=== PATIENT | female | born 1945 | race Caucasian/White ===

== ENCOUNTER → 2017-05-02 15:16 | Outpatient (CLI) | payer MEDICARE, SELFPAY | PROVIDERS: Visit Provider Obstetrics & Gynecology | DX: Z12.4 Encounter for screening for malignant neoplasm of cervix (principal) | CPT/HCPCS: 88175; G0145 ==

== ENCOUNTER → 2017-08-11 16:44 | Outpatient (CLI) | payer MEDICARE, SELFPAY ==
--- NOTE | 2017-08-11 14:15 | CYSPIN_PTH ---
PATIENT: BARBI HERNANDEZ LOC: [facility] U#:[id number] AGE/SX: 79/F ROOM: RE08/11/[address]: JENNIE Carrizales : 1945 BED: DIS: SPEC #: [id number] RECD: 08/12/17 08:38 STATUS: ANANTH JANEL #: [id number] STACY: 08/11/17 14:[address]: Alisha Rios NP DEPT: CYTOLOGY RECD BY: Damian Patrick Tissues: Urine Procedures: Pap Stain (control) Special Stain Group II Cytospin Fluid HEADER OPERATION: Not noted PRE-OP DIAGNOSIS: Hematuria TISSUE SUBMITTED: Urine for cytology DIAGNOSIS CYTOLOGY Urine for cytology (cytospin): Atypical urothelial cells present. AM:be 08/15/17 COMMENT The findings are nonspecific and could represent a variety of conditions including infection, urolithiasis, instrumentation and low grade urothelial neoplasm. Clinical correlation is necessary. Case has been reviewed in consultation with Dr. Olivas who concurs with the above diagnosis. IDC:[facility] CYTOLOGY STUDY Slides are reviewed. CYTOLOGY GROSS Received is 15 ml of clear yellow fluid labeled with the patient's name and and designated per the requisition as urine. Submitted for cytology preparation. 08/12/17 TC:? CPT: 87167
[2017-08-11 16:49] LABS: Cytology, Body Fluid / CSF SEE PATHOLOGY REPORT
== END ==
PROVIDERS: Visit Provider Nurse Practitioner Adult Health
DX: R31.9 Hematuria, unspecified (principal)
CPT/HCPCS: 88108; 88313

== ENCOUNTER → 2017-08-25 07:07 | Outpatient (CLI) | payer MEDICARE, SELFPAY ==
--- NOTE | 2017-08-25 07:09 | CT_ITS ---
STUDY: CT ABDOMEN AND PELVIS WITHOUT CONTRAST REASON FOR EXAM: Female, 71 years old. Right renal mass. History of MARIANNA/BSO, cholecystectomy and aortic valve replacement. RADIATION DOSAGE (If Supplied By Facility): CTDIvol = ( 23.37 ) mGy, DLP = ( 1202.66 ) mGycm TECHNIQUE: Transaxial images were obtained from the dome of the diaphragm to the symphysis pubis without oral contrast, and without intravenous contrast. Sagittal and coronal images were reconstructed. Individualized dose optimization techniques were used for this CT. COMPARISON: None. FINDINGS: The visualized lung bases are unremarkable. Calcified granulomata of the liver. There are surgical clips in the gallbladder fossa consistent with a prior cholecystectomy. There are multiple benign calcified granulomata of the spleen. There is diffuse atrophy of the pancreas. Normal bilateral adrenal glands. 1.6 cm mass of the anterior midpole of the right kidney lower in density than unenhanced renal parenchyma with wall calcification suggested. Otherwise normal right kidney. Chronic hydronephrosis of the left kidney with a staghorn calculus filling the renal pelvis measuring 1.7 x 2.0 x 2.5 cm. There are additional 2 and 3 mm nonobstructing stones in the lower pole. The remainder of the ureter is nondistended with no additional ureteral stones. Normal visualized stomach. Normal small intestine. Minimal diverticulosis of the colon without evidence of acute diverticulitis. The appendix is visualized and appears normal. Minimal calcified plaque of the aorta. Normal inferior vena cava. Normal retroperitoneum. Nondistended urinary bladder There is absence of the uterus consistent with a prior hysterectomy. 5.4 x 2.9 x 3.1 cm fatty umbilical hernia. There are diffuse degenerative changes of the visualized lumbar spine. CT/Abdomen/Pelvis without Cont IMPRESSION: 1.6 cm mass of the anterior midpole of the right kidney lower in density than unenhanced renal parenchyma with wall calcifications suggested. Comparison to any prior films for growth is recommended. Ultrasound characteristics and contrast CT exam may be helpful to further characterize the lesion if not already available. 1.7 x 2.0 x 2.5 cm staghorn calculus fills the left renal pelvis with chronic advanced hydronephrosis of the left kidney. Negative for other ureteral stones. 2 and 3 mm nonobstructing stones in the lower pole of the left kidney. Minimal diverticulosis. Minimal aortic calcification. 5.4 x 2.9 x 3.1 cm fatty umbilical hernia. Status post hysterectomy. Status post cholecystectomy. Calcified granuloma the liver and spleen. Atrophy of the pancreas. Electronically Signed: Anju Koenig MD at 19:47 EDT , Service support ,
== END ==
PROVIDERS: Family Provider Internal Medicine; PCP Internal Medicine; Visit Provider Nurse Practitioner Adult Health
DX: R31.1 Benign essential microscopic hematuria (principal)
CPT/HCPCS: 74176

== ENCOUNTER 2017-09-01 11:49 | Day surgery (SDC) | payer MEDICARE, SELFPAY ==
[2017-09-01] VITALS (8 sets, daily range): BP systolic 122–160; BP diastolic 54–91; PULSE 48–74; RESP 16–18; TEMP 35.9–36.5; O2SAT 94–100; BMI 45.6
[2017-09-01] MEDS: Cefazolin 2 GM in 0.9% Normal Saline 100 ML IV (13:17)
--- NOTE | 2017-09-01 13:43 | PCM.DC.URO ---
Discharge Diet: Light diet - advance as tolerated Discharge Activity: Return to Normal Activity Allergies/Adverse Reactions: Allergies bisacodyl [From Dulcolax (bisacodyl)] Allergy (Verified 08/31/17 08:29) Rash sulfamethoxazole [From Bactrim] Allergy (Verified 08/31/17 08:29) Hives trimethoprim [From Bactrim] Allergy (Verified 08/31/17 08:29) Hives SURGICAL TAPE Allergy (Uncoded 08/31/17 08:29) Rash Medications to take at Discharge Calcium Carb/Vitamin D [Caltrate-600 With Vit D Tab] 1 tab PO DAILY@0800 02/25/14 Lutein 6 mg PO DAILY 02/25/14 Multivit-Min/Folic Acid/Biotin [Hair, Skin and Nails Caplet] 1 each PO DAILY 02/25/14 Ascorbic Acid [Vitamin C] 500 mg PO DAILY 08/31/17 Aspirin [Aspir-Low] 81 mg PO DAILY 08/31/17 Atorvastatin Calcium [Lipitor] 20 mg PO QHS 08/31/17 Ergocalciferol [Vitamin D] 50,000 unit PO Q7D 08/31/17 Ferrous Sulfate [Iron] 325 mg PO DAILY 08/31/17 Levothyroxine Sodium [Synthroid] 112 mcg PO DAILY 08/31/17 Metoprolol Tartrate [Lopressor (Beta Edin)] 12.5 mg PO BID 08/31/17 Ubidecarenone/Vit E Acetate [Co Q-10 100 mg Softgel] 1 each PO QHS 08/31/17 Phenazopyridine [Pyridium] 100 mg PO BID PRN PRN #20 tab 09/01/17 The following prescriptions were given: Phenazopyridine [Pyridium] 100 mg PO BID PRN PRN #20 tab PRN Reason: BURNING. Primary Care Physician: Indira Eason [Primary Care Provider] - Test Results: Test results from this visit will be discussed in further detail at your follow-up appointment, if applicable. Please Follow Up With: Kevyn Whitley MD When: OFFICE WILL CALL TO SET UP SURGERY FOR STONE
--- NOTE | 2017-09-01 13:46 | OP.PCM_ITS ---
Report of Operation Date of Procedure: 09/01/17 Pre-Operative Diagnosis: Left hydronephrosis from large obstructing calculi Post-Operative Diagnosis: Same Surgery/Procedure Performed:: Cystoscopy left retrograde pyelogram left stent placement Description of Surgical Findings:: 71-year-old female was found to have hydronephrosis on the left kidney by ultrasound CAT scan performed which demonstrated a large stone blocking the left kidney with severe hydronephrosis. She has a large stone and will need percutaneous removal of the stone for now we will place a stent to alleviate the obstruction and then plan for interval removal of the stone in the near future. 71-year-old female taken back to the operating room at the smooth induction of general anesthesia she was placed supine on the table the legs in dorsal lithotomy position the urethra and vaginal area were prepped and draped in usual sterile fashion, went into the bladder with a 21 Kiswahili rigid cystourethroscope the entire bladder was normal the trigone was normal as the urethra is normal I cannulated the left ureteral orifice with a Pollack catheter advanced up to the kidney performed a retrograde pyelogram, and see the stone in the UPJ fairly large 3 cm stone with obstruction. I then advanced a wire up to the left kidney over the wire place a stent stent coiled in the kidney and bladder good position drain the bladder patient's anesthetic was reversed taken back to PACU in good condition plan to set her up for left percutaneous access and percutaneous removal of a left staghorn calculus. Type of Anesthesia:: General Drains: STENT - Admit VTE Documentation VTE Present on Admission: No VTE Mechan Device Prophylaxis: SCD's VTE Pharm Prophylaxis ordered?: No Reason prophylaxis not ordered:: Treatment Not Indicated
== END 2017-09-01 16:27 | disposition home or self-care (01) ==
LOC: SDC 11:49 → AC 11:53
PROVIDERS: Family Provider Internal Medicine; PCP Internal Medicine; Visit Provider Urology
PROC: (CPT 52332; principal; 2017-09-01 14:10)
DX: N13.2 Hydronephrosis with renal and ureteral calculous obstruction (principal); E03.9 Hypothyroidism, unspecified; I10 Essential (primary) hypertension; Z95.2 Presence of prosthetic heart valve; I25.10 Atherosclerotic heart disease of native coronary artery without angina pectoris; Z95.1 Presence of aortocoronary bypass graft; Z85.828 Personal history of other malignant neoplasm of skin; Z85.89 Personal history of malignant neoplasm of other organs and systems; Z79.899 Other long term (current) drug therapy; Z79.82 Long term (current) use of aspirin; E78.2 Mixed hyperlipidemia; E66.01 Morbid (severe) obesity due to excess calories; Z68.42 Body mass index [BMI] 45.0-49.9, adult
CPT/HCPCS: 00910; 52332; 76000; J7120; C1769; C2617; J2405

== ENCOUNTER 2017-09-21 08:12 | Day surgery (SDC) | payer MEDICARE, SELFPAY ==
[2017-09-21] VITALS (10 sets, daily range): BP systolic 151–165; BP diastolic 58–90; PULSE 46–74; RESP 16–18; TEMP 35.7–36.2; O2SAT 95–100; BMI 47.2
--- NOTE | 2017-09-21 08:00 | RAD_ITS ---
STUDY: X-RAY - ABDOMEN/PELVIS REASON FOR EXAM: Female, 71 years old. Left ureteral stent. Pre-ESWL. TECHNIQUE: Two AP supine views of the abdomen and pelvis. COMPARISON: Comparison is made with prior CT scan and abdomen dated August 25, 2017. FINDINGS: Normal visualized lung bases. There is an unremarkable bowel gas pattern. A left-sided double-J stent catheter seen. The proximal portion is in the left renal pelvis and the distal portion is in the left side of the bladder. No renal or ureteral calcification is seen at this time. Normal soft tissue structures. There are diffuse degenerative changes of the visualized lumbar spine. RAD/Abdomen Single View IMPRESSION: No abnormal renal or ureteral calcification is seen. Left sided ureteral stent. Electronically Signed: Kevin Jack MD at 8:32 EDT Tel [phone], Service support ,
[2017-09-21] MEDS: Cefazolin 2 GM in 0.9% Normal Saline 100 ML IV (09:35)
--- NOTE | 2017-09-21 10:43 | PCM.DC.URO ---
Discharge Diet: Light diet - advance as tolerated Discharge Activity: Return to Normal Activity Instructions: Shock Wave Lithotripsy Allergies/Adverse Reactions: Allergies bisacodyl [From Dulcolax (bisacodyl)] Allergy (Verified 09/21/17 08:54) Rash sulfamethoxazole [From Bactrim] Allergy (Verified 09/21/17 08:54) Hives trimethoprim [From Bactrim] Allergy (Verified 09/21/17 08:54) Hives SURGICAL TAPE Allergy (Uncoded 09/21/17 08:54) Rash Medications to take at Discharge Calcium Carb/Vitamin D [Caltrate-600 With Vit D Tab] 1 tab PO DAILY@0800 02/25/14 Lutein 6 mg PO DAILY 02/25/14 Multivit-Min/Folic Acid/Biotin [Hair, Skin and Nails Caplet] 1 each PO DAILY 02/25/14 Ascorbic Acid [Vitamin C] 500 mg PO DAILY 08/31/17 Atorvastatin Calcium [Lipitor] 20 mg PO QHS 08/31/17 Ergocalciferol [Vitamin D] 50,000 unit PO Q7D 08/31/17 Ferrous Sulfate [Iron] 325 mg PO DAILY 08/31/17 Levothyroxine Sodium [Synthroid] 112 mcg PO DAILY 08/31/17 Metoprolol Tartrate [Lopressor (beta johann)] 12.5 mg PO BID 08/31/17 Ubidecarenone/Vit E Acetate [Co Q-10 100 mg Softgel] 1 each PO QHS 08/31/17 Ciprofloxacin [Cipro] 500 mg PO BID #10 tab 09/21/17 Hydrocodone/Acetaminophen [[place] 5-325 Tablet] 1 ea PO Q4H PRN PRN 7 Days #14 tab 09/21/17 The following prescriptions were given: Hydrocodone/Acetaminophen [[place] 5-325 Tablet] 1 ea PO Q4H PRN PRN 7 Days #14 tab PRN Reason: Pain Ciprofloxacin [Cipro] 500 mg PO BID #10 tab Primary Care Physician: Indira Eason [Primary Care Provider] - Test Results: Test results from this visit will be discussed in further detail at your follow-up appointment, if applicable. Please Follow Up With: Kevyn Whitley MD When: next week with xray
--- NOTE | 2017-09-21 10:47 | OP.PCM_ITS ---
Report of Operation Date of Procedure: 09/21/17 Pre-Operative Diagnosis: Large left kidney stone Post-Operative Diagnosis: Same Surgery/Procedure Performed:: Cystoscopy and left stent change, and left ESWL, left retrograde pyelogram. Description of Surgical Findings:: 71-year-old female who has elected to proceed with shockwave lithotripsy for her very large stone in the left kidney she understands this may require multiple treatments and was agreeable with this she does not want to have a percutaneous approach to her kidney because of the risk of bleeding and loss of kidney fistula formation and other complications that could occur even though the rare patient refused to do this so we will proceed with shockwave lithotripsy she understands this may require multiple procedures. 71-year-old female taken back to the operating room after smooth induction of general anesthesia she was placed supine on the table on fluoroscopy we noticed that the stone was in the renal pelvis fairly large stone and the stent was not in the most proper position. We first started with shockwave lithotripsy and delivered 3000 shockwaves at the stone at a rate of 90 with good change of the stone but stone was still visible at the end of treatment she will need more treatments. Power is up to 5-6. At the end of the treatment cycle we then went in the bladder with a cystoscope grabbed the existing stent but a wire of the stent and then try to advance the stent up the wire but it would coil so then I pulled the stent out we did a retrograde pyelogram could see the anatomy there is some narrowing at the UPJ junction I then put a stiffer wire up into the kidney and over the stiffer wire advanced a 6 Amharic by 28 cm stent this stent fortunately coiled in the kidney right next to the stone and down the ureter in good position left the string of the stent for extraction later on but this point should quite need another treatment will see her next week with a KUB to see the progress of the stone breakage. Type of Anesthesia:: General Drains: stent 28cm 6 fr - Admit VTE Documentation VTE Present on Admission: No VTE Mechan Device Prophylaxis: SCD's VTE Pharm Prophylaxis ordered?: No Reason prophylaxis not ordered:: Treatment Not Indicated
[2017-09-21] MEDS: HYDROcodone Bitartrate/Apap 5/325 Tablet PO (13:02)
== END 2017-09-21 14:30 | disposition home or self-care (01) ==
LOC: SDC 08:13 → AC 08:14
PROVIDERS: Family Provider Internal Medicine; PCP Internal Medicine; Visit Provider Urology
PROC: (CPT 50590; principal; 2017-09-21 09:40)
DX: N20.0 Calculus of kidney (principal); I51.9 Heart disease, unspecified; I15.8 Other secondary hypertension; E78.2 Mixed hyperlipidemia; Z79.82 Long term (current) use of aspirin; Z79.899 Other long term (current) drug therapy; Z85.828 Personal history of other malignant neoplasm of skin; Z85.44 Personal history of malignant neoplasm of other female genital organs; Z95.1 Presence of aortocoronary bypass graft; Z95.2 Presence of prosthetic heart valve; E07.9 Disorder of thyroid, unspecified
CPT/HCPCS: 50590; 52332; 74018; J7120; A4216; C1769; J2405

== ENCOUNTER → 2017-09-29 08:23 | Outpatient (CLI) | payer MEDICARE, SELFPAY ==
--- NOTE | 2017-09-29 08:28 | RAD_ITS ---
STUDY: X-RAY - ABDOMEN/PELVIS REASON FOR EXAM: Female, 71 years old. Lithotripsy on the left TECHNIQUE: 2 views COMPARISON: September 22, 2007 FINDINGS: There is an unremarkable bowel gas pattern. There is no demonstrated free abdominal air. There is a left ureteral stent in place which has be repositioned with the proximal loop at the left renal shadow. No suspicious calcifications over the renal shadows. Surgical clips in the right upper quadrant. Normal soft tissue structures. Normal visualized osseous structures. RAD/Abdomen Single View IMPRESSION: Left ureteral stent in place. Electronically Signed: Geoff Velazquez DO at 22:06 EDT Tel [phone], Service support ,
== END ==
PROVIDERS: Family Provider Internal Medicine; PCP Internal Medicine; Visit Provider Urology
DX: N20.0 Calculus of kidney (principal)
CPT/HCPCS: 74018

== ENCOUNTER 2017-10-05 11:56 | Day surgery (SDC) | payer MEDICARE, SELFPAY ==
[2017-10-05 12:22] VITALS: BP 134/89; PULSE 81; RESP 16; TEMP 36.8; O2SAT 98; BMI 47.0
[2017-10-05] MEDS: Cefazolin 2 GM in 0.9% Normal Saline 100 ML IV (15:08)
--- NOTE | 2017-10-05 16:04 | PCM.OPRPT ---
Report of Operation Date of Procedure: 10/05/17 Pre-Operative Diagnosis: Left renal calculi large status post first stage ESWL Post-Operative Diagnosis: Same Surgery/Procedure Performed:: Left extracorporeal shockwave lithotripsy second stage procedure Description of Surgical Findings:: 71-year-old female who had a very large stone in her left kidney she is elected to undergo shockwave lithotripsy she understands this may take several treatments today were to do a second stage treatment. She has a stent currently in good position. 71-year-old female taken back to the operating room at the smooth induction of general anesthesia she was placed supine on the table the shadow of stone was then visualized under fluoroscopy and we delivered 3000 shockwaves to the stone at a rate of 90 power from 5-7 kV. Completed 3000 treatments at the end still could see the shadow of stone I think at this point we done with the second treatment to see her back with an x-ray next week we will pull out the stent and follow-up with a CAT scan. She understands possible she may need more treatments of the stones are not broken up completely.
[2017-10-05 16:07] VITALS: BP 134/89; BP 139/75; PULSE 74; RESP 18; TEMP 36.3; O2SAT 95
--- NOTE | 2017-10-05 16:07 | PCM.DC.URO ---
Discharge Diet: Light diet - advance as tolerated Discharge Activity: Return to Normal Activity Call your doctor if you observe: Fever of 101 or Higher Instructions: Shock Wave Lithotripsy Additional Instructions: tyelonol and ibuprofen or advil for pain. AZO OTC for burning with urination. Push Fluids Allergies/Adverse Reactions: Allergies bisacodyl [From Dulcolax (bisacodyl)] Allergy (Verified 09/21/17 08:54) Rash sulfamethoxazole [From Bactrim] Allergy (Verified 09/21/17 08:54) Hives trimethoprim [From Bactrim] Allergy (Verified 09/21/17 08:54) Hives SURGICAL TAPE Allergy (Uncoded 09/21/17 08:54) Rash Medications to take at Discharge Calcium Carb/Vitamin D [Caltrate-600 With Vit D Tab] 1 tab PO DAILY@0800 02/25/14 Lutein 6 mg PO DAILY 02/25/14 Multivit-Min/Folic Acid/Biotin [Hair, Skin and Nails Caplet] 1 each PO DAILY 02/25/14 Ascorbic Acid [Vitamin C] 500 mg PO DAILY 08/31/17 Atorvastatin Calcium [Lipitor] 20 mg PO QHS 08/31/17 Ergocalciferol [Vitamin D] 50,000 unit PO Q7D 08/31/17 Ferrous Sulfate [Iron] 325 mg PO DAILY 08/31/17 Levothyroxine Sodium [Synthroid] 112 mcg PO DAILY 08/31/17 Metoprolol Tartrate [Lopressor (beta johann)] 12.5 mg PO BID 08/31/17 Ubidecarenone/Vit E Acetate [Co Q-10 100 mg Softgel] 1 each PO QHS 08/31/17 Hydrocodone/Acetaminophen [[place] 5-325 Tablet] 1 ea PO Q4H PRN PRN 7 Days #14 tab 09/21/17 Primary Care Physician: Indira Eason [Primary Care Provider] - Test Results: Test results from this visit will be discussed in further detail at your follow-up appointment, if applicable. Please Follow Up With: Kevyn Whitley MD When: in 2 weeks, please call to make an appointment.
[2017-10-05 16:15] VITALS: BP 134/89; BP 144/64; PULSE 71; RESP 18; O2SAT 97
[2017-10-05 16:30] VITALS: BP 127/58; BP 134/89; PULSE 62; RESP 16; O2SAT 97
[2017-10-05 16:37] VITALS: BP 134/89; BP 139/72; PULSE 64; RESP 16; TEMP 36.6; O2SAT 100
[2017-10-05] MEDS: Ketorolac 15 MG/ML Vial IV (17:05)
[2017-10-05 17:47] VITALS: BP 119/76; BP 134/89; PULSE 62; RESP 18; TEMP 36.3; O2SAT 97
== END 2017-10-05 18:01 | disposition home or self-care (01) ==
LOC: SDC 11:57 → AC 11:58
PROVIDERS: Family Provider Internal Medicine; PCP Internal Medicine; Visit Provider Urology
PROC: (CPT 50590; principal; 2017-10-05 15:10)
DX: N20.0 Calculus of kidney (principal); Z85.828 Personal history of other malignant neoplasm of skin; Z85.44 Personal history of malignant neoplasm of other female genital organs; E07.9 Disorder of thyroid, unspecified; Z79.899 Other long term (current) drug therapy; Z95.2 Presence of prosthetic heart valve; I10 Essential (primary) hypertension
CPT/HCPCS: 50590; J7120; J2405

== ENCOUNTER → 2017-10-31 11:23 | Outpatient (CLI) | payer MEDICARE, SELFPAY ==
[2017-11-04 08:56] LABS: HPV APTIMA, High Risk Negative (Negative)
== END ==
PROVIDERS: Visit Provider Obstetrics & Gynecology
DX: Z12.4 Encounter for screening for malignant neoplasm of cervix (principal)
CPT/HCPCS: 88175; G0145

== ENCOUNTER → 2017-11-04 07:41 | Outpatient (CLI) | payer MEDICARE, SELFPAY ==
--- NOTE | 2017-11-04 07:44 | CT_ITS ---
STUDY: CT ABDOMEN AND PELVIS WITHOUT CONTRAST REASON FOR EXAM: Female, 72 years old. Left flank pain. Follow-up after the lithotripsy RADIATION DOSAGE (If Supplied By Facility): CTDIvol = ( 33.67 ) mGy, DLP = ( 1980.25 ) mGycm TECHNIQUE: Transaxial images were obtained from the dome of the diaphragm to the symphysis pubis without oral contrast, and without intravenous contrast. Sagittal and coronal images were reconstructed. Individualized dose optimization techniques were used for this CT. COMPARISON: None. FINDINGS: The visualized lung bases are unremarkable. Calcified granulomata of the liver. There are surgical clips in the gallbladder fossa consistent with a prior cholecystectomy. There are multiple benign calcified granulomata of the spleen. There is diffuse atrophy of the pancreas. Normal bilateral adrenal glands. 1.6 cm mass of the anterior midpole of the right kidney lower in density than renal parenchyma with wall calcification suggested consistent with hemorrhagic cyst. Otherwise normal right kidney. Resolved hydronephrosis of the left kidney with resolved staghorn stone. There are residual nonobstructing stone fragments in the lower pole the largest measures 9 mm in diameter. The remainder of the ureter is nondistended with no additional ureteral stones. Normal visualized stomach. Normal small intestine. Minimal diverticulosis of the colon without evidence of acute diverticulitis. The appendix is visualized and appears normal. Minimal calcified plaque of the aorta. Normal inferior vena cava. Normal retroperitoneum. Nondistended urinary bladder There is absence of the uterus consistent with a prior hysterectomy. 5.4 x 2.9 x 3.1 cm fatty umbilical hernia. There are diffuse degenerative changes of the visualized lumbar spine. CT/Abdomen/Pelvis without Cont IMPRESSION: 1.6 cm hemorrhagic cyst in the right kidney. Resolved hydronephrosis of the left kidney with resolved staghorn stone. There are residual nonobstructing stone fragments in the lower pole the largest measures 9 mm in diameter. Electronically Signed: Eleno Nicole MD at 8:01 EDT Tel , Service support ,
== END ==
PROVIDERS: Family Provider Internal Medicine; PCP Internal Medicine; Visit Provider Urology
DX: N20.0 Calculus of kidney (principal)
CPT/HCPCS: 74176

== ENCOUNTER 2017-11-23 08:33 | Day surgery (SDC) | payer MEDICARE, SELFPAY ==
[2017-11-23 08:58] VITALS: BP 145/76; PULSE 64; RESP 18; TEMP 36.4; O2SAT 100; BMI 50.2
[2017-11-23] MEDS: Cefazolin 2 GM in 0.9% Normal Saline 100 ML IV (10:17)
--- NOTE | 2017-11-23 11:26 | DCINST_ITS ---
Discharge Diet: Light diet - advance as tolerated Discharge Activity: Return to Normal Activity Instructions: Treating Kidney Stones: Ureteroscopic Stone Removal Allergies/Adverse Reactions: Allergies bisacodyl [From Dulcolax (bisacodyl)] Allergy (Verified 11/16/17 08:12) Rash sulfamethoxazole [From Bactrim] Allergy (Verified 11/16/17 08:12) Hives trimethoprim [From Bactrim] Allergy (Verified 11/16/17 08:12) Hives SURGICAL TAPE Allergy (Uncoded 09/21/17 08:54) Rash Medications to take at Discharge Calcium Carb/Vitamin D [Caltrate-600 With Vit D Tab] 1 tab PO DAILY@0800 02/25/14 Lutein 6 mg PO DAILY 02/25/14 Multivit-Min/Folic Acid/Biotin [Hair, Skin and Nails Caplet] 1 each PO DAILY 02/25/14 Ascorbic Acid [Vitamin C] 500 mg PO DAILY 08/31/17 Atorvastatin Calcium [Lipitor] 20 mg PO QHS 08/31/17 Ergocalciferol [Vitamin D] 50,000 unit PO Q7D 08/31/17 Levothyroxine Sodium [Synthroid] 112 mcg PO DAILY 08/31/17 Metoprolol Tartrate [Lopressor (beta johann)] 25 mg PO BID 08/31/17 Ubidecarenone/Vit E Acetate [Co Q-10 100 mg Softgel] 1 each PO QHS 08/31/17 Aspirin E.C. [Ecotrin] 81 mg PO DAILY@0800 11/16/17 Phenazopyridine [Pyridium] 100 mg PO TID #14 tab 11/23/17 The following prescriptions were given: Phenazopyridine [Pyridium] 100 mg PO TID #14 tab Primary Care Physician: Indira Eason [Primary Care Provider] - Test Results: Test results from this visit will be discussed in further detail at your follow- up appointment, if applicable. Please Follow Up With: Kevyn Whitley MD When: please call to make an appointment.
--- NOTE | 2017-11-23 11:29 | OP.PCM_ITS ---
Report of Operation Date of Procedure: 11/23/17 Pre-Operative Diagnosis: Left multiple large renal calculi stage related p rocedure status post 2 shockwave lithotripsies Post-Operative Diagnosis: Same Surgery/Procedure Performed:: Cystoscopy, left ureteroscopy laser lithotripsy of stones in the renal pelvis multiple and large, left stent placement, dilation of ureter and placement of access sheath. Description of Surgical Findings:: 72-year-old female who has a history of a very large stone in the left kidney underwent shockwave lithotripsy x2, she now proceed with ureteroscopy and laser of the remaining fragments in the left kidney. She understands that she will need a stent afterwards. 72-year-old female taken back to the operating room at the smooth induction of general anesthesia she was placed supine on the table in the dorsolithotomy position within the bladder with a 21 Pakistani rigid cystourethroscope cannulated the left ureteral orifice advanced a wire all the way up to the kidney and over the wire advanced and access sheath into the kidney incising the kidney then proceeded with laser lithotripsy she had multiple large fragments in the upper pole of the pelvis in the midpole of the kidney took about 45 minutes to laser these fragments with a 30 W laser energy settings were point to a point for joules at 15 and 20 Hz to entire laser procedure at the end of the 45 minutes and laser the stone little tiny pieces that should all pass on her own work my way down the ureter no injury or trauma to the ureter itself left the wire in place and then over the wire place a stent 6 Pakistani by 26 cm stent once the stent was in good position then left the string on the stent for extraction and then about a week drain the bladder patient anesthetic was reversed taken to see me next week for stent removal. Also can start on potassium citrate to dissolve more the stone fragments. Type of Anesthesia:: General Drains: stent - Admit VTE Documentation VTE Present on Admission: No VTE Mechan Device Prophylaxis: SCD's
[2017-11-23 11:35] VITALS: BP 128/72; BP 145/76; PULSE 70; RESP 16; TEMP 35.8; O2SAT 98
[2017-11-23 11:45] VITALS: BP 142/72; BP 145/76; PULSE 60; RESP 16; O2SAT 97
[2017-11-23 12:00] VITALS: BP 137/54; BP 145/76; PULSE 60; RESP 16; O2SAT 99
[2017-11-23 12:05] VITALS: BP 145/76; BP 156/80; PULSE 55; RESP 16; TEMP 35.8; O2SAT 100
[2017-11-23 12:53] VITALS: BP 145/76
== END 2017-11-23 13:16 | disposition home or self-care (01) ==
LOC: SDC 08:34 → AC 08:35
PROVIDERS: Family Provider Internal Medicine; PCP Internal Medicine; Referring Provider Urology; Visit Provider Urology
PROC: 0TJ98ZZ Inspection of Ureter, Via Natural or Artificial Opening Endoscopic (ICD-10-PCS; CPT 52352; principal; 2017-11-23 10:15)
DX: N20.0 Calculus of kidney (principal); Z85.828 Personal history of other malignant neoplasm of skin; Z85.44 Personal history of malignant neoplasm of other female genital organs; E78.00 Pure hypercholesterolemia, unspecified; Z79.899 Other long term (current) drug therapy; Z79.82 Long term (current) use of aspirin; I10 Essential (primary) hypertension; Z95.2 Presence of prosthetic heart valve
CPT/HCPCS: 52356; J7120; C1758; C1769; C2617; J2405

== ENCOUNTER → 2017-12-01 10:38 | Outpatient (CLI) | payer MEDICARE, SELFPAY ==
--- NOTE | 2017-12-01 10:40 | BI_ITS ---
MAMMOGRAPHY - BILATERAL SCREENING 3-D RENATO SYNTHESIS REASON FOR EXAM: Female, 72 years old. Bilateral Screening 3-D tomosynthesis PERTINENT HISTORY: Asymptomatic. Heart surgery 2016. History endometrial carcinoma 2014. No significant family history. TECHNIQUE: 2-D mammograms and 3-D Renato synthesis of the breast (s) were performed. CAD was performed. COMPARISON: 11/10/2016, 08/19/2015. FINDINGS: The breast composition is almost entirely fat. Scattered benign appearing calcifications are seen. No dense spiculated dominant masses or suspicious microcalcification cluster are identified. No new architectural distortion, asymmetric density, adenopathy, skin thickening or nipple retraction identified. BI/SCREENING MAMM (CAD), BILAT IMPRESSION: No mammographic sign of malignancy. Routine yearly mammograms recommended. ASSESSMENT CATEGORY: BIRADS Category 2: Benign. A letter regarding these results will be sent to the patient by the facility within 30 days. FOLLOW UP RECOMMENDATION: Yearly follow up mammogram recommended. (A) Negative mammographic results should not deter biopsy as any palpable lesion if present should be followed based on clinical grounds and biopsy performed if clinically persistent for 3 months or increasing size. Approximately 10% of breast cancers are not detected by mammography. A normal mammogram should not delay biopsy of a clinically suspicious abnormality. Dense breast tissue may obscure neoplasm. Electronically Signed: Osvaldo Lee, at 20:39 EDT Tel , Service support ,
== END ==
PROVIDERS: Family Provider Internal Medicine; PCP Internal Medicine; Visit Provider Obstetrics & Gynecology
DX: Z12.31 Encounter for screening mammogram for malignant neoplasm of breast (principal)
CPT/HCPCS: 77063; 77067

== ENCOUNTER 2021-05-11 17:57 | Inpatient (IN) | payer MEDICARE, SELFPAY ==
[2021-05-11 17:58] VITALS: BP 173/110; PULSE 84; RESP 16; TEMP 36.6; O2SAT 100; BMI 52.7
--- NOTE | 2021-05-11 19:05 | EDS_ITS ---
HPI History of Present Illness Chief Complaint: Wound Informant: patient Onset/Context/Timing Onset: Weeks Narrative Narrative: Patient presents for evaluation of left leg wound. On April 11 she had an I&D of 2 abscesses to the medial left thigh at [facility]. She has been following with the wound center here in town. The note from last Tuesday documents she had just finished Keflex and the wounds were debrided in the office. Patient states the area around the wounds became more painful and itchy over the weekend. She does have a tape allergy and is not sure if the irritation and increased redness is from the tape or if she has an infection. She denies fever or chills. [facility] Medical History Abscess of left thigh Aortic stenosis CAD (coronary artery disease) HTN (hypertension) Nonhealing surgical wound Obesity Home Medications levothyroxine [Synthroid] 112 mcg PO DAILY 08/31/17 [History Last Taken 11/23/17] levofloxacin 500 mg PO DAILY 05/11/21 [History Last Taken Unknown] metoprolol succinate 50 mg PO DAILY 05/11/21 [History Last Taken Unknown] Allergy/AdvReac Type Severity Reaction Status Date / Time bisacodyl Allergy Rash Verified 05/11/21 17:58 [From Dulcolax (bisacodyl)] sulfamethoxazole Allergy Hives Verified 05/11/21 17:58 [From Bactrim] trimethoprim [From Bactrim] Allergy Hives Verified 05/11/21 17:58 SURGICAL TAPE Allergy Rash Uncoded 05/11/21 17:58 Surgical History Status post incision and drainage Social History Smoking Status: Never smoker ROS ROS ED Constitutional Constitutional ED: Denies chills or fever(s) Eyes Eyes: Denies change in vision ENT ENT ED: Denies sore throat Cardiovascular Cardiovascular: Denies chest pain Respiratory/Chest Respiratory/Chest: Denies cough or dyspnea Gastrointestinal Gastrointestinal: Denies abdominal pain, nausea or vomiting Genitourinary Genitourinary ED: Denies dysuria Musculoskeletal Musculoskeletal: Denies back pain Integumentary Reports other Details: Draining wound medial left thigh ; Denies rash Neurologic Neurologic: Denies headache(s) or weakness Allergic/Immunologic Allergic/Immunologic ED: Denies urticaria EXAM Physical Exam Const Vital Signs: 05/11/21 17:58 05/11/21 22:22 Temperature 97.8 F Temperature Source Temporal Pulse Rate 84 70 Respiratory Rate 16 16 Blood Pressure 173/110 H 154/83 H Blood Pressure Mean 131 106 Pulse Ox 100 97 Oxygen Delivery Method Room Air Room Air Positive obese Nutritional Appearance: obese HEENT Reports moist mucous membranes Eyes PERRL and EOMs intact bilaterally Neck supple Chest Wall inspection of chest normal and palpation of chest normal Resp normal respiratory effort and clear to auscultation bilaterally Cardio regular rate and regular rhythm GI non-tender Palpation: soft Extremity Extremity Narrative: Two draining surgical sites to the medial left thigh. Surrounding erythema measuring 15 x 15 cm. Neuro oriented x3 Sensorium / Orientation: alert MDM MDM MDM Narrative Medical decision making narrative: Lab work and blood cultures obtained. Wound culture ordered. CT scan of the left lower extremity ordered. Lab Data Attestation: I reviewed the patient's lab results. Labs: Laboratory Results - last 24 hr 05/11/21 05/11/21 19:20 19:20 WBC 7.5 RBC 3.58 L Hgb 10.8 L Hct 32.0 L MCV 89.4 MCH 30.2 MCHC 33.8 RDW Std Deviation 50.4 H RDW Coeff of Humbreto 15.2 H Plt Count 174 MPV 9.1 Immature Gran % (Auto) 0.500 Neut % (Auto) 82.6 H Lymph % (Auto) 8.8 L [place] % (Auto) 6.5 Eos % (Auto) 1.3 Baso % (Auto) 0.3 Absolute Neuts (auto) 6.2 Absolute Lymphs (auto) 0.66 L Nucleated RBC % 0 Sodium 137 Potassium 4.0 Chloride 108 H Carbon Dioxide 24.0 Anion Gap 5 BUN 35 H Creatinine 1.21 H Estim Creat Clear Calc 34.25 Est GFR (MDRD) Af Amer 56 L Est GFR (MDRD) Non-Af 46 L BUN/Creatinine Ratio 28.9 H Glucose 148 H Calcium 9.1 Radiography Diagnostic Testing: Clinical Impression(s) from Imaging Studies Lower Extremity CT 05/11/21 20:10 IMPRESSION: Extensive and severe subcutaneous soft tissue swelling and edema with skin thickening as well as a sinus tract as above with underlying suspected abscess formations Electronically Signed: Piter Crowe DO at 21:04 EDT , Treatment and Re-Evaluation Narrative: Patient's lab work is unremarkable. CT scan does show extensive subcutaneous soft tissue swelling and edema. There are 2 underlying areas that are suspected to be abscesses, 1 measuring 4.5 cm in diameter and one measuring 3.3 cm in diameter. These are deep to the previous I&D location. Test results were discussed with the patient. She did agree for transfer back to [facility] to the surgeon who had done her previous procedure. We were informed by the transfer center that both the surgeon and hospitalist were refusing the transfer stating that we should bill to take care of an abscess here and they did not want to cut the patient back in transfer. I spoke with Dr. Gamboa who will be glad to see the patient in consult tomorrow. She is given Zosyn and vancomycin at this time. I will speak with hospitalist regarding admission. Of note, patient initially thought the erythema around the wounds was secondary to the tape that he been placed on her dressing. The wound has been left open throughout her ED stay and erythema is still present if not slightly worsened from time of initial evaluation. Discharge Plan Triage Chief Complaint: Wound ED Provider: Felicita Sewell Dx/Rx/DC Orders Clinical Impression: Abscess of left leg, Cellulitis Prescriptions: No Action levothyroxine [Synthroid] 112 MCG tablet 112 mcg PO DAILY RF: 0 metoprolol succinate 50 mg tablet extended release 24 hr 50 mg PO DAILY RF: 0 levofloxacin 500 mg tablet 500 mg PO DAILY RF: 0 Primary Care Provider: Indira Eason Referrals: Indira Eason MD [Primary Care Provider] - Disposition Disposition: Acute Care Hospital [facility]
[2021-05-11 19:44] LABS: Absolute Lymphocyte Count 0.66 X10^3/uL (0.83-4.51); Absolute Neutrophil Count 6.2 X10^3/uL (2.0-7.7); Basophil# 0.02 X10^3/uL; Basophil% 0.3 % (0-1); Eosinophils% 1.3 % (0-5); Hemoglobin 10.8 g/dL (12.0-15.0); Lymphocyte # 0.66 X10^3/ul (0.83-4.51); Lymphocyte % 8.8 % (19-41); Mean Corp Hgb Conc 33.8 g/dL (32-36); Mean Corpuscular Hgb 30.2 pg (27.0-32.0); Mean Corpuscular Volume 89.4 fL (81-99); Mean Platelet Vol. 9.1 fl (6.2-12.0); Monocyte# 0.49 X10^3/uL; Monocyte% 6.5 % (0-10); NRBC Flagged by Analyzer 0 % (0-5); Neutrophil # 6.23 X10^3/uL (2.7-7.7); Neutrophil % 82.6 % (47-70); Platelet Count 174 K/mm3 (150-450); RBC Distribution Width CV 15.2 % (11.6-14.6); RBC Distribution Width SD 50.4 fl (35.1-43.9); Red Blood Count 3.58 M/mm3 (4.2-5.4); White Blood Count 7.5 K/mm3 (4.4-11.0)
[2021-05-11 20:00] LABS: Anion Gap 5 (5-15); BUN 35 mg/dL (7-18); BUN/Creat Ratio 28.9 RATIO (10-20); Calcium,Total 9.1 mg/dL (8.5-10.1); Chloride 108 mmol/L (98-107); Creatinine, Serum 1.21 mg/dL (0.55-1.02); EST Glomerular Filtration Rate 46 mL/min (>60); Est Glom Filt Rate - Afr Amer 56 mL/min (>60); Estimated Creatinine Clearance 34.25 ml/min; Glucose 148 mg/dL (74-106); Sodium Level 137 mmol/L (136-145)
--- NOTE | 2021-05-11 20:10 | CT_ITS ---
STUDY: CT LEFT FEMUR WITHOUT CONTRAST REASON FOR EXAM: Female, 75 years old. left thigh abscess RADIATION DOSAGE (If Supplied By Facility): CTDIvol = ( 25.88 ) mGy, DLP = ( 1392.31 ) mGycm TECHNIQUE: Transaxial CT imaging of the femur was performed. Sagittal and coronal images were reconstructed. Individualized dose optimization techniques were used for this CT. COMPARISON: None. FINDINGS: Within the medial soft tissues of the upper right thigh, there is extensive subcutaneous soft tissue swelling or edema extensive skin thickening as well as a sinus tract to the skin surface containing air. Deep to this level, there is a suspected abscess measuring roughly 4.5 x 4.6 cm with a more chronic appearing mildly hyperdense fluid collection and bilobed appearance measuring 3.3 x 3.2 cm. No evidence of deep extension of the muscle bodies. Normal osseous structures. CT/Extremity Lower WITH Contrast IMPRESSION: Extensive and severe subcutaneous soft tissue swelling and edema with skin thickening as well as a sinus tract as above with underlying suspected abscess formations Electronically Signed: Piter Crowe DO at 21:04 EDT ,
[2021-05-11 22:22] VITALS: BP 154/83; PULSE 70; RESP 16; O2SAT 97
--- NOTE | 2021-05-11 23:31 | HP.PCM_ITS ---
Documented by User: Kenna Santos NP-C 05/11/21 23:44 HPI - General General Date of Admission: 05/11/21 Date of Service: 05/11/21 Chief Complaint: Left thigh wound HPI Narrative BARBI HERNANDEZ, is a 75 F who presents with increased redness around a left thigh wound. Patient states that she had an abscess which was surgically debrided and drained at [facility] approximately 3 weeks ago. ER physician notified [facility] and the surgeon refused to take the patient back. ER physician notified Dr. Gamboa who is willing to accept patient and will see her tomorrow morning. Patient states that over the past few days she has noted increased redness around the wound and originally thought it was irritation to the tape however it has not improved and she states that the area is itching worse and worse every day. Patient denies any pain to the area. Patient reports her only medical history as hypothyroidism and hypertension. 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 HTN (hypertension) Hypothyroidism Localized adiposity of thigh Lymphangitis of lower extremity Nonhealing surgical wound Obesity Home Medications levothyroxine [Synthroid] 112 mcg PO DAILY 08/31/17 [History Last Taken 05/11/21] metoprolol succinate 50 mg PO DAILY 05/11/21 [History Last Taken 05/11/21] diazepam [Valium] 5 mg PO BID PRN 7 Days #14 tab 05/15/21 [Rx Last Taken Unknown] doxycycline hyclate 100 mg PO BID #28 tab 05/15/21 [Rx Last Taken Unknown] oxycodone-acetaminophen [Percocet] 1 tab PO Q4H PRN 7 Days #40 tab 05/15/21 [Rx Last Taken Unknown] metronidazole 500 mg PO Q8H 10 Days #30 tab 05/25/21 [Rx Last Taken Unknown] Allergy/AdvReac Type Severity Reaction Status Date / Time bisacodyl Allergy Rash Verified 05/11/21 17:58 [From Dulcolax (bisacodyl)] sulfamethoxazole Allergy Hives Verified 05/11/21 17:58 [From Bactrim] trimethoprim [From Bactrim] Allergy Hives Verified 05/11/21 17:58 SURGICAL TAPE Allergy Rash Uncoded 05/11/21 17:58 Surgical History (Updated 05/23/21 @ 00:02 by Tiffany Menendez) H/O aortic valve replacement History of thyroidectomy Hx of cholecystectomy S/P CABG x 2 Status post incision and drainage Social History Smoking Status: Never smoker ROS Constitutional Constitutional: Denies anorexia, chills, fatigue, fever(s), malaise or weakness Cardiovascular Cardiovascular: Reports edema; Denies chest pain, palpitations or syncope Respiratory/Chest Respiratory/Chest: Denies cough, shortness of breath at rest, shortness of breath with exertion or wheezing Gastrointestinal Gastrointestinal: Denies abdominal pain, constipation, diarrhea, nausea or vomiting Genitourinary Genitourinary: Denies dysuria Musculoskeletal Musculoskeletal: Denies back pain, extremity pain, joint pain or joint stiffness Integumentary Integumentary: Reports wounds; Denies dry skin Neurologic Neurologic: Denies abnormal gait, abnormal speech, confusion, dizziness or focal weakness Psychiatric Psychiatric: Denies anxiety or depression Endocrine Endocrinology: Denies change in body appearance Hematologic/Lymphatic Hematologic/Lymphatic: Denies anemia Vital Signs Vital Signs Vital Signs: 05/11/21 17:58 05/11/21 22:22 Temperature 97.8 F Temperature Source Temporal Pulse Rate 84 70 Respiratory Rate 16 16 Blood Pressure 173/110 H 154/83 H Blood Pressure Mean 131 106 Pulse Ox 100 97 Oxygen Delivery Method Room Air Room Air Weight Weight: 297 lb 6.457 oz Body Mass Index (BMI) 52.7 Physical Exam Const alert, oriented x3 and no apparent distress General Appearance: cooperative HEENT normocephalic and head/scalp atraumatic Eyes conjunctivae normal and no scleral icterus Neck no lymphadenopathy and supple General: trachea midline Resp normal respiratory effort, normal air movement and clear to auscultation bilaterally Cardio regular rate, regular rhythm, S1 normal heart sound, S2 normal heart sound and peripheral pulses 2+ throughout GI normal to inspection, nondistended, normoactive bowel sounds, soft to palpation and non-tender Extremity normal capillary refill General Extremity: edema bilateral lower extremity and no tenderness to palpation of joints or extremities Skin Skin Narrative: Postsurgical drainage wound to inner left thigh with large area of erythema that is warm to the touch. General Skin Exam: turgor normal Wounds: wounds noted Neuro no focal motor deficits and no sensory deficits noted Speech: speech normal Motor Exam: Negative for general weakness Psych thought process normal, cooperative and affect normal Appearance: appropriate Results Lab / Micro Data Result Diagrams: 05/15/21 06:05 05/15/21 06:05 Labs: Laboratory Results - last 24 hr 05/11/21 19:20: WBC 7.5, RBC 3.58 L, Hgb 10.8 L, Hct 32.0 L, MCV 89.4, MCH 30.2, MCHC 33.8, RDW Std Deviation 50.4 H, RDW Coeff of Humberto 15.2 H, Plt Count 174, MPV 9.1, Immature Gran % (Auto) 0.500, Neut % (Auto) 82.6 H, Lymph % (Auto) 8.8 L, Lea % (Auto) 6.5, Eos % (Auto) 1.3, Baso % (Auto) 0.3, Absolute Neuts (auto) 6.2, Absolute Lymphs (auto) 0.66 L, Nucleated RBC % 0 05/11/21 19:20: Sodium 137, Potassium 4.0, Chloride 108 H, Carbon Dioxide 24.0, Anion Gap 5, BUN 35 H, Creatinine 1.21 H, Estim Creat Clear Calc 34.25, Est GFR (MDRD) Af Amer 56 L, Est GFR (MDRD) Non-Af 46 L, BUN/Creatinine Ratio 28.9 H, Glucose 148 H, Calcium 9.1 Radiology Impression Lower Extremity CT 05/11/21 20:10 IMPRESSION: Extensive and severe subcutaneous soft tissue swelling and edema with skin thickening as well as a sinus tract as above with underlying suspected abscess formations Electronically Signed: Piter Crowe DO at 21:04 EDT , Assessment & Plan Assessment/Plan (1) Abscess of left leg: (2) HTN (hypertension): QUALIFIERS: Hypertension type: primary hypertension Qualified Code(s): I10 - Essential (primary) hypertension (3) Nonhealing surgical wound: QUALIFIERS: Encounter type: initial encounter Qualified Code(s): T81.89XA - Other complications of procedures, not elsewhere classified, initial encounter (4) Obesity: QUALIFIERS: Body mass index: BMI 50.0-59.9 Obesity classification: adult class 3 (BMI >= 40) Obesity type: unspecified obesity type Serious obesity comorbidity presence: with serious comorbidity Qualified Code(s): E66.01 - Morbid (severe) obesity due to excess calories; Z68.43 - Body mass index [BMI] 50.0-59.9, adult (5) Hypothyroidism: QUALIFIERS: Hypothyroidism type: postoperative Qualified Code(s): E89.0 - Postprocedural hypothyroidism PLAN: 1. Left leg abscess secondary to nonhealing surgical wound -Admit to [facility] -Consult plastic surgery, case discussed with Dr. Gamboa by ER physician, will see patient tomorrow -Vancomycin and Zosyn ordered, initiated in ER -Consult wound nurse -Consult case management for coordination with home health upon discharge -Elevate left lower extremity -Encourage incentive spirometry -Every 2 hour patient positioning while in bed -Dry sterile dressing change every 8 hours pending wound nurse consult -CBC, BMP daily -Pain management regimen ordered including Tylenol and oxycodone 2. Acute kidney injury -Unknown patient's baseline BUN and creatinine -only lab comparison available from 02/25/2014 demonstrates reduced function at that time -Daily BMP ordered -Normal saline 60 mL/h 3. Hypertension -Vital signs per protocol, currently stable -Continue metoprolol 4. Hypothyroidism secondary to removal of thyroid -Continue levothyroxine -TSH in a.m. 5. Morbid obesity, BMI 50-54.9 -Encourage lifestyle modification diet and exercise -Dietitian consulted DVT prophylaxis-SCDs This patient was seen by Kenna Santos NP-C under the supervision of Dr. Kate. 31 minutes spent in clinical coordination of patient's plan of care. Documented by User: Dr. 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 HTN (hypertension) Hypothyroidism Localized adiposity of thigh Lymphangitis of lower extremity Nonhealing surgical wound Obesity Home Medications levothyroxine [Synthroid] 112 mcg PO DAILY 08/31/17 [History Last Taken 05/11/21] metoprolol succinate 50 mg PO DAILY 05/11/21 [History Last Taken 05/11/21] diazepam [Valium] 5 mg PO BID PRN 7 Days #14 tab 05/15/21 [Rx Last Taken Unknown] doxycycline hyclate 100 mg PO BID #28 tab 05/15/21 [Rx Last Taken Unknown] oxycodone-acetaminophen [Percocet] 1 tab PO Q4H PRN 7 Days #40 tab 05/15/21 [Rx Last Taken Unknown] metronidazole 500 mg PO Q8H 10 Days #30 tab 05/25/21 [Rx Last Taken Unknown] Allergy/AdvReac Type Severity Reaction Status Date / Time bisacodyl Allergy Rash Verified 05/11/21 17:58 [From Dulcolax (bisacodyl)] sulfamethoxazole Allergy Hives Verified 05/11/21 17:58 [From Bactrim] trimethoprim [From Bactrim] Allergy Hives Verified 05/11/21 17:58 SURGICAL TAPE Allergy Rash Uncoded 05/11/21 17:58 Surgical History (Updated 05/23/21 @ 00:02 by Tiffany Menendez) H/O aortic valve replacement History of thyroidectomy Hx of cholecystectomy S/P CABG x 2 Status post incision and drainage Social History Smoking Status: Never smoker Results Lab / Micro Data Result Diagrams: 05/15/21 06:05 05/15/21 06:05 Charges/Coding Addendum Addendum: seen and examined agree with above assessment and plan
[2021-05-12] VITALS (9 sets, daily range): BP systolic 122–163; BP diastolic 64–79; PULSE 58–69; RESP 15–18; TEMP 36.6–37; O2SAT 97–100; BMI 52.0
--- NOTE | 2021-05-12 01:04 | PCM.RX.CS ---
Consult Pharmacy has been consulted to manage selected antiobiotic: Vancomycin Type of Consult: New start Suspected Infection: Skin/Soft tissue Prior Doses of Antibiotics Received/Current Regimen: Medications Vancomycin HCl 1,250 mg/ (Sodium Chloride) 275 mls @ 167 mls/hr IV Q24H WESLEY Discontinued Medications Vancomycin HCl 2,000 mg/ (Sodium Chloride) 540 mls @ 250 mls/hr IV X1 ONE Stop: 05/12/21 00:08 Last Admin: 05/11/21 23:04 Dose: 250 mls/hr Labs: Sodium 137 mmol/L (136-145) 05/11/21 19:20 Potassium 4.0 mmol/L (3.5-5.1) 05/11/21 19:20 Chloride 108 mmol/L (98-107) H 05/11/21 19:20 Carbon Dioxide 24.0 mmol/L (21.0-32.0) 05/11/21 19:20 Anion Gap 5 (5-15) 05/11/21 19:20 BUN 35 mg/dL (7-18) H 05/11/21 19:20 Creatinine 1.21 mg/dL (0.55-1.02) H 05/11/21 19:20 Est GFR (MDRD) Af Amer 56 mL/min (>60) L 05/11/21 19:20 Est GFR (MDRD) Non-Af 46 mL/min (>60) L 05/11/21 19:20 BUN/Creatinine Ratio 28.9 RATIO (10-20) H 05/11/21 19:20 Glucose 148 mg/dL (74-106) H 05/11/21 19:20 Weight used for dosin.9 kg Estimated Creatinine Clearance: 34 Goal Trough: 10-15 mcg/mL Pharmacy Plan for Drug Dosing: Pharmacy Service will continue to monitor and adjust dosing as required. Follow-Up Labs: Trough Vancomycin Labs to be done on [date and time ordered]: 05/13/21 @9612
[2021-05-12] MEDS: 0.9% Normal Saline 1,000 ML 60 ML IV ×2 (01:57→18:27)
[2021-05-12] MEDS: Piperacil/Tazobactam 3.375 GM/50 ML ML IV ×3 (05:06→23:00)
[2021-05-12] MEDS: Levothyroxine 112 MCG Tablet PO (05:09)
--- NOTE | 2021-05-12 06:00 | EKG12_ITS ---
Test Reason : PRE-OP Blood Pressure : / mmHG Vent. Rate : 065 BPM Atrial Rate : 065 BPM P-R Int : 146 ms QRS Dur : 086 ms QT Int : 420 ms P-R-T Axes : 035 -01 060 degrees QTc Int : 436 ms Normal sinus rhythm Normal ECG Confirmed by KEVIN MUNGUIA, CAROLANN ([id number]), continuity editor LOIDA ALFREDO ([id number]) on 05/13/2021 8:56:56 AM Referred By: IRAIS Confirmed By:CAROLANN BROWN MD
[2021-05-12 06:15] LABS: Absolute Lymphocyte Count 0.66 X10^3/uL (0.83-4.51); Absolute Neutrophil Count 3.6 X10^3/uL (2.0-7.7); Basophil# 0.01 X10^3/uL; Basophil% 0.2 % (0-1); Eosinophil# 0.09 X10^3/uL; Eosinophils% 1.8 % (0-5); Hematocrit 29.8 % (37-47); Lymphocyte # 0.66 X10^3/ul (0.83-4.51); Lymphocyte % 13.6 % (19-41); Mean Corp Hgb Conc 33.6 g/dL (32-36); Mean Corpuscular Hgb 31.1 pg (27.0-32.0); Mean Corpuscular Volume 92.5 fL (81-99); Monocyte# 0.46 X10^3/uL; Monocyte% 9.4 % (0-10); NRBC Flagged by Analyzer 0 % (0-5); Neutrophil # 3.61 X10^3/uL (2.7-7.7); Neutrophil % 74.2 % (47-70); Platelet Count 150 K/mm3 (150-450); RBC Distribution Width CV 15.4 % (11.6-14.6); RBC Distribution Width SD 52.2 fl (35.1-43.9); Red Blood Count 3.22 M/mm3 (4.2-5.4); White Blood Count 4.9 K/mm3 (4.4-11.0)
[2021-05-12 06:25] LABS: International Normalized Ratio 1.2; Prothrombin Time (Protime)PT. 14.6 SECONDS (11.7-14.9)
[2021-05-12 06:26] LABS: Partial Thromboplast Time 34.6 Seconds (24.1-36.2)
[2021-05-12 06:57] LABS: Anion Gap 5 (5-15); BUN 27 mg/dL (7-18); BUN/Creat Ratio 25.2 RATIO (10-20); Calcium,Total 8.6 mg/dL (8.5-10.1); Chloride 110 mmol/L (98-107); Creatinine, Serum 1.07 mg/dL (0.55-1.02); EST Glomerular Filtration Rate 53 mL/min (>60); Est Glom Filt Rate - Afr Amer 65 mL/min (>60); Estimated Creatinine Clearance 38.74 ml/min; Glucose 132 mg/dL (74-106); Potassium 3.8 mmol/L (3.5-5.1); Sodium Level 137 mmol/L (136-145)
[2021-05-12] MEDS: Metoprolol(XL)Succ 50 MG Tablet PO (09:09)
--- NOTE | 2021-05-12 09:20 | WOUNDNOTE ---
wound photo: left medial thigh
--- NOTE | 2021-05-12 10:34 | CASEMGMT ---
Addendum entered by Anne-Marie Navarro 05/12/21 10:54: Wound vac is through [employer], pt reports she has it in the room. Original Note: ÓGMEZ LINDA Assessment: Face to Face with pt for initial transition planning/care coordination assessment. GÓMEZ LINDA introduced self and role at [facility], pt voices understanding and consents to assessment. Pt is A/O x4 and answers all questions appropriately at this time. Pt sitting up in chair in no distress. Care providers, pharmacy, and demographics verified/updated. Admitting Dx: left inner thigh wound PCP:[facility] Specialists:Pt states she sees Tony Tubbs FUNERAL SERVICE APPRENTICE at the [facility]. Preferred Pharmacy:[facility] Insurance: [facility] Prescription Benefit: yes LW/HPOA: Pt denies having a LW/DPOA and denies need for info regarding AD. LNOK: Leta Tubbs, friend Living Arrangements: Pt lives alone in a ground level apt with 4 steps to enter with a rail on both sides. Pt reports she is I in ADL's. She states she has sponged bathed since having her wounds and needing the wound vac. Transportation: Pt drives self and denies concerns with transportation. DME/HHC/SNF: Pt has a walker that she has loaned to a friend. She has grab bars in the shower and a shower bench. Pt is current with [facility] receiving SN services. Received tc from Meghan Smith stating [facility] called to make aware they were active with pt. Pt has been to [facility] in the past. Pt states no concerns with going home at time of dc. She is pleased with [facility] services and will continue to use. Pt states no further concerns/needs. CM to follow. Advised pt to ask CM if any further question/concerns/needs arise, voices understanding. Pt Goal[facility] Plan: Home with resumption of [facility]
--- NOTE | 2021-05-12 13:02 | PN.HOSP_ITS ---
Subjective Subjective Patient seen and examined. She had no active complaints. She had no significant pain at site of abscess on left thigh. Review of systems otherwise negative. Objective Data Objective Data Vital Signs: Vital Signs Temp Pulse Resp BP Pulse Ox 98.0 F 68 16 151/65 H 100 05/12/21 08:59 05/12/21 09:09 05/12/21 08:59 05/12/21 08:59 05/12/21 08:59 Oxygen Delivery Method Room Air Weight: 293 lb 10.491 oz Body Mass Index (BMI) 52.0 Intake & Output: Intake and Output for Last 24 Hours 05/10/21 05/11/21 05/12/21 23:59 23:59 23:59 Intake Total 50 / 50 590 / 590 Balance 50 / 50 590 / 590 Lab / Micro Data Result Diagrams: 05/12/21 05:55 05/12/21 05:55 Labs: Laboratory Results - last 24 hr 05/11/21 19:20: WBC 7.5, RBC 3.58 L, Hgb 10.8 L, Hct 32.0 L, MCV 89.4, MCH 30.2, MCHC 33.8, RDW Std Deviation 50.4 H, RDW Coeff of Humberto 15.2 H, Plt Count 174, MPV 9.1, Immature Gran % (Auto) 0.500, Neut % (Auto) 82.6 H, Lymph % (Auto) 8.8 L, Bee % (Auto) 6.5, Eos % (Auto) 1.3, Baso % (Auto) 0.3, Absolute Neuts (auto) 6.2, Absolute Lymphs (auto) 0.66 L, Nucleated RBC % 0 05/11/21 19:20: Sodium 137, Potassium 4.0, Chloride 108 H, Carbon Dioxide 24.0, Anion Gap 5, BUN 35 H, Creatinine 1.21 H, Estim Creat Clear Calc 34.25, Est GFR (MDRD) Af Amer 56 L, Est GFR (MDRD) Non-Af 46 L, BUN/Creatinine Ratio 28.9 H, Glucose 148 H, Calcium 9.1 05/12/21 05:55: WBC 4.9, RBC 3.22 L, Hgb 10.0 L, Hct 29.8 L, MCV 92.5, MCH 31.1, MCHC 33.6, RDW Std Deviation 52.2 H, RDW Coeff of Humberto 15.4 H, Plt Count 150, MPV 9.0, Immature Gran % (Auto) 0.800, Neut % (Auto) 74.2 H, Lymph % (Auto) 13.6 L, Bee % (Auto) 9.4, Eos % (Auto) 1.8, Baso % (Auto) 0.2, Absolute Neuts (auto) 3.6, Absolute Lymphs (auto) 0.66 L, Nucleated RBC % 0 05/12/21 05:55: Sodium 137, Potassium 3.8, Chloride 110 H, Carbon Dioxide 22.0, Anion Gap 5, BUN 27 H, Creatinine 1.07 H, Estim Creat Clear Calc 38.74, Est GFR (MDRD) Af Amer 65, Est GFR (MDRD) Non-Af 53 L, BUN/Creatinine Ratio 25.2 H, Glucose 132 H, Calcium 8.6, TSH 13.30 H 05/12/21 05:55: PT 14.6, INR 1.2, APTT 34.6 Micro: Microbiology 05/11/21 19:45 Wound Abcess - Leg, Left Gram Stain - Final Radiography Diagnostic Testing: Radiology Impression Lower Extremity CT 05/11/21 20:10 IMPRESSION: Extensive and severe subcutaneous soft tissue swelling and edema with skin thickening as well as a sinus tract as above with underlying suspected abscess formations Electronically Signed: Piter Crowe DO at 21:04 EDT Reading Location ID and State: [address] [place] [address] Tel , Service support , Physical Exam Const alert, oriented x3 and no apparent distress Exam Limitations: no limitations Nutritional Appearance: morbidly obese HEENT head/scalp atraumatic and moist oral mucous membranes Head and Scalp: normocephalic Eyes PERRL, EOMs intact bilaterally and conjunctivae normal Neck no lymphadenopathy, supple and no JVD Resp normal respiratory effort, no retractions, no use of accessory muscles and clear to auscultation bilaterally Cardio regular rate, regular rhythm, S1 normal heart sound, S2 normal heart sound and no murmurs GI normal to inspection, nondistended, normoactive bowel sounds, soft to palpation, non-tender and non-distended Extremity Extremity Narrative: has intact dressing over inner portion of left thigh, where abscess is Peripheral Pulses: Yes pulses 2+ throughout Skin Skin Narrative: as under extremities Neuro CN's II-XII intact bilaterally and moves all extremities Sensorium / Orientation: awake and alert Psych affect normal Assessment & Plan Assessment/Plan (1) Abscess of left leg: (2) Cellulitis: PLAN: #Cellulitis of the LLE with abscess formation * on IV vancomycin and zosyn. * plastic surgery consulted; await rec's * wound culture ordered * had previous I&D done at [facility] for the same abscess and wound hasnt fully healed * on oxycodone and tylenol * #Elevated Cr: * Cr was 1.21 on admission * baseline CR is 1, so doesnt meet criteria for SHARMAINE. * Cr down to 1.07 #Hypertension; on metoprolol #Hypothyroidism: on synthroid. TSH is 13.3. Will check free T4 #SUper morbid obesity * complicates acute care, expected recovery and prognosis * DVT prophylaxis: lovenox Charges/Coding Visit Charges Inpatient E&M: 90040 Subs Hosp L2
--- NOTE | 2021-05-12 22:03 | CON.PCM_ITS ---
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 Patient states the redness and drainage just occurred a few days ago. Her last appointment from the Wound Center was on 05/06/21. The redness wasn't there at that time. With the rapidity of her symptomatology, I suspect another abscess that wasn't drained the first time which was confirmed by a CT scan which showed an abscess pocket deep to the ulcerations. Recommend incision and drainage and excisional debridement of this recurrent left medial thigh abscess. Will dissect down to the muscle and fascia to make sure of its viability. With the patient's obesity, there is excessive skin and subcutaneous tissue in this area with localized adiposity. So in addition to the incision and drainage of the multiple abscesses, there was difficulty in the wound care with the VAC because of the need for white foam because of the inability to see the base of the ulcerations. Will also proceed with a dermolipectomy of her left medial thigh down to muscle which should make the wound care with the VAC less problematic. Will schedule the surgery for tomorrow under general anesthesia. Will leave the wound open and proceed with wound care with the VAC. She will followup at the Wound Center after discharge. Anticipate increased metabolic demands from the infection. Will encourage nutri tional supplementation with protein to help the healing process. Because of the amount of lymphedema in her lower extremities, healing will be slow. Once the wound gets more superficial, we can proceed with delayed closure with skin grafting. However if there is still a edema problem, I don't want to skin graft the ulceration just to watch it fail because of too much edema that gets between the wound bed and the skin graft and leads to disruption of the neovascularization. This is not an easy problem to fix but at least in the short term, we can control the drainage which may give the wound a chance to heal. Patient was informed of the risks and complications of the procedure including alternatives to surgery. These were discussed with the patient personally. Patient voices understanding and wishes to proceed. We discussed the current risks associated with COVID-19. While it is understood that there is a community spread of COVID-19, the risk of luc COVID-19 while at [facility] ([facility]) is very low; however, the risk cannot be completely mitigated because of the community spread of the disease. We discussed in detail the risk of exposure to and/or potential harm posed by the COVID-19 virus with having a surgery/procedure at this time versus the risk of delaying the surgery/procedure. It is not possible to know either the risk of delaying the surgery or procedure or chance of getting an infection with perfect accuracy, but a joint decision was made to proceed at this time with the scheduled surgery/procedure as indicated on the consent form. Patient was notified that we will need to comply with any screening or testing [facility] wishes to perform or that surgery may be delayed for any positive results. HPI Consult Data Date of Consult: 05/14/21 PCP / Referring MD: Dr. Indira Eason MD/Dr. Scott Kate MD Attending Care Provider: Dr. Myra Lee MD HPI Narrative Reason for Consultation: left medial thigh abscess HPI Narrative: BARBI HERNANDEZ is a 75 F who presented to the ED with increased pain and redness and swelling involving her left medial thigh that has worsened over the past few days. Patient states that she had an abscess in this area which was surgically debrided and drained at [facility] in [place] approximately 3 weeks ago. Patient denies any fever. She denies trauma. In the ED, her WBC was normal at 7.5. Her Hgb was 10.8. She was started on IV antibiotics with Vancomycin and Zosyn. Wound cultures were obtained in the ED. CT Left lower extremity was done. It showed the presence of another abscess deeper to the ones that were drained in [place]. I was asked to evaluate this patient for surgical options for treatment. [facility] Medical History (Updated 05/14/21 @ 21:[address] 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 HTN (hypertension) Localized adiposity of thigh Lymphangitis of lower extremity Nonhealing surgical wound Obesity Home Medications levothyroxine [Synthroid] 112 mcg PO DAILY 08/31/17 [History Last Taken 05/11/21] levofloxacin 500 mg PO DAILY 05/11/21 [History Last Taken 05/11/21] metoprolol succinate 50 mg PO DAILY 05/11/21 [History Last Taken 05/11/21] Allergy/AdvReac Type Severity Reaction Status Date / Time bisacodyl Allergy Rash Verified 05/11/21 17:58 [From Dulcolax (bisacodyl)] sulfamethoxazole Allergy Hives Verified 05/11/21 17:58 [From Bactrim] trimethoprim [From Bactrim] Allergy Hives Verified 05/11/21 17:58 SURGICAL TAPE Allergy Rash Uncoded 05/11/21 17:58 Surgical History (Updated 05/13/21 @ 13:[address] Axel Gamboa MD) H/O aortic valve replacement History of thyroidectomy Hx of cholecystectomy S/P CABG x 2 Status post incision and drainage Social History Smoking Status: Never smoker ROS ROS Narrative Constitutional: Denies anorexia, chills, fatigue, fever(s), malaise or weakness Cardiovascular: Reports edema; Denies chest pain, palpitations or syncope Respiratory/Chest: Denies cough, shortness of breath at rest, shortness of breath with exertion or wheezing Gastrointestinal: Denies abdominal pain, constipation, diarrhea, nausea or vomiting Genitourinary: Denies dysuria Musculoskeletal: Denies back pain, extremity pain, joint pain or joint stiffness Integumentary: Reports wounds; Denies dry skin Neurologic: Denies abnormal gait, abnormal speech, confusion, dizziness or focal weakness Psychiatric: Denies anxiety or depression Endocrinology: Denies change in body appearance Hematologic/Lymphatic: Denies anemia Physical Exam Narrative Const - alert, oriented x3 and no apparent distress HEENT - PERRL. EOMI. Neck - supple nontender. No cervical adenopathy. Resp - clear to auscultation bilaterally Cardio - regular rate, regular rhythm. GI - soft, nondistended. Extremities - FROM upper extremities. radial pulses are palpable. No axillary adenopathy. fingers are warm with good capillary refill. Edema bilateral lower extremity. Discoloration in the lower leg areas i ndicative of chronic venous insufficiency. On the left medial thigh is a large area of induration and redness and tenderness to palpation. There are two ulcerated areas from previous I&D procedures at [facility] in [place]. The redness is warm to the touch. Area of redness which includes the ulcerations measures 20 x 15 cm. No inguinal adenopathy. Dorsalis pedis pulses are palpable. Neuro - CN II - XII grossly intact. Psych - thought process normal, cooperative and affect normal. Lab / Micro Data Attestation: I reviewed the patient's lab results. Result Diagrams: 05/14/21 05:25 05/14/21 05:25 Labs: Laboratory Results - last 24 hr 05/12/21 05:55: WBC 4.9, RBC 3.22 L, Hgb 10.0 L, Hct 29.8 L, MCV 92.5, MCH 31.1, MCHC 33.6, RDW Std Deviation 52.2 H, RDW Coeff of Humberto 15.4 H, Plt Count 150, MPV 9.0, Immature Gran % (Auto) 0.800, Neut % (Auto) 74.2 H, Lymph % (Auto) 13.6 L, [place]iebach % (Auto) 9.4, Eos % (Auto) 1.8, Baso % (Auto) 0.2, Absolute Neuts (auto) 3.6, Absolute Lymphs (auto) 0.66 L, Nucleated RBC % 0 05/12/21 05:55: Sodium 137, Potassium 3.8, Chloride 110 H, Carbon Dioxide 22.0, Anion Gap 5, BUN 27 H, Creatinine 1.07 H, Estim Creat Clear Calc 38.74, Est GFR (MDRD) Af Amer 65, Est GFR (MDRD) Non-Af 53 L, BUN/Creatinine Ratio 25.2 H, Glucose 132 H, Calcium 8.6, TSH 13.30 H 05/12/21 05:55: PT 14.6, INR 1.2, APTT 34.6 Micro: Microbiology 05/11/21 19:45 Wound Abcess - Leg, Left Gram Stain - Final CT/Extremity Lower WITH Contrast IMPRESSION: Extensive and severe subcutaneous soft tissue swelling and edema with skin thickening as well as a sinus tract as above with underlying suspected abscess formations Electronically Signed: Piter Crowe, DO at 21:04 EDT , Procedure Criteria Type of Procedure Procedure Type: Elective Elective Risks - COVID COVID Risk Discussion: The surgeon/proceduralist and patient have discussed in detail the risk of exposure to and/or potential harm posed by the COVID-19 virus with having a surgery/procedure at this time versus the risk of delaying the surgery/procedure. It is not possible to know either the risk of delaying the surgery or procedure or chance of getting an infection with perfect accuracy, but a joint decision was made between the patient and the surgeon/proceduralist to proceed at this time with the scheduled surgery/procedure as indicated on the consent form. Charges/Coding Visit Charges Inpatient E&M: 85691 Init Hosp L2 (ICD-10 - L02.416, L97.122, I89.1, I89.0, E65, Z98.890, E66.9)
[2021-05-13] VITALS (14 sets, daily range): BP systolic 84–145; BP diastolic 58–104; PULSE 51–79; RESP 16; TEMP 36.1–37.2; O2SAT 95–100; BMI 52.0; BMI 51.8
[2021-05-13] MEDS: Piperacil/Tazobactam 3.375 GM/50 ML ML IV ×3 (05:05→21:06)
[2021-05-13 06:46] LABS: Absolute Lymphocyte Count 0.75 X10^3/uL (0.83-4.51); Absolute Neutrophil Count 3.2 X10^3/uL (2.0-7.7); Basophil# 0.02 X10^3/uL; Basophil% 0.4 % (0-1); Eosinophil# 0.12 X10^3/uL; Eosinophils% 2.6 % (0-5); Hemoglobin 8.9 g/dL (12.0-15.0); Lymphocyte # 0.75 X10^3/ul (0.83-4.51); Lymphocyte % 16.5 % (19-41); Mean Corpuscular Hgb 30.6 pg (27.0-32.0); Mean Corpuscular Volume 92.8 fL (81-99); Mean Platelet Vol. 8.7 fl (6.2-12.0); Monocyte# 0.45 X10^3/uL; Monocyte% 9.9 % (0-10); NRBC Flagged by Analyzer 0 % (0-5); Neutrophil # 3.19 X10^3/uL (2.7-7.7); Neutrophil % 70.2 % (47-70); Platelet Count 140 K/mm3 (150-450); RBC Distribution Width SD 51.2 fl (35.1-43.9); Red Blood Count 2.91 M/mm3 (4.2-5.4); White Blood Count 4.6 K/mm3 (4.4-11.0)
[2021-05-13 07:08] LABS: Anion Gap 4 (5-15); BUN 19 mg/dL (7-18); BUN/Creat Ratio 20.3 RATIO (10-20); Calcium,Total 7.9 mg/dL (8.5-10.1); Chloride 111 mmol/L (98-107); Creatinine, Serum 0.94 mg/dL (0.55-1.02); EST Glomerular Filtration Rate 62 mL/min (>60); Est Glom Filt Rate - Afr Amer 75 mL/min (>60); Estimated Creatinine Clearance 44.09 ml/min; Glucose 127 mg/dL (74-106); Potassium 3.8 mmol/L (3.5-5.1); Sodium Level 139 mmol/L (136-145)
[2021-05-13] MEDS: 0.9% Normal Saline 1,000 ML 60 ML IV ×2 (09:57→15:26)
[2021-05-13] MEDS: Metoprolol(XL)Succ 50 MG Tablet PO (09:57)
--- NOTE | 2021-05-13 11:30 | SOF_PTH ---
PATIENT: BARBI HERNANDEZ LOC: MS3 U#:[id number] AGE/SX: 75/F ROOM: WV313 RE05/11/[address]: Dr. Myra Lee MD : 1945 BED: 1 DIS: 05/15/2021 SPEC #: [id number] RECD: 05/13/21 14:04 STATUS: ANANTH RATLIFFGiovanni #: [id number] STACY: 05/13/21 11:[address]: Axel Gamboa DEPT: SURGICAL PATHOLOGY RECD BY: Joanne Jonas ENTERED: 05/14/21 07:40 SP TYPE: SOFT TISS OTHR DR: MD Dr. Axel Gamez MD Dr. Nana Yaa Koram, MD Dr. Paul Nielsen, MD Tissues: Soft tissues, NOS Procedures: Surgery Specimen Level IV Comments: @ Ordering doctor for SUIV edited from to @ by CORINNEOD at 05/14/21 1457 @ Submitting doctor edited from to @ by RGOOD at 05/14/21 1457 HEADER OPERATION: Surgical preparation left medial thigh with dermal lipectomy PRE-OP DIAGNOSIS: Abscess of left leg, cellulitis, nonhealing surgical wound TISSUE SUBMITTED: Left medial thigh MICROSCOPIC DIAGNOSIS Left medial thigh tissue: Skin with underlying tissue with focal ulceration, acute and chronic inflammation, granulation tissue reaction, foreign body giant cell reaction and fibrosis. SHAYY:be 05/15/2021 MICROSCOPIC DESCRIPTION Slides are reviewed. GROSS DESCRIPTION Received is one container labeled with the patient's name and not further designated. The specimen consists of a piece of skin with underlying tissue measuring 20 x 18 cm and up to 8 cm in thickness. The skin surface shows focal area of ulceration and congested areas. Sections reveal focal hemorrhagic area and focal cystic area filled with blood clot. Steam Flattener sections are submitted in four cassettes. / SHAYY:be 05/14/2021 TC:3 CPT: 83391
--- NOTE | 2021-05-13 11:40 | PN.HOSP_ITS ---
Subjective Subjective Patient seen and examined. She had no active complaints today and had an uneventful night. Review of systems otherwise negative. She is due for surgery today by plastic surgery. Pain is well controlled. Review of systems is otherwise negative. Objective Data Objective Data Vital Signs: Vital Signs Temp Pulse Resp BP Pulse Ox 98.1 F 68 16 142/78 H 99 05/13/21 09:44 05/13/21 09:57 05/13/21 09:44 05/13/21 09:44 05/13/21 09:44 Oxygen Delivery Method Room Air Weight: 292 lb 8.854 oz Body Mass Index (BMI) 51.8 Intake & Output: Intake and Output for Last 24 Hours 05/11/21 05/12/21 05/13/21 23:59 23:59 23:59 Intake Total 50 / 50 1905 / 1905 1030 / 1030 Balance 50 / 50 1905 / 1905 1030 / 1030 Lab / Micro Data Result Diagrams: 05/13/21 06:40 05/13/21 06:40 Labs: Laboratory Results - last 24 hr 05/13/21 06:40: WBC 4.6, RBC 2.91 L, Hgb 8.9 L, Hct 27.0 L, MCV 92.8, MCH 30.6, MCHC 33.0, RDW Std Deviation 51.2 H, RDW Coeff of Humberto 15.0 H, Plt Count 140 L, MPV 8.7, Immature Gran % (Auto) 0.400, Neut % (Auto) 70.2 H, Lymph % (Auto) 16.5 L, Creek % (Auto) 9.9, Eos % (Auto) 2.6, Baso % (Auto) 0.4, Absolute Neuts (auto) 3.2, Absolute Lymphs (auto) 0.75 L, Nucleated RBC % 0 05/13/21 06:40: Sodium 139, Potassium 3.8, Chloride 111 H, Carbon Dioxide 24.0, Anion Gap 4 L, BUN 19 H, Creatinine 0.94, Estim Creat Clear Calc 44.09, Est GFR (MDRD) Af Amer 75, Est GFR (MDRD) Non-Af 62, BUN/Creatinine Ratio 20.3 H, Glucose 127 H, Calcium 7.9 L Micro: Microbiology 05/11/21 19:45 Wound Abcess - Leg, Left Gram Stain - Final 05/11/21 19:45 Wound Abcess - Leg, Left Wound Culture - Preliminary Staphylococcus aureus Physical Exam Const alert, oriented x3 and no apparent distress General Appearance: cooperative Exam Limitations: no limitations Nutritional Appearance: morbidly obese HEENT normocephalic, head/scalp atraumatic and moist oral mucous membranes Head and Scalp: normocephalic Eyes PERRL, EOMs intact bilaterally, conjunctivae normal and no scleral icterus Neck no lymphadenopathy, supple and no JVD General: trachea midline Resp normal respiratory effort, normal air movement, no retractions, no use of accessory muscles and clear to auscultation bilaterally Cardio regular rate, regular rhythm, S1 normal heart sound, S2 normal heart sound, no murmurs and peripheral pulses 2+ throughout GI normal to inspection, nondistended, normoactive bowel sounds, soft to palpation, non-tender and non-distended Extremity normal capillary refill Extremity Narrative: has intact dressing over inner portion of left thigh, where abscess is General Extremity: edema bilateral lower extremity and no tenderness to palpation of joints or extremities Peripheral Pulses: Yes pulses 2+ throughout Skin Skin Narrative: as under extremities General Skin Exam: turgor normal Wounds: wounds noted Neuro CN's II-XII intact bilaterally, moves all extremities, no focal motor deficits and no sensory deficits noted Sensorium / Orientation: awake and alert Speech: speech normal Motor Exam: Negative for general weakness Psych thought process normal, cooperative and affect normal Appearance: appropriate Assessment & Plan Assessment/Plan (1) Abscess of left leg: (2) Cellulitis: PLAN: #Cellulitis of the LLE with abscess formation * on IV vancomycin and zosyn. * plastic surgery consulted; for I&D and debridement today * wound culture growing Staphylococcus aureus; sensitivities pending * had previous I&D done at [facility] for the same abscess and wound hasnt fully healed * on oxycodone and tylenol * #Elevated Cr: * Cr was 1.21 on admission * resolved. Cr is libby to 0.94 * #Hypertension; on metoprolol #Hypothyroidism: on synthroid. TSH is 13.3. Free T4 pending. Will adjust synthroid based on free t4 level #SUper morbid obesity * complicates acute care, expected recovery and prognosis * DVT prophylaxis: lovenox Charges/Coding Visit Charges Inpatient E&M: 10932 Subs Hosp L2
[2021-05-13 12:11] LABS: T4 Free Direct 1.23 ng/dL (0.76-1.46)
[2021-05-13] MEDS: Lidocaine 1% /Epi 1:100 (50ml) 50 ML VIAL (12:20)
--- NOTE | 2021-05-13 12:48 | PCM.OPRPT ---
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 Recurrent abscess ulcer left medial thigh. 2. Lymphangitis left medial thigh. 3. History of incision and drainage. 4. Lymphedema bilateral lower extremities. 5. Adiposity left medial thigh. 6. Obesity. Post-Operative Diagnosis: Same. Surgery/Procedure Performed:: Surgical preparation left medial thigh with dermolipectomy and incision and drainage and excisional debridement recurrent abscess ulcer (322 cm2). Description of Surgical Findings:: BARBI HERNANDEZ, is a 75 F who presented to the ED with increased pain and redness and swelling involving her left medial thigh that has worsened over the past few days. Patient states that she had an abscess in this area which was surgically debrided and drained at [facility] in [place] approximately 3 weeks ago. Patient denies any fever. She denies trauma. In the ED, her WBC was normal at 7.5. Her Hgb was 10.8. She was started on IV antibiotics with Vancomycin and Zosyn. Wound cultures were obtained in the ED. CT Left lower extremity was done. It showed the presence of another abscess deeper to the ones that were drained in [place]. I was asked to evaluate this patient for surgical options for treatment. Patient was informed of the risks and complications of the procedure including alternatives to surgery. These were discussed with the patient personally. Patient voices understanding and wishes to proceed. Size of defect left medial thigh - 23 x 14 x 6 cm. Surgeon: Axel Gamboa classifying machine operator: None Type of Anesthesia: General Specimen's removed: Left medial thigh recurrent soft tissue abscess ulcer to Pathology and Microbiology. Drains: None. Estimated Blood Loss (mL): 150. Description of Procedure: Patient was taken to OR in supine position and was placed under general anesthesia. The left medial thigh was prepped and draped in the usual fashion. SCD's were placed for DVT prophylaxis. Perioperative antibiotics were given intravenously. A bryant catheter was placed. Using xylocaine with epinephrine, the recurrent abscess ulcer was infiltrated. After waiting 5 minutes for the anesthetic to take effect, I proceeded with incision and drainage of the present abscess ulcers. Small amount of pus was seen. It was thickened pus which can be indicative of MRSA. Surrounding this recurrent abscess ulcer was extensive redness and firmness and induration. The presence of extensive fat necrosis is a risk for further infection. So a dermolipectomy was performed to remove this extensive fat necrosis. I also excised and debrided the overlying redness on the skin as well. I also excised down to the thigh musculature. I found a lot of scar tissue from her previous vein harvesting for her CABG. In the deeper layer of the subcutaneous tissue there was a fluid pocket with some pus that was drained. This fluid pocket corresponded to the finding on the CT. The pus found was a little thinner than the thickened pus found earlier in the debridement. The underlying muscle was pink and viable. The overlying muscular fascia was slightly edematous and appeared viable as well without evidence of a necrotizing process. Some of the tissue was sent to Pathology for analysis to rule out carcinoma and to Microbiology for culture. A positive culture will necessitate antibiotic therapy. Hemostasis was obtained with electrocautery. The wound was irrigated with saline. The size of the wound after incision and drainage and excisional debridement with dermolipectomy was 23 x 14 x 6 cm or 322 cm2. There was no more clinical evidence of further infection. The wound was dressed with Mepitel nonadherent dressing followed by Kerlix gauze and Betadine followed by dry Kerlix gauze and aBD pads. Lino wrap was then applied for compression. Patient tolerated the procedure well and was sent to PACU in satisfactory condition. Patient will be sent upstairs for continued postop care. The VAC will be placed tomorrow. After discharge will followup at the Wound Center. If there is a plateau in wound healing, then can proceed with delayed closure with complex secondary wound closure with possible skin grafting and possible skin flap reconstruction. Grafts/Implants Used: None. Complications None. Admit VTE Documentation VTE Present on Admission: No VTE Mechan Device Prophylaxis: SCD's VTE Pharm Prophylaxis ordered?: Yes Addendum Addendum: Surgery Charges CPT - 63508 ICD-10 - L02.416, L97.122, I89.1, I89.0, Z98.890, E65, E66.9 52542 E65, L02.416, L97.122, I89.1, I89.0, Z98.890, E66.9
--- NOTE | 2021-05-13 14:13 | SUR.PHASEI ---
arnel thomson updated as contact. patient doing well in pacu.
[2021-05-13] MEDS: oxyCODONE 5 MG Tablet PO (15:26)
[2021-05-13] MEDS: 0.9% Saline Lock 10 ML Syringe IV (22:53)
[2021-05-13] MEDS: Ondansetron 4 MG/2 ML Vial IV (22:53)
[2021-05-13 23:09] LABS: Vancomycin, Trough Level 8.2 ug/mL (5.0-15.0)
[2021-05-14] VITALS (7 sets, daily range): BP systolic 100–134; BP diastolic 48–62; PULSE 58–65; RESP 16–18; TEMP 36.1–36.8; O2SAT 95–100; BMI 51.8
--- NOTE | 2021-05-14 01:39 | PCM.RX.CS ---
Consult Pharmacy has been consulted to manage selected antiobiotic: Vancomycin Type of Consult: Follow-up Suspected Infection: Skin/Soft tissue Labs: Sodium 139 mmol/L (136-145) 05/13/21 06:40 Potassium 3.8 mmol/L (3.5-5.1) 05/13/21 06:40 Chloride 111 mmol/L (98-107) H 05/13/21 06:40 Carbon Dioxide 24.0 mmol/L (21.0-32.0) 05/13/21 06:40 Anion Gap 4 (5-15) L 05/13/21 06:40 BUN 19 mg/dL (7-18) H 05/13/21 06:40 Creatinine 0.94 mg/dL (0.55-1.02) 05/13/21 06:40 Est GFR (MDRD) Af Amer 75 mL/min (>60) 05/13/21 06:40 Est GFR (MDRD) Non-Af 62 mL/min (>60) 05/13/21 06:40 BUN/Creatinine Ratio 20.3 RATIO (10-20) H 05/13/21 06:40 Glucose 127 mg/dL (74-106) H 05/13/21 06:40 Vancomycin Trough 8.2 ug/mL (5.0-15.0) 05/13/21 22:28 Microbiology: Microbiology 05/11/21 19:45 Wound Abcess - Leg, Left Gram Stain - Final 05/11/21 19:45 Wound Abcess - Leg, Left Wound Culture - Preliminary Staphylococcus aureus Goal Trough: 10-15 mcg/mL Pharmacy Plan for Drug Dosing: Pharmacy Service will continue to monitor and adjust dosing as required. TROUGH 8.2 @ 25HRS. SCr DECREASED FROM 1.07 TO 0.94. INCREASE TO 1500MG DAILY AND FOLLOW UP TROUGH PRIOR TO 3RD DOSE Follow-Up Labs: Trough Vancomycin Labs to be done on [date and time ordered]: 05/16 @ 8177
[2021-05-14] MEDS: Levothyroxine 112 MCG Tablet PO (05:04)
[2021-05-14] MEDS: Piperacil/Tazobactam 3.375 GM/50 ML ML IV (05:05)
[2021-05-14 06:38] LABS: Absolute Lymphocyte Count 0.77 X10^3/uL (0.83-4.51); Absolute Neutrophil Count 4.7 X10^3/uL (2.0-7.7); Basophil# 0.02 X10^3/uL; Basophil% 0.3 % (0-1); Eosinophil# 0.07 X10^3/uL; Eosinophils% 1.1 % (0-5); Hematocrit 25.6 % (37-47); Hemoglobin 8.6 g/dL (12.0-15.0); Lymphocyte # 0.77 X10^3/ul (0.83-4.51); Lymphocyte % 12.5 % (19-41); Mean Corp Hgb Conc 33.6 g/dL (32-36); Mean Corpuscular Hgb 30.9 pg (27.0-32.0); Mean Corpuscular Volume 92.1 fL (81-99); Mean Platelet Vol. 9.3 fl (6.2-12.0); Monocyte# 0.52 X10^3/uL; Monocyte% 8.5 % (0-10); NRBC Flagged by Analyzer 0 % (0-5); Neutrophil # 4.73 X10^3/uL (2.7-7.7); Neutrophil % 76.9 % (47-70); Platelet Count 187 K/mm3 (150-450); RBC Distribution Width CV 14.8 % (11.6-14.6); RBC Distribution Width SD 50.3 fl (35.1-43.9); Red Blood Count 2.78 M/mm3 (4.2-5.4); White Blood Count 6.2 K/mm3 (4.4-11.0)
[2021-05-14 06:58] LABS: Anion Gap 5 (5-15); BUN 13 mg/dL (7-18); Calcium,Total 7.5 mg/dL (8.5-10.1); Chloride 109 mmol/L (98-107); Creatinine, Serum 0.86 mg/dL (0.55-1.02); EST Glomerular Filtration Rate 68 mL/min (>60); Est Glom Filt Rate - Afr Amer 83 mL/min (>60); Estimated Creatinine Clearance 46.08 ml/min; Glucose 135 mg/dL (74-106); Potassium 3.5 mmol/L (3.5-5.1); Sodium Level 138 mmol/L (136-145)
[2021-05-14] MEDS: oxyCODONE 5 MG Tablet PO (08:39)
[2021-05-14] MEDS: Metoprolol(XL)Succ 50 MG Tablet PO (09:49)
--- NOTE | 2021-05-14 10:14 | WOUNDNOTE ---
wound photo: left medial thigh
[2021-05-14] MEDS: 0.9% Normal Saline 1,000 ML 60 ML IV (10:17)
--- NOTE | 2021-05-14 11:13 | CASEMGMT ---
TC to [employer] to update on pt status with wound vac. Left message on intake's vm.
--- NOTE | 2021-05-14 11:45 | PN.HOSP_ITS ---
Subjective Subjective Patient seen and examined. She complained of some pain at the surgical site. Today is POD 1 for incision and drainage and excisional debridement with dermolipectomy of recurrent abscess and ulcer. She had no other complaints and review of systems is otherwise negative. Objective Data Objective Data Vital Signs: Vital Signs Temp Pulse Resp BP Pulse Ox 97.6 F L 60 18 128/55 H 99 05/14/21 08:58 05/14/21 09:49 05/14/21 08:58 05/14/21 09:49 05/14/21 08:58 Oxygen Flow Rate (L/min) 4 Oxygen Delivery Method Room Air Weight: 292 lb 8.854 oz Body Mass Index (BMI) 51.8 Intake & Output: Intake and Output for Last 24 Hours 05/12/21 05/13/21 05/14/21 23:59 23:59 23:59 Intake Total 1905 / 1905 2157 / 2157 1677 / 1677 Output Total 550 / 550 975 / 975 Balance 1905 / 1905 1607 / 1607 702 / 702 Lab / Micro Data Result Diagrams: 05/14/21 05:25 05/14/21 05:25 Labs: Laboratory Results - last 24 hr 05/13/21 06:40: Free T4 1.23 05/13/21 22:28: Vancomycin Trough 8.2 05/14/21 05:25: WBC 6.2, RBC 2.78 L, Hgb 8.6 L, Hct 25.6 L, MCV 92.1, MCH 30.9, MCHC 33.6, RDW Std Deviation 50.3 H, RDW Coeff of Humberto 14.8 H, Plt Count 187, MPV 9.3, Immature Gran % (Auto) 0.700, Neut % (Auto) 76.9 H, Lymph % (Auto) 12.5 L, Hall % (Auto) 8.5, Eos % (Auto) 1.1, Baso % (Auto) 0.3, Absolute Neuts (auto) 4.7, Absolute Lymphs (auto) 0.77 L, Nucleated RBC % 0 05/14/21 05:25: Sodium 138, Potassium 3.5, Chloride 109 H, Carbon Dioxide 24.0, Anion Gap 5, BUN 13, Creatinine 0.86, Estim Creat Clear Calc 46.08, Est GFR (MDRD) Af Amer 83, Est GFR (MDRD) Non-Af 68, BUN/Creatinine Ratio 15.0, Glucose 135 H, Calcium 7.5 L Micro: Microbiology 05/11/21 19:45 Wound Abcess - Leg, Left Gram Stain - Final 05/11/21 19:45 Wound Abcess - Leg, Left Wound Culture - Final Meth. resistant Staph. aureus 05/11/21 19:50 Blood Culture (Wb) - Anticubital Right Blood Culture - Preliminary No growth in 48 hours. 05/11/21 19:20 Blood Culture (Wb) - No Site/Description Given Blood Culture - Preliminary No growth in 48 hours. Physical Exam Const alert, oriented x3 and no apparent distress General Appearance: cooperative Exam Limitations: no limitations Nutritional Appearance: morbidly obese HEENT normocephalic, head/scalp atraumatic and moist oral mucous membranes Head and Scalp: normocephalic Eyes PERRL, EOMs intact bilaterally, conjunctivae normal and no scleral icterus Neck no lymphadenopathy, supple and no JVD General: trachea midline Resp normal respiratory effort, normal air movement, no retractions, no use of accessory muscles and clear to auscultation bilaterally Cardio regular rate, regular rhythm, S1 normal heart sound, S2 normal heart sound, no murmurs and peripheral pulses 2+ throughout GI normal to inspection, nondistended, normoactive bowel sounds, soft to palpation, non-tender and non-distended Extremity normal capillary refill Extremity Narrative: has intact bandage over surgical site General Extremity: edema bilateral lower extremity and no tenderness to palpation of joints or extremities Peripheral Pulses: Yes pulses 2+ throughout Skin Skin Narrative: as under extremities General Skin Exam: turgor normal Wounds: wounds noted Neuro CN's II-XII intact bilaterally, moves all extremities, no focal motor deficits and no sensory deficits noted Sensorium / Orientation: awake and alert Speech: speech normal Motor Exam: Negative for general weakness Psych thought process normal, cooperative and affect normal Appearance: appropriate Assessment & Plan Assessment/Plan (1) Abscess of left leg: (2) Cellulitis: PLAN: #Cellulitis of the LLE with abscess formation * on IV vancomycin and zosyn. * today is POD 1 for incision and drainage, debridement and dermolipectomy for the abscess * on IV vancomycin; will dc zosyn * wound culture growing Staphylococcus aureus; sensitivities pending * had previous I&D done at [facility] for the same abscess and wound hasnt fully healed * on oxycodone and tylenol * #Elevated Cr: * resolved. * #Hypertension; on metoprolol #Hypothyroidism: * on synthroid. TSH is 13.3. Free T4 was WNL; * this is therefore likely subclinical hypothyroidism. To repeat labs once out of [facility] and to follow up with PCP for adjustment of synthroid dose as needed #SUper morbid obesity * complicates acute care, expected recovery and prognosis * DVT prophylaxis: lovenox Charges/Coding Visit Charges Inpatient E&M: 52858 Subs Hosp L2
--- NOTE | 2021-05-14 14:28 | WOUNDNOTE ---
[facility] appointment made for Tuesday05/18/21 at 8:45am. Pt aware and was entered on the discharge plan.
--- NOTE | 2021-05-14 15:22 | WOUNDNOTE ---
Dr Gamboa aware that patient has some questions she wants to ask him about the surgery.
--- NOTE | 2021-05-14 21:25 | PCM.PN.SRG ---
Subjective Subjective Postop #1 Patient resting comfortably. VAC applied without difficulty. Objective Data Objective Data Vital Signs: Vital Signs Temp Pulse Resp BP Pulse Ox 98.3 F 65 16 111/51 L 100 05/14/21 21:14 05/14/21 21:14 05/14/21 21:14 05/14/21 21:14 05/14/21 21:14 Oxygen Flow Rate (L/min) 4 Oxygen Delivery Method Room Air Weight: 292 lb 8.854 oz Body Mass Index (BMI) 51.8 Intake & Output: Intake and Output for Last 24 Hours 05/12/21 05/13/21 05/14/21 23:59 23:59 23:59 Intake Total 1905 / 1905 2157 / 2157 1917 / 1917 Output Total 550 / 550 975 / 975 Balance 1905 / 1905 1607 / 1607 942 / 942 Lab / Micro Data Attestation: I reviewed the patient's lab results. Result Diagrams: 05/15/21 06:05 05/15/21 06:05 Labs: Laboratory Results - last 24 hr 05/13/21 22:28: Vancomycin Trough 8.2 05/14/21 05:25: WBC 6.2, RBC 2.78 L, Hgb 8.6 L, Hct 25.6 L, MCV 92.1, MCH 30.9, MCHC 33.6, RDW Std Deviation 50.3 H, RDW Coeff of Humberto 14.8 H, Plt Count 187, MPV 9.3, Immature Gran % (Auto) 0.700, Neut % (Auto) 76.9 H, Lymph % (Auto) 12.5 L, [place] % (Auto) 8.5, Eos % (Auto) 1.1, Baso % (Auto) 0.3, Absolute Neuts (auto) 4.7, Absolute Lymphs (auto) 0.77 L, Nucleated RBC % 0 05/14/21 05:25: Sodium 138, Potassium 3.5, Chloride 109 H, Carbon Dioxide 24.0, Anion Gap 5, BUN 13, Creatinine 0.86, Estim Creat Clear Calc 46.08, Est GFR (MDRD) Af Amer 83, Est GFR (MDRD) Non-Af 68, BUN/Creatinine Ratio 15.0, Glucose 135 H, Calcium 7.5 L Micro: Microbiology 05/11/21 19:45 Wound Abcess - Leg, Left Gram Stain - Final 05/11/21 19:45 Wound Abcess - Leg, Left Wound Culture - Preliminary Meth. resistant Staph. aureus 05/13/21 Unknown Tissue - Leg Gram Stain - Final 05/13/21 Unknown Tissue - Leg Wound Culture - Preliminary Staphylococcus aureus Gram positive organism 05/11/21 19:50 Blood Culture (Wb) - Anticubital Right Blood Culture - Preliminary No growth in 48 hours. 05/11/21 19:20 Blood Culture (Wb) - No Site/Description Given Blood Culture - Preliminary No growth in 48 hours. Physical Exam Narrative General - Alert and Oriented HEENT - PERRL. EOMI. Neck - Supple and nontender. Abdomen - Soft and nondistended. Extremities - FROM. No axillary adenopathy. Radial pulses are palpable. No inguinal adenopathy. Dorsalis pedis pulses are palpable. Wound left medial thigh is clean. No evidence of further infection. No active bleeding. VAC applied without difficulty. Neuro - CN II-XII grossly intact. Psych - Normal mood and affect. Assessment & Plan Assessment/Plan (1) Abscess of left thigh: (2) Lymphangitis of lower extremity: (3) 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: (4) Status post incision and drainage: (5) Acquired lymphedema of lower extremity: (6) Localized adiposity of thigh: (7) Obesity: QUALIFIERS: Obesity type: unspecified obesity type Obesity classification: adult class 3 (BMI >= 40) Serious obesity comorbidity presence: with serious comorbidity Body mass index: BMI 50.0-59.9 Qualified Code(s): E66.01 - Morbid (severe) obesity due to excess calories; Z68.43 - Body mass index [BMI] 50.0-59.9, adult PLAN: Wound is stable. VAC applied without difficulty. To be changed three times per week at 150 mmHg continuous suction. Operative culture shows MRSA and Gram positive organism. On Vancomycin. Will send her home on Doxycycline. Has increased metabolic demands from the wound. Encourage nutritional supplementation with protein to help the healing process. Followup at the Wound Center on Tuesday05/18/21. If there is a plateau in the healing process, can proceed with delayed closure with skin grafting.
[2021-05-15 04:51] VITALS: BP 119/62; PULSE 67; RESP 18; TEMP 36.3; O2SAT 99
[2021-05-15] MEDS: 0.9% Saline Lock 10 ML Syringe IV (04:54)
[2021-05-15] MEDS: Levothyroxine 112 MCG Tablet PO (04:54)
[2021-05-15] MEDS: 0.9% Normal Saline 1,000 ML 60 ML IV (04:54)
[2021-05-15 06:44] LABS: Absolute Lymphocyte Count 0.69 X10^3/uL (0.83-4.51); Absolute Neutrophil Count 3.7 X10^3/uL (2.0-7.7); Basophil# 0.03 X10^3/uL; Basophil% 0.6 % (0-1); Eosinophil# 0.11 X10^3/uL; Eosinophils% 2.2 % (0-5); Hematocrit 24.1 % (37-47); Hemoglobin 7.9 g/dL (12.0-15.0); Lymphocyte # 0.69 X10^3/ul (0.83-4.51); Lymphocyte % 13.8 % (19-41); Mean Corp Hgb Conc 32.8 g/dL (32-36); Mean Corpuscular Hgb 30.6 pg (27.0-32.0); Mean Corpuscular Volume 93.4 fL (81-99); Mean Platelet Vol. 9.3 fl (6.2-12.0); Monocyte# 0.42 X10^3/uL; Monocyte% 8.4 % (0-10); NRBC Flagged by Analyzer 0 % (0-5); Neutrophil # 3.71 X10^3/uL (2.7-7.7); Neutrophil % 74.2 % (47-70); Platelet Count 148 K/mm3 (150-450); RBC Distribution Width CV 15.1 % (11.6-14.6); RBC Distribution Width SD 51.6 fl (35.1-43.9); Red Blood Count 2.58 M/mm3 (4.2-5.4)
[2021-05-15 07:14] LABS: Anion Gap 3 (5-15); BUN 19 mg/dL (7-18); BUN/Creat Ratio 18.3 RATIO (10-20); Calcium,Total 7.7 mg/dL (8.5-10.1); Chloride 114 mmol/L (98-107); Creatinine, Serum 1.04 mg/dL (0.55-1.02); EST Glomerular Filtration Rate 55 mL/min (>60); Est Glom Filt Rate - Afr Amer 67 mL/min (>60); Glucose 155 mg/dL (74-106); Potassium 3.8 mmol/L (3.5-5.1); Sodium Level 140 mmol/L (136-145)
--- NOTE | 2021-05-15 08:06 | WOUNDNOTE ---
Pt up and about in room. patient states the pain is tolerable. states last evening the wound VAC dressing felt really tight. reminded patient that the dressing will feel tight d/t the pressure. patient feels good about going home, but would like to practice going up a few steps before going home. PT/OT has been consulted so will ask that they see her again today prior to discharge home today. Discussed patient with Kenya Katz NP. Kenya plans to come on and see patient today.
[2021-05-15 08:55] VITALS: BP 143/67; PULSE 69; RESP 18; TEMP 36.8; O2SAT 98
[2021-05-15 08:56] VITALS: BP 143/67; PULSE 69
[2021-05-15] MEDS: Metoprolol(XL)Succ 50 MG Tablet PO (08:56)
--- NOTE | 2021-05-15 09:29 | CASEMGMT ---
Addendum entered by Anne-Marie Navarro 05/15/21 15:42: Notified by wound nurse that pt to dc tomorrow. Addendum entered by Anne-Marie Navarro 05/15/21 14:55: TC to [facility], spoke with Aurea. She states they cannot see pt tomorrow for vac change even though she is already a current patient of theirs. She states they can see her on Tuesday. Made her aware pt will go to the wound center on Tuesday. She states they will see her on Tuesday. Faxed referral info to her. Latasha wound nurse will change wound vac today prior to dc. Addendum entered by Anne-Marie Navarro 05/15/21 10:34: Noted pt did well with therapy. No PT recommended. Plan to resume [facility]. Original Note: TC opal Beaulieu to make aware of next vac change and plan for pt dc. Left message on intake Yadi's vm. Requested returned call for confirmation of receipt.
[2021-05-15 10:20] VITALS: O2SAT 97
--- NOTE | 2021-05-15 12:36 | PCM.PN.SRG ---
Subjective Subjective Patient sitting up in chair. She states her pain is well controlled. She states she has had PT today to make sure she is able to go up and down steps and she is able to get in and out of a car. Objective Data Objective Data Vital Signs: Vital Signs Temp Pulse Resp BP Pulse Ox 98.2 F 69 18 143/67 H 97 05/15/21 08:55 05/15/21 08:56 05/15/21 08:55 05/15/21 08:56 05/15/21 10:20 Oxygen Flow Rate (L/min) 4 Oxygen Delivery Method Room Air Weight: 298 lb 1.039 oz Body Mass Index (BMI) 51.8 Intake & Output: Intake and Output for Last 24 Hours 05/13/21 05/14/21 05/15/21 23:59 23:59 23:59 Intake Total 2157 / 2157 3077 / 3077 1099 / 1099 Output Total 550 / 550 1925 / 1925 375 / 375 Balance 1607 / 1607 1152 / 1152 724 / 724 Lab / Micro Data Result Diagrams: 05/15/21 06:05 05/15/21 06:05 Labs: Laboratory Results - last 24 hr 05/15/21 06:05: WBC 5.0, RBC 2.58 L, Hgb 7.9 L, Hct 24.1 L, MCV 93.4, MCH 30.6, MCHC 32.8, RDW Std Deviation 51.6 H, RDW Coeff of Humberto 15.1 H, Plt Count 148 L, MPV 9.3, Immature Gran % (Auto) 0.800, Neut % (Auto) 74.2 H, Lymph % (Auto) 13.8 L, [place] % (Auto) 8.4, Eos % (Auto) 2.2, Baso % (Auto) 0.6, Absolute Neuts (auto) 3.7, Absolute Lymphs (auto) 0.69 L, Nucleated RBC % 0 05/15/21 06:05: Sodium 140, Potassium 3.8, Chloride 114 H, Carbon Dioxide 23.0, Anion Gap 3 L, BUN 19 H, Creatinine 1.04 H, Estim Creat Clear Calc 38.10, Est GFR (MDRD) Af Amer 67, Est GFR (MDRD) Non-Af 55 L, BUN/Creatinine Ratio 18.3, Glucose 155 H, Calcium 7.7 L Micro: Microbiology 05/13/21 Unknown Tissue - Leg Gram Stain - Final 05/13/21 Unknown Tissue - Leg Wound Culture - Preliminary Staphylococcus aureus Gram positive organism 05/13/21 Unknown Tissue - Leg Anaerobic Culture - Preliminary No anaerobic bacteria isolated. 05/11/21 19:45 Wound Abcess - Leg, Left Gram Stain - Final 05/11/21 19:45 Wound Abcess - Leg, Left Wound Culture - Final Meth. resistant Staph. aureus 05/11/21 19:50 Blood Culture (Wb) - Anticubital Right Blood Culture - Preliminary No growth in 48 hours. 05/11/21 19:20 Blood Culture (Wb) - No Site/Description Given Blood Culture - Preliminary No growth in 48 hours. Assessment & Plan Assessment/Plan (1) Abscess of left thigh: (2) Cellulitis: (3) 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: (4) Abscess of left leg: (5) Acquired lymphedema of lower extremity: (6) Lymphangitis of lower extremity: (7) Localized adiposity of thigh: (8) Acute post-operative pain: PLAN: Patient is sitting up in chair. Had an extensive discussion covering her dressing changes. Instructed her to make sure to keep legs elevated when seated. Preliminary operative cultures are Staphylococcus aureus and Gram positive organism, Anaerobic pending. She is on IV Vancomycin. Wound VAC in place at 150 mmHg. This will be changed 3 times per week. She will follow up at the wound center on Tuesday05/18/21 at 0845. She has home health to change the dressing the other 2 times per week. Her pain is well controlled with oral pain meds. Will prescribe Percocet (40 tabs) for pain and Diazepam (14 tabs) for muscle spasms. Sent to her home pharmacy. She may be discharged from our standpoint. Charges/Coding Procedures Integumentary [id number]: [id number] Global Visit
--- NOTE | 2021-05-15 13:00 | DCINST_ITS ---
Discharge Instructions Activity Additional Activity Instructions:: May walk as much as necessary. Avoid standing for long periods of time because this will cause more swelling. When seated, keep left leg elevated. Dressing / Incision Call your doctor if your incision/area has: Continuous Slow Oozing, Sudden Increased Bleeding, Increased Pain/ Swelling, Increased Redness, Foul Smelling Discharge and Swelling at the incision site Call your doctor if you observe: Fever of 101 or Higher, Coldness, Increased Pain, Inability to have a bowel movement, Shortness of breath, Chest pain, Calf discomfort and Uncontrolled pain Additional Dressing/Incision Instructions:: Wound VAC to be changed 3 times per week. VAC to be at 150 mmHg. At the time of wound VAC, the wound should be washed with soap and water before the VAC is reapplied. When the patient feels comfortable removing the wound VAC on the dressing change day and may shower right before home health comes to change the VAC dressing. Follow Up Care Please Follow Up With: Kenya Napoles CNP When: Tuesday05/18/21 at 0845 at the [facility] [phone] Test Results: Test results from this visit will be discussed in further detail at your follow-up appointment, if applicable. Discharge Plan Admission Admit Date/Time: 05/11/21 23:25 Primary Reason for Your Visit: cellulitis and abscess of LLE Attending Provider: Myra Lee Primary Care Provider: Indira Eason Consulting Providers: Axel Gamboa Instructions Patient Instructions: Abscess Drainage, ED Abscess Incision And Drainage Discharge Orders/Prescriptions Prescriptions: New oxycodone-acetaminophen [Percocet] 5-325 mg tablet 1 tab PO Q4H PRN (Reason: pain (scale score 7-10)) 7 Days Qty: 40 RF: 0 diazepam [Valium] 5 mg tablet 5 mg PO BID PRN (Reason: muscle spasm) 7 Days Qty: 14 RF: 0 doxycycline hyclate 100 mg tablet 100 mg PO BID Qty: 28 RF: 0 Continued levothyroxine [Synthroid] 112 MCG tablet 112 mcg PO DAILY RF: 0 metoprolol succinate 50 mg tablet extended release 24 hr 50 mg PO DAILY RF: 0 Discontinued levofloxacin 500 mg tablet 500 mg PO DAILY RF: 0 Referrals / Follow Up: Indira Eason MD [Primary Care Provider] - Center,Wound [NON-STAFF] - Weekly (Pt has appt with Kenya Napoles, Tuesday05/18/21 at 8:45am) Disposition Disposition (needs filled in before D/C Order can be placed): Home Health Service
[2021-05-15 14:28] VITALS: BP 133/65; PULSE 64; RESP 18; TEMP 36.8; O2SAT 99
--- NOTE | 2021-05-15 15:42 | WOUNDNOTE ---
Wound VAC dressing changed to the left thigh since home health is not able to see patient until next week. pt has appt at the wound center on Tuesday05/18/21 at 0845 with Kenya Napoles and home health will change the wound VAC dressing Tuesday. pt tolerated VAC change well without pain medication.
--- NOTE | 2021-05-15 16:26 | DS.PCM_ITS ---
Providers Date of Admission: 05/11/21 Primary Care Physician: Dr. 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 Routine Comment: Reason for Consult:: left thigh wound Consult: Plastic Surgery Routine Consulting Provider: Axel Gamboa Reason for Consult: left thigh wound EMERGENT Consult: No MD Notified: Yes Date Notified: 05/11/21 Time Notified: 23:26 Method of Notification: Provider Initiated Reason For Visit: LEFT INNER THIGH WOUND Diagnosis Discharge Diagnosis (1) Abscess of left thigh: Status: Acute Code(s): L02.416 - Cutaneous abscess of left lower limb (2) Lymphangitis of lower extremity: Status: Acute Code(s): I89.1 - Lymphangitis (3) 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: Status: Chronic Code(s): L97.122 - Non-pressure chronic ulcer of left thigh with fat layer exposed (4) Status post incision and drainage: Status: Chronic Code(s): Z98.890 - Other specified postprocedural states (5) Acquired lymphedema of lower extremity: Status: Chronic Code(s): I89.0 - Lymphedema, not elsewhere classified (6) Localized adiposity of thigh: Status: Chronic Code(s): E65 - Localized adiposity (7) Obesity: Status: Chronic Code(s): E66.9 - Obesity, unspecified Qualifiers: Obesity type: unspecified obesity type Obesity classification: adult class 3 (BMI >= 40) Serious obesity comorbidity presence: with serious co morbidity Body mass index: BMI 50.0-59.9 Qualified Code(s): E66.01 - Morbid (severe) obesity due to excess calories; Z68.43 - Body mass index [BMI] 50.0- 59.9, adult (8) Abscess of left leg: Status: Acute Code(s): L02.416 - Cutaneous abscess of left lower limb (9) Cellulitis: Status: Acute Code(s): L03.90 - Cellulitis, unspecified (10) Acute post-operative pain: Status: Acute Code(s): G89.18 - Other acute postprocedural pain Medications at Discharge Home Medications levothyroxine [Synthroid] 112 mcg PO DAILY 08/31/17 metoprolol succinate 50 mg PO DAILY 05/11/21 diazepam [Valium] 5 mg PO BID PRN 7 Days #14 tab 05/15/21 doxycycline hyclate 100 mg PO BID #28 tab 05/15/21 oxycodone-acetaminophen [Percocet] 1 tab PO Q4H PRN 7 Days #40 tab 05/15/21 Hospital Course Operations - (incision and drainage and debridement of LLE abscess and ulcer) Procedures None Summary of Care Provided Minutes Spent on Discharge: 50 Hospital Course: Patient is a 75-year-old female who was admitted through the ED on 05/11/2021 with a complaint of increased redness around the left thigh wound. Patient had had an abscess in the area which was surgically debrided and drained and mesh hospital about 3 weeks prior to admission. After discharge the redness had worsened so she came into the ED. She denied any fever or chills, nausea vomiting or diarrhea. Review of systems otherwise negative. ED try to transfer her to [facility] but they declined. She was admitted to be managed for recurrent colitis and abscess of the left thigh. Plastic surgery was consulted. She was started on IV vancomycin and Zosyn. Wound cultures were taken which grew MRSA. She had incision and drainage as well as debridement and dermal lipectomy of the left thigh abscess on 05/14/2021. She had a wound VAC applied subsequently. She remained stable and was discharged home on 05/15/2021. Blood cultures were negative and wound cultures were still growing MRSA. She was discharged on p.o. doxycycline twice daily for 2 weeks and is to follow-up with plastic surgery on outpatient basis. Antibiotic course to be extended as at discretion of plastic surgery when she is evaluated in the wound center. Patient seen and examined prior to discharge. She requested to work with therapy to make sure she could climb the stairs in her house when she got home. Pain was fairly well controlled and review of stents otherwise negative. Labs and vitals reviewed. Medication reviewed and reconciled. Physical Exam Const alert, oriented x3 and no apparent distress General Appearance: cooperative and comfortable Exam Limitations: no limitations Nutritional Appearance: morbidly obese HEENT normocephalic, head/scalp atraumatic and moist oral mucous membranes Eyes PERRL, EOMs intact bilaterally, conjunctivae normal and no scleral icterus Neck no lymphadenopathy, supple and no JVD General: trachea midline Resp normal respiratory effort, normal air movement, no retractions, no use of accessory muscles and clear to auscultation bilaterally Cardio regular rate, regular rhythm, S1 normal heart sound, S2 normal heart sound, no murmurs and peripheral pulses 2+ throughout GI normal to inspection, nondistended, normoactive bowel sounds, soft to palpation, non-tender and non-distended Extremity normal capillary refill Extremity Narrative: intact wound vac over surgical site General Extremity: edema bilateral lower extremity and no tenderness to palpation of joints or extremities Skin Skin Narrative: as under extremities General Skin Exam: turgor normal Wounds: wounds noted Neuro CN's II-XII intact bilaterally, moves all extremities, no focal motor deficits and no sensory deficits noted Sensorium / Orientation: awake and alert Speech: speech normal Motor Exam: Negative for general weakness Psych thought process normal, cooperative and affect normal Appearance: appropriate Weight / BMI Weight Weight: 298 lb 1.039 oz Body Mass Index (BMI) 51.8 ABG / Lab / Microbiology Data Result Diagrams: 05/15/21 06:05 05/15/21 06:05 Laboratory: Laboratory Results - last 24 hr 05/15/21 06:05: WBC 5.0, RBC 2.58 L, Hgb 7.9 L, Hct 24.1 L, MCV 93.4, MCH 30.6, MCHC 32.8, RDW Std Deviation 51.6 H, RDW Coeff of Humberto 15.1 H, Plt Count 148 L, MPV 9.3, Immature Gran % (Auto) 0.800, Neut % (Auto) 74.2 H, Lymph % (Auto) 13.8 L, [place] % (Auto) 8.4, Eos % (Auto) 2.2, Baso % (Auto) 0.6, Absolute Neuts (auto) 3.7, Absolute Lymphs (auto) 0.69 L, Nucleated RBC % 0 05/15/21 06:05: Sodium 140, Potassium 3.8, Chloride 114 H, Carbon Dioxide 23.0, Anion Gap 3 L, BUN 19 H, Creatinine 1.04 H, Estim Creat Clear Calc 38.10, Est GFR (MDRD) Af Amer 67, Est GFR (MDRD) Non-Af 55 L, BUN/Creatinine Ratio 18.3, Glucose 155 H, Calcium 7.7 L Microbiology: Microbiology 05/13/21 Unknown Tissue - Leg Gram Stain - Final 05/13/21 Unknown Tissue - Leg Wound Culture - Preliminary Staphylococcus aureus Gram positive organism 05/13/21 Unknown Tissue - Leg Anaerobic Culture - Preliminary No anaerobic bacteria isolated. 05/11/21 19:45 Wound Abcess - Leg, Left Gram Stain - Final 05/11/21 19:45 Wound Abcess - Leg, Left Wound Culture - Final Meth. resistant Staph. aureus 05/11/21 19:50 Blood Culture (Wb) - Anticubital Right Blood Culture - Preliminary No growth in 48 hours. 05/11/21 19:20 Blood Culture (Wb) - No Site/Description Given Blood Culture - Preliminary No growth in 48 hours. D/C Instructions Discharge Diet: No restrictions (Increase protein intake.) Weight Bearing Status: Weight bearing as tolerated Additional Activity Instructions: May walk as much as necessary. Avoid standing for long periods of time because this will cause more swelling. When seated, keep left leg elevated. Call your doctor if your incision/area has: Continuous Slow Oozing, Sudden Increased Bleeding, Increased Pain/ Swelling, Increased Redness, Foul Smelling Discharge and Swelling at the incision site Call your doctor if you observe: Fever of 101 or Higher, Coldness, Increased Pain, Inability to have a bowel movement, Shortness of breath, Chest pain, Calf discomfort and Uncontrolled pain Additional Dressing/Incision Instructions: Wound VAC to be changed 3 times per week. VAC to be at 150 mmHg. At the time of wound VAC, the wound should be washed with soap and water before the VAC is reapplied. When the patient feels comfortable removing the wound VAC on the dressing change day and may shower right before home health comes to change the VAC dressing. Please Follow Up With: Kenya Napoles CNP When: Tuesday05/18/21 at 0845 at the [facility] [phone] Meaningful Use Info Meaningful Use Diagnoses (Choose all that apply): None applicable Discharge Plan Admission Admit Date/Time: 05/11/21 23:25 Primary Reason for Your Visit: cellulitis and abscess of LLE Attending Provider: Myra Lee Primary Care Provider: Indira Eason Consulting Providers: Axel Gamboa Instructions Patient Instructions: Abscess Drainage, ED Abscess Incision And Drainage Discharge Orders/Prescriptions Prescriptions: New oxycodone-acetaminophen [Percocet] 5-325 mg tablet 1 tab PO Q4H PRN (Reason: pain (scale score 7-10)) 7 Days Qty: 40 RF: 0 diazepam [Valium] 5 mg tablet 5 mg PO BID PRN (Reason: muscle spasm) 7 Days Qty: 14 RF: 0 doxycycline hyclate 100 mg tablet 100 mg PO BID Qty: 28 RF: 0 Continued levothyroxine [Synthroid] 112 MCG tablet 112 mcg PO DAILY RF: 0 metoprolol succinate 50 mg tablet extended release 24 hr 50 mg PO DAILY RF: 0 Discontinued levofloxacin 500 mg tablet 500 mg PO DAILY RF: 0 Referrals / Follow Up: Indira Eason MD [Primary Care Provider] - Center,Wound [NON-STAFF] - Weekly (Pt has appt with Kenya Napoles, Tuesday05/18/21 at 8:45am) Disposition Disposition (needs filled in before D/C Order can be placed): Home Health Service Charges/Coding Visit Charges Inpatient E&M: 75790 Disch Hosp
[2021-05-15] MEDS: oxyCODONE 5 MG Tablet PO (17:16)
--- NOTE | 2021-05-15 19:58 | CASEMGMT ---
GÓMEZ LINDA NOTE: Pt discharged home today. Call placed to [facility] and left message w/answering service that pt was discharged home today. On-call nurse to call this RN ALEXEI back. GÓMEZ Mayen, to fax discharge instructions to [facility]. Alysia KYLE RN CM
--- NOTE | 2021-05-15 19:59 | NURSING ---
or info. faxed to [facility]
== END 2021-05-15 18:18 | disposition home health service (06) | DRG 571 ==
LOC: ED 23:26 → MS3 23:40
PROVIDERS: Anesthesiology; Nurse Practitioner Family; Surgery; Admitting Provider Family Medicine; Emergency Provider Emergency Medicine; PCP Internal Medicine; Visit Provider Student in an Organized Health Care Education/Training Program
PROC: 0JBM0ZZ Excision of Left Upper Leg Subcutaneous Tissue and Fascia, Open Approach (ICD-10-PCS; principal; 2021-05-13 11:20)
DX: L02.416 Cutaneous abscess of left lower limb (principal); Z68.43 Body mass index [BMI] 50.0-59.9, adult; L97.122 Non-pressure chronic ulcer of left thigh with fat layer exposed; E66.01 Morbid (severe) obesity due to excess calories; E89.0 Postprocedural hypothyroidism; I10 Essential (primary) hypertension; I25.10 Atherosclerotic heart disease of native coronary artery without angina pectoris; I89.0 Lymphedema, not elsewhere classified; B95.62 Methicillin resistant Staphylococcus aureus infection as the cause of diseases classified elsewhere; E65 Localized adiposity; L03.116 Cellulitis of left lower limb; G89.18 Other acute postprocedural pain; Z79.890 Hormone replacement therapy; Z79.899 Other long term (current) drug therapy
CPT/HCPCS: 36415; 73701; 80048; 80202; 84439; 84443; 85025; 85610; 85730; 87040; 87070; 87075; 87077; 87102; 87186; 87205; 87206; 88305; 93005; 97161; 97166; 97802; 99251; 99284; J7030; J7040; J7050; A4216; G0463; J2405

== ENCOUNTER 2021-05-18 08:45 | Outpatient (RCR) | payer MEDICARE, SELFPAY ==
[2021-04-23 14:24] VITALS: BP 175/83; PULSE 83; TEMP 36.1; BMI 53.6
--- NOTE | 2021-04-23 16:39 | HP.PCM_ITS ---
History of Present Illness Date of Service: 04/23/21 Chief Complaint: Status post incision and drainage of 2 abscesses on left thigh 04/11/2021 History of Wound: The patient is a 75-year-old female who presents for treatment of 2 abscesses to her left thigh status post incision and drainage on 04/11/2021. She has a past medical history as listed above. 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 Since then she has been having issues with swelling and bilateral lymphedema. In March 2021, she developed abscesses to her left inner thigh. On 04/11/2021 she had an I&D after a CT scan of the left thigh showed pockets of fluid with abscess present. She was discharged from surgery with a prescription for Keflex, which she just finished today, 04/23/2021, and with a wound VAC applied to both wounds, set at 125 mmHg. The wound VAC has been being changed by home health nurses 3 times per week. The patient states she has an appointment to follow-up with her surgeon on 05/07/2021. She denies any signs and symptoms of infection and states she has been tolerating the wound VAC well. She denies any acute concerns at this time. Past medical, family, and social history reviewed and not pertinent to the current visit and all other systems reviewed and negative with exception of those listed above. [facility] Medical History (Updated 04/23/21 @ 16:54 by Tony Tubbs NP, [facility] DIRECTOR-C) Abscess of left thigh Aortic stenosis CAD (coronary artery disease) HTN (hypertension) Nonhealing surgical wound Obesity Home Medications calcium carbonate-vitamin D3 [Caltrate with Vitamin D3] 1 tab PO DAILY@0800 02/25/14 [History Last Taken Unknown] lutein 6 mg PO DAILY 02/25/14 [History Last Taken Unknown] dioppyxj-lok-dmens acid-biotin [Hair,Skin and Nails(FA-biotin)] 1 ea PO DAILY 02/25/14 [History Last Taken Unknown] ascorbic acid (vitamin C) 500 mg PO DAILY 08/31/17 [History Last Taken Unknown] atorvastatin 20 mg PO QHS 08/31/17 [History Last Taken Unknown] coenzyme [id number] [Co Q-10 (with Vit E)] 1 ea PO QHS 08/31/17 [History Last Taken Unknown] ergocalciferol (vitamin D2) [Vitamin D2] 50,000 unit PO Q7D 08/31/17 [History Last Taken Unknown] levothyroxine [Synthroid] 112 mcg PO DAILY 08/31/17 [History Last Taken 11/23/17] metoprolol tartrate 25 mg PO BID 08/31/17 [History Last Taken 11/23/17] aspirin 81 mg PO DAILY@0800 11/16/17 [History Last Taken Unknown] phenazopyridine 100 mg PO TID #14 tab 11/23/17 [Rx Last Taken Unknown] potassium citrate 15 meq PO BID #60 tablet.er 11/23/17 [Rx Last Taken Unknown] aspirin 81 mg PO DAILY 04/23/21 [History Last Taken Unknown] clopidogrel 75 mg PO DAILY 04/23/21 [History Last Taken Unknown] ferrous sulfate mg PO 04/23/21 [History Last Taken Unknown] folic acid 1 mg PO DAILY 04/23/21 [History Last Taken Unknown] lisinopril 5 mg PO BID 04/23/21 [History Last Taken Unknown] Allergy/AdvReac Type Severity Reaction Status Date / Time bisacodyl Allergy Rash Verified 11/16/17 08:12 [From Dulcolax (bisacodyl)] sulfamethoxazole Allergy Hives Verified 11/16/17 08:12 [From Bactrim] trimethoprim [From Bactrim] Allergy Hives Verified 11/16/17 08:12 SURGICAL TAPE Allergy Rash Uncoded 09/21/17 08:54 Surgical History (Updated 04/23/21 @ 16:54 by Tony Tubbs NP, [facility] DIRECTOR-C) Status post incision and drainage Social History Smoking Status: Never smoker ROS ROS Narrative Negative x10 systems with exception of those listed above Vital Signs Vital Signs Vital Signs: 04/23/21 14:24 Temperature 96.9 F L Temperature Source Temporal Pulse Rate 83 Blood Pressure 175/83 H Blood Pressure Mean 113 Blood Pressure Source Monitor Weight Weight: 303 lb 0.01 oz Body Mass Index (BMI) 53.6 Physical Exam Const alert, oriented x3, no apparent distress, healthy appearing and well nourished Constitutional Narrative: Morbidly obese General Appearance: cooperative Exam Limitations: no limitations HEENT normocephalic Head and Scalp: normal to inspection Mouth: oral and palatal mucosa normal Eyes General Eye: normal appearance of both eyes Resp normal respiratory effort, normal air movement and no use of accessory muscles Effort and Inspection: able to speak in complete sentences Auscultation: clear to auscultation bilaterally Cardio regular rate, regular rhythm, S1 normal heart sound, S2 normal heart sound, no murmurs and peripheral pulses 2+ throughout Palpation: normal PMI Rate: regular rate Heart Sounds: S1 normal and S2 normal GI normal to inspection, nondistended, normoactive bowel sounds, soft to palpation, non-tender and non-distended Palpation: soft Extremity normal to inspection and full ROM General Extremity: normal exam except as noted Skin Skin Narrative: Open surgical wounds to left inner thigh, superior and inferior with adherent slough, both wounds are deep and tunnel, there is some surrounding pitting edema but no warmth or induration. Patient having large amounts of serous drainage. Patient does have lymphedema present to the bilateral lower extremities with chronic venous changes present bilaterally as well. Neuro oriented x3 and moves all extremities Sensorium / Orientation: awake, alert, oriented to person, oriented to place and oriented to time Psych mental status grossly normal, thought process normal and denies hallucinations Appearance: grossly normal Attitude: calm Activity / Motor Behavior: appropriate eye contact Speech: normal speech Thought Process: normal thought process Thought Content: normal thought content Attention / Concentration: attention grossly intact Insight: insight good Judgement: judgement good Debridement Note Debridement Note Wound debrided: Left thigh post surgical wounds x2 status post I&D Laterality: Left Type of Debridement: Excisional debridement Anesthesia Used: 5% Lidocaine Gel Depth: Down to and including healthy tissue, in the subcutaneous layer and to muscle Percentage of wound debrided: 100 Instrument Used: 5mm curette and 7mm curette Tissue Removed: Slough and devitalized tissue Severity: Necrosis of Muscle Amount of bleeding with debridement: Mild Bleeding Controlled with: Pressure Patient tolerated procedure: Patient tolerated procedure well Post-Debridement Measurements and Additional Note: Post-Debridement Measurements/Treatment - Nurse 1 - General Ulcer Assessment Start: 04/23/21 14:07 Freq: Status: Active Protocol: JOEY Activity Type Activity Date Activity User E-Sign Co-Sign Detail Recorded Client Recorded Date Recorded By Document 04/23/21 14:24 CHHAYA [id number] 04/23/21 14:35 CHHAYA 04/23/21 14:24 - Today's Visit Information Type of service Initial Visit Arrival Mode Ambulatory Patient Identification Verified (Name & Yes ) Patient Requires Transmission-Based No Precautions Safety Precautions NA Height and Weight Height 5 ft 3 in Weight 303 lb 0.01 oz Weight in Pounds 303.0 lbs Weight Measurement Method Standing Scale Body Mass Index (BMI) 53.6 BMI Classification Obese BSA - Gil 2.31 Vital Signs Temperature (97.8 F-99.1 F) 96.9 F L Temperature Source Temporal Pulse Rate (60-100) 83 Pulse Location Monitor Blood Pressure (90/60-120/80) 175/83 H Blood Pressure Mean 113 Source Monitor History Since Last Visit- (Skip if this is Patient's initial visit) Have you changed medications since your Yes last visit? Any new allergies or adverse reactions No Had a fall/change in ADL's that may No increase risk of falls Signs or symptoms of abuse and/or No neglect since last visit Have you been in the hospital since your No last visit? Has dressing in place as prescribed Yes Has compression in place as prescribed N/A Has offloadiing in place as prescribed N/A Experienced any changes in pain level or No management Left Footwear Regular Shoe Right Footwear Regular Shoe Pain Scale: 0-10 Numeric Is Patient Pain Free? No WC - Nurse 1 - General Ulcer Measurement Start: 04/23/21 14:07 Freq: Status: Active Protocol: Activity Type Activity Date Activity User E-Sign Co-Sign Detail Recorded Client Recorded Date Recorded By Document 04/23/21 14:24 CHHAYA [id number] 04/23/21 14:35 AK 04/23/21 14:24 Wound Center Nurse 1 #2 L medial superior thigh -Combined with other wound No -Current Size (cm) - Length 1.4 -Current Size (cm) - Width 2.4 -Current Size (cm) - Depth 3 -Total Square Cm 3.36 -Date of Last Picture (Recall this 04/23/21 field) -Photo Taken Yes -Tunneling No -Undermining/Tunneling No -Maximum Distance (cm) 3 -Circular Undermining Yes -Exudate Amt Large -Exudate Type Serosanguineous -Granulation Amt None Present (0 %) -Granulation Quality N/A -Slough/Fibrin No -Necrosis Amt None Present (0 %) -Texture (Anna-wound Skin Appearance) No Abnormality, Assessed -Moisture (Anna-wound Skin Appearance) No Abnormality, Assessed -Color (Anna-wound Skin Appearance) Assessed, Erythema -Temperature (Anna-wound Skin No Abnormality Appearance) (Pt Warm) -Tenderness on Palpation (Anna-wound Yes Skin Appearance) -Ulcer Cleansing Rinsed/ Irrigated with Saline -Foul Odor after Cleansing No -Anesthetic Used 4% Lidocaine Solution #1 Left thigh inferior -Combined with other wound No -Current Size (cm) - Length 0.8 -Current Size (cm) - Width 1.2 -Current Size (cm) - Depth 2.6 -Total Square Cm 0.96 -Date of Last Picture (Recall this 04/23/21 field) -Photo Taken Yes -Epithelialization None Present -Tunneling No -Undermining/Tunneling Yes -Undermining/Tunneling Starts (O'clock 12 ) -Undermining/Tunneling Ends (O'clock) 11 -Maximum Distance (cm) 2.3 -Circular Undermining Yes -Exudate Amt Large -Exudate Type Serosanguineous -Slough/Fibrin No -Necrosis Amt None Present (0 %) -Texture (Anna-wound Skin Appearance) No Abnormality, Assessed -Moisture (Anna-wound Skin Appearance) Assessed -Color (Anna-wound Skin Appearance) Assessed, Erythema -Temperature (Anna-wound Skin No Abnormality Appearance) (Pt Warm) -Tenderness on Palpation (Anna-wound Yes: pain 8 Skin Appearance) -Ulcer Cleansing Rinsed/ Irrigated with Saline -Foul Odor after Cleansing No -Anesthetic Used 4% Lidocaine Solution WC - Nurse 2 - General Ulcer CM Notes Start: 04/23/21 14:07 Freq: Status: Active Protocol: Activity Type Activity Date Activity User E-Sign Co-Sign Detail Recorded Client Recorded Date Recorded By Document 04/23/21 14:50 MW [id number] 04/23/21 15:05 MW 04/23/21 14:50 Wound Center Nurse 2 #2 L medial superior thigh -Time 14:50 -Correct Patient Yes -Correct Side, Site, Position Yes -Correct Procedure Yes -Procedure Performed Yes -Type of Procedure Debridement -Clinical Debridement Muscle / Fascia -Tissue Removed Muscle,Fascia -Post Debridement (cm) - Length 2.0 -Post Debridement (cm) - Width 1.5 -Post Debridement (cm) - Depth 4.5 -Total Square (Post) (cm) 3.00 -Area of Debridement (cm) - Length 2.0 -Area of Debridement (cm) - Width 1.5 -Total Square (Area) (cm) 3.00 -Tunneling No -Undermining/Tunneling Yes -Undermining/Tunneling Starts (O'clock 12 ) -Undermining/Tunneling Ends (O'clock) 4 -Maximum Distance (cm) 6.0 -Undermining/Tunneling Starts #2 (O' 5 clock) -Undermining/Tunneling Ends #2 (O' 11 clock) -Maximum Distance #2 (cm) 1.0 -Circular Undermining No -Wound/Ulcer Outcome Not Healed -Ulcer Cleansing Rinsed/ Irrigated with Saline -Foul Odor after Cleansing No -Bioengineered Tissue No -Bleeding Controlled with Pressure -Offloading No -Treatment Response Procedure Tolerated Well -Debridement - Muscle / Fascia, 1st Yes 20sq cm #1 Left thigh inferior -Time 14:54 -Correct Patient Yes -Correct Side, Site, Position Yes -Correct Procedure Yes -Procedure Performed Yes -Type of Procedure Debridement -Clinical Debridement Muscle / Fascia -Tissue Removed Muscle,Fascia -Post Debridement (cm) - Length 1.5 -Post Debridement (cm) - Width 1.0 -Post Debridement (cm) - Depth 4.0 -Total Square (Post) (cm) 1.50 -Area of Debridement (cm) - Length 1.5 -Area of Debridement (cm) - Width 1.0 -Total Square (Area) (cm) 1.50 -Tunneling No -Undermining/Tunneling No -Circular Undermining No -Wound/Ulcer Outcome Not Healed -Ulcer Cleansing Rinsed/ Irrigated with Saline -Foul Odor after Cleansing No -Bioengineered Tissue No -Bleeding Controlled with Pressure -Offloading No -Treatment Response Procedure Tolerated Well -Debridement - Muscle / Fascia, 1st No 20sq cm Pain Scale: 0-10 Numeric Is Patient Pain Free? Yes WC - Nurse 3 - General Ulcer D/C NN Start: 04/23/21 14:07 Freq: Status: Active Protocol: Activity Type Activity Date Activity User E-Sign Co-Sign Detail Recorded Client Recorded Date Recorded By Document 04/23/21 15:33 DL [id number] 04/23/21 15:34 DL 04/23/21 15:33 Wound Care Nurse 3 #2 L medial superior thigh -Ulcer Cleansing Soap and Water -Foul Odor after Cleansing No -Other Dressing wet to dry -Primary Dressing Covered/Secured with Dry Gauze, Secured with Tape #1 Left thigh inferior -Ulcer Cleansing Soap and Water -Foul Odor after Cleansing No -Other Dressing wet to dry -Primary Dressing Covered/Secured with Dry Gauze, Secured with Tape Treatment Response Procedure Tolerated Well Pain Scale: 0-10 Numeric Is Patient Pain Free? Yes WC - Visit Discharge Discharge Condition Stable Ambulatory Status Ambulatory Transportation Private Auto Facility Type Home Health Orders Sent Yes Charges/Coding Visit Charges Office Visits / Consults: 66799 OV L4 New Procedures Integumentary [id number]: [id number] Swathi musc/fascia 20 sq cm/< Assessment/Plan Assessment/Plan (1) Nonhealing surgical wound: CODE(S): T81.89XA - Other complications of procedures, not elsewhere classified, initial encounter QUALIFIERS: Encounter type: initial encounter Qualified Code(s): T81.89XA - Other complications of procedures, not elsewhere classified, initial encounter (2) Abscess of left thigh: CODE(S): L02.416 - Cutaneous abscess of left lower limb (3) Status post incision and drainage: CODE(S): Z98.890 - Other specified postprocedural states (4) CAD (coronary artery disease): CODE(S): I25.10 - Atherosclerotic heart disease of [place] coronary artery without angina pectoris (5) HTN (hypertension): CODE(S): I10 - Essential (primary) hypertension (6) Obesity: CODE(S): E66.9 - Obesity, unspecified (7) Aortic stenosis: CODE(S): I35.0 - Nonrheumatic aortic (valve) stenosis PLAN: Debridement performed today in clinic as annotated above. Wet to dry dressing applied today. At home wound-care instructions: Wound VAC with black foam set to 125 change Tuesday .Wash wounds with antibacterial soap and water, rinse and dry thoroughly before each dressing change. Compression: Not indicated Off-loading: The patient was instructed to avoid pressure and friction on the affected areas. Reposition every 2 hours at minimum. Avoid prolonged standing and/or dangling of legs. When seated, feet should be elevated at chest level. Frequent ambulation is encouraged. Diet: Patient encouraged to increase protein intake while taking caution to avoid high carbohydrate and/or sugar intake. Patient is a non-smoker Labs/cultures/imaging: Cultures ordered and collected today. Routine baseline lab work held. Follow-up: Return to clinic in 1 week for re-evaluation. Return sooner or report to the emergency room should symptoms worsen, or new symptoms arise. Patient would like to follow-up on Wednesdays due to her schedule. This note was generated with [employer] dictation software. It may contain incorrect words, spelling, and punctuation that were not noted in checking the note before signing. I have spent 5 minutes today reviewing labs, records, and history. Time includes coordinating care, interpretation of tests, and counseling the patient/family. This also includes time I spent with the patient for exam, treatment plan, and education as well as documenting clinical information in the electronic health record.
[2021-04-29 09:06] VITALS: BP 148/64; PULSE 75; TEMP 35.7; BMI 53.6
--- NOTE | 2021-04-29 10:05 | PCM.WC.HP ---
History of Present Illness Date of Service: 04/29/21 Chief Complaint: Status post incision and drainage of 2 abscesses on left thigh 04/11/2021 History of Wound: The patient is a 75-year-old female who presents for treatment of 2 abscesses to her left thigh status post incision and drainage on 04/11/2021. She has a past medical history as listed above. 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 Since then she has been having issues with swelling and bilateral lymphedema. In March 2021, she developed abscesses to her left inner thigh. On 04/11/2021 she had an I&D after a CT scan of the left thigh showed pockets of fluid with abscess present. She was discharged from surgery with a prescription for Keflex, which she just finished today, 04/23/2021, and with a wound VAC applied to both wounds, set at 125 mmHg. The wound VAC has been being changed by home health nurses 3 times per week. The patient states she has an appointment to follow-up with her surgeon on 05/07/2021. She denies any signs and symptoms of infection and states she has been tolerating the wound VAC well. She denies any acute concerns at this time. Past medical, family, and social history reviewed and not pertinent to the current visit and all other systems reviewed and negative with exception of those listed above. [facility] Medical History Abscess of left thigh Aortic stenosis CAD (coronary artery disease) HTN (hypertension) Nonhealing surgical wound Obesity Home Medications calcium carbonate-vitamin D3 [Caltrate with Vitamin D3] 1 tab PO DAILY@0800 02/25/14 [History Last Taken Unknown] lutein 6 mg PO DAILY 02/25/14 [History Last Taken Unknown] [id number] acid-biotin [Hair,Skin and Nails(FA-biotin)] 1 ea PO DAILY 02/25/14 [History Last Taken Unknown] ascorbic acid (vitamin C) 500 mg PO DAILY 08/31/17 [History Last Taken Unknown] atorvastatin 20 mg PO QHS 08/31/17 [History Last Taken Unknown] coenzyme [id number] E [Co Q-10 (with Vit E)] 1 ea PO QHS 08/31/17 [History Last Taken Unknown] ergocalciferol (vitamin D2) [Vitamin D2] 50,000 unit PO Q7D 08/31/17 [History Last Taken Unknown] levothyroxine [Synthroid] 112 mcg PO DAILY 08/31/17 [History Last Taken 11/23/17] metoprolol tartrate 25 mg PO BID 08/31/17 [History Last Taken 11/23/17] aspirin 81 mg PO DAILY@0800 11/16/17 [History Last Taken Unknown] phenazopyridine 100 mg PO TID #14 tab 11/23/17 [Rx Last Taken Unknown] potassium citrate 15 meq PO BID #60 tablet.er 11/23/17 [Rx Last Taken Unknown] aspirin 81 mg PO DAILY 04/23/21 [History Last Taken Unknown] clopidogrel 75 mg PO DAILY 04/23/21 [History Last Taken Unknown] ferrous sulfate mg PO 04/23/21 [History Last Taken Unknown] folic acid 1 mg PO DAILY 04/23/21 [History Last Taken Unknown] lisinopril 5 mg PO BID 04/23/21 [History Last Taken Unknown] Allergy/AdvReac Type Severity Reaction Status Date / Time bisacodyl Allergy Rash Verified 11/16/17 08:12 [From Dulcolax (bisacodyl)] sulfamethoxazole Allergy Hives Verified 11/16/17 08:12 [From Bactrim] trimethoprim [From Bactrim] Allergy Hives Verified 11/16/17 08:12 SURGICAL TAPE Allergy Rash Uncoded 09/21/17 08:54 Surgical History Status post incision and drainage Social History Smoking Status: Never smoker ROS Constitutional Constitutional: Reports systems reviewed and no addt'l complaints, except as documented Eyes Eyes: Reports systems reviewed and no addt'l complaints, except as documented ENT HEENT: Reports systems reviewed and no addt'l complaints, except as documented Cardiovascular Cardiovascular: Reports systems reviewed and no addt'l complaints, except as documented Respiratory/Chest Respiratory/Chest: Reports systems reviewed and no addt'l complaints, except as documented Gastrointestinal Gastrointestinal: Reports systems reviewed and no addt'l complaints, except as documented Genitourinary Genitourinary: Reports systems reviewed and no addt'l complaints, except as documented Musculoskeletal Musculoskeletal: Reports systems reviewed and no addt'l complaints, except as documented Integumentary Integumentary: Reports skin ulcer, wounds and other Details: Nonhealing deep wounds post graft site areas from open heart surgery Neurologic Neurologic: Reports systems reviewed and no addt'l complaints, except as documented Psychiatric Psychiatric: Reports systems reviewed and no addt'l complaints, except as documented Endocrine Endocrinology: Reports systems reviewed and no addt'l complaints, except as documented Hematologic/Lymphatic Hematologic/Lymphatic: Reports systems reviewed and no addt'l complaints, except as documented Allergic/Immunologic Allergic/Immunologic: Reports systems reviewed and no addt'l complaints, except as documented Vital Signs Vital Signs Vital Signs: 04/29/21 09:06 Temperature 96.3 F L Temperature Source Temporal Pulse Rate 75 Blood Pressure 148/64 H Blood Pressure Mean 92 Blood Pressure Source Monitor Weight Weight: 303 lb 0.01 oz Body Mass Index (BMI) 53.6 Physical Exam Const oriented x3 General Appearance: cooperative Exam Limitations: no limitations HEENT normocephalic Head and Scalp: normal to inspection Face and Sinus: normal facial exam Nose: external nose normal General Ear: hearing grossly impaired External Ear: external ears normal Mouth: oral and palatal mucosa normal Eyes PERRL General Eye: normal appearance of both eyes Neck full ROM General: normal visual inspection Resp normal respiratory effort Effort and Inspection: able to speak in complete sentences Auscultation: clear to auscultation bilaterally Cardio regular rate and regular rhythm Palpation: normal PMI Rate: regular rate Rhythm: regular rhythm GI Auscultation: normoactive bowel sounds Palpation: soft and no hepatosplenomegaly external exam normal Extremity Extremity Narrative: Bilateral lower leg lymphedema left leg has open wounds upper thigh area. Lower leg on the left has increased swelling from right leg hardened skin definitely some peripheral vascular disease. Edematous dorsal foot Skin Wounds: wounds noted Wound Narrative: Superior and inferior open wounds left upper thigh area from graft sites opened positive depth with some undermining Neuro oriented x3 Psych Appearance: grossly normal Speech: normal speech Thought Content: normal thought content Judgement: judgement good Debridement Note Debridement Note Wound debrided: Superior left thigh wound from I&D after a open heart graft site Type of Debridement: Excisional debridement Anesthesia Used: 5% Lidocaine Gel Depth: Down to and including healthy tissue Percentage of wound debrided: 100 Instrument Used: 5mm curette Tissue Removed: Fibrin Severity: Fat Layer Exposed Amount of bleeding with debridement: Mild Bleeding Controlled with: Compression and gauze Patient tolerated procedure: Patient tolerated procedure well Post-Debridement Measurements and Additional Note: Post-Debridement Measurements/Treatment - Nurse 1 - General Ulcer Assessment Start: 04/23/21 14:07 Freq: Status: Active Protocol: THEO.LOWEXT Activity Type Activity Date Activity User E-Sign Co-Sign Detail Recorded Client Recorded Date Recorded By Document 04/23/21 14:24 KS [id number] 04/23/21 14:35 AK Document 04/29/21 09:06 KS [id number] 04/29/21 09:14 AK 04/23/21 04/29/21 14:24 09:06 WC - Today's Visit Information Type of service Initial Visit Follow-up Visit (Physician/RADIATION PROTECTION SPECIALIST ) Arrival Mode Ambulatory Ambulatory Patient Identification Verified (Name & Yes Yes ) Patient Requires Transmission-Based No No Precautions Safety Precautions NA NA Height and Weight Height 5 ft 3 in Weight 303 lb 0.01 oz Weight in Pounds 303.0 lbs Weight Measurement Method Standing Scale Body Mass Index (BMI) 53.6 53.6 BMI Classification Obese Obese BSA - Gil 2.31 Vital Signs Temperature (97.8 F-99.1 F) 96.9 F L 96.3 F L Temperature Source Temporal Temporal Pulse Rate (60-100) 83 75 Pulse Location Monitor Blood Pressure (90/60-120/80) 175/83 H 148/64 H Blood Pressure Mean 113 92 Source Monitor Monitor History Since Last Visit- (Skip if this is Patient's initial visit) Have you changed medications since your Yes No last visit? Any new allergies or adverse reactions No No Had a fall/change in ADL's that may No No increase risk of falls Signs or symptoms of abuse and/or No No neglect since last visit Have you been in the hospital since your No No last visit? Has dressing in place as prescribed Yes Yes Has compression in place as prescribed N/A N/A Has offloadiing in place as prescribed N/A N/A Experienced any changes in pain level or No No management Left Footwear Regular Shoe Regular Shoe Right Footwear Regular Shoe Regular Shoe Pain Scale: 0-10 Numeric Is Patient Pain Free? No Yes WC - Nurse 1 - General Ulcer Measurement Start: 04/23/21 14:07 Freq: Status: Active Protocol: Activity Type Activity Date Activity User E-Sign Co-Sign Detail Recorded Client Recorded Date Recorded By Document 04/23/21 14:24 CHHAYA [id number] 04/23/21 14:35 AK Document 04/29/21 09:06 KS [id number] 04/29/21 09:14 AK 04/23/21 04/29/21 14:24 09:06 Wound Center Nurse 1 #2 L medial superior thigh -Combined with other wound No No -Current Size (cm) - Length 1.4 0.6 -Current Size (cm) - Width 2.4 1.5 -Current Size (cm) - Depth 3 2.4 -Total Square Cm 3.36 0.90 -Date of Last Picture (Recall this 04/23/21 field) -Photo Taken Yes No -Tunneling No No -Tunneling Distance (cm) 2.4 -Tunneling Position #2 (O'clock) 12 -Tunneling Distance #2 (cm) 4 -Undermining/Tunneling No No -Maximum Distance (cm) 3 -Circular Undermining Yes Yes -Exudate Amt Large Large -Exudate Type Serosanguineous Serosanguineous -Wound Margin Distinct, Outline Attached -Granulation Amt None Present (0 %) -Granulation Quality N/A N/A -Slough/Fibrin No No -Necrosis Amt None Present (0 None Present (0 %) %) -Structure Exposed N/A -Texture (Anna-wound Skin Appearance) No Abnormality, Assessed, Assessed Excoriation -Moisture (Anna-wound Skin Appearance) No Abnormality, Assessed, Assessed Maceration -Color (Anna-wound Skin Appearance) Assessed, Assessed,Rubor Erythema -Temperature (Anna-wound Skin No Abnormality No Abnormality Appearance) (Pt Warm) (Pt Warm) -Tenderness on Palpation (Anna-wound Yes Yes Skin Appearance) -Ulcer Cleansing Rinsed/ Soap and Water Irrigated with Saline -Foul Odor after Cleansing No No -Anesthetic Used 4% Lidocaine 4% Lidocaine Solution Solution #1 Left thigh inferior -Combined with other wound No No -Current Size (cm) - Length 0.8 1 -Current Size (cm) - Width 1.2 1 -Current Size (cm) - Depth 2.6 2.4 -Total Square Cm 0.96 1 -Date of Last Picture (Recall this 04/23/21 field) -Photo Taken Yes No -Epithelialization None Present None Present -Tunneling No No -Undermining/Tunneling Yes No -Undermining/Tunneling Starts (O'clock 12 ) -Undermining/Tunneling Ends (O'clock) 11 -Maximum Distance (cm) 2.3 -Circular Undermining Yes No -Exudate Amt Large Medium -Exudate Type Serosanguineous Serosanguineous -Wound Margin Distinct, Outline Attached -Granulation Amt None Present (0 %) -Granulation Quality N/A -Slough/Fibrin No Yes -Necrosis Amt None Present (0 Small (1-33%) %) -Necrotic Tissue Type Adherent Slough -Structure Exposed N/A -Texture (Anna-wound Skin Appearance) No Abnormality, Assessed, Assessed Excoriation, Localized Edema -Moisture (Anna-wound Skin Appearance) Assessed Assessed, Weeping -Color (Anna-wound Skin Appearance) Assessed, Assessed, Erythema Erythema -Temperature (Anna-wound Skin No Abnormality No Abnormality Appearance) (Pt Warm) (Pt Warm) -Tenderness on Palpation (Anna-wound Yes: pain 8 Yes Skin Appearance) -Ulcer Cleansing Rinsed/ Soap and Water Irrigated with Saline -Foul Odor after Cleansing No No -Anesthetic Used 4% Lidocaine 4% Lidocaine Solution Solution WC - Nurse 2 - General Ulcer CM Notes Start: 04/23/21 14:07 Freq: Status: Active Protocol: Activity Type Activity Date Activity User E-Sign Co-Sign Detail Recorded Client Recorded Date Recorded By Document 04/23/21 14:50 MW [id number] 04/23/21 15:05 MW Document 04/29/21 09:22 MW [id number] 04/29/21 09:32 MW 04/23/21 04/29/21 14:50 09:22 Wound Center Nurse 2 #2 L medial superior thigh -Time 14:50 09:24 -Correct Patient Yes Yes -Correct Side, Site, Position Yes Yes -Correct Procedure Yes Yes -Procedure Performed Yes Yes -Type of Procedure Debridement Debridement -Clinical Debridement Muscle / Fascia Muscle / Fascia -Tissue Removed Muscle,Fascia Muscle,Fascia -Post Debridement (cm) - Length 2.0 1.0 -Post Debridement (cm) - Width 1.5 1.7 -Post Debridement (cm) - Depth 4.5 2.8 -Total Square (Post) (cm) 3.00 1.70 -Area of Debridement (cm) - Length 2.0 1.0 -Area of Debridement (cm) - Width 1.5 1.7 -Total Square (Area) (cm) 3.00 1.70 -Tunneling No No -Undermining/Tunneling Yes Yes -Undermining/Tunneling Starts (O'clock 12 11 ) -Undermining/Tunneling Ends (O'clock) 4 6 -Maximum Distance (cm) 6.0 1.5 -Undermining/Tunneling Starts #2 (O' 5 clock) -Undermining/Tunneling Ends #2 (O' 11 clock) -Maximum Distance #2 (cm) 1.0 -Circular Undermining No No -Wound/Ulcer Outcome Not Healed Not Healed -Ulcer Cleansing Rinsed/ Rinsed/ Irrigated with Irrigated with Saline Saline -Foul Odor after Cleansing No No -Bioengineered Tissue No No -Bleeding Controlled with Pressure Pressure -Offloading No No -Treatment Response Procedure Tolerated Well -Debridement - Muscle / Fascia, 1st Yes Yes 20sq cm #1 Left thigh inferior -Time 14:54 09:29 -Correct Patient Yes Yes -Correct Side, Site, Position Yes Yes -Correct Procedure Yes Yes -Procedure Performed Yes Yes -Type of Procedure Debridement Debridement -Clinical Debridement Muscle / Fascia Muscle / Fascia -Tissue Removed Muscle,Fascia Muscle,Fascia -Post Debridement (cm) - Length 1.5 0.8 -Post Debridement (cm) - Width 1.0 1.4 -Post Debridement (cm) - Depth 4.0 2.6 -Total Square (Post) (cm) 1.50 1.12 -Area of Debridement (cm) - Length 1.5 0.8 -Area of Debridement (cm) - Width 1.0 1.4 -Total Square (Area) (cm) 1.50 1.12 -Tunneling No No -Undermining/Tunneling No Yes -Undermining/Tunneling Starts (O'clock 7 ) -Undermining/Tunneling Ends (O'clock) 12 -Maximum Distance (cm) 1.0 -Circular Undermining No No -Wound/Ulcer Outcome Not Healed Not Healed -Ulcer Cleansing Rinsed/ Rinsed/ Irrigated with Irrigated with Saline Saline -Foul Odor after Cleansing No No -Bioengineered Tissue No No -Bleeding Controlled with Pressure Pressure -Offloading No No -Treatment Response Procedure Procedure Tolerated Well Tolerated Well -Debridement - Muscle / Fascia, 1st No No 20sq cm Pain Scale: 0-10 Numeric Is Patient Pain Free? Yes Yes WC - Nurse 3 - General Ulcer D/C NN Start: 04/23/21 14:07 Freq: Status: Active Protocol: Activity Type Activity Date Activity User E-Sign Co-Sign Detail Recorded Client Recorded Date Recorded By Document 04/23/21 15:33 DL [id number] 04/23/21 15:34 DL Document 04/29/21 09:49 AK [id number] 04/29/21 09:50 AK 04/23/21 04/29/21 15:33 09:49 Wound Care Nurse 3 #2 L medial superior thigh -Ulcer Cleansing Soap and Water Rinsed/ Irrigated with Saline -Foul Odor after Cleansing No No -Negative Pressure Wound Therapy N/A -Setting (mmHg) 125 -Negative Pressure is Continuous -Other Dressing wet to dry -Primary Dressing Covered/Secured with Dry Gauze, Secured with Tape #1 Left thigh inferior -Ulcer Cleansing Soap and Water Rinsed/ Irrigated with Saline -Foul Odor after Cleansing No No -Negative Pressure Wound Therapy N/A -Setting (mmHg) 125 -Negative Pressure is Continuous -Regranex (If Applicable) Continue -Other Dressing wet to dry -Primary Dressing Covered/Secured with Dry Gauze, Secured with Tape -NPWT Application Charge NPWT </= 50 sq cm ($) Treatment Response Procedure Tolerated Well Pain Scale: 0-10 Numeric Is Patient Pain Free? Yes No WC - Visit Discharge Discharge Condition Stable Stable Ambulatory Status Ambulatory Ambulatory Transportation Private Auto Private Auto Accompanied by friend Medication Reconcilliation completed & Yes provided to patient/care provider Clinical Summary of Care Provided Yes Facility Type Home Health Orders Sent Yes Additional Wound Wound debrided: Inferior wound from I&D of the post graft site from open heart Type of Debridement: Excisional debridement Anesthesia Used: 5% Lidocaine Gel Depth: Down to and including healthy tissue Percentage of wound debrided: 100 Instrument Used: 5mm curette Severity: Fat Layer Exposed Amount of bleeding with debridement: Mild Bleeding Controlled with: Compression and gauze Patient tolerated procedure: Patient tolerated procedure well Assessment/Plan Assessment/Plan (1) Obesity: CODE(S): E66.9 - Obesity, unspecified QUALIFIERS: Obesity type: unspecified obesity type Obesity classification: adult class 3 (BMI >= 40) Serious obesity comorbidity presence: with serious comorbidity Body mass index: BMI 50.0-59.9 Qualified Code(s): E66.01 - Morbid (severe) obesity due to excess calories; Z68.43 - Body mass index [BMI] 50.0-59.9, adult (2) CAD (coronary artery disease): CODE(S): I25.10 - Atherosclerotic heart disease of [place] coronary artery without angina pectoris QUALIFIERS: Coronary Disease-Associated Artery/Lesion type: bypass graft [place] vs. transplanted heart: [place] heart Associated angina: without angina Qualified Code(s): I25.810 - Atherosclerosis of coronary artery bypass graft(s) without angina pectoris (3) Nonhealing surgical wound: CODE(S): T81.89XA - Other complications of procedures, not elsewhere classified, initial encounter QUALIFIERS: Encounter type: initial encounter Qualified Code(s): T81.89XA - Other complications of procedures, not elsewhere classified, initial encounter PLAN: Wash all of leg and the area with antibacterial soap and water. Reapply the wound VAC with white foam at 125 mmHg pressure Lino wrap 4 inch on foot and 6 inch on leg up to thigh Take the Levaquin 500 mg 1 daily for 14 days Follow-up in 1 week (4) Status post incision and drainage: CODE(S): Z98.890 - Other specified postprocedural states (5) Abscess of left thigh: CODE(S): L02.416 - Cutaneous abscess of left lower limb
[2021-05-06 08:58] VITALS: BP 197/98; PULSE 75; TEMP 35.7; BMI 53.6
--- NOTE | 2021-05-06 10:04 | PCM.WC.PN ---
History of Present Illness Date of Service: 05/06/21 Chief Complaint: Status post incision and drainage of 2 abscesses on left thigh 04/11/2021 History of Wound: The patient is a 75-year-old female who presents for treatment of 2 abscesses to her left thigh status post incision and drainage on 04/11/2021. She has a past medical history as listed above. 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 Since then she has been having issues with swelling and bilateral lymphedema. In March 2021, she developed abscesses to her left inner thigh. On 04/11/2021 she had an I&D after a CT scan of the left thigh showed pockets of fluid with abscess present. She was discharged from surgery with a prescription for Keflex, which she just finished today, 04/23/2021, and with a wound VAC applied to both wounds, set at 125 mmHg. The wound VAC has been being changed by home health nurses 3 times per week. The patient states she has an appointment to follow-up with her surgeon on 05/07/2021. She denies any signs and symptoms of infection and states she has been tolerating the wound VAC well. She denies any acute concerns at this time. Past medical, family, and social history reviewed and not pertinent to the current visit and all other systems reviewed and negative with exception of those listed above. Progress of Wound: Left lower leg is more supple and soft with less redness. Using the Lino wraps to the left lower leg. Much improvement The wounds are smaller depth is the same but undermining is disappearing still has some hardness around on the posterior thigh but home health did not wrap her leg upper thigh leg. Also discussed having the tube coming up through the waist rather than down through her leg. Overall the wound and legs look much better. Subjective Subjective Patient reassured and felt much better after talking with us but she feels the leg looks better also Objective Data Objective Data Again no sign of infection and improvement in the lower leg repeat of as above written in progress note Only change in treatment is Vanesa increase pressure from 125 to 150 mmHg Vital Signs: Vital Signs Temp Pulse BP 96.3 F L 75 197/98 H 05/06/21 08:58 05/06/21 08:58 05/06/21 08:58 Weight: 303 lb 0.01 oz Body Mass Index (BMI) 53.6 Lab / Micro Data Attestation: I reviewed the patient's lab results. Micro: Microbiology 04/23/21 15:00 Wound Abcess - Leg, Left Gram Stain - Final 04/23/21 15:00 Wound Abcess - Leg, Left Wound Culture - Final Enterobacter cloacae complex 04/23/21 15:00 Wound Abcess - Leg, Left Anaerobic Culture - Final No anaerobic bacteria isolated. Physical Exam Const oriented x3 General Appearance: cooperative Exam Limitations: no limitations HEENT normocephalic Head and Scalp: normal to inspection Face and Sinus: normal facial exam Nose: external nose normal General Ear: hearing grossly impaired External Ear: external ears normal Mouth: oral and palatal mucosa normal Eyes PERRL General Eye: normal appearance of both eyes Neck full ROM General: normal visual inspection Resp normal respiratory effort Effort and Inspection: able to speak in complete sentences Auscultation: clear to auscultation bilaterally Cardio regular rate and regular rhythm Palpation: normal PMI Rate: regular rate Rhythm: regular rhythm GI Auscultation: normoactive bowel sounds Palpation: soft and no hepatosplenomegaly external exam normal Extremity Extremity Narrative: Bilateral lower leg lymphedema left leg has open wounds upper thigh area. Lower leg on the left has increased swelling from right leg hardened skin definitely some peripheral vascular disease. Edematous dorsal foot Skin Wounds: wounds noted Wound Narrative: Superior and inferior open wounds left upper thigh area from graft sites opened positive depth with some undermining Neuro oriented x3 Psych Appearance: grossly normal Speech: normal speech Thought Content: normal thought content Judgement: judgement good Debridement Note Debridement Note Wound debrided: Superior surgical wound left upper thigh Type of Debridement: Excisional debridement Anesthesia Used: 5% Lidocaine Gel Depth: Down to and including healthy tissue Percentage of wound debrided: 100 Instrument Used: 5mm curette Tissue Removed: Fibrin some slough blood Severity: Fat Layer Exposed Amount of bleeding with debridement: Mild Bleeding Controlled with: Compression and gauze Patient tolerated procedure: Patient tolerated procedure well Post-Debridement Measurements and Additional Note: Post-Debridement Measurements/Treatment THEO - Nurse 1 - General Ulcer Assessment Start: 04/23/21 14:07 Freq: Status: Active Protocol: JOEY Activity Type Activity Date Activity User E-Sign Co-Sign Detail Recorded Client Recorded Date Recorded By Document 04/23/21 14:24 CHHAYA [id number] 04/23/21 14:35 AK Document 04/29/21 09:06 AK [id number] 04/29/21 09:14 AK Document 05/06/21 08:58 [place] [id number] 05/06/21 09:14 AK 04/23/21 04/29/21 05/06/21 14:24 09:06 08:58 WC - Today's Visit Information Type of service Initial Visit Follow-up Visit Follow-up Visit (Physician/DRILL PRESSER (Physician/DRILL PRESSER ) ) Arrival Mode Ambulatory Ambulatory Ambulatory Patient Identification Verified (Name & Yes Yes Yes ) Patient Requires Transmission-Based No No No Precautions Safety Precautions NA NA NA Height and Weight Height 5 ft 3 in Weight 303 lb 0.01 oz Weight in Pounds 303.0 lbs Weight Measurement Method Standing Scale Body Mass Index (BMI) 53.6 53.6 53.6 BMI Classification Obese Obese Obese BSA - Gil 2.31 Vital Signs Temperature (97.8 F-99.1 F) 96.9 F L 96.3 F L 96.3 F L Temperature Source Temporal Temporal Temporal Pulse Rate (60-100) 83 75 75 Pulse Location Monitor Monitor Blood Pressure (90/60-120/80) 175/83 H 148/64 H 197/98 H Blood Pressure Mean (mm Hg) 113 92 131 Source Monitor Monitor Monitor History Since Last Visit- (Skip if this is Patient's initial visit) Have you changed medications since your Yes No No last visit? Any new allergies or adverse reactions No No No Had a fall/change in ADL's that may No No No increase risk of falls Signs or symptoms of abuse and/or No No No neglect since last visit Have you been in the hospital since your No No No last visit? Has dressing in place as prescribed Yes Yes Yes Has compression in place as prescribed N/A N/A N/A Has offloadiing in place as prescribed N/A N/A N/A Experienced any changes in pain level or No No No management Left Footwear Regular Shoe Regular Shoe Regular Shoe Right Footwear Regular Shoe Regular Shoe Regular Shoe Pain Scale: 0-10 Numeric Is Patient Pain Free? No Yes Yes WC - Nurse 1 - General Ulcer Measurement Start: 04/23/21 14:07 Freq: Status: Active Protocol: Activity Type Activity Date Activity User E-Sign Co-Sign Detail Recorded Client Recorded Date Recorded By Document 04/23/21 14:24 CHHAYA [id number] 04/23/21 14:35 AK Document 04/29/21 09:06 AK [id number] 04/29/21 09:14 AK Document 05/06/21 08:58 AZ [id number] 05/06/21 09:14 AK 04/23/21 04/29/21 05/06/21 14:24 09:06 08:58 Wound Center Nurse 1 #2 L medial superior thigh -Combined with other wound No No No -Current Size (cm) - Length 1.4 0.6 0.7 -Current Size (cm) - Width 2.4 1.5 0.9 -Current Size (cm) - Depth 3 2.4 1.6 -Total Square Cm 3.36 0.90 0.63 -Date of Last Picture (Recall this 04/23/21 05/06/21 field) -Photo Taken Yes No Yes -Tunneling No No No -Tunneling Distance (cm) 2.4 -Tunneling Position #2 (O'clock) 12 -Tunneling Distance #2 (cm) 4 -Undermining/Tunneling No No No -Maximum Distance (cm) 3 -Circular Undermining Yes Yes No -Change in Wound Grade/Stage No -Exudate Amt Large Large Medium -Exudate Type Serosanguineous Serosanguineous Serosanguineous -Wound Margin Distinct, Distinct, Outline Outline Attached Attached -Granulation Amt None Present (0 None Present (0 %) %) -Granulation Quality N/A N/A N/A -Slough/Fibrin No No Yes -Necrosis Amt None Present (0 None Present (0 Small (1-33%) %) %) -Necrotic Tissue Type Adherent Slough -Structure Exposed N/A N/A -Texture (Anna-wound Skin Appearance) No Abnormality, Assessed, No Abnormality, Assessed Excoriation Assessed -Moisture (Anna-wound Skin Appearance) No Abnormality, Assessed, No Abnormality, Assessed Maceration Assessed -Color (Anna-wound Skin Appearance) Assessed, Assessed,Rubor No Abnormality, Erythema Assessed -Temperature (Anna-wound Skin No Abnormality No Abnormality No Abnormality Appearance) (Pt Warm) (Pt Warm) (Pt Warm) -Tenderness on Palpation (Anna-wound Yes Yes No Skin Appearance) -Ulcer Cleansing Rinsed/ Soap and Water Soap and Water Irrigated with Saline -Foul Odor after Cleansing No No No -Anesthetic Used 4% Lidocaine 4% Lidocaine 4% Lidocaine Solution Solution Solution #1 Left thigh inferior -Combined with other wound No No No -Current Size (cm) - Length 0.8 1 0.8 -Current Size (cm) - Width 1.2 1 1.2 -Current Size (cm) - Depth 2.6 2.4 2.9 -Total Square Cm 0.96 1 0.96 -Date of Last Picture (Recall this 04/23/21 05/06/21 field) -Photo Taken Yes No Yes -Epithelialization None Present None Present None Present -Tunneling No No No -Undermining/Tunneling Yes No No -Undermining/Tunneling Starts (O'clock 12 ) -Undermining/Tunneling Ends (O'clock) 11 -Maximum Distance (cm) 2.3 -Circular Undermining Yes No No -Change in Wound Grade/Stage No -Exudate Amt Large Medium Medium -Exudate Type Serosanguineous Serosanguineous Serosanguineous -Wound Margin Distinct, Distinct, Outline Outline Attached Attached -Granulation Amt None Present (0 None Present (0 %) %) -Granulation Quality N/A N/A -Slough/Fibrin No Yes Yes -Necrosis Amt None Present (0 Small (1-33%) Small (1-33%) %) -Necrotic Tissue Type Adherent Slough Adherent Slough -Structure Exposed N/A N/A -Texture (Anna-wound Skin Appearance) No Abnormality, Assessed, No Abnormality, Assessed Excoriation, Assessed Localized Edema -Moisture (Anna-wound Skin Appearance) Assessed Assessed, No Abnormality, Weeping Assessed -Color (Anna-wound Skin Appearance) Assessed, Assessed, No Abnormality, Erythema Erythema Assessed -Temperature (Anna-wound Skin No Abnormality No Abnormality No Abnormality Appearance) (Pt Warm) (Pt Warm) (Pt Warm) -Tenderness on Palpation (Anna-wound Yes: pain 8 Yes No Skin Appearance) -Ulcer Cleansing Rinsed/ Soap and Water Soap and Water Irrigated with Saline -Foul Odor after Cleansing No No No -Anesthetic Used 4% Lidocaine 4% Lidocaine 4% Lidocaine Solution Solution Solution -Wound Comment(s) Left thigh is hard and swollen. Lino wrap was not wrapped all the way up. Pt reported home health did not receive new orders. Left Calf (cm) 64.1 Left Ankle (cm) 34.1 WC - Nurse 2 - General Ulcer CM Notes Start: 04/23/21 14:07 Freq: Status: Active Protocol: Activity Type Activity Date Activity User E-Sign Co-Sign Detail Recorded Client Recorded Date Recorded By Document 04/23/21 14:50 MW [id number] 04/23/21 15:05 MW Document 04/29/21 09:22 MW [id number] 04/29/21 09:32 MW Document 05/06/21 09:20 MW [id number] 05/06/21 09:36 MW 04/23/21 04/29/21 05/06/21 14:50 09:22 09:20 Wound Center Nurse 2 #2 L medial superior thigh -Time 14:50 09:24 09:20 -Correct Patient Yes Yes Yes -Correct Side, Site, Position Yes Yes Yes -Correct Procedure Yes Yes Yes -Procedure Performed Yes Yes Yes -Type of Procedure Debridement Debridement Debridement -Clinical Debridement Muscle / Fascia Muscle / Fascia Subcutaneous -Tissue Removed Muscle,Fascia Muscle,Fascia Subcutaneous -Post Debridement (cm) - Length 2.0 1.0 0.8 -Post Debridement (cm) - Width 1.5 1.7 1.1 -Post Debridement (cm) - Depth 4.5 2.8 2.8 -Total Square (Post) (cm) 3.00 1.70 0.88 -Area of Debridement (cm) - Length 2.0 1.0 0.8 -Area of Debridement (cm) - Width 1.5 1.7 1.1 -Total Square (Area) (cm) 3.00 1.70 0.88 -Tunneling No No No -Undermining/Tunneling Yes Yes No -Undermining/Tunneling Starts (O'clock 12 11 ) -Undermining/Tunneling Ends (O'clock) 4 6 -Maximum Distance (cm) 6.0 1.5 -Undermining/Tunneling Starts #2 (O' 5 clock) -Undermining/Tunneling Ends #2 (O' 11 clock) -Maximum Distance #2 (cm) 1.0 -Circular Undermining No No No -Wound/Ulcer Outcome Not Healed Not Healed Not Healed -Ulcer Cleansing Rinsed/ Rinsed/ Rinsed/ Irrigated with Irrigated with Irrigated with Saline Saline Saline -Foul Odor after Cleansing No No No -Bioengineered Tissue No No No -Bleeding Controlled with Pressure Pressure Pressure -Offloading No No No -Treatment Response Procedure Procedure Tolerated Well Tolerated Well -Debridement - Subq, 1st 20sq cm Yes -Debridement - Muscle / Fascia, 1st Yes Yes 20sq cm #1 Left thigh inferior -Time 14:54 09:29 09:21 -Correct Patient Yes Yes Yes -Correct Side, Site, Position Yes Yes Yes -Correct Procedure Yes Yes Yes -Procedure Performed Yes Yes Yes -Type of Procedure Debridement Debridement Debridement -Clinical Debridement Muscle / Fascia Muscle / Fascia Subcutaneous -Tissue Removed Muscle,Fascia Muscle,Fascia Subcutaneous -Post Debridement (cm) - Length 1.5 0.8 0.7 -Post Debridement (cm) - Width 1.0 1.4 0.9 -Post Debridement (cm) - Depth 4.0 2.6 2.5 -Total Square (Post) (cm) 1.50 1.12 0.63 -Area of Debridement (cm) - Length 1.5 0.8 0.7 -Area of Debridement (cm) - Width 1.0 1.4 0.9 -Total Square (Area) (cm) 1.50 1.12 0.63 -Tunneling No No No -Undermining/Tunneling No Yes No -Undermining/Tunneling Starts (O'clock 7 ) -Undermining/Tunneling Ends (O'clock) 12 -Maximum Distance (cm) 1.0 -Circular Undermining No No No -Wound/Ulcer Outcome Not Healed Not Healed Not Healed -Ulcer Cleansing Rinsed/ Rinsed/ Rinsed/ Irrigated with Irrigated with Irrigated with Saline Saline Saline -Foul Odor after Cleansing No No No -Bioengineered Tissue No No No -Bleeding Controlled with Pressure Pressure Pressure -Offloading No No No -Treatment Response Procedure Procedure Procedure Tolerated Well Tolerated Well Tolerated Well -Debridement - Subq, 1st 20sq cm No -Debridement - Muscle / Fascia, 1st No No 20sq cm Pain Scale: 0-10 Numeric Is Patient Pain Free? Yes Yes Yes WC - Nurse 3 - General Ulcer D/C NN Start: 04/23/21 14:07 Freq: Status: Active Protocol: Activity Type Activity Date Activity User E-Sign Co-Sign Detail Recorded Client Recorded Date Recorded By Document 04/23/21 15:33 DL [id number] 04/23/21 15:34 DL Document 04/29/21 09:49 AK [id number] 04/29/21 09:50 AK Edit Result 04/29/21 09:49 AK (1) [id number] 04/30/21 06:49 [address] Document 05/06/21 09:46 AK [id number] 05/06/21 09:49 AK (1) #1 Left thigh inferior - NPWT Application Charge NPWT </= 50 sq cm => NPWT & Debridement ($) => (nc) 04/23/21 04/29/21 05/06/21 15:33 09:49 09:46 Wound Care Nurse 3 #2 L medial superior thigh -Ulcer Cleansing Soap and Water Rinsed/ Soap and Water Irrigated with Saline -Foul Odor after Cleansing No No No -Negative Pressure Wound Therapy N/A N/A -Setting (mmHg) 125 -Negative Pressure is Continuous Intermittent -Other Dressing wet to dry -Primary Dressing Covered/Secured with Dry Gauze, Secured with Tape -NPWT Application Charge NPWT </= 50 sq cm ($) #1 Left thigh inferior -Ulcer Cleansing Soap and Water Rinsed/ Soap and Water Irrigated with Saline -Foul Odor after Cleansing No No No -Negative Pressure Wound Therapy N/A N/A -Setting (mmHg) 125 -Negative Pressure is Continuous Intermittent -Regranex (If Applicable) Continue -Other Dressing wet to dry -Primary Dressing Covered/Secured with Dry Gauze, Secured with Tape -NPWT Application Charge NPWT & NPWT </= 50 sq Debridement (nc cm ($) ) Left -Compression Wrap Lino Wrap -Other lino wrap up thigh Treatment Response Procedure Tolerated Well Pain Scale: 0-10 Numeric Is Patient Pain Free? Yes No Yes WC - Visit Discharge Discharge Condition Stable Stable Stable Ambulatory Status Ambulatory Ambulatory Ambulatory Transportation Private Auto Private Auto Private Auto Accompanied by friend friend Medication Reconcilliation completed & Yes Yes provided to patient/care provider Clinical Summary of Care Provided Yes Yes Facility Type Home Health Orders Sent Yes Additional Wound Wound debrided: Inferior left upper thigh surgical wound Type of Debridement: Excisional debridement Anesthesia Used: 5% Lidocaine Gel Depth: Down to and including healthy tissue Percentage of wound debrided: 100 Instrument Used: 5mm curette Tissue Removed: Fibrin and slough Severity: Fat Layer Exposed Amount of bleeding with debridement: Mild Bleeding Controlled with: Compression and gauze Patient tolerated procedure: Patient tolerated procedure well Assessment/Plan Assessment/Plan (1) Obesity: CODE(S): E66.9 - Obesity, unspecified QUALIFIERS: Obesity type: unspecified obesity type Obesity classification: adult class 3 (BMI >= 40) Serious obesity comorbidity presence: with serious comorbidity Body mass index: BMI 50.0-59.9 Qualified Code(s): E66.01 - Morbid (severe) obesity due to excess calories; Z68.43 - Body mass index [BMI] 50.0-59.9, adult (2) CAD (coronary artery disease): CODE(S): I25.10 - Atherosclerotic heart disease of [place] coronary artery without angina pectoris QUALIFIERS: Coronary Disease-Associated Artery/Lesion type: bypass graft [place] vs. transplanted heart: [place] heart Associated angina: without angina Qualified Code(s): I25.810 - Atherosclerosis of coronary artery bypass graft(s) without angina pectoris (3) Nonhealing surgical wound: CODE(S): T81.89XA - Other complications of procedures, not elsewhere classified, initial encounter QUALIFIERS: Encounter type: initial encounter Qualified Code(s): T81.89XA - Other complications of procedures, not elsewhere classified, initial encounter PLAN: Wash all of leg and the area with antibacterial soap and water. Reapply the wound VAC with white foam at increase to 150 mmHg pressure Lino wrap 4 inch on foot and 6 inch on leg up to thigh Take the Levaquin 500 mg 1 daily for 14 days Follow-up in 1 week (4) Status post incision and drainage: CODE(S): Z98.890 - Other specified postprocedural states (5) Abscess of left thigh: CODE(S): L02.416 - Cutaneous abscess of left lower limb
[2021-05-18 08:51] VITALS: BP 103/70; PULSE 83; RESP 18; TEMP 35.2; BMI 53.6
--- NOTE | 2021-05-18 12:23 | PCM.WC.PN ---
History of Present Illness Date of Service: 05/18/21 Chief Complaint: Status post incision and drainage of 2 abscesses on left thigh 04/11/2021 and dermolipectomy and I&D left medial thigh 05/13/21 History of Wound: The patient is a 75-year-old female who presents for treatment of 2 abscesses to her left thigh status post incision and drainage on 04/11/2021. She has a past medical history as listed above. 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 Since then she has been having issues with swelling and bilateral lymphedema. In March 2021, she developed abscesses to her left inner thigh. On 04/11/2021 she had an I&D after a CT scan of the left thigh showed pockets of fluid with abscess present. She was discharged from surgery with a prescription for Keflex, which she just finished today, 04/23/2021, and with a wound VAC applied to both wounds, set at 125 mmHg. The wound VAC has been being changed by home health nurses 3 times per week. The patient states she has an appointment to follow-up with her surgeon on 05/07/2021. She denies any signs and symptoms of infection and states she has been tolerating the wound VAC well. She denies any acute concerns at this time. Past medical, family, and social history reviewed and not pertinent to the current visit and all other systems reviewed and negative with exception of those listed above. She presented to the ED on 05/11/21 with increased pain and redness and swelling involving her left medial thigh that has worsened over the past few days. Patient states that she had an abscess in this area which was surgically debrided and drained at [facility] in [place] approximately 3 weeks ago. Patient denies any fever. She denies trauma. In the ED, her WBC was normal at 7.5. Her Hgb was 10.8. She was started on IV antibiotics with Vancomycin and Zosyn. Wound cultures were obtained in the ED. CT Left lower extremity was done. It showed the presence of another abscess deeper to the ones that were drained in [place]. 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 Size of defect left medial thigh - 23 x 14 x 6 cm. Wound care - Wound VAC at 150 mmHg, changed 3 times per week. Will place adaptic in the base of the ulcer this week to help with pain during VAC changes. Operative cultures showed MRSA, Actinomyces naeslundii, and Anaerobic cocci. She is on Doxycycline and will start her on Flagyl. Progress of Wound: Left medial thigh ulcer is beefy pink. The cellulitis/red area surrounding the ulcer is much improved. She is tolerating the wound VAC well. Objective Data Objective Data Vital Signs: Vital Signs Temp Pulse Resp BP 95.3 F L 83 18 103/70 05/18/21 08:51 05/18/21 08:51 05/18/21 08:51 05/18/21 08:51 Oxygen Delivery Method Room Air Weight: 303 lb 0.01 oz Body Mass Index (BMI) 53.6 Lab / Micro Data Micro: Microbiology 04/23/21 15:00 Wound Abcess - Leg, Left Gram Stain - Final 04/23/21 15:00 Wound Abcess - Leg, Left Wound Culture - Final Enterobacter cloacae complex 04/23/21 15:00 Wound Abcess - Leg, Left Anaerobic Culture - Final No anaerobic bacteria isolated. Charges/Coding Procedures Integumentary [id number]: [id number] Global Visit Physical Exam Const alert and oriented x3 General Appearance: cooperative HEENT normocephalic Head and Scalp: atraumatic Resp normal respiratory effort and clear to auscultation bilaterally Cardio regular rate and regular rhythm GI non-tender Palpation: soft Extremity normal capillary refill and no calf tenderness Extremity Narrative: Bilateral lower extremity edema +2 Skin Wound Narrative: Left medial thigh ulcer is beefy pink. No active bleeding. Anna wound is clear Neuro CN's II-XII intact bilaterally Psych Appearance: grossly normal Debridement Note Debridement Note Wound debrided: medial thigh ulcer Laterality: Left No debridement was completed: No debridement was completed today Post-Debridement Measurements and Additional Note: Post-Debridement Measurements/Treatment THEO - Nurse 1 - General Ulcer Assessment Start: 04/23/21 14:07 Freq: Status: Active Protocol: JOEY Activity Type Activity Date Activity User E-Sign Co-Sign Detail Recorded Client Recorded Date Recorded By Document 04/23/21 14:24 CHHAYA [id number] 04/23/21 14:35 AK Document 04/29/21 09:06 CHHAYA [id number] 04/29/21 09:14 AK Document 05/06/21 08:58 VT [id number] 05/06/21 09:14 AK Document 05/18/21 08:51 [facility] [id number] 05/18/21 09:06 BMF 04/23/21 04/29/21 05/06/21 14:24 09:06 08:58 WC - Today's Visit Information Type of service Initial Visit Follow-up Visit Follow-up Visit (Physician/SHOOTING GALLERY OPERATOR (Physician/SHOOTING GALLERY OPERATOR ) ) Arrival Mode Ambulatory Ambulatory Ambulatory Transfer Assistance Accompanied by Patient Identification Verified (Name & Yes Yes Yes ) Patient Requires Transmission-Based No No No Precautions Safety Precautions NA NA NA Height and Weight Height 5 ft 3 in Weight 303 lb 0.01 oz Weight in Pounds 303.0 lbs Weight Measurement Method Standing Scale Body Mass Index (BMI) 53.6 53.6 53.6 BMI Classification Obese Obese Obese BSA - Gil 2.31 Vital Signs Temperature (97.8 F-99.1 F) 96.9 F L 96.3 F L 96.3 F L Temperature Source Temporal Temporal Temporal Pulse Rate (60-100) 83 75 75 Pulse Location Monitor Monitor Respiratory Rate (12-18) Respiratory rate source Oxygen Delivery Method Blood Pressure (90/60-120/80) 175/83 H 148/64 H 197/98 H Blood Pressure Mean (mm Hg) 113 92 131 Source Monitor Monitor Monitor Position History Since Last Visit- (Skip if this is Patient's initial visit) Have you changed medications since your Yes No No last visit? Any new allergies or adverse reactions No No No Had a fall/change in ADL's that may No No No increase risk of falls Signs or symptoms of abuse and/or No No No neglect since last visit Have you been in the hospital since your No No No last visit? Has dressing in place as prescribed Yes Yes Yes Has compression in place as prescribed N/A N/A N/A Has offloadiing in place as prescribed N/A N/A N/A Experienced any changes in pain level or No No No management Left Footwear Regular Shoe Regular Shoe Regular Shoe Right Footwear Regular Shoe Regular Shoe Regular Shoe Pain Scale: 0-10 Numeric Is Patient Pain Free? No Yes Yes 05/18/21 08:51 WC - Today's Visit Information Type of service Follow-up Visit (Physician/SHOOTING GALLERY OPERATOR ) Arrival Mode Ambulatory Transfer Assistance None Accompanied by friend Patient Identification Verified (Name & Yes ) Patient Requires Transmission-Based No Precautions Safety Precautions Height and Weight Height Weight Weight in Pounds Weight Measurement Method Body Mass Index (BMI) 53.6 BMI Classification Obese BSA - Gil Vital Signs Temperature (97.8 F-99.1 F) 95.3 F L Temperature Source Temporal Pulse Rate (60-100) 83 Pulse Location Monitor Respiratory Rate (12-18) 18 Respiratory rate source Observation Oxygen Delivery Method Room Air Blood Pressure (90/60-120/80) 103/70 Blood Pressure Mean (mm Hg) 81 Source Monitor Position Sitting History Since Last Visit- (Skip if this is Patient's initial visit) Have you changed medications since your No last visit? Any new allergies or adverse reactions No Had a fall/change in ADL's that may No increase risk of falls Signs or symptoms of abuse and/or No neglect since last visit Have you been in the hospital since your Yes last visit? Has dressing in place as prescribed Yes Has compression in place as prescribed No Has offloadiing in place as prescribed N/A Experienced any changes in pain level or No management Left Footwear Regular Shoe Right Footwear Regular Shoe Pain Scale: 0-10 Numeric Is Patient Pain Free? Yes - Nurse 1 - General Ulcer Measurement Start: 04/23/21 14:07 Freq: Status: Active Protocol: Activity Type Activity Date Activity User E-Sign Co-Sign Detail Recorded Client Recorded Date Recorded By Document 04/23/21 14:24 VT [id number] 04/23/21 14:35 VT Document 04/29/21 09:06 VT [id number] 04/29/21 09:14 AK Document 05/06/21 08:58 VT [id number] 05/06/21 09:14 VT Document 05/18/21 08:51 [facility] [id number] 05/18/21 09:06 [facility] 04/23/21 04/29/21 05/06/21 14:24 09:06 08:58 Wound Center Nurse 1 #3- L MED THIGH POST OP -Combined with other wound -Current Size (cm) - Length -Current Size (cm) - Width -Current Size (cm) - Depth -Total Square Cm -Date of Last Picture (Recall this field) -Photo Taken -Epithelialization -Tunneling -Undermining/Tunneling -Undermining/Tunneling Starts (O'clock ) -Undermining/Tunneling Ends (O'clock) -Maximum Distance (cm) -Exudate Amt -Exudate Type -Wound Margin -Granulation Amt -Granulation Quality -Slough/Fibrin -Necrosis Amt -Necrotic Tissue Type -Texture (Anna-wound Skin Appearance) -Moisture (Anna-wound Skin Appearance) -Color (Anna-wound Skin Appearance) -Temperature (Anna-wound Skin Appearance) -Tenderness on Palpation (Anna-wound Skin Appearance) -Ulcer Cleansing -Foul Odor after Cleansing -Anesthetic Used #2 L medial superior thigh -Combined with other wound No No No -Combined with (Name of Wound-Exactly as it is documented) -Current Size (cm) - Length 1.4 0.6 0.7 -Current Size (cm) - Width 2.4 1.5 0.9 -Current Size (cm) - Depth 3 2.4 1.6 -Total Square Cm 3.36 0.90 0.63 -Date of Last Picture (Recall this 04/23/21 05/06/21 field) -Photo Taken Yes No Yes -Tunneling No No No -Tunneling Distance (cm) 2.4 -Tunneling Position #2 (O'clock) 12 -Tunneling Distance #2 (cm) 4 -Undermining/Tunneling No No No -Maximum Distance (cm) 3 -Circular Undermining Yes Yes No -Change in Wound Grade/Stage No -Exudate Amt Large Large Medium -Exudate Type Serosanguineous Serosanguineous Serosanguineous -Wound Margin Distinct, Distinct, Outline Outline Attached Attached -Granulation Amt None Present (0 None Present (0 %) %) -Granulation Quality N/A N/A N/A -Slough/Fibrin No No Yes -Necrosis Amt None Present (0 None Present (0 Small (1-33%) %) %) -Necrotic Tissue Type Adherent Slough -Structure Exposed N/A N/A -Texture (Anna-wound Skin Appearance) No Abnormality, Assessed, No Abnormality, Assessed Excoriation Assessed -Moisture (Anna-wound Skin Appearance) No Abnormality, Assessed, No Abnormality, Assessed Maceration Assessed -Color (Anna-wound Skin Appearance) Assessed, Assessed,Rubor No Abnormality, Erythema Assessed -Temperature (Anna-wound Skin No Abnormality No Abnormality No Abnormality Appearance) (Pt Warm) (Pt Warm) (Pt Warm) -Tenderness on Palpation (Anna-wound Yes Yes No Skin Appearance) -Ulcer Cleansing Rinsed/ Soap and Water Soap and Water Irrigated with Saline -Foul Odor after Cleansing No No No -Anesthetic Used 4% Lidocaine 4% Lidocaine 4% Lidocaine Solution Solution Solution #1 Left thigh inferior -Combined with other wound No No No -Combined with (Name of Wound-Exactly as it is documented) -Current Size (cm) - Length 0.8 1 0.8 -Current Size (cm) - Width 1.2 1 1.2 -Current Size (cm) - Depth 2.6 2.4 2.9 -Total Square Cm 0.96 1 0.96 -Date of Last Picture (Recall this 04/23/21 05/06/21 field) -Photo Taken Yes No Yes -Epithelialization None Present None Present None Present -Tunneling No No No -Undermining/Tunneling Yes No No -Undermining/Tunneling Starts (O'clock 12 ) -Undermining/Tunneling Ends (O'clock) 11 -Maximum Distance (cm) 2.3 -Circular Undermining Yes No No -Change in Wound Grade/Stage No -Exudate Amt Large Medium Medium -Exudate Type Serosanguineous Serosanguineous Serosanguineous -Wound Margin Distinct, Distinct, Outline Outline Attached Attached -Granulation Amt None Present (0 None Present (0 %) %) -Granulation Quality N/A N/A -Slough/Fibrin No Yes Yes -Necrosis Amt None Present (0 Small (1-33%) Small (1-33%) %) -Necrotic Tissue Type Adherent Slough Adherent Slough -Structure Exposed N/A N/A -Texture (Anna-wound Skin Appearance) No Abnormality, Assessed, No Abnormality, Assessed Excoriation, Assessed Localized Edema -Moisture (Anna-wound Skin Appearance) Assessed Assessed, No Abnormality, Weeping Assessed -Color (Anan-wound Skin Appearance) Assessed, Assessed, No Abnormality, Erythema Erythema Assessed -Temperature (Anna-wound Skin No Abnormality No Abnormality No Abnormality Appearance) (Pt Warm) (Pt Warm) (Pt Warm) -Tenderness on Palpation (Anna-wound Yes: pain 8 Yes No Skin Appearance) -Ulcer Cleansing Rinsed/ Soap and Water Soap and Water Irrigated with Saline -Foul Odor after Cleansing No No No -Anesthetic Used 4% Lidocaine 4% Lidocaine 4% Lidocaine Solution Solution Solution -Wound Comment(s) Left thigh is hard and swollen. Lino wrap was not wrapped all the way up. Pt reported home health did not receive new orders. Left Calf (cm) 64.1 Left Ankle (cm) 34.1 05/18/21 08:51 Wound Center Nurse 1 #3- L MED THIGH POST OP -Combined with other wound No -Current Size (cm) - Length 13.7 -Current Size (cm) - Width 21.5 -Current Size (cm) - Depth 4.4 -Total Square Cm 294.55 -Date of Last Picture (Recall this 05/18/21 field) -Photo Taken Yes -Epithelialization None Present -Tunneling No -Undermining/Tunneling Yes -Undermining/Tunneling Starts (O'clock 10 ) -Undermining/Tunneling Ends (O'clock) 12 -Maximum Distance (cm) 5.2 -Exudate Amt Large -Exudate Type Serosanguineous -Wound Margin Distinct, Outline Attached -Granulation Amt Large (67-100%) -Granulation Quality Red -Slough/Fibrin Yes -Necrosis Amt Small (1-33%) -Necrotic Tissue Type Adherent Slough -Texture (Anna-wound Skin Appearance) Assessed, Scarring -Moisture (Anna-wound Skin Appearance) Assessed -Color (Anna-wound Skin Appearance) Assessed -Temperature (Anna-wound Skin No Abnormality Appearance) (Pt Warm) -Tenderness on Palpation (Anna-wound Yes Skin Appearance) -Ulcer Cleansing Soap and Water -Foul Odor after Cleansing No -Anesthetic Used 4% Lidocaine Solution #2 L medial superior thigh -Combined with other wound Yes -Combined with (Name of Wound-Exactly #3- L UPPER as it is documented) MEDIAL THIGH -Current Size (cm) - Length -Current Size (cm) - Width -Current Size (cm) - Depth -Total Square Cm -Date of Last Picture (Recall this field) -Photo Taken -Tunneling -Tunneling Distance (cm) -Tunneling Position #2 (O'clock) -Tunneling Distance #2 (cm) -Undermining/Tunneling -Maximum Distance (cm) -Circular Undermining -Change in Wound Grade/Stage -Exudate Amt -Exudate Type -Wound Margin -Granulation Amt -Granulation Quality -Slough/Fibrin -Necrosis Amt -Necrotic Tissue Type -Structure Exposed -Texture (Anna-wound Skin Appearance) -Moisture (Anna-wound Skin Appearance) -Color (Anna-wound Skin Appearance) -Temperature (Anna-wound Skin Appearance) -Tenderness on Palpation (Anna-wound Skin Appearance) -Ulcer Cleansing -Foul Odor after Cleansing -Anesthetic Used #1 Left thigh inferior -Combined with other wound Yes -Combined with (Name of Wound-Exactly #3- LEFT MEDIAL as it is documented) THIGH P/O -Current Size (cm) - Length -Current Size (cm) - Width -Current Size (cm) - Depth -Total Square Cm -Date of Last Picture (Recall this field) -Photo Taken -Epithelialization -Tunneling -Undermining/Tunneling -Undermining/Tunneling Starts (O'clock ) -Undermining/Tunneling Ends (O'clock) -Maximum Distance (cm) -Circular Undermining -Change in Wound Grade/Stage -Exudate Amt -Exudate Type -Wound Margin -Granulation Amt -Granulation Quality -Slough/Fibrin -Necrosis Amt -Necrotic Tissue Type -Structure Exposed -Texture (Anna-wound Skin Appearance) -Moisture (Anna-wound Skin Appearance) -Color (Anna-wound Skin Appearance) -Temperature (Anna-wound Skin Appearance) -Tenderness on Palpation (Anna-wound Skin Appearance) -Ulcer Cleansing -Foul Odor after Cleansing -Anesthetic Used -Wound Comment(s) Left Calf (cm) Left Ankle (cm) WC - Nurse 2 - General Ulcer CM Notes Start: 04/23/21 14:07 Freq: Status: Active Protocol: Activity Type Activity Date Activity User E-Sign Co-Sign Detail Recorded Client Recorded Date Recorded By Document 04/23/21 14:50 MW [id number] 04/23/21 15:05 MW Document 04/29/21 09:22 MW [id number] 04/29/21 09:32 MW Document 05/06/21 09:20 MW [id number] 05/06/21 09:36 MW Document 05/18/21 09:16 JF [id number] 05/18/21 09:17 04/23/21 04/29/21 05/06/21 14:50 09:22 09:20 Wound Center Nurse 2 #3- L MED THIGH POST OP -Correct Patient -Correct Side, Site, Position -Correct Procedure -Procedure Performed -Wound/Ulcer Outcome #2 L medial superior thigh -Time 14:50 09:24 09:20 -Correct Patient Yes Yes Yes -Correct Side, Site, Position Yes Yes Yes -Correct Procedure Yes Yes Yes -Procedure Performed Yes Yes Yes -Type of Procedure Debridement Debridement Debridement -Clinical Debridement Muscle / Fascia Muscle / Fascia Subcutaneous -Tissue Removed Muscle,Fascia Muscle,Fascia Subcutaneous -Post Debridement (cm) - Length 2.0 1.0 0.8 -Post Debridement (cm) - Width 1.5 1.7 1.1 -Post Debridement (cm) - Depth 4.5 2.8 2.8 -Total Square (Post) (cm) 3.00 1.70 0.88 -Area of Debridement (cm) - Length 2.0 1.0 0.8 -Area of Debridement (cm) - Width 1.5 1.7 1.1 -Total Square (Area) (cm) 3.00 1.70 0.88 -Tunneling No No No -Undermining/Tunneling Yes Yes No -Undermining/Tunneling Starts (O'clock 12 11 ) -Undermining/Tunneling Ends (O'clock) 4 6 -Maximum Distance (cm) 6.0 1.5 -Undermining/Tunneling Starts #2 (O' 5 clock) -Undermining/Tunneling Ends #2 (O' 11 clock) -Maximum Distance #2 (cm) 1.0 -Circular Undermining No No No -Wound/Ulcer Outcome Not Healed Not Healed Not Healed -Ulcer Cleansing Rinsed/ Rinsed/ Rinsed/ Irrigated with Irrigated with Irrigated with Saline Saline Saline -Foul Odor after Cleansing No No No -Bioengineered Tissue No No No -Bleeding Controlled with Pressure Pressure Pressure -Treatment Response Procedure Procedure Tolerated Well Tolerated Well -Offloading No No No -Debridement - Subq, 1st 20sq cm Yes -Debridement - Muscle / Fascia, 1st Yes Yes 20sq cm #1 Left thigh inferior -Time 14:54 09:29 09:21 -Correct Patient Yes Yes Yes -Correct Side, Site, Position Yes Yes Yes -Correct Procedure Yes Yes Yes -Procedure Performed Yes Yes Yes -Type of Procedure Debridement Debridement Debridement -Clinical Debridement Muscle / Fascia Muscle / Fascia Subcutaneous -Tissue Removed Muscle,Fascia Muscle,Fascia Subcutaneous -Post Debridement (cm) - Length 1.5 0.8 0.7 -Post Debridement (cm) - Width 1.0 1.4 0.9 -Post Debridement (cm) - Depth 4.0 2.6 2.5 -Total Square (Post) (cm) 1.50 1.12 0.63 -Area of Debridement (cm) - Length 1.5 0.8 0.7 -Area of Debridement (cm) - Width 1.0 1.4 0.9 -Total Square (Area) (cm) 1.50 1.12 0.63 -Tunneling No No No -Undermining/Tunneling No Yes No -Undermining/Tunneling Starts (O'clock 7 ) -Undermining/Tunneling Ends (O'clock) 12 -Maximum Distance (cm) 1.0 -Circular Undermining No No No -Wound/Ulcer Outcome Not Healed Not Healed Not Healed -Ulcer Cleansing Rinsed/ Rinsed/ Rinsed/ Irrigated with Irrigated with Irrigated with Saline Saline Saline -Foul Odor after Cleansing No No No -Bioengineered Tissue No No No -Bleeding Controlled with Pressure Pressure Pressure -Treatment Response Procedure Procedure Procedure Tolerated Well Tolerated Well Tolerated Well -Offloading No No No -Debridement - Subq, 1st 20sq cm No -Debridement - Muscle / Fascia, 1st No No 20sq cm Pain Scale: 0-10 Numeric Is Patient Pain Free? Yes Yes Yes 05/18/21 09:16 Wound Center Nurse 2 #3- L MED THIGH POST OP -Correct Patient No -Correct Side, Site, Position No -Correct Procedure No -Procedure Performed No -Wound/Ulcer Outcome Not Healed #2 L medial superior thigh -Time -Correct Patient -Correct Side, Site, Position -Correct Procedure -Procedure Performed -Type of Procedure -Clinical Debridement -Tissue Removed -Post Debridement (cm) - Length -Post Debridement (cm) - Width -Post Debridement (cm) - Depth -Total Square (Post) (cm) -Area of Debridement (cm) - Length -Area of Debridement (cm) - Width -Total Square (Area) (cm) -Tunneling -Undermining/Tunneling -Undermining/Tunneling Starts (O'clock ) -Undermining/Tunneling Ends (O'clock) -Maximum Distance (cm) -Undermining/Tunneling Starts #2 (O' clock) -Undermining/Tunneling Ends #2 (O' clock) -Maximum Distance #2 (cm) -Circular Undermining -Wound/Ulcer Outcome -Ulcer Cleansing -Foul Odor after Cleansing -Bioengineered Tissue -Bleeding Controlled with -Treatment Response -Offloading -Debridement - Subq, 1st 20sq cm -Debridement - Muscle / Fascia, 1st 20sq cm #1 Left thigh inferior -Time -Correct Patient -Correct Side, Site, Position -Correct Procedure -Procedure Performed -Type of Procedure -Clinical Debridement -Tissue Removed -Post Debridement (cm) - Length -Post Debridement (cm) - Width -Post Debridement (cm) - Depth -Total Square (Post) (cm) -Area of Debridement (cm) - Length -Area of Debridement (cm) - Width -Total Square (Area) (cm) -Tunneling -Undermining/Tunneling -Undermining/Tunneling Starts (O'clock ) -Undermining/Tunneling Ends (O'clock) -Maximum Distance (cm) -Circular Undermining -Wound/Ulcer Outcome -Ulcer Cleansing -Foul Odor after Cleansing -Bioengineered Tissue -Bleeding Controlled with -Treatment Response -Offloading -Debridement - Subq, 1st 20sq cm -Debridement - Muscle / Fascia, 1st 20sq cm Pain Scale: 0-10 Numeric Is Patient Pain Free? Yes WC - Nurse 3 - General Ulcer D/C NN Start: 04/23/21 14:07 Freq: Status: Active Protocol: Activity Type Activity Date Activity User E-Sign Co-Sign Detail Recorded Client Recorded Date Recorded By Document 04/23/21 15:33 DL [id number] 04/23/21 15:34 DL Document 04/29/21 09:49 AK [id number] 04/29/21 09:50 AK Edit Result 04/29/21 09:49 AK (1) [id number] 04/30/21 06:[address] Document 05/06/21 09:46 AK [id number] 05/06/21 09:49 AK Edit Result 05/06/21 09:46 AK (2) [id number] 05/07/21 06:52 PL Document 05/18/21 10:13 KR [id number] 05/18/21 10:14 KR (1) #1 Left thigh inferior - NPWT Application Charge NPWT </= 50 sq cm => NPWT & Debridement ($) => (nc) (2) #2 L medial superior thigh - NPWT Application Charge NPWT </= 50 sq cm => NPWT & Debridement ($) => (nc) #1 Left thigh inferior - NPWT Application Charge NPWT </= 50 sq cm => NPWT - Multiple ($) => Locations 04/23/21 04/29/21 05/06/21 15:33 09:49 09:46 Wound Care Nurse 3 #3- L MED THIGH POST OP -Ulcer Cleansing -Negative Pressure Wound Therapy -Setting (mmHg) -Negative Pressure is -Regranex (If Applicable) -NPWT Application Charge #2 L medial superior thigh -Ulcer Cleansing Soap and Water Rinsed/ Soap and Water Irrigated with Saline -Foul Odor after Cleansing No No No -Negative Pressure Wound Therapy N/A N/A -Setting (mmHg) 125 -Negative Pressure is Continuous Intermittent -Other Dressing wet to dry -Primary Dressing Covered/Secured with Dry Gauze, Secured with Tape -NPWT Application Charge NPWT & Debridement (nc ) #1 Left thigh inferior -Ulcer Cleansing Soap and Water Rinsed/ Soap and Water Irrigated with Saline -Foul Odor after Cleansing No No No -Negative Pressure Wound Therapy N/A N/A -Setting (mmHg) 125 -Negative Pressure is Continuous Intermittent -Regranex (If Applicable) Continue -Other Dressing wet to dry -Primary Dressing Covered/Secured with Dry Gauze, Secured with Tape -NPWT Application Charge NPWT & NPWT - Multiple Debridement (nc Locations ) Left -Compression Wrap Lino Wrap -Other lino wrap up thigh Treatment Response Procedure Tolerated Well Pain Scale: 0-10 Numeric Is Patient Pain Free? Yes No Yes WC - Visit Discharge Discharge Condition Stable Stable Stable Ambulatory Status Ambulatory Ambulatory Ambulatory Transportation Private Auto Private Auto Private Auto Accompanied by friend friend Medication Reconcilliation completed & Yes Yes provided to patient/care provider Clinical Summary of Care Provided Yes Yes Facility Type Home Health Orders Sent Yes 05/18/21 10:13 Wound Care Nurse 3 #3- L MED THIGH POST OP -Ulcer Cleansing Rinsed/ Irrigated with Saline -Negative Pressure Wound Therapy Continue -Setting (mmHg) 150 -Negative Pressure is Continuous -Regranex (If Applicable) Continue -NPWT Application Charge NPWT </= 50 sq cm ($) #2 L medial superior thigh -Ulcer Cleansing -Foul Odor after Cleansing -Negative Pressure Wound Therapy -Setting (mmHg) -Negative Pressure is -Other Dressing -Primary Dressing Covered/Secured with -NPWT Application Charge #1 Left thigh inferior -Ulcer Cleansing -Foul Odor after Cleansing -Negative Pressure Wound Therapy -Setting (mmHg) -Negative Pressure is -Regranex (If Applicable) -Other Dressing -Primary Dressing Covered/Secured with -NPWT Application Charge Left -Compression Wrap Lino Wrap -Other Treatment Response Pain Scale: 0-10 Numeric Is Patient Pain Free? Yes WC - Visit Discharge Discharge Condition Stable Ambulatory Status Ambulatory Transportation Private Auto Accompanied by friend Medication Reconcilliation completed & provided to patient/care provider Clinical Summary of Care Provided Facility Type Orders Sent Assessment/Plan Assessment/Plan (1) Nonhealing surgical wound: CODE(S): T81.89XA - Other complications of procedures, not elsewhere classified, initial encounter QUALIFIERS: Encounter type: initial encounter Qualified Code(s): T81.89XA - Other complications of procedures, not elsewhere classified, initial encounter (2) Lymphangitis of lower extremity: CODE(S): I89.1 - Lymphangitis (3) Localized adiposity of thigh: CODE(S): E65 - Localized adiposity (4) Acquired lymphedema of lower extremity: CODE(S): I89.0 - Lymphedema, not elsewhere classified (5) Abscess of left thigh: CODE(S): L02.416 - Cutaneous abscess of left lower limb (6) Obesity: CODE(S): E66.9 - Obesity, unspecified QUALIFIERS: Obesity type: unspecified obesity type Obesity classification: adult class 3 (BMI >= 40) Serious obesity comorbidity presence: with serious comorbidity Body mass index: BMI 50.0-59.9 Qualified Code(s): E66.01 - Morbid (severe) obesity due to excess calories; Z68.43 - Body mass index [BMI] 50.0-59.9, adult PLAN: Wound care - Left medial thigh wound VAC at 150 mmHg, changed 3 times per week. Will place adaptic in the base of the ulcer this week to help with pain during VAC changes. LINO wraps for compression. Operative cultures showed MRSA, Actinomyces naeslundii, and Anaerobic cocci. She is on Doxycycline and will start her on Flagyl. She is to keep her legs elevated when she is sitting. Encouraged increase protein intake. She should also increase her Vitamin C intake to 1,000 mg daily. Follow up one week.
== END 2021-05-21 23:59 | disposition home or self-care (01) ==
LOC: WC 08:45
PROVIDERS: PCP Internal Medicine; Visit Provider Nurse Practitioner Family
DX: T81.89XA Other complications of procedures, not elsewhere classified, initial encounter (principal); L97.122 Non-pressure chronic ulcer of left thigh with fat layer exposed; E66.01 Morbid (severe) obesity due to excess calories; Z68.43 Body mass index [BMI] 50.0-59.9, adult; I25.10 Atherosclerotic heart disease of native coronary artery without angina pectoris; I89.0 Lymphedema, not elsewhere classified; I35.0 Nonrheumatic aortic (valve) stenosis; I10 Essential (primary) hypertension; Z79.82 Long term (current) use of aspirin; Z79.02 Long term (current) use of antithrombotics/antiplatelets; Z79.890 Hormone replacement therapy; Z79.899 Other long term (current) drug therapy; Z95.1 Presence of aortocoronary bypass graft
CPT/HCPCS: 11042; 11043; 87070; 87075; 87077; 87186; 87205; 97605; 97606; 99203; 99214; G0463

== ENCOUNTER 2021-06-15 10:00 | Outpatient (RCR) | payer MEDICARE, SELFPAY ==
[2021-05-22 00:12] VITALS: BP 103/70; PULSE 83; RESP 18; TEMP 35.2; BMI 53.6
[2021-05-25 10:11] VITALS: BP 154/86; PULSE 87; RESP 22; TEMP 36.3; BMI 53.6
--- NOTE | 2021-05-25 12:16 | PN.PCM_ITS ---
History of Present Illness Date of Service: 05/25/21 Chief Complaint: Status post incision and drainage of 2 abscesses on left thigh 04/11/2021 and dermolipectomy and I&D left medial thigh 05/13/21 History of Wound: The patient is a 75-year-old female who presents for treatment of 2 abscesses to her left thigh status post incision and drainage on 04/11/2021. She has a past medical history as listed above. 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 Since then she has been having issues with swelling and bilateral lymphedema. In March 2021, she developed abscesses to her left inner thigh. On 04/11/2021 she had an I&D after a CT scan of the left thigh showed pockets of fluid with abscess present. She was discharged from surgery with a prescription for Keflex, which she just finished today, 04/23/2021, and with a wound VAC applied to both wounds, set at 125 mmHg. The wound VAC has been being changed by home health nurses 3 times per week. The patient states she has an appointment to follow-up with her surgeon on 05/07/2021. She denies any signs and symptoms of infection and states she has been tolerating the wound VAC well. She denies any acute concerns at this time. Past medical, family, and social history reviewed and not pertinent to the current visit and all other systems reviewed and negative with exception of those listed above. She presented to the ED on 05/11/21 with increased pain and redness and swelling involving her left medial thigh that has worsened over the past few days. Patient states that she had an abscess in this area which was surgically debrided and drained at [facility] in [place] approximately 3 weeks ago. Patient denies any fever. She denies trauma. In the ED, her WBC was normal at 7.5. Her Hgb was 10.8. She was started on IV antibiotics with Vancomycin and Zosyn. Wound cultures were obtained in the ED. CT Left lower extremity was done. It showed the presence of another abscess deeper to the ones that were drained in [place]. 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 Size of defect left medial thigh - 23 x 14 x 6 cm. Wound care - Wound VAC at 150 mmHg, changed 3 times per week. Stop placing adaptic in the base of the ulcer this week to help with pain during VAC changes. There is a tunnel between 12-1 o'clock that needs to have foam placed in it. Operative cultures showed MRSA, Actinomyces naeslundii, and Anaerobic cocci. She is on Doxycycline and will start her on Flagyl. Progress of Wound: Left medial thigh ulcer is beefy pink with a few areas of fat necrosis. The cellulitis/red area surrounding the ulcer has resolved. She is tolerating the wound VAC well. Objective Data Objective Data Vital Signs: Vital Signs Temp Pulse Resp BP 97.4 F L 87 22 H 154/86 H 05/25/21 10:11 05/25/21 10:11 05/25/21 10:11 05/25/21 10:11 Weight: 303 lb 0.01 oz Body Mass Index (BMI) 53.6 Charges/Coding Procedures Integumentary 111xxx-113xx: [id number] Global Visit Physical Exam Const alert and oriented x3 HEENT normocephalic Resp normal respiratory effort Cardio regular rate Extremity normal capillary refill General Extremity: edema bilateral lower extremity Skin Wound Narrative: Left medial thigh ulcer is beefy pink with a few areas of fat necrosis around the edges. There is a tunnel present between 12-1 o'clock. Neuro CN's II-XII intact bilaterally Psych Appearance: grossly normal Debridement Note Debridement Note Wound debrided: medial thigh Laterality: Left Wound Grade/Stage: Stage IV Type of Debridement: Excisional debridement Anesthesia Used: 5% Lidocaine Gel Depth: Down to and including healthy tissue, in the subcutaneous layer and to muscle Percentage of wound debrided: 100 Instrument Used: 7mm curette Tissue Removed: Non viable tissue and slough into the muscle. Severity: Fat Layer Exposed Amount of bleeding with debridement: Mild Bleeding Controlled with: Pressure and Compression and gauze Patient tolerated procedure: Patient tolerated procedure well Post-Debridement Measurements and Additional Note: Post-Debridement Measurements/Treatment WC - Nurse 1 - General Ulcer Assessment Start: 05/25/21 10:11 Freq: Status: Active Protocol: JOEY Activity Type Activity Date Activity User E-Sign Co-Sign Detail Recorded Client Recorded Date Recorded By Document 05/25/21 10:11 DL [id number] 05/25/21 10:22 DL 05/25/21 10:11 - Today's Visit Information Type of service Follow-up Visit (Physician/CALIBRATION ENGINEER ) Arrival Mode Ambulatory Transfer Assistance None Patient Identification Verified (Name & Yes ) Patient Requires Transmission-Based No Precautions Height and Weight Body Mass Index (BMI) 53.6 BMI Classification Obese Vital Signs Temperature (97.8 F-99.1 F) 97.4 F L Temperature Source Temporal Pulse Rate (60-100) 87 Pulse Location Monitor Respiratory Rate (12-18) 22 H Respiratory rate source Observation Blood Pressure (90/60-120/80) 154/86 H Blood Pressure Mean (mm Hg) 108 Source Monitor History Since Last Visit- (Skip if this is Patient's initial visit) Have you changed medications since your No last visit? Any new allergies or adverse reactions No Had a fall/change in ADL's that may No increase risk of falls Signs or symptoms of abuse and/or No neglect since last visit Have you been in the hospital since your No last visit? Has dressing in place as prescribed Yes Has compression in place as prescribed N/A Has offloadiing in place as prescribed N/A Experienced any changes in pain level or No management Pain Scale: 0-10 Numeric Is Patient Pain Free? Yes - Nurse 1 - General Ulcer Measurement Start: 05/25/21 10:11 Freq: Status: Active Protocol: Activity Type Activity Date Activity User E-Sign Co-Sign Detail Recorded Client Recorded Date Recorded By Document 05/25/21 10:11 DL [id number] 05/25/21 10:22 DL 05/25/21 10:11 Wound Center Nurse 1 #3- L MED THIGH POST OP -Current Size (cm) - Length 11.5 -Current Size (cm) - Width 19.2 -Current Size (cm) - Depth 6.8 -Total Square Cm 220.80 -Photo Taken No -Exudate Amt Medium -Exudate Type Serosanguineous -Wound Margin Distinct, Outline Attached -Granulation Amt Large (67-100%) -Granulation Quality Red -Necrosis Amt Small (1-33%) -Necrotic Tissue Type Adherent Slough -Structure Exposed N/A -Texture (Anna-wound Skin Appearance) Scarring -Moisture (Anna-wound Skin Appearance) No Abnormality -Color (Anna-wound Skin Appearance) No Abnormality -Temperature (Anna-wound Skin No Abnormality Appearance) (Pt Warm) -Anesthetic Used 4% Lidocaine Solution WC - Nurse 2 - General Ulcer CM Notes Start: 05/25/21 10:11 Freq: Status: Active Protocol: Activity Type Activity Date Activity User E-Sign Co-Sign Detail Recorded Client Recorded Date Recorded By Document 05/25/21 10:44 DL [id number] 05/25/21 10:48 DL 05/25/21 10:44 Wound Center Nurse 2 -Time 10:44 -Correct Patient Yes -Correct Side, Site, Position Yes -Correct Procedure Yes -Procedure Performed Yes -Type of Procedure Debridement -Clinical Debridement Muscle / Fascia -Tissue Removed Muscle -Post Debridement (cm) - Length 11 -Post Debridement (cm) - Width 19.5 -Post Debridement (cm) - Depth 9 -Total Square (Post) (cm) 214.5 -Area of Debridement (cm) - Length 11 -Area of Debridement (cm) - Width 19.5 -Total Square (Area) (cm) 214.5 -Tunneling No -Undermining/Tunneling Yes -Undermining/Tunneling Starts (O'clock 12 ) -Undermining/Tunneling Ends (O'clock) 1 -Maximum Distance (cm) 8.5 -Circular Undermining No -Wound/Ulcer Outcome Not Healed -Ulcer Cleansing Rinsed/ Irrigated with Saline -Foul Odor after Cleansing No -Bioengineered Tissue No -Bleeding Controlled with Pressure -Treatment Response Procedure Tolerated Well -Offloading No -Debridement - Subq, 1st 20sq cm No -Debridement - Muscle / Fascia, 1st Yes 20sq cm -Debridement, Muscle/Fascia, ea addt'l 10 20sq cm or part thereof Pain Scale: 0-10 Numeric Is Patient Pain Free? Yes - Nurse 3 - General Ulcer D/C NN Start: 05/25/21 10:11 Freq: Status: Active Protocol: Activity Type Activity Date Activity User E-Sign Co-Sign Detail Recorded Client Recorded Date Recorded By Document 05/25/21 11:24 DL [id number] 05/25/21 11:26 DL 05/25/21 11:24 Wound Care Nurse 3 #3- L MED THIGH POST OP -Ulcer Cleansing Soap and Water -Foul Odor after Cleansing No -Negative Pressure Wound Therapy Continue -Setting (mmHg) 150 -Negative Pressure is Continuous -Other Covering AGUILA -NPWT Application Charge NPWT > 50 sq cm ($) Treatment Response Procedure Tolerated Well Pain Scale: 0-10 Numeric Is Patient Pain Free? Yes WC - Visit Discharge Discharge Condition Stable Ambulatory Status Ambulatory Transportation [facility] Facility Type Home Health Orders Sent Yes Assessment/Plan Assessment/Plan (1) Nonhealing surgical wound: CODE(S): T81.89XA - Other complications of procedures, not elsewhere classified, initial encounter QUALIFIERS: Encounter type: initial encounter Qualified Code(s): T81.89XA - Other complications of procedures, not elsewhere classified, initial encounter (2) Localized adiposity of thigh: CODE(S): E65 - Localized adiposity (3) Abscess of left thigh: CODE(S): L02.416 - Cutaneous abscess of left lower limb (4) Lymphangitis of lower extremity: CODE(S): I89.1 - Lymphangitis PLAN: Wound care - Left medial thigh wound VAC at 150 mmHg, changed 3 times per week. Stop placing adaptic in the base of the ulcer. Make sure to place foam into the tunnel at 12-1 o'clock. AGUILA wraps for compression. Operative cultures showed MRSA, Actinomyces naeslundii, and Anaerobic cocci. She is on Doxycycline and on Flagyl. She is to keep her legs elevated when she is sitting. Encouraged increase protein intake. She should also increase her Vitamin C intake to 1,000 mg daily. Follow up one week.
[2021-06-01 09:56] VITALS: BP 150/83; PULSE 79; RESP 16; BMI 53.6
--- NOTE | 2021-06-01 10:29 | PN.PCM_ITS ---
History of Present Illness Date of Service: 06/01/21 Chief Complaint: Status post incision and drainage of 2 abscesses on left thigh 04/11/2021 and dermolipectomy and I&D left medial thigh 05/13/21 History of Wound: The patient is a 75-year-old female who presents for treatment of 2 abscesses to her left thigh status post incision and drainage on 04/11/2021. She has a past medical history as listed above. 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 Since then she has been having issues with swelling and bilateral lymphedema. In March 2021, she developed abscesses to her left inner thigh. On 04/11/2021 she had an I&D after a CT scan of the left thigh showed pockets of fluid with abscess present. She was discharged from surgery with a prescription for Keflex, which she finished on 04/23/2021, and with a wound VAC applied to both wounds, set at 125 mmHg. The wound VAC has been being changed by home health nurses 3 times per week. The patient states she has an appointment to follow-up with her surgeon on 05/07/2021. She denies any signs and symptoms of infection and states she has been tolerating the wound VAC well. She denies any acute concerns at this time. Past medical, family, and social history reviewed and not pertinent to the current visit and all other systems reviewed and negative with exception of those listed above. She presented to the ED on 05/11/21 with increased pain and redness and swelling involving her left medial thigh that has worsened over the past few days. Patient states that she had an abscess in this area which was surgically debrided and drained at [facility] in [place] approximately 3 weeks ago. Patient denies any fever. She denies trauma. In the ED, her WBC was normal at 7.5. Her Hgb was 10.8. She was started on IV antibiotics with Vancomycin and Zosyn. Wound cultures were obtained in the ED. CT Left lower extremity was done. It showed the presence of another abscess deeper to the ones that were drained in [place]. 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 Size of defect left medial thigh - 23 x 14 x 6 cm. Wound care - Wash wound and anna wound with soap and water at the time of the VAC change. Wound VAC at 150 mmHg, changed 3 times per week. There is a tunnel at 11 o'clock that needs to have foam placed in it. There is also increased depth at 3 and 5 o'clock that needs to have foam placed in the base of these areas. Operative cultures showed MRSA, Actinomyces naeslundii, and Anaerobic cocci. She is on Doxycycline and will start her on Flagyl. Progress of Wound: Left medial thigh ulcer is beefy pink. There is a tunnel at 11 o'clock and increased depth at 3 and 5 o'clock where the fat necrosis was debrided last week. Anna wound is stable. She is tolerating the wound VAC well. Objective Data Objective Data Vital Signs: Vital Signs Temp Pulse Resp BP 97.4 F L 79 16 150/83 H 05/25/21 10:11 06/01/21 09:56 06/01/21 09:56 06/01/21 09:56 Oxygen Delivery Method Room Air Weight: 303 lb 0.01 oz Body Mass Index (BMI) 53.6 Charges/Coding Procedures Integumentary 111xxx-113xx: 48099 Global Visit Physical Exam Const alert and oriented x3 General Appearance: cooperative HEENT normocephalic Resp normal respiratory effort Extremity normal capillary refill Extremity Narrative: Bilateral lower extremity edema and lymphedema Skin Wound Narrative: Left medial thigh ulcer is beefy pink. There is a tunnel at 11 o'clock and increased depth at 3 and 5 o'clock where the fat necrosis was debrided last week. Neuro CN's II-XII intact bilaterally Psych Appearance: grossly normal Debridement Note Debridement Note Wound debrided: Medial thigh ulcer Laterality: Left Wound Grade/Stage: Stage IV Type of Debridement: Excisional debridement Anesthesia Used: 5% Lidocaine Gel Depth: Down to and including healthy tissue, in the subcutaneous layer and to muscle Percentage of wound debrided: 100 Instrument Used: 7mm curette Tissue Removed: Nonviable tissue and slough Severity: Fat Layer Exposed Bleeding Controlled with: Pressure and Compression and gauze Patient tolerated procedure: Patient tolerated procedure well Post-Debridement Measurements and Additional Note: Post-Debridement Measurements/Treatment THEO - Nurse 1 - General Ulcer Assessment Start: 05/25/21 10:11 Freq: Status: Active Protocol: JOEY Activity Type Activity Date Activity User E-Sign Co-Sign Detail Recorded Client Recorded Date Recorded By Document 05/25/21 10:11 DL [id number] 05/25/21 10:22 DL Document 06/01/21 09:56 BMF [id number] 06/01/21 10:04 BMF 05/25/21 06/01/21 10:11 09:56 - Today's Visit Information Type of service Follow-up Visit Follow-up Visit (Physician/MANAGER OF DISASTER RECOVERY (Physician/MANAGER OF DISASTER RECOVERY ) ) Arrival Mode Ambulatory Ambulatory Transfer Assistance None None Accompanied by friend Geovanna Patient Identification Verified (Name & Yes Yes ) Patient Requires Transmission-Based No No Precautions Height and Weight Body Mass Index (BMI) 53.6 53.6 BMI Classification Obese Obese Vital Signs Temperature (97.8 F-99.1 F) 97.4 F L Temperature Source Temporal Pulse Rate (60-100) 87 79 Pulse Location Monitor Monitor Respiratory Rate (12-18) 22 H 16 Respiratory rate source Observation Observation Oxygen Delivery Method Room Air Blood Pressure (90/60-120/80) 154/86 H 150/83 H Blood Pressure Mean (mm Hg) 108 105 Source Monitor Monitor Position Sitting Blood Pressure Location Left Forearm History Since Last Visit- (Skip if this is Patient's initial visit) Have you changed medications since your No No last visit? Any new allergies or adverse reactions No No Had a fall/change in ADL's that may No No increase risk of falls Signs or symptoms of abuse and/or No No neglect since last visit Have you been in the hospital since your No No last visit? Has dressing in place as prescribed Yes Yes Has compression in place as prescribed N/A N/A Has offloadiing in place as prescribed N/A N/A Experienced any changes in pain level or No No management Left Footwear Regular Shoe Right Footwear Regular Shoe Pain Scale: 0-10 Numeric Is Patient Pain Free? Yes Yes - Nurse 1 - General Ulcer Measurement Start: 05/25/21 10:11 Freq: Status: Active Protocol: Activity Type Activity Date Activity User E-Sign Co-Sign Detail Recorded Client Recorded Date Recorded By Document 05/25/21 10:11 DL [id number] 05/25/21 10:22 DL Document 06/01/21 09:56 BMF [id number] 06/01/21 10:04 [facility] 05/25/21 06/01/21 10:11 09:56 Wound Center Nurse 1 #3- L MED THIGH POST OP -Combined with other wound No -Current Size (cm) - Length 11.5 11 -Current Size (cm) - Width 19.2 18.5 -Current Size (cm) - Depth 6.8 4 -Total Square Cm 220.80 203.5 -Date of Last Picture (Recall this 06/01/21 field) -Photo Taken No Yes -Epithelialization Small 1-33% -Tunneling No -Undermining/Tunneling No -Exudate Amt Medium Large -Exudate Type Serosanguineous Serosanguineous -Wound Margin Distinct, Distinct, Outline Outline Attached Attached -Granulation Amt Large (67-100%) Large (67-100%) -Granulation Quality Red Red -Slough/Fibrin Yes -Necrosis Amt Small (1-33%) Small (1-33%) -Necrotic Tissue Type Adherent Slough Adherent Slough -Structure Exposed N/A -Texture (Anna-wound Skin Appearance) Scarring Assessed, Scarring -Moisture (Anna-wound Skin Appearance) No Abnormality Assessed -Color (Anna-wound Skin Appearance) No Abnormality Assessed -Temperature (Anna-wound Skin No Abnormality No Abnormality Appearance) (Pt Warm) (Pt Warm) -Tenderness on Palpation (Anna-wound Yes Skin Appearance) -Ulcer Cleansing Soap and Water -Foul Odor after Cleansing No -Anesthetic Used 4% Lidocaine 4% Lidocaine Solution Solution WC - Nurse 2 - General Ulcer CM Notes Start: 05/25/21 10:11 Freq: Status: Active Protocol: Activity Type Activity Date Activity User E-Sign Co-Sign Detail Recorded Client Recorded Date Recorded By Document 05/25/21 10:44 DL [id number] 05/25/21 10:48 DL Document 06/01/21 10:13 JF [id number] 06/01/21 10:20 JF 05/25/21 06/01/21 10:44 10:13 Wound Center Nurse 2 #3- L MED THIGH POST OP -Time 10:44 10:13 -Correct Patient Yes Yes -Correct Side, Site, Position Yes Yes -Correct Procedure Yes Yes -Procedure Performed Yes Yes -Type of Procedure Debridement Debridement -Clinical Debridement Muscle / Fascia Muscle / Fascia -Tissue Removed Muscle Muscle -Post Debridement (cm) - Length 11 12.3 -Post Debridement (cm) - Width 19.5 19.4 -Post Debridement (cm) - Depth 9 7.2 -Total Square (Post) (cm) 214.5 238.62 -Area of Debridement (cm) - Length 11 12.3 -Area of Debridement (cm) - Width 19.5 19.4 -Total Square (Area) (cm) 214.5 238.62 -Tunneling No Yes -Tunneling Position (O'clock) 11 -Tunneling Distance (cm) 5.7 -Tunneling Position #2 (O'clock) 3 -Tunneling Distance #2 (cm) 3.5 -Undermining/Tunneling Yes No -Undermining/Tunneling Starts (O'clock 12 ) -Undermining/Tunneling Ends (O'clock) 1 -Maximum Distance (cm) 8.5 -Circular Undermining No No -Wound/Ulcer Outcome Not Healed Not Healed -Ulcer Cleansing Rinsed/ Rinsed/ Irrigated with Irrigated with Saline Saline -Foul Odor after Cleansing No No -Bioengineered Tissue No No -Bleeding Controlled with Pressure Pressure -Other Type of Bleeding Control 5:00-1.8cm tunnel (3rd tunnel) -Treatment Response Procedure Procedure Tolerated Well Tolerated Well -Offloading No No -Debridement - Subq, 1st 20sq cm No -Debridement - Muscle / Fascia, 1st Yes Yes 20sq cm -Debridement, Muscle/Fascia, ea addt'l 10 11 20sq cm or part thereof Pain Scale: 0-10 Numeric Is Patient Pain Free? Yes Yes WC - Nurse 3 - General Ulcer D/C NN Start: 05/25/21 10:11 Freq: Status: Active Protocol: Activity Type Activity Date Activity User E-Sign Co-Sign Detail Recorded Client Recorded Date Recorded By Document 05/25/21 11:24 DL [id number] 05/25/21 11:26 DL Edit Result 05/25/21 11:24 DL (1) [id number] 05/25/21 15:38 PL (1) #3- L MED THIGH POST OP - NPWT Application Charge NPWT > 50 sq cm ($ => NPWT & Debridement ) => (nc) 05/25/21 11:24 Wound Care Nurse 3 #3- L MED THIGH POST OP -Ulcer Cleansing Soap and Water -Foul Odor after Cleansing No -Negative Pressure Wound Therapy Continue -Setting (mmHg) 150 -Negative Pressure is Continuous -Other Covering AGUILA -NPWT Application Charge NPWT & Debridement (nc ) Treatment Response Procedure Tolerated Well Pain Scale: 0-10 Numeric Is Patient Pain Free? Yes WC - Visit Discharge Discharge Condition Stable Ambulatory Status Ambulatory Transportation Private Auto Facility Type Home Health Orders Sent Yes Assessment/Plan Assessment/Plan (1) 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: CODE(S): L97.122 - Non-pressure chronic ulcer of left thigh with fat layer exposed (2) Abscess of left thigh: CODE(S): L02.416 - Cutaneous abscess of left lower limb (3) Localized adiposity of thigh: CODE(S): E65 - Localized adiposity (4) Bilateral lower extremity edema: CODE(S): R60.0 - Localized edema (5) Acquired lymphedema of lower extremity: CODE(S): I89.0 - Lymphedema, not elsewhere classified PLAN: Wound care - Left medial thigh wound VAC at 150 mmHg, changed 3 times per week. Make sure to place foam into the tunnel at 11 o'clock and into the increased depth at 3 & 5 o'clock. AGUILA wraps for compression. She has been stopping the wound VAC 30 minutes before home health comes for the vac dressing change and she places some warm water into the VAC tubing and she states it has made the dressing changes much more manageable pain adame. Operative cultures showed MRSA, Actinomyces naeslundii, and Anaerobic cocci. She is on Doxycycline and on Flagyl. She is to keep her legs elevated when she is sitting. Encouraged increase protein intake. She should also increase her Vitamin C intake to 1,000 mg daily. Renewed Valium (14 tabs). PDMP reviewed. Follow up one week.
[2021-06-08 09:55] VITALS: BP 160/93; PULSE 101; RESP 22; TEMP 36.7; BMI 53.6
--- NOTE | 2021-06-08 13:01 | PCM.WC.PN ---
History of Present Illness Date of Service: 06/08/21 Chief Complaint: Status post incision and drainage of 2 abscesses on left thigh 04/11/2021 and dermolipectomy and I&D left medial thigh 05/13/21 History of Wound: The patient is a 75-year-old female who presents for treatment of 2 abscesses to her left thigh status post incision and drainage on 04/11/2021. She has a past medical history as listed above. 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 Since then she has been having issues with swelling and bilateral lymphedema. In March 2021, she developed abscesses to her left inner thigh. On 04/11/2021 she had an I&D after a CT scan of the left thigh showed pockets of fluid with abscess present. She was discharged from surgery with a prescription for Keflex, which she finished on 04/23/2021, and with a wound VAC applied to both wounds, set at 125 mmHg. The wound VAC has been being changed by home health nurses 3 times per week. The patient states she has an appointment to follow-up with her surgeon on 05/07/2021. She denies any signs and symptoms of infection and states she has been tolerating the wound VAC well. She denies any acute concerns at this time. Past medical, family, and social history reviewed and not pertinent to the current visit and all other systems reviewed and negative with exception of those listed above. She presented to the ED on 05/11/21 with increased pain and redness and swelling involving her left medial thigh that has worsened over the past few days. Patient states that she had an abscess in this area which was surgically debrided and drained at [facility] in [place] approximately 3 weeks ago. Patient denies any fever. She denies trauma. In the ED, her WBC was normal at 7.5. Her Hgb was 10.8. She was started on IV antibiotics with Vancomycin and Zosyn. Wound cultures were obtained in the ED. CT Left lower extremity was done. It showed the presence of another abscess deeper to the ones that were drained in [place]. 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 Size of defect left medial thigh - 23 x 14 x 6 cm. Wound care - Wash wound and anna wound with soap and water at the time of the VAC change. Wound VAC at 150 mmHg, changed 3 times per week. There is a tunnel at 3 and 11 o'clock that needs to have foam placed in it. There is also increased areas of depth have resolved this week. Operative cultures showed MRSA, Actinomyces naeslundii, and Anaerobic cocci. She is on Doxycycline and will start her on Flagyl. Progress of Wound: Left medial thigh ulcer is beefy pink. There is a tunnel at 3 and11 o'clock. The areas of depth at 3 and 5 o'clock where the fat necrosis was removed has resolved. Anna wound is stable. She is tolerating the wound VAC well. Objective Data Objective Data Vital Signs: Vital Signs Temp Pulse Resp BP 98.1 F 101 H 22 H 160/93 H 06/08/21 09:55 06/08/21 09:55 06/08/21 09:55 06/08/21 09:55 Oxygen Delivery Method Room Air Weight: 303 lb 0.01 oz Body Mass Index (BMI) 53.6 Charges/Coding Procedures Integumentary 111xxx-113xx: [id number] Global Visit Physical Exam Const alert and oriented x3 General Appearance: cooperative HEENT normocephalic Head and Scalp: atraumatic Resp normal respiratory effort Cardio regular rate Extremity normal capillary refill Skin Wound Narrative: Left medial thigh is beefy pink. There area two areas with a tunnel in the center of the incision at 3 and 11 o'clock that need to be backed with foam. The increased depth areas on the edge of the wound at 3 and 5 o'clock have resolved. Neuro CN's II-XII intact bilaterally Psych Appearance: well kempt Debridement Note Debridement Note Wound debrided: Medial thigh Laterality: Left Type of Debridement: Excisional debridement Anesthesia Used: 5% Lidocaine Gel Depth: Down to and including healthy tissue, in the subcutaneous layer and to muscle Percentage of wound debrided: 100 Instrument Used: 7mm curette Tissue Removed: Nonviable tissue and slough into the muscle. Severity: Fat Layer Exposed Amount of bleeding with debridement: Mild Bleeding Controlled with: Pressure and Compression and gauze Patient tolerated procedure: Patient tolerated procedure well Post-Debridement Measurements and Additional Note: Post-Debridement Measurements/Treatment WC - Nurse 1 - General Ulcer Assessment Start: 04/04/22 10:11 Freq: Status: Active Protocol: WC.LOWEXT Activity Type Activity Date Activity User E-Sign Co-Sign Detail Recorded Client Recorded Date Recorded By Document 05/25/21 10:11 DL [id number] 05/25/21 10:22 DL Document 06/01/21 09:56 BMF [id number] 06/01/21 10:04 BMF Document 06/08/21 09:55 DL [id number] 06/08/21 10:15 DL 05/25/21 06/01/21 06/08/21 10:11 09:56 09:55 WC - Today's Visit Information Type of service Follow-up Visit Follow-up Visit Follow-up Visit (Physician/BUSINESS SUPPORT ASSOCIATE (Physician/BUSINESS SUPPORT ASSOCIATE (Physician/BUSINESS SUPPORT ASSOCIATE ) ) ) Arrival Mode Ambulatory Ambulatory Ambulatory Transfer Assistance None None None Accompanied by friend Toma Patient Identification Verified (Name & Yes Yes Yes ) Patient Requires Transmission-Based No No No Precautions Height and Weight Body Mass Index (BMI) 53.6 53.6 53.6 BMI Classification Obese Obese Obese Vital Signs Temperature (97.8 F-99.1 F) 97.4 F L 98.1 F Temperature Source Temporal Temporal Pulse Rate (60-100) 87 79 101 H Pulse Location Monitor Monitor Monitor Respiratory Rate (12-18) 22 H 16 22 H Respiratory rate source Observation Observation Observation Oxygen Delivery Method Room Air Blood Pressure (90/60-120/80) 154/86 H 150/83 H 160/93 H Blood Pressure Mean (mm Hg) 108 105 115 Source Monitor Monitor Monitor Position Sitting Blood Pressure Location Left Forearm History Since Last Visit- (Skip if this is Patient's initial visit) Have you changed medications since your No No No last visit? Any new allergies or adverse reactions No No No Had a fall/change in ADL's that may No No No increase risk of falls Signs or symptoms of abuse and/or No No No neglect since last visit Have you been in the hospital since your No No No last visit? Has dressing in place as prescribed Yes Yes Yes Has compression in place as prescribed N/A N/A Yes Has offloadiing in place as prescribed N/A N/A N/A Experienced any changes in pain level or No No No management Left Footwear Regular Shoe Right Footwear Regular Shoe Pain Scale: 0-10 Numeric Is Patient Pain Free? Yes Yes Yes WC - Nurse 1 - General Ulcer Measurement Start: 05/25/21 10:11 Freq: Status: Active Protocol: Activity Type Activity Date Activity User E-Sign Co-Sign Detail Recorded Client Recorded Date Recorded By Document 05/25/21 10:11 DL [id number] 05/25/21 10:22 DL Document 06/01/21 09:56 BMF [id number] 06/01/21 10:04 BMF Document 06/08/21 09:55 DL [id number] 06/08/21 10:15 DL 05/25/21 06/01/21 06/08/21 10:11 09:56 09:55 Wound Center Nurse 1 #3- L MED THIGH POST OP -Combined with other wound No -Current Size (cm) - Length 11.5 11 10.2 -Current Size (cm) - Width 19.2 18.5 19 -Current Size (cm) - Depth 6.8 4 5.5 -Total Square Cm 220.80 203.5 193.8 -Date of Last Picture (Recall this 06/01/21 field) -Photo Taken No Yes No -Epithelialization Small 1-33% -Tunneling No -Tunneling Position (O'clock) 3 -Tunneling Distance (cm) 3.8 -Tunneling Position #2 (O'clock) 5 -Tunneling Distance #2 (cm) 0.8 -Undermining/Tunneling No -Undermining/Tunneling Starts (O'clock 11 ) -Maximum Distance (cm) 4.2 -Exudate Amt Medium Large Medium -Exudate Type Serosanguineous Serosanguineous Serosanguineous -Wound Margin Distinct, Distinct, Distinct, Outline Outline Outline Attached Attached Attached -Granulation Amt Large (67-100%) Large (67-100%) Large (67-100%) -Granulation Quality Red Red Red -Slough/Fibrin Yes -Necrosis Amt Small (1-33%) Small (1-33%) Small (1-33%) -Necrotic Tissue Type Adherent Slough Adherent Slough -Structure Exposed N/A N/A -Texture (Anna-wound Skin Appearance) Scarring Assessed, Scarring Scarring -Moisture (Anna-wound Skin Appearance) No Abnormality Assessed No Abnormality -Color (Anna-wound Skin Appearance) No Abnormality Assessed No Abnormality -Temperature (Anna-wound Skin No Abnormality No Abnormality No Abnormality Appearance) (Pt Warm) (Pt Warm) (Pt Warm) -Tenderness on Palpation (Anna-wound Yes No Skin Appearance) -Ulcer Cleansing Soap and Water Soap and Water -Foul Odor after Cleansing No No -Anesthetic Used 4% Lidocaine 4% Lidocaine 4% Lidocaine Solution Solution Solution WC - Nurse 2 - General Ulcer CM Notes Start: 05/25/21 10:11 Freq: Status: Active Protocol: Activity Type Activity Date Activity User E-Sign Co-Sign Detail Recorded Client Recorded Date Recorded By Document 05/25/21 10:44 DL [id number] 05/25/21 10:48 DL Document 06/01/21 10:13 [id number] 06/01/21 10:20 JF Document 06/08/21 10:34 [id number] 06/08/21 10:39 05/25/21 06/01/21 06/08/21 10:44 10:13 10:34 Wound Center Nurse 2 #3- L MED THIGH POST OP -Time 10:44 10:13 10:34 -Correct Patient Yes Yes Yes -Correct Side, Site, Position Yes Yes Yes -Correct Procedure Yes Yes Yes -Procedure Performed Yes Yes Yes -Type of Procedure Debridement Debridement Debridement -Clinical Debridement Muscle / Fascia Muscle / Fascia Muscle / Fascia -Tissue Removed Muscle Muscle Muscle -Post Debridement (cm) - Length 11 12.3 8.8 -Post Debridement (cm) - Width 19.5 19.4 20.5 -Post Debridement (cm) - Depth 9 7.2 6.2 -Total Square (Post) (cm) 214.5 238.62 180.40 -Area of Debridement (cm) - Length 11 12.3 8.8 -Area of Debridement (cm) - Width 19.5 19.4 20.5 -Total Square (Area) (cm) 214.5 238.62 180.40 -Tunneling No Yes Yes -Tunneling Position (O'clock) 11 11 -Tunneling Distance (cm) 5.7 5.0 -Tunneling Position #2 (O'clock) 3 3 -Tunneling Distance #2 (cm) 3.5 3.2 -Undermining/Tunneling Yes No No -Undermining/Tunneling Starts (O'clock 12 ) -Undermining/Tunneling Ends (O'clock) 1 -Maximum Distance (cm) 8.5 -Circular Undermining No No No -Wound/Ulcer Outcome Not Healed Not Healed Not Healed -Ulcer Cleansing Rinsed/ Rinsed/ Rinsed/ Irrigated with Irrigated with Irrigated with Saline Saline Saline -Foul Odor after Cleansing No No No -Bioengineered Tissue No No No -Bleeding Controlled with Pressure Pressure Pressure -Other Type of Bleeding Control 5:00-1.8cm tunnel (3rd tunnel) -Treatment Response Procedure Procedure Procedure Tolerated Well Tolerated Well Tolerated Well -Offloading No No No -Debridement - Subq, 1st 20sq cm No No -Debridement - Muscle / Fascia, 1st Yes Yes Yes 20sq cm -Debridement, Muscle/Fascia, ea addt'l 10 11 9 20sq cm or part thereof Pain Scale: 0-10 Numeric Is Patient Pain Free? Yes Yes Yes WC - Nurse 3 - General Ulcer D/C NN Start: 05/25/21 10:11 Freq: Status: Active Protocol: Activity Type Activity Date Activity User E-Sign Co-Sign Detail Recorded Client Recorded Date Recorded By Document 05/25/21 11:24 DL [id number] 05/25/21 11:26 DL Edit Result 05/25/21 11:24 DL (1) [id number] 05/25/21 15:38 PL Document 06/01/21 10:41 BMF [id number] 06/01/21 10:43 BMF Document 06/08/21 10:48 DL [id number] 06/08/21 10:51 DL (1) #3- L MED THIGH POST OP - NPWT Application Charge NPWT > 50 sq cm ($ => NPWT & Debridement ) => (nc) 05/25/21 06/01/21 06/08/21 11:24 10:41 10:48 Wound Care Nurse 3 #3- L MED THIGH POST OP -Ulcer Cleansing Soap and Water Rinsed/ Soap and Water Irrigated with Saline -Foul Odor after Cleansing No No No -Negative Pressure Wound Therapy Continue Continue Continue -Setting (mmHg) 150 150 150 -Negative Pressure is Continuous Continuous Continuous -Other Dressing DRSG PER KR HEDIS MANAGER -Other Covering AGUILA -NPWT Application Charge NPWT & NPWT & NPWT > 50 sq cm Debridement (nc Debridement (nc ($) ) ) Anna-Wound Care Barrier Treatment Response Procedure Procedure Procedure Tolerated Well Tolerated Well Tolerated Well Pain Scale: 0-10 Numeric Is Patient Pain Free? Yes Yes Yes WC - Visit Discharge Discharge Condition Stable Stable Stable Ambulatory Status Ambulatory Ambulatory Ambulatory Transportation Private Auto Private Auto Private Auto Accompanied by FRIEND TOMA Facility Type Home Health Home Health Home Health Orders Sent Yes Yes Assessment/Plan Assessment/Plan (1) 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: CODE(S): L97.122 - Non-pressure chronic ulcer of left thigh with fat layer exposed (2) Lymphangitis of lower extremity: CODE(S): I89.1 - Lymphangitis (3) Bilateral lower extremity edema: CODE(S): R60.0 - Localized edema (4) Acquired lymphedema of lower extremity: CODE(S): I89.0 - Lymphedema, not elsewhere classified PLAN: Wound care - Left medial thigh wound VAC at 150 mmHg, changed 3 times per week. Make sure to place foam into the tunnels at 3 and 11 o'clock in the center of the ulcer. AGUILA wraps for compression. She has been stopping the wound VAC 30 minutes before home health comes for the vac dressing change and she places some warm water into the VAC tubing and she states it has made the dressing changes much more manageable pain adame. Instructed to make sure the ulcer and the per wound are washed with soap and water before placing the wound VAC in place. Operative cultures showed MRSA, Actinomyces naeslundii, and Anaerobic cocci. She has completed the Flagyl but is still on Doxycycline. She is to keep her legs elevated when she is sitting. Encouraged increase protein intake. She should also increase her Vitamin C intake to 1,000 mg daily. Follow up one week.
[2021-06-15 10:03] VITALS: BP 146/83; PULSE 79; RESP 16; TEMP 35.7; BMI 53.6
--- NOTE | 2021-06-15 10:55 | PN.PCM_ITS ---
History of Present Illness Date of Service: 06/15/21 Chief Complaint: Status post incision and drainage of 2 abscesses on left thigh 04/11/2021 and dermolipectomy and I&D left medial thigh 05/13/21 History of Wound: The patient is a 75-year-old female who presents for treatment of 2 abscesses to her left thigh status post incision and drainage on 04/11/2021. She has a past medical history as listed above. 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 Since then she has been having issues with swelling and bilateral lymphedema. In March 2021, she developed abscesses to her left inner thigh. On 04/11/2021 she had an I&D after a CT scan of the left thigh showed pockets of fluid with abscess present. She was discharged from surgery with a prescription for Keflex, which she finished on 04/23/2021, and with a wound VAC applied to both wounds, set at 125 mmHg. The wound VAC has been being changed by home health nurses 3 times per week. The patient states she has an appointment to follow-up with her surgeon on 05/07/2021. She denies any signs and symptoms of infection and states she has been tolerating the wound VAC well. She denies any acute concerns at this time. Past medical, family, and social history reviewed and not pertinent to the current visit and all other systems reviewed and negative with exception of those listed above. She presented to the ED on 05/11/21 with increased pain and redness and swelling involving her left medial thigh that has worsened over the past few days. Patient states that she had an abscess in this area which was surgically debrided and drained at [facility] in [place] approximately 3 weeks ago. Patient denies any fever. She denies trauma. In the ED, her WBC was normal at 7.5. Her Hgb was 10.8. She was started on IV antibiotics with Vancomycin and Zosyn. Wound cultures were obtained in the ED. CT Left lower extremity was done. It showed the presence of another abscess deeper to the ones that were drained in [place]. 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 Size of defect left medial thigh - 23 x 14 x 6 cm. Wound care - Wash wound and anna wound with soap and water at the time of the VAC change. Wound VAC at 150 mmHg, changed 3 times per week. There is a tunnel at 3 and 11 o'clock that needs to have foam placed in it. Operative cultures showed MRSA, Actinomyces naeslundii, and Anaerobic cocci. She is on Doxycycline and will start her on Flagyl. Progress of Wound: Left medial thigh ulcer is beefy pink. There is a tunnel at 3 and11 o'clock. Anna wound is stable. She is tolerating the wound VAC well. Objective Data Objective Data Vital Signs: Vital Signs Temp Pulse Resp BP 96.2 F L 79 16 146/83 H 06/15/21 10:03 06/15/21 10:03 06/15/21 10:03 06/15/21 10:03 Oxygen Delivery Method Room Air Weight: 303 lb 0.01 oz Body Mass Index (BMI) 53.6 Charges/Coding Procedures Integumentary 111xxx-113xx: [id number] Global Visit Physical Exam Const alert and oriented x3 General Appearance: cooperative HEENT normocephalic Head and Scalp: atraumatic Resp normal respiratory effort Cardio regular rate Extremity Extremity Narrative: Bilateral lower extremity edema with lymphedema. She wears AGUILA wraps for compression. General Extremity: edema Skin Wound Narrative: Left medial thigh ulcer is beefy pink. There is a tunnel at 3 and11 o'clock. Anna wound is stable. Neuro CN's II-XII intact bilaterally Psych Appearance: grossly normal Debridement Note Debridement Note Wound debrided: medial thigh ulcer Laterality: Left Wound Grade/Stage: Stage IV Type of Debridement: Excisional debridement Depth: Down to and including healthy tissue, in the subcutaneous layer and to muscle Instrument Used: 7mm curette Tissue Removed: Non viable tissue and slough Severity: Fat Layer Exposed Amount of bleeding with debridement: Mild Bleeding Controlled with: Pressure and Compression and gauze Patient tolerated procedure: Patient tolerated procedure well Post-Debridement Measurements and Additional Note: Post-Debridement Measurements/Treatment WC - Nurse 1 - General Ulcer Assessment Start: 05/25/21 10:11 Freq: Status: Active Protocol: JOEY Activity Type Activity Date Activity User E-Sign Co-Sign Detail Recorded Client Recorded Date Recorded By Document 05/25/21 10:11 DL [id number] 05/25/21 10:22 DL Document 06/01/21 09:56 BMF [id number] 06/01/21 10:04 BMF Document 06/08/21 09:55 DL [id number] 06/08/21 10:15 DL Document 06/15/21 10:03 [facility] [id number] 06/15/21 10:13 BMF 05/25/21 06/01/21 06/08/21 10:11 09:56 09:55 WC - Today's Visit Information Type of service Follow-up Visit Follow-up Visit Follow-up Visit (Physician/OCULAR PATHOLOGIST (Physician/OCULAR PATHOLOGIST (Physician/OCULAR PATHOLOGIST ) ) ) Arrival Mode Ambulatory Ambulatory Ambulatory Transfer Assistance None None None Accompanied by friend Toma Patient Identification Verified (Name & Yes Yes Yes ) Patient Requires Transmission-Based No No No Precautions Height and Weight Body Mass Index (BMI) 53.6 53.6 53.6 BMI Classification Obese Obese Obese Vital Signs Temperature (97.8 F-99.1 F) 97.4 F L 98.1 F Temperature Source Temporal Temporal Pulse Rate (60-100) 87 79 101 H Pulse Location Monitor Monitor Monitor Respiratory Rate (12-18) 22 H 16 22 H Respiratory rate source Observation Observation Observation Oxygen Delivery Method Room Air Blood Pressure (90/60-120/80) 154/86 H 150/83 H 160/93 H Blood Pressure Mean (mm Hg) 108 105 115 Source Monitor Monitor Monitor Position Sitting Blood Pressure Location Left Forearm History Since Last Visit- (Skip if this is Patient's initial visit) Have you changed medications since your No No No last visit? Any new allergies or adverse reactions No No No Had a fall/change in ADL's that may No No No increase risk of falls Signs or symptoms of abuse and/or No No No neglect since last visit Have you been in the hospital since your No No No last visit? Has dressing in place as prescribed Yes Yes Yes Has compression in place as prescribed N/A N/A Yes Has offloadiing in place as prescribed N/A N/A N/A Experienced any changes in pain level or No No No management Left Footwear Regular Shoe Right Footwear Regular Shoe Pain Scale: 0-10 Numeric Is Patient Pain Free? Yes Yes Yes 06/15/21 10:03 WC - Today's Visit Information Type of service Follow-up Visit (Physician/OCULAR PATHOLOGIST ) Arrival Mode Ambulatory Transfer Assistance None Accompanied by friend Patient Identification Verified (Name & Yes ) Patient Requires Transmission-Based No Precautions Height and Weight Body Mass Index (BMI) 53.6 BMI Classification Obese Vital Signs Temperature (97.8 F-99.1 F) 96.2 F L Temperature Source Temporal Pulse Rate (60-100) 79 Pulse Location Monitor Respiratory Rate (12-18) 16 Respiratory rate source Observation Oxygen Delivery Method Room Air Blood Pressure (90/60-120/80) 146/83 H Blood Pressure Mean (mm Hg) 104 Source Monitor Position Sitting Blood Pressure Location Left Forearm History Since Last Visit- (Skip if this is Patient's initial visit) Have you changed medications since your No last visit? Any new allergies or adverse reactions No Had a fall/change in ADL's that may No increase risk of falls Signs or symptoms of abuse and/or No neglect since last visit Have you been in the hospital since your No last visit? Has dressing in place as prescribed Yes Has compression in place as prescribed N/A Has offloadiing in place as prescribed N/A Experienced any changes in pain level or No management Left Footwear Regular Shoe Right Footwear Regular Shoe Pain Scale: 0-10 Numeric Is Patient Pain Free? Yes WC - Nurse 1 - General Ulcer Measurement Start: 05/25/21 10:11 Freq: Status: Active Protocol: Activity Type Activity Date Activity User E-Sign Co-Sign Detail Recorded Client Recorded Date Recorded By Document 05/25/21 10:11 DL [id number] 05/25/21 10:22 DL Document 06/01/21 09:56 [facility] [id number] 06/01/21 10:04 BMF Document 06/08/21 09:55 DL [id number] 06/08/21 10:15 DL Document 06/15/21 10:03 [facility] [id number] 06/15/21 10:13 BMF 05/25/21 06/01/21 06/08/21 10:11 09:56 09:55 Wound Center Nurse 1 #3- L MED THIGH POST OP -Combined with other wound No -Current Size (cm) - Length 11.5 11 10.2 -Current Size (cm) - Width 19.2 18.5 19 -Current Size (cm) - Depth 6.8 4 5.5 -Total Square Cm 220.80 203.5 193.8 -Date of Last Picture (Recall this 06/01/21 field) -Photo Taken No Yes No -Epithelialization Small 1-33% -Tunneling No -Tunneling Position (O'clock) 3 -Tunneling Distance (cm) 3.8 -Tunneling Position #2 (O'clock) 5 -Tunneling Distance #2 (cm) 0.8 -Undermining/Tunneling No -Undermining/Tunneling Starts (O'clock 11 ) -Maximum Distance (cm) 4.2 -Circular Undermining -Exudate Amt Medium Large Medium -Exudate Type Serosanguineous Serosanguineous Serosanguineous -Wound Margin Distinct, Distinct, Distinct, Outline Outline Outline Attached Attached Attached -Granulation Amt Large (67-100%) Large (67-100%) Large (67-100%) -Granulation Quality Red Red Red -Slough/Fibrin Yes -Necrosis Amt Small (1-33%) Small (1-33%) Small (1-33%) -Necrotic Tissue Type Adherent Slough Adherent Slough -Structure Exposed N/A N/A -Texture (Anna-wound Skin Appearance) Scarring Assessed, Scarring Scarring -Moisture (Anna-wound Skin Appearance) No Abnormality Assessed No Abnormality -Color (Anna-wound Skin Appearance) No Abnormality Assessed No Abnormality -Temperature (Anna-wound Skin No Abnormality No Abnormality No Abnormality Appearance) (Pt Warm) (Pt Warm) (Pt Warm) -Tenderness on Palpation (Anna-wound Yes No Skin Appearance) -Ulcer Cleansing Soap and Water Soap and Water -Foul Odor after Cleansing No No -Anesthetic Used 4% Lidocaine 4% Lidocaine 4% Lidocaine Solution Solution Solution 06/15/21 10:03 Wound Center Nurse 1 #3- L MED THIGH POST OP -Combined with other wound No -Current Size (cm) - Length 7.5 -Current Size (cm) - Width 21.2 -Current Size (cm) - Depth 0.2 -Total Square Cm 159.00 -Date of Last Picture (Recall this 06/15/21 field) -Photo Taken Yes -Epithelialization Small 1-33% -Tunneling Yes -Tunneling Position (O'clock) 11 -Tunneling Distance (cm) 5.6 -Tunneling Position #2 (O'clock) 3 -Tunneling Distance #2 (cm) 2.9 -Undermining/Tunneling No -Undermining/Tunneling Starts (O'clock ) -Maximum Distance (cm) -Circular Undermining No -Exudate Amt Large -Exudate Type Serosanguineous -Wound Margin Distinct, Outline Attached -Granulation Amt Large (67-100%) -Granulation Quality Red -Slough/Fibrin Yes -Necrosis Amt Small (1-33%) -Necrotic Tissue Type Adherent Slough -Structure Exposed -Texture (Anna-wound Skin Appearance) Assessed, Scarring -Moisture (Anna-wound Skin Appearance) Assessed -Color (Anna-wound Skin Appearance) Assessed -Temperature (Anna-wound Skin No Abnormality Appearance) (Pt Warm) -Tenderness on Palpation (Anna-wound Yes Skin Appearance) -Ulcer Cleansing Soap and Water -Foul Odor after Cleansing No -Anesthetic Used 4% Lidocaine Solution WC - Nurse 2 - General Ulcer CM Notes Start: 05/25/21 10:11 Freq: Status: Active Protocol: Activity Type Activity Date Activity User E-Sign Co-Sign Detail Recorded Client Recorded Date Recorded By Document 05/25/21 10:44 [id number] 05/25/21 10:48 Document 06/01/21 10:13 [id number] 06/01/21 10:20 Document 06/08/21 10:34 [id number] 06/08/21 10:39 Document 06/15/21 10:19 [id number] 06/15/21 10:25 05/25/21 06/01/21 06/08/21 10:44 10:13 10:34 Wound Center Nurse 2 #3- L MED THIGH POST OP -Time 10:44 10:13 10:34 -Correct Patient Yes Yes Yes -Correct Side, Site, Position Yes Yes Yes -Correct Procedure Yes Yes Yes -Procedure Performed Yes Yes Yes -Type of Procedure Debridement Debridement Debridement -Clinical Debridement Muscle / Fascia Muscle / Fascia Muscle / Fascia -Tissue Removed Muscle Muscle Muscle -Post Debridement (cm) - Length 11 12.3 8.8 -Post Debridement (cm) - Width 19.5 19.4 20.5 -Post Debridement (cm) - Depth 9 7.2 6.2 -Total Square (Post) (cm) 214.5 238.62 180.40 -Area of Debridement (cm) - Length 11 12.3 8.8 -Area of Debridement (cm) - Width 19.5 19.4 20.5 -Total Square (Area) (cm) 214.5 238.62 180.40 -Tunneling No Yes Yes -Tunneling Position (O'clock) 11 11 -Tunneling Distance (cm) 5.7 5.0 -Tunneling Position #2 (O'clock) 3 3 -Tunneling Distance #2 (cm) 3.5 3.2 -Undermining/Tunneling Yes No No -Undermining/Tunneling Starts (O'clock 12 ) -Undermining/Tunneling Ends (O'clock) 1 -Maximum Distance (cm) 8.5 -Circular Undermining No No No -Wound/Ulcer Outcome Not Healed Not Healed Not Healed -Ulcer Cleansing Rinsed/ Rinsed/ Rinsed/ Irrigated with Irrigated with Irrigated with Saline Saline Saline -Foul Odor after Cleansing No No No -Bioengineered Tissue No No No -Bleeding Controlled with Pressure Pressure Pressure -Other Type of Bleeding Control 5:00-1.8cm tunnel (3rd tunnel) -Treatment Response Procedure Procedure Procedure Tolerated Well Tolerated Well Tolerated Well -Offloading No No No -Debridement - Subq, 1st 20sq cm No No -Debridement - Muscle / Fascia, 1st Yes Yes Yes 20sq cm -Debridement, Muscle/Fascia, ea addt'l 10 11 9 20sq cm or part thereof Pain Scale: 0-10 Numeric Is Patient Pain Free? Yes Yes Yes 06/15/21 10:19 Wound Center Nurse 2 #3- L MED THIGH POST OP -Time 10:20 -Correct Patient Yes -Correct Side, Site, Position Yes -Correct Procedure Yes -Procedure Performed Yes -Type of Procedure Debridement -Clinical Debridement Muscle / Fascia -Tissue Removed Muscle -Post Debridement (cm) - Length 9.3 -Post Debridement (cm) - Width 19.0 -Post Debridement (cm) - Depth 3.4 -Total Square (Post) (cm) 176.70 -Area of Debridement (cm) - Length 9.3 -Area of Debridement (cm) - Width 19.0 -Total Square (Area) (cm) 176.70 -Tunneling Yes -Tunneling Position (O'clock) 3 -Tunneling Distance (cm) 1.7 -Tunneling Position #2 (O'clock) 11 -Tunneling Distance #2 (cm) 6.3 -Undermining/Tunneling No -Undermining/Tunneling Starts (O'clock ) -Undermining/Tunneling Ends (O'clock) -Maximum Distance (cm) -Circular Undermining No -Wound/Ulcer Outcome Not Healed -Ulcer Cleansing Rinsed/ Irrigated with Saline -Foul Odor after Cleansing No -Bioengineered Tissue No -Bleeding Controlled with Pressure -Other Type of Bleeding Control -Treatment Response Procedure Tolerated Well -Offloading No -Debridement - Subq, 1st 20sq cm -Debridement - Muscle / Fascia, 1st Yes 20sq cm -Debridement, Muscle/Fascia, ea addt'l 8 20sq cm or part thereof Pain Scale: 0-10 Numeric Is Patient Pain Free? Yes WC - Nurse 3 - General Ulcer D/C NN Start: 05/25/21 10:11 Freq: Status: Active Protocol: Activity Type Activity Date Activity User E-Sign Co-Sign Detail Recorded Client Recorded Date Recorded By Document 05/25/21 11:24 DL [id number] 05/25/21 11:26 DL Edit Result 05/25/21 11:24 DL (1) [id number] 05/25/21 15:38 PL Document 06/01/21 10:41 BMF [id number] 06/01/21 10:43 BMF Document 06/08/21 10:48 DL [id number] 06/08/21 10:51 DL Edit Result 06/08/21 10:48 DL (2) [id number] 06/08/21 15:43 PL Document 06/15/21 10:48 BMF [id number] 06/15/21 10:49 BMF (1) #3- L MED THIGH POST OP - NPWT Application Charge NPWT > 50 sq cm ($ => NPWT & Debridement ) => (nc) (2) #3- L MED THIGH POST OP - NPWT Application Charge NPWT > 50 sq cm ($ => NPWT & Debridement ) => (nc) 05/25/21 06/01/21 06/08/21 11:24 10:41 10:48 Wound Care Nurse 3 #3- L MED THIGH POST OP -Ulcer Cleansing Soap and Water Rinsed/ Soap and Water Irrigated with Saline -Foul Odor after Cleansing No No No -Negative Pressure Wound Therapy Continue Continue Continue -Setting (mmHg) 150 150 150 -Negative Pressure is Continuous Continuous Continuous -Other Dressing DRSG PER KR ENTRY ANALYST -Other Covering AGUILA -NPWT Application Charge NPWT & NPWT & NPWT & Debridement (nc Debridement (nc Debridement (nc ) ) ) Anna-Wound Care Barrier Left -Other Treatment Response Procedure Procedure Procedure Tolerated Well Tolerated Well Tolerated Well Pain Scale: 0-10 Numeric Is Patient Pain Free? Yes Yes Yes WC - Visit Discharge Discharge Condition Stable Stable Stable Ambulatory Status Ambulatory Ambulatory Ambulatory Transportation Private Auto Private Auto Private Auto Accompanied by FRIEND TOMA [facility] Type Home Health Home Health Home Health Orders Sent Yes Yes 06/15/21 10:48 Wound Care Nurse 3 #3- L MED THIGH POST OP -Ulcer Cleansing Rinsed/ Irrigated with Saline -Foul Odor after Cleansing No -Negative Pressure Wound Therapy Continue -Setting (mmHg) 150 -Negative Pressure is Continuous -Other Dressing vac applied per dl solid waste landfill technician -Other Covering -NPWT Application Charge NPWT & Debridement (nc ) Anna-Wound Care Left -Other pt already had 3m wrap on Treatment Response Procedure Tolerated Well Pain Scale: 0-10 Numeric Is Patient Pain Free? Yes WC - Visit Discharge Discharge Condition Stable Ambulatory Status Ambulatory Transportation Private Auto Accompanied by friend [facility] Type Home Health Orders Sent Assessment/Plan Assessment/Plan (1) 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: CODE(S): L97.122 - Non-pressure chronic ulcer of left thigh with fat layer exposed (2) Bilateral lower extremity edema: CODE(S): R60.0 - Localized edema (3) Acquired lymphedema of lower extremity: CODE(S): I89.0 - Lymphedema, not elsewhere classified (4) Nonhealing surgical wound: CODE(S): T81.89XA - Other complications of procedures, not elsewhere classified, initial encounter QUALIFIERS: Encounter type: initial encounter Qualified Code(s): T81.89XA - Other complications of procedures, not elsewhere classified, initial encounter (5) Abscess of left thigh: CODE(S): L02.416 - Cutaneous abscess of left lower limb PLAN: Wound care - Left medial thigh wound VAC at 150 mmHg, changed 3 times per week. Make sure to place foam into the tunnels at 3 and 11 o'clock in the center of the ulcer. AGUILA wraps for compression. She has been stopping the wound VAC 30 minutes before home health comes for the vac dressing change and she places some warm water into the VAC tubing and she states it has made the dressing changes much more manageable pain adame. Instructed to make sure the ulcer and the per wound are washed with soap and water before placing the wound VAC in place. Operative cultures showed MRSA, Actinomyces naeslundii, and Anaerobic cocci. She has completed the Flagyl but is still on Doxycycline. She is to keep her legs elevated when she is sitting. Encouraged increase protein intake. She should also increase her Vitamin C intake to 1,000 mg daily. Follow up one week.
--- NOTE | 2021-06-19 17:22 | WC ---
Received a call from Mary light at [facility]. Stated Left medial thigh wound surrounding skin red and hot to touch with increased yellow purulent drainage. Sent to ER for evaluation per [facility]. Kenya Napoles KETTLE TENDER notified.
== END 2021-06-20 23:59 | disposition home or self-care (01) ==
LOC: WC 10:00
PROVIDERS: PCP Internal Medicine; Visit Provider Nurse Practitioner Family
DX: T81.89XA Other complications of procedures, not elsewhere classified, initial encounter (principal); L97.122 Non-pressure chronic ulcer of left thigh with fat layer exposed; I89.0 Lymphedema, not elsewhere classified; R60.0 Localized edema; Z79.890 Hormone replacement therapy; Z79.899 Other long term (current) drug therapy; Z95.1 Presence of aortocoronary bypass graft
CPT/HCPCS: 11043; 11046; 97606

== ENCOUNTER 2021-06-19 17:53 | Inpatient (IN) | payer MEDICARE, SELFPAY ==
[2021-06-19 17:54] VITALS: BP 165/87; PULSE 92; RESP 16; TEMP 35.9; O2SAT 97; BMI 51.7
[2021-06-19 17:56] VITALS: BP 165/87; PULSE 92; RESP 16; TEMP 35.9; O2SAT 97
--- NOTE | 2021-06-19 18:17 | CT_ITS ---
STUDY: CT left thigh REASON FOR EXAM: Female, 75 years old. abscess RADIATION DOSAGE (If Supplied By Facility): CTDIvol = ( 32.67 ) mGy, DLP = ( 1740.99 ) mGycm TECHNIQUE: Thin section transaxial imaging of the left thigh was obtained, with sagittal and coronal reconstructed images. No intravenous contrast. Individualized dose optimization techniques were used for this CT. COMPARISON: None. FINDINGS: Abnormal fluid density in the subcutaneous fat and obscuring the left sartorius muscle measures roughly 9 mm in length and extends to the skin surface and 3.4 cm deep to the skin and measures 5 cm in AP dimension. There is surrounding skin thickening. The previously seen, smaller, nonconfluent, rim-enhancing focal fluid collections are no longer visible. There is a deep air-filled defect in the skin, extending to the superior margin of the lesion. There is significant regional subcutaneous edema medial thigh and also involving the posterior and lateral thigh. Deep muscular compartments of the thigh are uninvolved. There is extensive muscular atrophy. Peripheral atherosclerosis. No cortical sclerosis or periosteal reaction. No fracture or focal osseous lesion. Degenerative changes of the knee. CT/Extremity Lower without Contra IMPRESSION: Persistent soft tissue infection medial distal thigh. Interval increase in depth extending into the region of the sartorius muscle. Electronically Signed: John Palmer DO at 20:23 EDT ,
--- NOTE | 2021-06-19 18:53 | ED.VIS.LOWEX ---
HPI <Dr. Chidi Ruiz MD - Last Filed: 06/20/21 10:14> History of Present Illness Chief Complaint: Wound Informant: patient Narrative Narrative: Patient had surgery for small abscesses in the left thigh at [facility] in March. About 3 weeks ago she had repeat surgery because of development of abscesses and cellulitis. She has been on wound VAC since. She was on antibiotics until about 3 or 4 days ago. She is not sure of the name of them. Today her visiting nurse noted that there is erythema above the wound which is new. The visiting nurse is the same one who has been seeing her for a while. Patient admits that it does look red. But there is no change in the discomfort in fact pain is slowly decreasing. There are no fevers chills nausea vomiting. She does not feel ill. There is no change in drainage from the wound VAC. [facility] <Dr. Chidi Ruiz MD - Last Filed: 06/20/21 10:14> [facility] Medical History (Updated 06/20/21 @ 10:[address] Chidi Ruiz MD) Abscess of left thigh Acquired lymphedema of lower extremity Aortic stenosis CAD (coronary artery disease) Cancer 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 High cholesterol HTN (hypertension) Hypothyroidism Kidney stones Localized adiposity of thigh Lymphangitis of lower extremity Nonhealing surgical wound Obesity Home Medications levothyroxine [Synthroid] 112 mcg PO DAILY 08/31/17 [History Last Taken 05/11/21] metoprolol succinate 50 mg PO DAILY 05/11/21 [History Last Taken 05/11/21] oxycodone-acetaminophen [Percocet] 1 tab PO Q4H PRN 7 Days #40 tab 05/15/21 [Rx Last Taken Unknown] diazepam [Valium] 5 mg PO BID PRN 7 Days #14 tab 06/01/21 [Rx Last Taken Unknown] Allergy/AdvReac Type Severity Reaction Status Date / Time bisacodyl Allergy Rash Verified 06/19/21 17:56 [From Dulcolax (bisacodyl)] sulfamethoxazole Allergy Hives Verified 06/19/21 17:56 [From Bactrim] trimethoprim [From Bactrim] Allergy Hives Verified 06/19/21 17:56 SURGICAL TAPE Allergy Rash Uncoded 06/19/21 17:56 Surgical History (Updated 06/20/21 @ 04:25 by Ayleen Mayen) H/O aortic valve replacement H/O cardiac catheterization History of thyroidectomy Hx of CABG Hx of cholecystectomy S/P CABG x 2 S/P hysterectomy Status post incision and drainage Social History Smoking Status: Never smoker ROS <Dr. Chidi Ruiz MD - Last Filed: 06/20/21 10:14> ROS ED Constitutional Constitutional ED: Denies chills, fever(s), subjective or sweats ENT ENT ED: Denies rhinorrhea or sore throat Cardiovascular Cardiovascular: Denies chest pain or palpitations Respiratory/Chest Respiratory/Chest: Denies dyspnea Gastrointestinal Gastrointestinal: Denies nausea or vomiting Musculoskeletal Musculoskeletal: Denies myalgias Integumentary Reports other Details: See history of present illness Neurologic Neurologic: Denies headache(s) or weakness Endocrine Endocrinology: Denies polydipsia or polyuria Hematologic/Lymphatic Hematologic/Lymphatic: Denies easy bleeding or easy bruising Allergic/Immunologic Allergic/Immunologic ED: Denies urticaria EXAM <Dr. Chidi Ruiz MD - Last Filed: 06/20/21 10:14> Physical Exam Const Vital Signs: 06/19/21 17:54 06/19/21 17:56 06/19/21 22:26 Temperature 96.6 F L 96.6 F L 98.0 F Temperature Source Temporal Temporal Temporal Pulse Rate 92 92 69 Respiratory Rate 16 16 18 Blood Pressure 165/87 H 165/87 H 153/76 H Blood Pressure Mean 113 113 101 Pulse Ox 97 97 97 Oxygen Delivery Method Room Air Room Air Room Air 06/19/21 22:29 06/20/21 00:42 06/20/21 02:08 Temperature 98.0 F Temperature Source Temporal Pulse Rate 69 Respiratory Rate 18 18 15 Blood Pressure 153/76 H Blood Pressure Mean 101 Pulse Ox 97 Oxygen Delivery Method Room Air Positive well nourished and well developed General Appearance ED: well developed and NAD HEENT Reports moist mucous membranes normocephalic and atraumatic Neck supple Chest Wall inspection of chest normal Resp normal respiratory effort and clear to auscultation bilaterally Cardio regular rate and regular rhythm GI non-tender Palpation: soft Back/Spine no CVA tenderness Extremity Extremity Narrative: Patient has a wound VAC with large defect in the left medial distal thigh. There is some area edema above this. There is no fluctuant area. The wound VAC has a small amount of relatively clear fluid draining into it at this time. The wound is not notably tender. Neuro oriented x3 Sensorium / Orientation: alert <Dr. iKan Sadler DO - Last Filed: 06/20/21 03:33> Physical Exam Const Vital Signs: 06/19/21 17:54 06/19/21 17:56 06/19/21 22:26 Temperature 96.6 F L 96.6 F L 98.0 F Temperature Source Temporal Temporal Temporal Pulse Rate 92 92 69 Respiratory Rate 16 16 18 Blood Pressure 165/87 H 165/87 H 153/76 H Blood Pressure Mean 113 113 101 Pulse Ox 97 97 97 Oxygen Delivery Method Room Air Room Air Room Air 06/19/21 22:29 06/20/21 00:42 06/20/21 02:08 Temperature 98.0 F Temperature Source Temporal Pulse Rate 69 Respiratory Rate 18 18 15 Blood Pressure 153/76 H Blood Pressure Mean 101 Pulse Ox 97 Oxygen Delivery Method Room Air MDM <Dr. Chidi Ruiz MD - Last Filed: 06/20/21 10:14> [facility] MDM Narrative Medical decision making narrative: Patient's blood work is not showing any marked abnormalities. She is clinically stable. However, her CT does show persistent soft tissue infection with some interval increase in the depth of the wound. However, the CT is compared with 1 that was done preoperatively. So is hard to say if this is worsening or improving from the postoperative time. We discussed case with hospitalist. The concern is if this person may need repeat surgery. There is increased erythema. There is increased depth of this infection. Happily, there is no abscess or sinus tract that is seen at this time. But we do not have the soft tissue surgical capabilities here at this time. The physician who did her prior surgery here is currently on medical leave and will not be back for 3 days to a week. Patient is given me permission to contact [facility] regarding possible transfer. She does not want to go back to [facility] where the first surgery was done for personal reasons with the physician. I have contacted [facility] and I am awaiting report back. We have sent copies of his CT findings. [facility] called back and stated that their general surgeon was not comfortable dealing with this. Their plastics does not do inpatient therapy. They can see them as an outpatient. I discussed that the patient would be very reasonable to admit medically with consult to surgery. They stated that this was not an option and does not fit with their protocol or management plan. Patient does not want to go back to the other [facility] facility where she had surgery because she felt as though she was abandoned by that physician. This is her choice. I then called [facility] to discuss the case with them. They are going to be contacting their surgical services who are currently in a trauma and not reachable. Patient is turned over to the night physician. I talked options of the patient including going home on oral antibiotics but I am concerned that this patient is higher risk and this is not the best choice. She does not want to go back to the hospital where she had the very first surgery. Our surgeon is not here. 2 other hospital systems are contacted. Wound VAC was removed. Overall there is fantastic granulation tissue throughout. There is an open area deep in the middle of the wound that my understanding has been there ever since surgery. This was a large tract that was there. However, there is purulent drainage coming from a superficial edge of the wound. But with palpation on the skin there is a fair amount of drainage coming out. This is being sent for culture. Lab Data Attestation: I reviewed the patient's lab results. Labs: Laboratory Results - last 24 hr 06/19/21 06/19/21 06/19/21 19:14 19:14 19:14 WBC 7.1 RBC 3.29 L Hgb 9.5 L Hct 29.8 L MCV 90.6 MCH 28.9 MCHC 31.9 L RDW Std Deviation 49.7 H RDW Coeff of Humberto 14.9 H Plt Count 229 MPV 8.9 Immature Gran % (Auto) 0.400 Neut % (Auto) 84.5 H Lymph % (Auto) 6.[address] [facility] % (Auto) 7.3 Eos % (Auto) 1.1 Baso % (Auto) 0.3 Absolute Neuts (auto) 6.0 Absolute Lymphs (auto) 0.46 L Nucleated RBC % 0 Differential Comment SCANNED Sodium 138 Potassium 4.0 Chloride 107 Carbon Dioxide 25.0 Anion Gap 6 BUN 17 Creatinine 1.01 Estim Creat Clear Calc 41.04 Est GFR (MDRD) Af Amer 69 Est GFR (MDRD) Non-Af 57 L BUN/Creatinine Ratio 16.8 Glucose 157 H Lactic Acid 1.0 Calcium 8.9 Radiography Diagnostic Testing: Clinical Impression(s) from Imaging Studies Lower Extremity CT 06/19/21 18:17 IMPRESSION: Persistent soft tissue infection medial distal thigh. Interval increase in depth extending into the region of the sartorius muscle. Electronically Signed: John Palmer DO at 20:23 EDT , <Dr. Kian Sadler, DO - Last Filed: 06/20/21 03:33> MDM MDM Narrative Medical decision making narrative: Patient signed out to me at midnight for follow-up on transfer of patient to [facility]. They did call back and stated that they did not feel comfortable taking the patient because she had had surgery at [facility]. She had also had surgery at [facility] and they felt that having a third surgeon involved may be an issue. This was discussed with the patient who still does not want to go to [facility]. I had multiple discussions with her regarding possible dispositions. From [facility] standpoint he did not have any inpatient plastic surgeons and they felt that the patient could follow-up with Dr. Olivera outpatient although she would have to call for an appointment which may take weeks for follow-up. In this option we did discuss starting oral antibiotics for follow-up. She was also given the option that we could call [facility] to see if they had been availability although she was specifically not wanting to go there because he was not happy with her surgeon (Dr. Ardon). The third option given to the patient was that she can be admitted to the hospital here for IV antibiotics only and if she had worsening of her wound that she would need to be transferred. All of these options were discussed at length multiple times. I did involve the hospitalist who came and explained these options as well. After he explained the options I went back in and she needed to have them explained again and these were again explained at length. Ultimately the patient decided to stay at [facility] for IV antibiotics understanding that she would have no surgical intervention if needed. Lab Data Attestation: I reviewed the patient's lab results. Labs: Laboratory Results - last 24 hr 06/19/21 06/19/21 06/19/21 19:14 19:14 19:14 WBC 7.1 RBC 3.29 L Hgb 9.5 L Hct 29.8 L MCV 90.6 MCH 28.9 MCHC 31.9 L RDW Std Deviation 49.7 H RDW Coeff of Humberto 14.9 H Plt Count 229 MPV 8.9 Immature Gran % (Auto) 0.400 Neut % (Auto) 84.5 H Lymph % (Auto) 6.[address] [facility] % (Auto) 7.3 Eos % (Auto) 1.1 Baso % (Auto) 0.3 Absolute Neuts (auto) 6.0 Absolute Lymphs (auto) 0.46 L Nucleated RBC % 0 Differential Comment SCANNED Sodium 138 Potassium 4.0 Chloride 107 Carbon Dioxide 25.0 Anion Gap 6 BUN 17 Creatinine 1.01 Estim Creat Clear Calc 41.04 Est GFR (MDRD) Af Amer 69 Est GFR (MDRD) Non-Af 57 L BUN/Creatinine Ratio 16.8 Glucose 157 H Lactic Acid 1.0 Calcium 8.9 Radiography Diagnostic Testing: Clinical Impression(s) from Imaging Studies Lower Extremity CT 06/19/21 18:17 IMPRESSION: Persistent soft tissue infection medial distal thigh. Interval increase in depth extending into the region of the sartorius muscle. Electronically Signed: John Palmer DO at 20:23 EDT , Discharge Plan Dx/Rx/DC Orders Clinical Impression: Complicated wound infection Disposition Disposition: Acute Care Hospital [facility] Discharge Date/Time: 06/20/21 03:40
[2021-06-19 19:36] LABS: Absolute Lymphocyte Count 0.46 X10^3/uL (0.83-4.51); Basophil# 0.02 X10^3/uL; Basophil% 0.3 % (0-1); Eosinophil# 0.08 X10^3/uL; Eosinophils% 1.1 % (0-5); Hematocrit 29.8 % (37-47); Hemoglobin 9.5 g/dL (12.0-15.0); Lymphocyte # 0.46 X10^3/ul (0.83-4.51); Lymphocyte % 6.4 % (19-41); Mean Corp Hgb Conc 31.9 g/dL (32-36); Mean Corpuscular Hgb 28.9 pg (27.0-32.0); Mean Corpuscular Volume 90.6 fL (81-99); Mean Platelet Vol. 8.9 fl (6.2-12.0); Monocyte# 0.52 X10^3/uL; Monocyte% 7.3 % (0-10); NRBC Flagged by Analyzer 0 % (0-5); Neutrophil # 6.03 X10^3/uL (2.7-7.7); Neutrophil % 84.5 % (47-70); POSITIVE COUNT YES; POSITIVE DIFFERENTIAL YES; Platelet Count 229 K/mm3 (150-450); RBC Distribution Width CV 14.9 % (11.6-14.6); RBC Distribution Width SD 49.7 fl (35.1-43.9); Red Blood Count 3.29 M/mm3 (4.2-5.4); White Blood Count 7.1 K/mm3 (4.4-11.0)
[2021-06-19 19:48] LABS: Anion Gap 6 (5-15); BUN 17 mg/dL (7-18); BUN/Creat Ratio 16.8 RATIO (10-20); Calcium,Total 8.9 mg/dL (8.5-10.1); Chloride 107 mmol/L (98-107); Creatinine, Serum 1.01 mg/dL (0.55-1.02); EST Glomerular Filtration Rate 57 mL/min (>60); Est Glom Filt Rate - Afr Amer 69 mL/min (>60); Estimated Creatinine Clearance 41.04 ml/min; Glucose 157 mg/dL (74-106); Sodium Level 138 mmol/L (136-145)
[2021-06-19 19:49] LABS: Differential Indicated SCAN CRITERIA MET
[2021-06-19 20:08] LABS: Differential Comment SCANNED
[2021-06-19 22:26] VITALS: BP 153/76; PULSE 69; RESP 18; TEMP 36.7; O2SAT 97
[2021-06-19 22:29] VITALS: BP 153/76; PULSE 69; RESP 18; TEMP 36.7; O2SAT 97
[2021-06-20] VITALS (7 sets, daily range): BP systolic 103–133; BP diastolic 49–72; PULSE 69–80; RESP 15–20; TEMP 36.7–37.2; O2SAT 97–99; BMI 47.0
--- NOTE | 2021-06-20 00:52 | NURSING ---
PT WOUND VAC REMOVED FROM L THIGH. WOUND BED BEEFY RED. 2 TUNNELED AREAS NOTED. SMALL SUPERFICIAL OPEN AREA NOTED AT TOP OF INCISION DRAINING THICK YELLOW DRAINAGE. ER & DR PAUL NOTIFIED AND BOTH ASSESSED THE WOUND. CULTURES OBTAINED. TUNNELED AREAS PACKED WITH SALINE SOAKED KERLEX. WOUND BED COVERED WITH SALINE SOAKED KERLEX. COVERED WITH ABD PADS. SKIN PREP APPLIED THEN DRESSING SECURED WITH OPSITE. PT TOLERATED WELL.
--- NOTE | 2021-06-20 02:47 | PCM.HP.STD ---
HPI - General HPI Narrative BARBI HERNANDEZ, is a 75 F with a significant history of CAD status post CABG but not on antiplatelet secondary to peptic ulcer disease; thyroidectomy on Synthroid; tissue aortic valve replacement; and recurrent left medial thigh abscess status post surgical intervention x2 who presents emergency department because area of her left medial thigh that had a wound VAC appeared red per home health nurse observation on the same day of presentation. She denies any fever or chills. She denies any real pain around left medial thigh. [facility] Medical History Abscess of left thigh Acquired lymphedema of lower extremity Aortic stenosis CAD (coronary artery disease) 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 HTN (hypertension) Hypothyroidism Localized adiposity of thigh Lymphangitis of lower extremity Nonhealing surgical wound Obesity Home Medications levothyroxine [Synthroid] 112 mcg PO DAILY 08/31/17 [History Last Taken 05/11/21] metoprolol succinate 50 mg PO DAILY 05/11/21 [History Last Taken 05/11/21] oxycodone-acetaminophen [Percocet] 1 tab PO Q4H PRN 7 Days #40 tab 05/15/21 [Rx Last Taken Unknown] diazepam [Valium] 5 mg PO BID PRN 7 Days #14 tab 06/01/21 [Rx Last Taken Unknown] Allergy/AdvReac Type Severity Reaction Status Date / Time bisacodyl Allergy Rash Verified 06/19/21 17:56 [From Dulcolax (bisacodyl)] sulfamethoxazole Allergy Hives Verified 06/19/21 17:56 [From Bactrim] trimethoprim [From Bactrim] Allergy Hives Verified 06/19/21 17:56 SURGICAL TAPE Allergy Rash Uncoded 06/19/21 17:56 Surgical History H/O aortic valve replacement History of thyroidectomy Hx of cholecystectomy S/P CABG x 2 Status post incision and drainage Social History Smoking Status: Never smoker ROS ROS Narrative Pertinent positives and pertinent negatives as noted in HPI. All other systems were reviewed and are negative. Vital Signs Vital Signs Vital Signs: 06/19/21 17:54 06/19/21 17:56 06/19/21 22:26 Temperature 96.6 F L 96.6 F L 98.0 F Temperature Source Temporal Temporal Temporal Pulse Rate 92 92 69 Respiratory Rate 16 16 18 Blood Pressure 165/87 H 165/87 H 153/76 H Blood Pressure Mean 113 113 101 Pulse Ox 97 97 97 Oxygen Delivery Method Room Air Room Air Room Air 06/19/21 22:29 06/20/21 00:42 06/20/21 02:08 Temperature 98.0 F Temperature Source Temporal Pulse Rate 69 Respiratory Rate 18 18 15 Blood Pressure 153/76 H Blood Pressure Mean 101 Pulse Ox 97 Oxygen Delivery Method Room Air Weight Weight: 132.449 kg Body Mass Index (BMI) 51.7 Physical Exam Narrative Physical exam: General: Well-nourished, well-developed. Head: Normocephalic, atraumatic, no tenderness Eyes: Vision is grossly intact. EOMI ENT, no trauma, moist mucous membranes, no rhinorrhea Neck: Nontender, full range of motion, no spinal tenderness, deformities, step-off CVS: Regular rate and rhythm. S1-S2 present. No murmur, gallop or rub. Respiratory : clear to auscultation bilaterally, chest wall nontender, no wheezing Abdomen: Soft, nontender, nondistended, normal bowel sounds, no masses : Deferred Back: Nontender, no CVA tenderness, no midline spinal tenderness, deformities, step-offs Extremities: Nontender full range of motion, no trauma. Left feet edematous. Skin: Left medial thigh with purulent drainage and erythema surrounding surgical incision. Normal color, no trauma, abrasions Neuro: Alert, oriented, cranial nerves II through XII grossly intact. Psychiatry: Normal mood. Normal affect. Not depressed. Not anxious. Results Lab / Micro Data Result Diagrams: 06/19/21 19:14 06/19/21 19:14 Labs: Laboratory Results - last 24 hr 06/19/21 19:14: WBC 7.1, RBC 3.29 L, Hgb 9.5 L, Hct 29.8 L, MCV 90.6, MCH 28.9, MCHC 31.9 L, RDW Std Deviation 49.7 H, RDW Coeff of Humberto 14.9 H, Plt Count 229, MPV 8.9, Immature Gran % (Auto) 0.400, Neut % (Auto) 84.5 H, Lymph % (Auto) 6.4 L, Parmer % (Auto) 7.3, Eos % (Auto) 1.1, Baso % (Auto) 0.3, Absolute Neuts (auto) 6.0, Absolute Lymphs (auto) 0.46 L, Nucleated RBC % 0, Differential Comment SCANNED 06/19/21 19:14: Sodium 138, Potassium 4.0, Chloride 107, Carbon Dioxide 25.0, Anion Gap 6, BUN 17, Creatinine 1.01, Estim Creat Clear Calc 41.04, Est GFR (MDRD) Af Amer 69, Est GFR (MDRD) Non-Af 57 L, BUN/Creatinine Ratio 16.8, Glucose 157 H, Calcium 8.9 06/19/21 19:14: Lactic Acid 1.0 Radiology Impression Lower Extremity CT 06/19/21 18:17 IMPRESSION: Persistent soft tissue infection medial distal thigh. Interval increase in depth extending into the region of the sartorius muscle. Electronically Signed: John Palmer, DO at 20:23 EDT , Assessment & Plan Assessment/Plan (1) Myositis: QUALIFIERS: Myositis type: infective Myositis location: thigh Laterality: left Qualified Code(s): M60.052 - Infective myositis, left thigh PLAN: Acute myositis and cellulitis of left medial thigh. Patient report that she had surgical intervention of abscess at the same area at [facility] counseled about a month and a half ago. Also patient had dermolipectomy and incision and drainage and excisional debridement recurrent abscess ulcer with Dr. Gamboa on 05/13/21. Lower extremity CT was visualized and independently interpreted and I agree with radiologist interpretation above. Emergency department doctor discussed case with hospitalist doctor to have surgeon available for interventions. However no hospital contact patient. Patient did not want to go to [facility] that she originally did surgery because she felt that the surgeon did not treat her right. A plastic surgeon is currently not available at our hospital. Patient elected to stay on IV antibiotics and if her condition worsens and there is still no plastic surgeon in-house then she could be transferred out. Wound culture on 05/13/2021 was reviewed. Wound culture at time showed MRSA; actinomyces naeslundi; and anaerobic cocci. Vancomycin IV and Zosyn was started emergency department. From review of sensitivities of previous culture on 05/13/2021 vancomycin IV and Zosyn continued. Review of CBC showed normal white count but with neutrophilia of 84.5%; and lymphopenia of 6.4%. Wound care consult. Chronic anemia Stable Trend CBC. CKD stage III Stable. Morbid Obesity BMI: 51.7 kg/m?. Complicates care. Lifestyle modification recommended. DVT prophylaxis: Subcutaneous Lovenox ordered. Charges/Coding Visit Charges Inpatient E&M: 47909 Init Hosp L3
--- NOTE | 2021-06-20 04:35 | PCM.RX.CS ---
Consult Pharmacy has been consulted to manage selected antiobiotic: Vancomycin Type of Consult: New start Suspected Infection: Skin/Soft tissue Prior Doses of Antibiotics Received/Current Regimen: Medications Vancomycin HCl (Vancomycin) 1,000 mg in 200 mls @ 200 mls/hr IV Q12H WESLEY Discontinued Medications Vancomycin HCl 2,000 mg/ (Sodium Chloride) 540 mls @ 250 mls/hr IV X1 ONE Stop: 06/20/21 00:53 Last Admin: 06/20/21 02:08 Dose: Infused Labs: Sodium 138 mmol/L (136-145) 06/19/21 19:14 Potassium 4.0 mmol/L (3.5-5.1) 06/19/21 19:14 Chloride 107 mmol/L (98-107) 06/19/21 19:14 Carbon Dioxide 25.0 mmol/L (21.0-32.0) 06/19/21 19:14 Anion Gap 6 (5-15) 06/19/21 19:14 BUN 17 mg/dL (7-18) 06/19/21 19:14 Creatinine 1.01 mg/dL (0.55-1.02) 06/19/21 19:14 Est GFR (MDRD) Af Amer 69 mL/min (>60) 06/19/21 19:14 Est GFR (MDRD) Non-Af 57 mL/min (>60) L 06/19/21 19:14 BUN/Creatinine Ratio 16.8 RATIO (10-20) 06/19/21 19:14 Glucose 157 mg/dL (74-106) H 06/19/21 19:14 Weight used for dosin.3 kg Estimated Creatinine Clearance: 41 Goal Trough: 15-20 mcg/mL Pharmacy Plan for Drug Dosing: Pharmacy Service will continue to monitor and adjust dosing as required. Follow-Up Labs: Trough Vancomycin Labs to be done on [date and time ordered]: 06/21/21 @1100
[2021-06-20] MEDS: Levothyroxine 112 MCG Tablet PO (05:06)
[2021-06-20 06:10] LABS: Absolute Lymphocyte Count 0.58 X10^3/uL (0.83-4.51); Basophil# 0.01 X10^3/uL; Basophil% 0.2 % (0-1); Eosinophil# 0.14 X10^3/uL; Eosinophils% 2.7 % (0-5); Hematocrit 26.4 % (37-47); Hemoglobin 8.6 g/dL (12.0-15.0); Lymphocyte # 0.58 X10^3/ul (0.83-4.51); Mean Corp Hgb Conc 32.6 g/dL (32-36); Mean Corpuscular Hgb 29.6 pg (27.0-32.0); Mean Corpuscular Volume 90.7 fL (81-99); Mean Platelet Vol. 8.9 fl (6.2-12.0); Monocyte# 0.55 X10^3/uL; Monocyte% 10.4 % (0-10); NRBC Flagged by Analyzer 0 % (0-5); Neutrophil # 3.97 X10^3/uL (2.7-7.7); Neutrophil % 75.3 % (47-70); POSITIVE DIFFERENTIAL YES; Platelet Count 184 K/mm3 (150-450); RBC Distribution Width CV 14.9 % (11.6-14.6); RBC Distribution Width SD 49.7 fl (35.1-43.9); Red Blood Count 2.91 M/mm3 (4.2-5.4); White Blood Count 5.3 K/mm3 (4.4-11.0)
[2021-06-20 06:18] LABS: Differential Indicated SCAN CRITERIA MET
[2021-06-20 06:45] LABS: Differential Comment SCANNED
[2021-06-20 06:51] LABS: Anion Gap 6 (5-15); BUN 16 mg/dL (7-18); Calcium,Total 8.3 mg/dL (8.5-10.1); Chloride 108 mmol/L (98-107); Creatinine, Serum 0.89 mg/dL (0.55-1.02); EST Glomerular Filtration Rate 66 mL/min (>60); Est Glom Filt Rate - Afr Amer 80 mL/min (>60); Estimated Creatinine Clearance 48.61 ml/min; Glucose 124 mg/dL (74-106); Potassium 3.8 mmol/L (3.5-5.1); Sodium Level 139 mmol/L (136-145)
--- NOTE | 2021-06-20 09:15 | CASEMGMT ---
GÓMEZ LINDA Assessment: Face to Face with pt for initial transition planning/care coordination assessment. GÓMEZ LINDA introduced self and role at [facility], pt voices understanding and consents to assessment. Pt is A/O x4 and answers all questions appropriately at this time. Pt sitting up in bed talking on the phone. Pt on RA in no distress. Pt discussed the happenings of lastnight in the ER extensively with her options for care. Care providers, pharmacy, and demographics verified/updated. Admitting Dx: acute myositis PCP:Jenaro Specialists:Cooper, surgeon; Kenya Napoles at [facility] Preferred Pharmacy: [facility] in [place] Insurance: [employer] [facility] Prescription Benefit: yes LW/HPOA: Pt denies having a LW/DPOA and denies need for info regarding AD. LNOK: Leta Tubbs, friend Living Arrangements: Pt lives alone in a ground level apt with 4 steps to enter with a rail. Pt reports she is I in ADL's and sponge bathes. Her friend gets groceries for her. Transportation: Pt hasn't driven since last hospital stay. States her friend transports her to her medical appts. DME/HHC/SNF: Pt has crutches which she just used lastnight for the first time. Pt states she has a FWW that a friend has that she is going to get back as she has been using a FWW while here at the hospital. Pt also has grab bars in the shower and shower bench. Pt states she is active with [employer] and has been to [employer] in the past. Pt states no concerns with going home at time of dc. Discussed should pt need IV antibiotics, pt states she would like to do at home. Pt is aware she would need to be able to learn or have a friend perform for her that C does not come to administer every dose. Pt states this is feasible. Pt states no further concerns/needs. CM to follow. Advised pt to ask CM if any further question/concerns/needs arise, voices understanding. Pt Goal: Home with resumption of HHC Plan: Home with resumption of HHC
[2021-06-20] MEDS: Metoprolol(XL)Succ 50 MG Tablet PO (10:56)
[2021-06-20] MEDS: Enoxaparin 40 MG/0.4 ML Syringe SC ×2 (10:56→21:18)
[2021-06-20] MEDS: Vancomycin IV 1,000 MG/200 ML BAG 200 MG IV ×2 (11:00→23:37)
[2021-06-20] MEDS: Nystatin Powder 15gm Bottle 1 APPLIC TOPICAL (15:55)
[2021-06-20] MEDS: 0.9% Saline Lock 10 ML Syringe IV (23:37)
[2021-06-21 03:35] VITALS: BP 106/53; PULSE 71; RESP 18; TEMP 36.8; O2SAT 98
[2021-06-21 05:07] LABS: Absolute Neutrophil Count 3.2 X10^3/uL (2.0-7.7); Basophil# 0.01 X10^3/uL; Basophil% 0.2 % (0-1); Eosinophil# 0.24 X10^3/uL; Eosinophils% 5.3 % (0-5); Hematocrit 25.3 % (37-47); Hemoglobin 7.9 g/dL (12.0-15.0); Lymphocyte % 17.5 % (19-41); Mean Corp Hgb Conc 31.2 g/dL (32-36); Mean Corpuscular Hgb 28.9 pg (27.0-32.0); Mean Corpuscular Volume 92.7 fL (81-99); Mean Platelet Vol. 8.9 fl (6.2-12.0); Monocyte# 0.34 X10^3/uL; Monocyte% 7.5 % (0-10); NRBC Flagged by Analyzer 0 % (0-5); Neutrophil # 3.15 X10^3/uL (2.7-7.7); Neutrophil % 69.1 % (47-70); Platelet Count 210 K/mm3 (150-450); RBC Distribution Width CV 14.9 % (11.6-14.6); RBC Distribution Width SD 50.9 fl (35.1-43.9); Red Blood Count 2.73 M/mm3 (4.2-5.4); White Blood Count 4.6 K/mm3 (4.4-11.0)
[2021-06-21 05:32] LABS: Anion Gap 4 (5-15); BUN 23 mg/dL (7-18); Calcium,Total 8.2 mg/dL (8.5-10.1); Chloride 110 mmol/L (98-107); Creatinine, Serum 1.21 mg/dL (0.55-1.02); EST Glomerular Filtration Rate 46 mL/min (>60); Est Glom Filt Rate - Afr Amer 56 mL/min (>60); Estimated Creatinine Clearance 35.76 ml/min; Glucose 142 mg/dL (74-106); Potassium 3.6 mmol/L (3.5-5.1); Sodium Level 141 mmol/L (136-145)
[2021-06-21] MEDS: Levothyroxine 112 MCG Tablet PO (05:43)
[2021-06-21 08:43] VITALS: BP 123/70; PULSE 74; RESP 20; TEMP 36.8; O2SAT 100
[2021-06-21 08:47] VITALS: PULSE 74
[2021-06-21] MEDS: Nystatin Powder 15gm Bottle 1 APPLIC TOPICAL ×2 (08:47→22:45)
[2021-06-21] MEDS: Enoxaparin 40 MG/0.4 ML Syringe SC (08:47)
[2021-06-21] MEDS: Metoprolol(XL)Succ 50 MG Tablet PO (08:47)
[2021-06-21 09:00] VITALS: O2SAT 99
[2021-06-21] MEDS: Vancomycin IV 1,000 MG/200 ML BAG 200 MG IV (11:56)
--- NOTE | 2021-06-21 12:06 | PCM.RX.CS ---
Consult Pharmacy has been consulted to manage selected antiobiotic: Vancomycin Type of Consult: Follow-up Suspected Infection: Skin/Soft tissue Labs: Sodium 141 mmol/L (136-145) 06/21/21 04:30 Potassium 3.6 mmol/L (3.5-5.1) 06/21/21 04:30 Chloride 110 mmol/L (98-107) H 06/21/21 04:30 Carbon Dioxide 27.0 mmol/L (21.0-32.0) 06/21/21 04:30 Anion Gap 4 (5-15) L 06/21/21 04:30 BUN 23 mg/dL (7-18) H 06/21/21 04:30 Creatinine 1.21 mg/dL (0.55-1.02) H 06/21/21 04:30 Est GFR (MDRD) Af Amer 56 mL/min (>60) L 06/21/21 04:30 Est GFR (MDRD) Non-Af 46 mL/min (>60) L 06/21/21 04:30 BUN/Creatinine Ratio 19.0 RATIO (10-20) 06/21/21 04:30 Glucose 142 mg/dL (74-106) H 06/21/21 04:30 Vancomycin Trough 23.0 ug/mL (5.0-15.0) H 06/21/21 11:11 Microbiology: Microbiology 06/20/21 00:20 Wound - Leg, Left Gram Stain - Final 06/20/21 00:20 Wound - Leg, Left Wound Culture - Preliminary Staphylococcus aureus Pharmacy Plan for Drug Dosing: VANCOMYCIN LEVEL RECEIVED Current Vancomycin Dose: 1000MG Q12 Number of Doses Received: 2000MG X1, 1000MG X2 Vancomycin Level: 23 MG/DL Hours Since Last Dose: 12 Renal Function: SCR 1.21, CRCL 53.9 USING ADJ BW Renal Function Trend: INCREASED Vancomycin Plan/Comments: TROUGH IS SUPRATHERAPEUTIC. HOLD DUE TO HIGH TROUGH. SPOKE TO NURSE CAMRYN, DOSE WAS JUST HUNG. PT DID GET A SMALL AMOUNT OF DRUG BUT WILL STOP INFUSION. WILL GET A RANDOM LEVEL IN 24 HOURS TO RE-ASSES. Pending Level: 06/22/21 @ 1100 Pharmacy Service will continue to monitor and adjust dosing as required.
--- NOTE | 2021-06-21 12:27 | PN.HOSP_ITS ---
Documented by User: Savage BRANCH 06/21/21 12:45 Subjective Subjective Patient is a 75-year-old female comfortably resting in a chair, alert and orient x3. Patient reports significant improvement in her left lower extremity pain and redness in regards to her wound. Denies any drainage or infectious symp toms. Objective Data Objective Data Vital Signs: Vital Signs Temp Pulse Resp BP Pulse Ox 98.2 F 74 20 H 123/70 H 100 06/21/21 08:43 06/21/21 08:47 06/21/21 08:43 06/21/21 08:43 06/21/21 08:43 Oxygen Delivery Method Room Air Weight: 274 lb 0.553 oz Body Mass Index (BMI) 47.0 Intake & Output: Intake and Output for Last 24 Hours 06/19/21 06/20/21 06/21/21 23:59 23:59 23:59 Intake Total 100 / 100 1765.25 / 1765.25 1290.5 / 1290.5 Balance 100 / 100 1765.25 / 1765.25 1290.5 / 1290.5 Lab / Micro Data Result Diagrams: 06/21/21 04:30 06/21/21 04:30 Labs: Laboratory Results - last 24 hr 06/21/21 04:30: WBC 4.6, RBC 2.73 L, Hgb 7.9 L, Hct 25.3 L, MCV 92.7, MCH 28.9, MCHC 31.2 L, RDW Std Deviation 50.9 H, RDW Coeff of Humberto 14.9 H, Plt Count 210, MPV 8.9, Immature Gran % (Auto) 0.400, Neut % (Auto) 69.1, Lymph % (Auto) 17.5 L , [place] % (Auto) 7.5, Eos % (Auto) 5.3 H, Baso % (Auto) 0.2, Absolute Neuts (auto) 3.2, Absolute Lymphs (auto) 0.80 L, Nucleated RBC % 0 06/21/21 04:30: Sodium 141, Potassium 3.6, Chloride 110 H, Carbon Dioxide 27.0, Anion Gap 4 L, BUN 23 H, Creatinine 1.21 H, Estim Creat Clear Calc 35.76, Est GFR (MDRD) Af Amer 56 L, Est GFR (MDRD) Non-Af 46 L, BUN/Creatinine Ratio 19.0, Glucose 142 H, Calcium 8.2 L 06/21/21 11:11: Vancomycin Trough 23.0 H Micro: Microbiology 06/20/21 00:20 Wound - Leg, Left Gram Stain - Final 06/20/21 00:20 Wound - Leg, Left Wound Culture - Preliminary Staphylococcus aureus Physical Exam Const alert, oriented x3 and no apparent distress HEENT head/scalp atraumatic and moist oral mucous membranes Head and Scalp: normocephalic Eyes PERRL, EOMs intact bilaterally and conjunctivae normal Neck no lymphadenopathy, supple and no JVD Resp normal respiratory effort, no retractions and no use of accessory muscles Cardio regular rate, regular rhythm and no JVD GI normal to inspection, nondistended, normoactive bowel sounds Extremity Extremity Narrative: Improved redness and pain about the left medial thigh. Skin Skin Narrative: See extremity. Neuro CN's II-XII intact bilaterally Psych affect normal Assessment & Plan Assessment/Plan (1) 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: (2) Myositis: QUALIFIERS: Laterality: left Myositis location: thigh Myositis type: infective Qualified Code(s): M60.052 - Infective myositis, left thigh (3) Complicated wound infection: PLAN: Day 1 Discharge planning: To be determined. 1) acute cellulitis and myositis of the left medial thigh. Area of redness around the left medial thigh appropriately demarcated on admission, noticeable improvement in regards to redness and pain about the area. Patient denies any further drainage. CT on admission noted persistent soft tissue infection of the medial and distal thigh, with extension into the sartorius muscle. Previous wound culture from April 2021 demonstrated MRSA; actinomyces naeslundi and anareboic cocci. We will continue broad-spectrum vancomycin and Zosyn, ID consult ordered. Wound care nurse ordered. 2) chronic anemia Hemoglobin currently 7.9, stable, continue to trend CBC. 3) CAD/HTN Continue metoprolol. 4) hypothyroidism Continue Synthroid. DVT prophylaxis - Lovenox Patient seen by Savage Maradiaga PA-C, under the supervision of Dr Garcia. Time spent on patient care: 10 minutes. Documented by User: Dr. Francisco Garcia MD 06/21/21 14:12 Objective Data Lab / Micro Data Result Diagrams: 06/21/21 04:30 06/21/21 04:30 Charges/Coding Addendum Addendum: Dr. Garcia: I personally reviewed the chart and examined the patient, and agree with the above findings. 75-year-old female presents to the hospital at the request of her home health nurse secondary to increasing redness around her wound VAC site. She did have a previous abscess that was being treated with oral antibiotics did she previously grew out actinomyces, MRSA, and anaerobic cocci. We will repeat blood cultures and wound cultures. We will plan for consulting ID tomorrow for antibiotic management. She is feeling well today denies any fevers or chills, will continue with wound care evaluation while here in the hospital. She she does have some anemia today with a hemoglobin of 7.9, she has had he will been this low in the last therefore we will monitor and transfuse only if she is 7. Clinical time spent in all aspects of patient care: 20 minutes Visit Charges Inpatient E&M: 23591 Disch Hosp
[2021-06-21 18:43] VITALS: BP 133/88; PULSE 84; RESP 20; TEMP 36.9; O2SAT 97
[2021-06-21 20:37] VITALS: BP 111/65; PULSE 70; RESP 20; TEMP 36.6; O2SAT 100
[2021-06-21] MEDS: 0.9% Saline Lock 10 ML Syringe IV (22:44)
[2021-06-22 03:04] VITALS: BP 122/55; PULSE 75; RESP 18; TEMP 36.5; O2SAT 98
[2021-06-22] MEDS: 0.9% Saline Lock 10 ML Syringe IV ×2 (05:26→10:01)
[2021-06-22] MEDS: Levothyroxine 112 MCG Tablet PO (05:26)
[2021-06-22 06:25] LABS: Absolute Lymphocyte Count 0.73 X10^3/uL (0.83-4.51); Absolute Neutrophil Count 2.9 X10^3/uL (2.0-7.7); Basophil# 0.02 X10^3/uL; Basophil% 0.5 % (0-1); Eosinophil# 0.21 X10^3/uL; Hematocrit 24.6 % (37-47); Hemoglobin 7.6 g/dL (12.0-15.0); Lymphocyte # 0.73 X10^3/ul (0.83-4.51); Lymphocyte % 17.4 % (19-41); Mean Corp Hgb Conc 30.9 g/dL (32-36); Mean Corpuscular Hgb 28.7 pg (27.0-32.0); Mean Corpuscular Volume 92.8 fL (81-99); Mean Platelet Vol. 9.2 fl (6.2-12.0); Monocyte# 0.29 X10^3/uL; Monocyte% 6.9 % (0-10); NRBC Flagged by Analyzer 0 % (0-5); Platelet Count 214 K/mm3 (150-450); RBC Distribution Width CV 15.1 % (11.6-14.6); RBC Distribution Width SD 51.5 fl (35.1-43.9); Red Blood Count 2.65 M/mm3 (4.2-5.4); White Blood Count 4.2 K/mm3 (4.4-11.0)
[2021-06-22 06:57] LABS: Anion Gap 8 (5-15); BUN 37 mg/dL (7-18); BUN/Creat Ratio 26.1 RATIO (10-20); Calcium,Total 8.4 mg/dL (8.5-10.1); Chloride 108 mmol/L (98-107); Creatinine, Serum 1.42 mg/dL (0.55-1.02); EST Glomerular Filtration Rate 39 mL/min (>60); Est Glom Filt Rate - Afr Amer 47 mL/min (>60); Estimated Creatinine Clearance 30.47 ml/min; Glucose 148 mg/dL (74-106); Potassium 3.5 mmol/L (3.5-5.1); Sodium Level 141 mmol/L (136-145)
[2021-06-22 09:38] VITALS: BP 105/42; PULSE 72; RESP 18; TEMP 37.5; O2SAT 97
[2021-06-22] MEDS: Enoxaparin 40 MG/0.4 ML Syringe SC (09:42)
[2021-06-22] MEDS: Nystatin Powder 15gm Bottle 1 APPLIC TOPICAL ×2 (09:42→21:02)
--- NOTE | 2021-06-22 09:50 | CASEMGMT ---
TC opal Beaulieu, spoke with [facility] who states they are active with patient. States they will take pt back if she does not have daily IV atb unless she has a cg who can administer them. [facility] confirms that pt self pays for the visits. Once ID c/s, GÓMEZ LINDA will speak with pt to give options.
[2021-06-22] MEDS: 0.9% Normal Saline 1,000 ML 100 ML IV (09:59)
--- NOTE | 2021-06-22 10:49 | WOUNDNOTE ---
wound photo: left medial thigh
[2021-06-22 12:08] LABS: Vancomycin, Random Level 14.4 ug/mL (0.0-15.0)
--- NOTE | 2021-06-22 12:12 | PN.HOSP_ITS ---
Documented by User: Savage BRANCH 06/22/21 12:19 Subjective Subjective Patient is a 75-year-old female comfortably resting in a chair, alert and orient x3. Patient denies development of any new symptoms overnight. Does not appear in acute distress. Objective Data Objective Data Vital Signs: Vital Signs Temp Pulse Resp BP Pulse Ox 99.5 F H 72 18 105/42 L 97 06/22/21 09:38 06/22/21 09:38 06/22/21 09:38 06/22/21 09:38 06/22/21 09:38 Oxygen Delivery Method Room Air Weight: 274 lb 0.553 oz Body Mass Index (BMI) 47.0 Intake & Output: Intake and Output for Last 24 Hours 06/20/21 06/21/21 06/22/21 23:59 23:59 23:59 Intake Total 1765.25 / 1765.25 2181.25 / 2181.25 950 / 950 Balance 1765.25 / 1765.25 2181.25 / 2181.25 950 / 950 Lab / Micro Data Result Diagrams: 06/22/21 05:15 06/22/21 05:15 Labs: Laboratory Results - last 24 hr 06/22/21 05:15: WBC 4.2 L, RBC 2.65 L, Hgb 7.6 L, Hct 24.6 L, MCV 92.8, MCH 28.7, MCHC 30.9 L, RDW Std Deviation 51.5 H, RDW Coeff of Humberto 15.1 H, Plt Count 214, MPV 9.2, Immature Gran % (Auto) 1.200 H, Neut % (Auto) 69.0, Lymph % (Auto) 17.4 L, [place] % (Auto) 6.9, Eos % (Auto) 5.0, Baso % (Auto) 0.5, Absolute Neuts (auto) 2.9, Absolute Lymphs (auto) 0.73 L, Nucleated RBC % 0 06/22/21 05:15: Sodium 141, Potassium 3.5, Chloride 108 H, Carbon Dioxide 25.0, Anion Gap 8, BUN 37 H, Creatinine 1.42 H, Estim Creat Clear Calc 30.47, Est GFR (MDRD) Af Amer 47 L, Est GFR (MDRD) Non-Af 39 L, BUN/Creatinine Ratio 26.1 H, Glucose 148 H, Calcium 8.4 L 06/22/21 11:15: Random Vancomycin 14.4 Micro: Microbiology 06/20/21 00:20 Wound - Leg, Left Gram Stain - Final 06/20/21 00:20 Wound - Leg, Left Wound Culture - Final Meth. resistant Staph. aureus Physical Exam Const alert, oriented x3 and no apparent distress HEENT head/scalp atraumatic and moist oral mucous membranes Head and Scalp: normocephalic Eyes PERRL and conjunctivae normal Neck no lymphadenopathy, supple and no JVD Resp normal respiratory effort, no retractions and no use of accessory muscles Cardio regular rate, regular rhythm and no JVD GI normal to inspection, nondistended, normoactive bowel sounds and soft to palpation Extremity Extremity Narrative: Improved redness and pain about the left medial thigh. Wound VAC placed. Skin Skin Narrative: See extremity. Neuro CN's II-XII intact bilaterally Psych affect normal Assessment & Plan Assessment/Plan (1) 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: (2) Bilateral lower extremity edema: (3) Myositis: QUALIFIERS: Laterality: left Myositis location: thigh Myositis type: infective Qualified Code(s): M60.052 - Infective myositis, left thigh (4) Complicated wound infection: PLAN: Day 2 Discharge planning: To be determined. 1) acute cellulitis and myositis of the left medial thigh. Area of redness around the left medial thigh appropriately demarcated on admission, noticeable improvement in regards to redness and pain about the area. Wound VAC has been reinserted onto wound. CT on admission noted persistent soft tissue infection of the medial and distal thigh, with extension into the sartorius muscle. Previous wound culture from April 2021 demonstrated MRSA; actinomyces naeslundi and anareboic cocci. We will continue broad-spectrum vancomycin and Zosyn, ID consult ordered. Wound care nurse ordered. 2) SHARMAINE on CKD stage IIIa Creatinine currently 1.42, has been steadily increasing since admission. We will hold nephrotoxic agents and initiate gentle fluids and continue to track BMP. 3) CAD/HTN Continue metoprolol. 4) hypothyroidism Continue Synthroid. 5) 2) chronic anemia Hemoglobin currently 7.6, stable, continue to trend CBC. DVT prophylaxis - Lovenox Patient seen by Savage Maradiaga PA-C, under the supervision of Dr Lee. Time spent on patient care: 9 minutes. Documented by User: Dr. Myra Lee MD 06/22/21 13:43 Objective Data Lab / Micro Data Result Diagrams: 06/22/21 05:15 06/22/21 05:15 Charges/Coding Addendum Addendum: Patient seen by Savage Maradiaga PA-C under my supervision Patient seen and examined. She had no active complaints today and had an uneventful night. She was very worried about her wound culture growing MRSA. She is awaiting ID evaluation today. Review of systems is otherwise negative. O/E: Const alert, oriented x3 and no apparent distress General Appearance: cooperative, super morbid obesity HEENT normocephalic, head/scalp atraumatic, hearing grossly normal bilaterally and moist oral mucous membranes Eyes PERRL, EOMs intact bilaterally and conjunctivae normal Neck no lymphadenopathy, supple and no JVD Resp normal respiratory effort and clear to auscultation bilaterally Cardio regular rate, regular rhythm, S1 normal heart sound, S2 normal heart sound and no murmurs GI normal to inspection, nondistended, normoactive bowel sounds and soft to pa lpation Extremity normal to inspection, full ROM and no clubbing, cyanosis or edema Skin large wound on inner left thigh, with no slough and has granulation tissue; doesnt look infected Neuro oriented x3, CN's II-XII intact bilaterally and moves all extremities Sensorium / Orientation: awake and alert Psych anxious Assessment and plan #Cellulitis and myositis of the left medial thigh * wound vac to be placed today * wound culture growing MRSA * CT on admission showed persistent soft tissue infection of the medial and distal thigh, exending into the sartorius muscle * on IV vancomycin and zosyn * ID consulted; await rec's #SHARMAINE * CR today is 1.42, with a baseline of 0.9 * being gently hydrated with IVF. Will mointor * #Hypertension: on metoprolol #Hypothyroidism: on synthroid #Chronic anemia: hb today is 7.6. Will continue monitoring. Transfuse if Hb <7. Her baseline is ~ 9-10 DVT prophylaxis:lovenox REst as per Savage Maradiaga PA-C's note, which I have reviewed and endorsed. Total time I spent on the patient today is 22 mins, with Savage Maradiaga PA-C spending 9 mins, making a total of 31 mins Visit Charges Inpatient E&M: 03680 Subs Hosp L2
[2021-06-22 12:46] VITALS: BP 125/71; PULSE 69; RESP 18; TEMP 36.7; O2SAT 100
--- NOTE | 2021-06-22 12:55 | PCM.RX.CS ---
Consult Pharmacy has been consulted to manage selected antiobiotic: Vancomycin Type of Consult: Follow-up Suspected Infection: Skin/Soft tissue Labs: Sodium 141 mmol/L (136-145) 06/22/21 05:15 Potassium 3.5 mmol/L (3.5-5.1) 06/22/21 05:15 Chloride 108 mmol/L (98-107) H 06/22/21 05:15 Carbon Dioxide 25.0 mmol/L (21.0-32.0) 06/22/21 05:15 Anion Gap 8 (5-15) 06/22/21 05:15 BUN 37 mg/dL (7-18) H 06/22/21 05:15 Creatinine 1.42 mg/dL (0.55-1.02) H 06/22/21 05:15 Est GFR (MDRD) Af Amer 47 mL/min (>60) L 06/22/21 05:15 Est GFR (MDRD) Non-Af 39 mL/min (>60) L 06/22/21 05:15 BUN/Creatinine Ratio 26.1 RATIO (10-20) H 06/22/21 05:15 Glucose 148 mg/dL (74-106) H 06/22/21 05:15 Vancomycin Trough 23.0 ug/mL (5.0-15.0) H 06/21/21 11:11 Random Vancomycin 14.4 ug/mL (0.0-15.0) 06/22/21 11:15 Microbiology: Microbiology 06/20/21 00:20 Wound - Leg, Left Gram Stain - Final 06/20/21 00:20 Wound - Leg, Left Wound Culture - Final Meth. resistant Staph. aureus Goal Trough: 15-20 mcg/mL Pharmacy Plan for Drug Dosing: VANCOMYCIN LEVEL RECEIVED Current Vancomycin Dose: previous dose was 1000mg q12h. currently on hold due to elevated trough Number of Doses Received: Vancomycin Level: 14.4 (random level) Hours Since Last Dose: 36 hours Renal Function: SrCr 1.42 Renal Function Trend: SrCr increasing (was 1.01 upon initiation of Vancomycin) Lab/Micro: Vancomycin Plan/Comments: recommend re starting Vancomycin at 1250mg q24h. Will check trough after 1st dose due to pts increasing SrCr. Pending Level: 06/23/21 at 1330 Pharmacy Service will continue to monitor and adjust dosing as required. Follow-Up Labs: Trough Vancomycin - 06/23/21 at 1330
--- NOTE | 2021-06-22 13:42 | CON.PCM.ID_ITS ---
Assessment & Plan Assessment/Plan (1) Complicated wound infection: PLAN: Wound cx with MRSA. Prior wound cx with MRSA, actino, and anaerobes. Wound improving. CT showed resolution of previous abscess, so doubt any role for surgery at this time. Likely plan will be for course of po abx at discharge. Will narrow to vanc/unasyn for now. Will follow, thank you. Reports covid booster x1. HPI Consult Data Date of Consult: 06/22/21 HPI Narrative HPI Narrative: BARBI HERNANDEZ, is a 75 F who presented with new redness of L thigh wound. Sx started after CABG at [facility]. Admitted here a month ago, taken to OR with Dr. Gamboa for I&D. Discharged on doxy. Finished course of po abx around 06/14. No fever, no new pain. Wound vac in place, following with wound care. Full ROS performed and neg except as noted above. [facility] Medical History Abscess of left thigh Acquired lymphedema of lower extremity Aortic stenosis CAD (coronary artery disease) Cancer 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 High cholesterol HTN (hypertension) Hypothyroidism Kidney stones Localized adiposity of thigh Lymphangitis of lower extremity Nonhealing surgical wound Obesity Home Medications levothyroxine [Synthroid] 112 mcg PO DAILY 08/31/17 [History Last Taken 05/11/21] metoprolol succinate 50 mg PO DAILY 05/11/21 [History Last Taken 05/11/21] oxycodone-acetaminophen [Percocet] 1 tab PO Q4H PRN 7 Days #40 tab 05/15/21 [Rx Last Taken Unknown] diazepam [Valium] 5 mg PO BID PRN 7 Days #14 tab 06/01/21 [Rx Last Taken Unknown] Allergy/AdvReac Type Severity Reaction Status Date / Time bisacodyl Allergy Rash Verified 06/19/21 17:56 [From Dulcolax (bisacodyl)] sulfamethoxazole Allergy Hives Verified 06/19/21 17:56 [From Bactrim] trimethoprim [From Bactrim] Allergy Hives Verified 06/19/21 17:56 SURGICAL TAPE Allergy Rash Uncoded 06/19/21 17:56 Surgical History (Updated 06/20/21 @ 04:25 by Ayleen Mayen) H/O aortic valve replacement H/O cardiac catheterization History of thyroidectomy Hx of CABG Hx of cholecystectomy S/P CABG x 2 S/P hysterectomy Status post incision and drainage Social History Smoking Status: Never smoker Physical Exam Const alert, oriented x3 and no apparent distress General Appearance: cooperative Exam Limitations: no limitations HEENT normocephalic and head/scalp atraumatic Eyes PERRL and EOMs intact bilaterally Neck supple and No nodes Resp normal air movement and clear to auscultation bilaterally Cardio regular rate and regular rhythm GI soft to palpation, non-tender and non-distended Extremity General Extremity: edema Skin Skin Narrative: reviewed photo Neuro CN's II-XII intact bilaterally Lab / Micro Data Result Diagrams: 06/22/21 05:15 06/22/21 05:15 Labs: Laboratory Results - last 24 hr 06/22/21 05:15: WBC 4.2 L, RBC 2.65 L, Hgb 7.6 L, Hct 24.6 L, MCV 92.8, MCH 28 .7, MCHC 30.9 L, RDW Std Deviation 51.5 H, RDW Coeff of Humberto 15.1 H, Plt Count 214, MPV 9.2, Immature Gran % (Auto) 1.200 H, Neut % (Auto) 69.0, Lymph % (Auto) 17.4 L, [place] % (Auto) 6.9, Eos % (Auto) 5.0, Baso % (Auto) 0.5, Absolute Neuts (auto) 2.9, Absolute Lymphs (auto) 0.73 L, Nucleated RBC % 0 06/22/21 05:15: Sodium 141, Potassium 3.5, Chloride 108 H, Carbon Dioxide 25.0, Anion Gap 8, BUN 37 H, Creatinine 1.42 H, Estim Creat Clear Calc 30.47, Est GFR (MDRD) Af Amer 47 L, Est GFR (MDRD) Non-Af 39 L, BUN/Creatinine Ratio 26.1 H, Glucose 148 H, Calcium 8.4 L 06/22/21 11:15: Random Vancomycin 14.4 Micro: Microbiology 06/20/21 00:20 Wound - Leg, Left Gram Stain - Final 06/20/21 00:20 Wound - Leg, Left Wound Culture - Final Meth. resistant Staph. aureus
--- NOTE | 2021-06-22 15:33 | CASEMGMT ---
Noted pt to be dc'd on po atb. GÓMEZ CM in to pt room to make aware that [facility] will accept her back. Also asked pt if she would like to receive a list of agencies who takes her insurance as she self pays. Pt states she pays $60/visit and is ok with paying this. She declines need for this service to go through her insurance. Pt denies further needs. TC opal Villar at [facility], she is aware that pt will go home on po atb and wants to resume with their services. She states to make aware of dc so they can resume.
[2021-06-22 17:26] VITALS: BP 127/63; PULSE 70; RESP 18; TEMP 37.3; O2SAT 100
[2021-06-22] MEDS: 0.9% Normal Saline 1,000 ML 75 ML IV (21:02)
[2021-06-22 21:45] VITALS: BP 118/68; PULSE 72; RESP 18; TEMP 37; O2SAT 98
[2021-06-23 04:53] VITALS: BP 131/56; PULSE 70; RESP 16; TEMP 36.9; O2SAT 100
[2021-06-23] MEDS: Levothyroxine 112 MCG Tablet PO (05:00)
[2021-06-23 06:24] LABS: Absolute Lymphocyte Count 0.67 X10^3/uL (0.83-4.51); Absolute Neutrophil Count 2.7 X10^3/uL (2.0-7.7); Basophil# 0.02 X10^3/uL; Basophil% 0.5 % (0-1); Eosinophil# 0.19 X10^3/uL; Eosinophils% 4.9 % (0-5); Hematocrit 23.8 % (37-47); Hemoglobin 7.3 g/dL (12.0-15.0); Lymphocyte # 0.67 X10^3/ul (0.83-4.51); Lymphocyte % 17.2 % (19-41); Mean Corp Hgb Conc 30.7 g/dL (32-36); Mean Corpuscular Hgb 28.4 pg (27.0-32.0); Mean Corpuscular Volume 92.6 fL (81-99); Mean Platelet Vol. 8.8 fl (6.2-12.0); Monocyte% 7.7 % (0-10); NRBC Flagged by Analyzer 0 % (0-5); Neutrophil # 2.67 X10^3/uL (2.7-7.7); Neutrophil % 68.4 % (47-70); Platelet Count 186 K/mm3 (150-450); RBC Distribution Width CV 14.9 % (11.6-14.6); RBC Distribution Width SD 50.5 fl (35.1-43.9); Red Blood Count 2.57 M/mm3 (4.2-5.4); White Blood Count 3.9 K/mm3 (4.4-11.0)
[2021-06-23 06:50] LABS: Anion Gap 6 (5-15); BUN 39 mg/dL (7-18); Calcium,Total 8.1 mg/dL (8.5-10.1); Chloride 112 mmol/L (98-107); Creatinine, Serum 1.26 mg/dL (0.55-1.02); EST Glomerular Filtration Rate 44 mL/min (>60); Est Glom Filt Rate - Afr Amer 53 mL/min (>60); Estimated Creatinine Clearance 34.34 ml/min; Glucose 133 mg/dL (74-106); Potassium 3.8 mmol/L (3.5-5.1); Sodium Level 142 mmol/L (136-145)
[2021-06-23 08:20] VITALS: BP 155/71; PULSE 73; RESP 18; TEMP 36.8; O2SAT 99
--- NOTE | 2021-06-23 08:33 | WOUNDNOTE ---
Wound VAC dressing intact with good seal noted at 150mmHg low continuous suction. possible discharge home today or tomorrow.
--- NOTE | 2021-06-23 09:34 | PN.HOSP_ITS ---
Subjective Subjective Patient seen and examined. Objective Data Objective Data Vital Signs: Vital Signs Temp Pulse Resp BP Pulse Ox 98.2 F 73 18 155/71 H 99 06/23/21 08:20 06/23/21 08:20 06/23/21 08:20 06/23/21 08:20 06/23/21 08:20 Oxygen Delivery Method Room Air Weight: 274 lb 0.553 oz Body Mass Index (BMI) 47.0 Intake & Output: Intake and Output for Last 24 Hours 06/21/21 06/22/21 06/23/21 23:59 23:59 23:59 Intake Total 2181.25 / 2181.25 3898.25 / 3898.25 147.5 / 147.5 Balance 2181.25 / 2181.25 3898.25 / 3898.25 147.5 / 147.5 Lab / Micro Data Result Diagrams: 06/23/21 05:30 06/23/21 05:30 Labs: Laboratory Results - last 24 hr 06/22/21 11:15: Random Vancomycin 14.4 06/23/21 05:30: WBC 3.9 L, RBC 2.57 L, Hgb 7.3 L, Hct 23.8 L, MCV 92.6, MCH 28.4, MCHC 30.7 L, RDW Std Deviation 50.5 H, RDW Coeff of Humberto 14.9 H, Plt Count 186, MPV 8.8, Immature Gran % (Auto) 1.300 H, Neut % (Auto) 68.4, Lymph % (Auto) 17.2 L, [place] % (Auto) 7.7, Eos % (Auto) 4.9, Baso % (Auto) 0.5, Absolute Neuts (auto) 2.7, Absolute Lymphs (auto) 0.67 L, Nucleated RBC % 0 06/23/21 05:30: Sodium 142, Potassium 3.8, Chloride 112 H, Carbon Dioxide 24.0, Anion Gap 6, BUN 39 H, Creatinine 1.26 H, Estim Creat Clear Calc 34.34, Est GFR (MDRD) Af Amer 53 L, Est GFR (MDRD) Non-Af 44 L, BUN/Creatinine Ratio 31.0 H, Glucose 133 H, Calcium 8.1 L Micro: Microbiology 06/20/21 00:20 Wound - Leg, Left Gram Stain - Final 06/20/21 00:20 Wound - Leg, Left Wound Culture - Final Meth. resistant Staph. aureus
--- NOTE | 2021-06-23 09:36 | PCM.PN.ID ---
Physical Exam Narrative Feeling well, no fever, no n/v. Some chronic diarrhea. Const alert and no apparent distress General Appearance: cooperative Resp normal air movement and clear to auscultation bilaterally Cardio regular rate and regular rhythm GI soft to palpation, non-tender and non-distended Skin no rashes or lesions noted Skin Narrative: wound vac in place ID ID: Route of nutrition/ use of supplements: [] Nutritional Intake: [] IV Site: [] Loza Catheter: [] Assessment & Plan Assessment/Plan (1) Complicated wound infection: PLAN: Wound cx with MRSA. Prior wound cx with MRSA, actino, and anaerobes. Wound improving. CT showed resolution of previous abscess, so doubt any role for surgery at this time. Ok for home with 2 weeks po doxy and augmentin, wrote rx. Will follow as needed, d/w employment case manager. Reports covid booster x1.
[2021-06-23 10:13] VITALS: BP 155/71; PULSE 73
[2021-06-23] MEDS: Metoprolol(XL)Succ 50 MG Tablet PO (10:13)
[2021-06-23] MEDS: Enoxaparin 40 MG/0.4 ML Syringe SC (10:14)
[2021-06-23] MEDS: Pantoprazole Sodium 40 MG Tablet PO (10:14)
[2021-06-23] MEDS: Nystatin Powder 15gm Bottle 1 APPLIC TOPICAL ×2 (10:14→21:01)
[2021-06-23] MEDS: 0.9% Normal Saline 1,000 ML 75 ML IV ×2 (10:18→21:02)
[2021-06-23 10:27] LABS: Iron 42 ug/dL (50-170); Iron Binding Capacity,Total 167 ug/dL (250-450); PERCENT IRON SATURATION 25.1 % (15.0-55.0)
--- NOTE | 2021-06-23 12:15 | PN.HOSP_ITS ---
Documented by User: Savage BRANCH 06/23/21 12:27 Subjective Subjective Patient is a 75-year-old female comfortably resting in bed, alert and orient x3. Patient denies development of any overnight. Does not appear in acute distress. Objective Data Objective Data Vital Signs: Vital Signs Temp Pulse Resp BP Pulse Ox 98.2 F 73 18 155/71 H 99 06/23/21 08:20 06/23/21 10:13 06/23/21 08:20 06/23/21 10:13 06/23/21 08:20 Oxygen Delivery Method Room Air Weight: 274 lb 0.553 oz Body Mass Index (BMI) 47.0 Intake & Output: Intake and Output for Last 24 Hours 06/21/21 06/22/21 06/23/21 23:59 23:59 23:59 Intake Total 2181.25 / 2181.25 3898.25 / 3898.25 1142.5 / 1142.5 Balance 2181.25 / 2181.25 3898.25 / 3898.25 1142.5 / 1142.5 Lab / Micro Data Result Diagrams: 06/23/21 05:30 06/23/21 05:30 Labs: Laboratory Results - last 24 hr 06/23/21 05:30: WBC 3.9 L, RBC 2.57 L, Hgb 7.3 L, Hct 23.8 L, MCV 92.6, MCH 28.4, MCHC 30.7 L, RDW Std Deviation 50.5 H, RDW Coeff of Humberto 14.9 H, Plt Count 186, MPV 8.8, Immature Gran % (Auto) 1.300 H, Neut % (Auto) 68.4, Lymph % (Auto) 17.2 L, [place] % (Auto) 7.7, Eos % (Auto) 4.9, Baso % (Auto) 0.5, Absolute Neuts (auto) 2.7, Absolute Lymphs (auto) 0.67 L, Nucleated RBC % 0 06/23/21 05:30: Sodium 142, Potassium 3.8, Chloride 112 H, Carbon Dioxide 24.0, Anion Gap 6, BUN 39 H, Creatinine 1.26 H, Estim Creat Clear Calc 34.34, Est GFR (MDRD) Af Amer 53 L, Est GFR (MDRD) Non-Af 44 L, BUN/Creatinine Ratio 31.0 H, Glucose 133 H, Calcium 8.1 L 06/23/21 05:30: Iron 42 L, TIBC 167 L, Iron Saturation 25.1 Micro: Microbiology 06/20/21 00:20 Wound - Leg, Left Gram Stain - Final 06/20/21 00:20 Wound - Leg, Left Wound Culture - Final Meth. resistant Staph. aureus Physical Exam Const alert, oriented x3 and no apparent distress HEENT head/scalp atraumatic and moist oral mucous membranes Head and Scalp: normocephalic Eyes PERRL, EOMs intact bilaterally and conjunctivae normal Neck no lymphadenopathy, supple and no JVD Resp normal respiratory effort, no retractions and no use of accessory muscles Cardio regular rate, regular rhythm and no JVD GI normal to inspection, nondistended, normoactive bowel sounds and soft to palpation Extremity normal to inspection, full ROM and no clubbing, cyanosis or edema Skin no rashes or lesions noted, no wounds and skin turgor normal Neuro CN's II-XII intact bilaterally Psych affect normal Assessment & Plan Assessment/Plan (1) 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: (2) Myositis: QUALIFIERS: Laterality: left Myositis location: thigh Myositis type: infective Qualified Code(s): M60.052 - Infective myositis, left thigh (3) Complicated wound infection: PLAN: Day 3 Discharge planning: Patient is to discharge home when medically ready. 1) acute cellulitis and myositis of the left medial thigh. Area of redness around the left medial thigh appropriately demarcated on admission, noticeable improvement in regards to redness and pain about the area. Wound VAC has been reinserted onto wound. CT on admission noted persistent soft tissue infection of the medial and distal thigh, with extension into the sartorius muscle. Previous wound culture from April 2021 demonstrated MRSA; actinomyces naeslundi and anareboic cocci. ID seen and evaluated, has cleared patient for discharge on 2 weeks of doxycycline and Augmentin when ready. We will continue vancomycin and Unasyn for now. 2) acute on chronic anemia Hemoglobin this morning 7.3, has continued to decrease throughout admission. Patient denies any bloody stools. Will obtain iron studies as well as occult s tool. Will transfuse if hemoglobin falls below 7. Initiate oral PPI. Continue to monitor H&H. 3) SHARMAINE on CKD stage IIIa Creatinine currently 1.26, improved with fluids. We will hold nephrotoxic ag ents and continue gentle fluids and continue to track BMP. 4) hypothyroidism Continue Synthroid. 5) CAD/HTN Continue metoprolol. DVT prophylaxis - Lovenox Patient seen by Savage Maradiaga PA-C, under the supervision of Dr Lee. Time spent on patient care: 7 minutes. Documented by User: Dr. Myra Lee MD 06/23/21 14:44 Objective Data Lab / Micro Data Result Diagrams: 06/23/21 05:30 06/23/21 05:30 Charges/Coding Addendum Addendum: Patient seen by Savage Maradiaga PA-C under my supervision Patient seen and examined. Feels well today and had an uneventful night. Rev iew of systems otherwise negative. Her hemoglobin noted to have trended downward to 7.3. She denies any melena like stools and denies any coffee-ground emesis or coughing up any blood. She tells me she does have a history of peptic ulcer disease and had an EGD several years ago. She also had a colonoscopy circa 2013 and says she was told it was normal and she did not need one for another 10 years. O/E: Const alert, oriented x3 and no apparent distress General Appearance: cooperative, super morbid obesity HEENT normocephalic, head/scalp atraumatic, hearing grossly normal bilaterally and mo ist oral mucous membranes Eyes PERRL, EOMs intact bilaterally and conjunctivae normal Neck no lymphadenopathy, supple and no JVD Resp normal respiratory effort and clear to auscultation bilaterally Cardio regular rate, regular rhythm, S1 normal heart sound, S2 normal heart sound and no murmurs GI normal to inspection, nondistended, normoactive bowel sounds and soft to palpation Extremity normal to inspection, full ROM and no clubbing, cyanosis or edema Skin large wound on inner left thigh, with no slough and has granulation tissue; doesnt look infected Neuro oriented x3, CN's II-XII intact bilaterally and moves all extremities Sensorium / Orientation: awake and alert Psych anxious Assessment and plan #Cellulitis and myositis of the left medial thigh * wound vac in place. Wound cultures growing MRSA * on IV vancomycin and unasyn now * ID on board; recommends patient can go home with 2 weeks of p.o. doxycycline and Augmentin. * #SHARMAINE * CR is down to 1.26, from 1.42 yesterday * continue very gentle hydration with IVF * #Hypertension: on metoprolol #Hypothyroidism: on synthroid #Acute on Chronic anemia: * hb today is down from 7.6 to 7.3. Stool for occult blood negative * she admits to a history of peptic ulcer disease. * will put on PO pantoprazole 40mg bid * basline is 9-10. Transfuse if Hb <7 * iron studies pending DVT prophylaxis:lovenox REst as per Savage Maradiaga PA-C's note, which I have reviewed and endorsed. Total time I spent on the patient today is 20 mins, with Savage Maradiaga PA-C spending 7 mins, making a total of 27 mins Visit Charges Inpatient E&M: 64447 Subs Hosp L2
[2021-06-23 14:42] VITALS: BP 141/57; PULSE 70; RESP 16; TEMP 37.1; O2SAT 99
--- NOTE | 2021-06-23 14:58 | CASEMGMT ---
TC to Aurea at [facility] to make aware that pt is not dc'ing today but potentially tomorrow. She states this will be no problem, if this is the case they will resume on and change the vac on Tuesday.
--- NOTE | 2021-06-23 15:08 | PCM.RX.CS ---
Consult Pharmacy has been consulted to manage selected antiobiotic: Vancomycin Type of Consult: Follow-up Suspected Infection: Skin/Soft tissue Prior Doses of Antibiotics Received/Current Regimen: current dose is vanc 1250mg IV q24h Labs: Sodium 142 mmol/L (136-145) 06/23/21 05:30 Potassium 3.8 mmol/L (3.5-5.1) 06/23/21 05:30 Chloride 112 mmol/L (98-107) H 06/23/21 05:30 Carbon Dioxide 24.0 mmol/L (21.0-32.0) 06/23/21 05:30 Anion Gap 6 (5-15) 06/23/21 05:30 BUN 39 mg/dL (7-18) H 06/23/21 05:30 Creatinine 1.26 mg/dL (0.55-1.02) H 06/23/21 05:30 Est GFR (MDRD) Af Amer 53 mL/min (>60) L 06/23/21 05:30 Est GFR (MDRD) Non-Af 44 mL/min (>60) L 06/23/21 05:30 BUN/Creatinine Ratio 31.0 RATIO (10-20) H 06/23/21 05:30 Glucose 133 mg/dL (74-106) H 06/23/21 05:30 Vancomycin Trough 16.0 ug/mL (5.0-15.0) H 06/23/21 13:35 Random Vancomycin 14.4 ug/mL (0.0-15.0) 06/22/21 11:15 Microbiology: Microbiology 06/23/21 11:20 Stool Stool Occult Blood (DIO) - Final 06/20/21 00:20 Wound - Leg, Left Gram Stain - Final 06/20/21 00:20 Wound - Leg, Left Wound Culture - Final Meth. resistant Staph. aureus Weight used for dosin.3 kg Estimated Creatinine Clearance: 51.8ml/min Goal Trough: 15-20 mcg/mL Pharmacy Plan for Drug Dosing: The vanc trough drawn at 13:35 today (approx 22.5 hrs after the previous dose) came back as 16.0. This is within goal range so will keep same dose. Repeat a trough level in 2 days per protocol if the patient is still here on vancomycin. The patient's CrCl of 51.8ml/min was calculated using an adjusted body weight of 82.5kg. Pharmacy Service will continue to monitor and adjust dosing as required. Follow-Up Labs: Trough Vancomycin Labs to be done on [date and time ordered]: 06/25/21 14:30
[2021-06-23 21:13] VITALS: BP 119/63; PULSE 68; RESP 18; TEMP 37.4; O2SAT 98
[2021-06-24 04:02] VITALS: BP 97/58; PULSE 64; RESP 16; TEMP 36.7; O2SAT 98
[2021-06-24] MEDS: Levothyroxine 112 MCG Tablet PO (05:38)
[2021-06-24 05:44] LABS: Absolute Lymphocyte Count 0.75 X10^3/uL (0.83-4.51); Absolute Neutrophil Count 2.7 X10^3/uL (2.0-7.7); Basophil# 0.02 X10^3/uL; Basophil% 0.5 % (0-1); Eosinophil# 0.22 X10^3/uL; Eosinophils% 5.3 % (0-5); Hematocrit 24.6 % (37-47); Hemoglobin 7.4 g/dL (12.0-15.0); Lymphocyte # 0.75 X10^3/ul (0.83-4.51); Lymphocyte % 18.2 % (19-41); Mean Corp Hgb Conc 30.1 g/dL (32-36); Mean Corpuscular Hgb 28.1 pg (27.0-32.0); Mean Corpuscular Volume 93.5 fL (81-99); Mean Platelet Vol. 8.6 fl (6.2-12.0); Monocyte# 0.33 X10^3/uL; NRBC Flagged by Analyzer 0 % (0-5); Neutrophil # 2.73 X10^3/uL (2.7-7.7); Neutrophil % 66.1 % (47-70); Platelet Count 167 K/mm3 (150-450); RBC Distribution Width CV 14.8 % (11.6-14.6); RBC Distribution Width SD 50.8 fl (35.1-43.9); Red Blood Count 2.63 M/mm3 (4.2-5.4); White Blood Count 4.1 K/mm3 (4.4-11.0)
[2021-06-24 06:19] LABS: Anion Gap 3 (5-15); BUN 35 mg/dL (7-18); BUN/Creat Ratio 30.7 RATIO (10-20); Calcium,Total 8.1 mg/dL (8.5-10.1); Chloride 111 mmol/L (98-107); Creatinine, Serum 1.14 mg/dL (0.55-1.02); EST Glomerular Filtration Rate 50 mL/min (>60); Est Glom Filt Rate - Afr Amer 60 mL/min (>60); Estimated Creatinine Clearance 37.95 ml/min; Glucose 121 mg/dL (74-106); Sodium Level 142 mmol/L (136-145)
[2021-06-24 08:03] VITALS: BP 162/62; PULSE 66; RESP 16; TEMP 36.6; O2SAT 98
--- NOTE | 2021-06-24 09:41 | PCM.DC ---
Discharge Instructions Diet Discharge Diet: No restrictions Activity Discharge Activity: Return to Normal Activity Weight Bearing Status: Weight bearing as tolerated Dressing / Incision Call your doctor if you observe: Fever of 101 or Higher, Numbness or Tingling, Shortness of breath, Dizziness, Chest pain, Increased palpitations (irregular heartbeat) and Calf discomfort Follow Up Care Please Follow Up With: Primary care provider When: Within the next two weeks. Test Results: Test results from this visit will be discussed in further detail at your follow-up appointment, if applicable. Discharge Plan Admission Admit Date/Time: 06/20/21 03:06 Primary Reason for Your Visit: Cellulilitis Attending Provider: Myra Lee Primary Care Provider: Indira Eason Consulting Providers: Osvaldo Roland Additional Instructions / Restrictions: * Inquire about Iron replacement on your follow up with Dr. Mulligan. Iron was not provided on discharge due to an interaction with Doxycycline. Discharge Orders/Prescriptions Prescriptions: New doxycycline hyclate 100 mg capsule 100 mg PO BID Qty: 30 RF: 0 amoxicillin-pot clavulanate 875-125 mg tablet 1 tab PO BID Qty: 30 RF: 0 pantoprazole 40 mg Tablet,Delayed Release (Dr/Ec) 40 mg PO DAILY Qty: 30 RF: 0 Continued levothyroxine [Synthroid] 112 MCG tablet 112 mcg PO DAILY RF: 0 metoprolol succinate 50 mg tablet extended release 24 hr 50 mg PO DAILY RF: 0 oxycodone-acetaminophen [Percocet] 5-325 mg tablet 1 tab PO Q4H PRN (Reason: pain (scale score 7-10)) 7 Days Qty: 40 RF: 0 diazepam [Valium] 5 mg tablet 5 mg PO BID PRN (Reason: muscle spasm) 7 Days Qty: 14 RF: 0 Referrals / Follow Up: Indira Eason MD [Primary Care Provider] - Within 1 Week (APPOINTMENT June @ 02:40PM ) Rip Mulligan DO [STAFF PHYSICIAN] - See Referral Note (An appointment will be established for you to follow up before discharge. ) Disposition Disposition (needs filled in before D/C Order can be placed): Home Health Service
[2021-06-24 09:50] VITALS: BP 162/62; PULSE 66
[2021-06-24] MEDS: Metoprolol(XL)Succ 50 MG Tablet PO (09:50)
[2021-06-24] MEDS: Enoxaparin 40 MG/0.4 ML Syringe SC (09:51)
[2021-06-24] MEDS: Nystatin Powder 15gm Bottle 1 APPLIC TOPICAL (09:52)
[2021-06-24] MEDS: Pantoprazole Sodium 40 MG Tablet PO (09:54)
--- NOTE | 2021-06-24 10:11 | CASEMGMT ---
Addendum entered by Anne-Marie Navarro 06/24/21 10:52: GÓMEZ LINDA in to pt room, pt states she has a friend who will provide her transportation home. She is aware [facility] will be in contact with her to schedule visit. Addendum entered by Anne-Marie Navarro 06/24/21 10:12: TC to Aurea at [facility], she is aware of pt dc today. Original Note: Faxed referral with dc instructions and orders to [facility] at this time.
[2021-06-24 11:20] VITALS: BP 153/77; PULSE 70; RESP 16; TEMP 36.8; O2SAT 97
--- NOTE | 2021-06-24 11:22 | DS.PCM_ITS ---
Documented by User: Savage BRANCH 06/24/21 11:43 Providers Date of Admission: 06/20/21 Date of Discharge: 06/24/21 Primary Care Physician: Dr. Indira Eason MD Consultations 06/20/21 04:13 Consult: Onc/Wound/real estate administrator Routine Comment: Reason for Consult:: wound vac 06/21/21 12:23 Consult: Infectious Disease Routine Consulting Provider: Osvaldo Roland Reason for Consult: Recurrent MRSA infections EMERGENT Consult: No MD Notified: Yes Date Notified: 06/22/21 Time Notified: : Method of Notification: Answering Service Reason For Visit: ACUTE MYOSITIS Diagnosis Discharge Diagnosis (1) 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: Status: Chronic Code(s): L97.122 - Non-pressure chronic ulcer of left thigh with fat layer exposed (2) Myositis: Status: Acute Code(s): M60.9 - Myositis, unspecified Qualifiers: Laterality: left Myositis location: thigh Myositis type: infective Qualified Code(s): M60.052 - Infective myositis, left thigh (3) Complicated wound infection: Status: Acute Code(s): T14.8XXA - Other injury of unspecified body region, initial encounter; L08.9 - Local infection of the skin and subcutaneous tissue, unspecified Medications at Discharge Home Medications levothyroxine [Synthroid] 112 mcg PO DAILY 08/31/17 metoprolol succinate 50 mg PO DAILY 05/11/21 oxycodone-acetaminophen [Percocet] 1 tab PO Q4H PRN 7 Days #40 tab 05/15/21 diazepam [Valium] 5 mg PO BID PRN 7 Days #14 tab 06/01/21 amoxicillin-pot clavulanate 1 tab PO BID #30 tab 06/23/21 doxycycline hyclate 100 mg PO BID #30 cap 06/23/21 pantoprazole 40 mg PO DAILY #30 tab 06/24/21 Hospital Course Summary of Care Provided Minutes Spent on Discharge: 20 Hospital Course: Patient is a 75-year-old female who was admitted to [facility] on 06/20/2021 for evaluation and management of left medial thigh cellulitis. Hospital course and management as below. 1) acute cellulitis and myositis of the left medial thigh. Area of redness around the left medial thigh appropriately demarcated on admission, noticeable improvement in regards to redness and pain about the area. Wound VAC has been reinserted onto wound. CT on admission noted persistent soft tissue infection of the medial and distal thigh, with extension into the sartorius muscle. No indication for surgery at this time. Previous wound culture from April 2021 demonstrated MRSA; actinomyces naeslundi and anareboic cocci. ID seen and evaluated, has cleared patient for discharge on 2 weeks of doxycycline and Augmentin. 2) acute on chronic anemia Hemoglobin this morning 7.4, has remained stable over the patient denies any bloody stools. Occult stool were negative. Iron studies were low. Will initiate PPI and hold on iron supplementation until antibiotic course is com plete, given interaction. Patient is to follow-up with Dr. Mulligan for outpatient evaluation and possible EGD/colonoscopy. 3) SHARMAINE on CKD stage IIIa Resolved, treated with fluids. 4) hypothyroidism Continue Synthroid. 5) CAD/HTN Continue metoprolol. Patient seen by Savage Maradiaga PA-C, under the supervision of Dr Lee. Time spent on patient care: 20 minutes. Physical Exam Narrative Patient is a 75-year-old female comfortably resting in bed, alert and oriented x3. Patient denies development of new symptoms overnight. Does not appear in acute distress. Const alert, oriented x3 and no apparent distress HEENT normocephalic, head/scalp atraumatic and hearing grossly normal bilaterally Eyes PERRL, EOMs intact bilaterally and conjunctivae normal Neck no lymphadenopathy, supple and no JVD Resp normal respiratory effort, no retractions and no use of accessory muscles Cardio regular rate, regular rhythm and no JVD GI normal to inspection, nondistended, normoactive bowel sounds and soft to palpation Extremity Extremity Narrative: Improving wound about the left medial thigh. Skin Skin Narrative: See extremity. Neuro CN's II-XII intact bilaterally Psych affect normal Weight / BMI Weight Weight: 274 lb 0.553 oz Body Mass Index (BMI) 47.0 ABG / Lab / Microbiology Data Result Diagrams: 06/24/21 05:35 06/24/21 05:35 Laboratory: Laboratory Results - last 24 hr 06/23/21 13:35: Vancomycin Trough 16.0 H 06/24/21 05:35: WBC 4.1 L, RBC 2.63 L, Hgb 7.4 L, Hct 24.6 L, MCV 93.5, MCH 28.1, MCHC 30.1 L, RDW Std Deviation 50.8 H, RDW Coeff of Humberto 14.8 H, Plt Count 167, MPV 8.6, Immature Gran % (Auto) 1.900 H, Neut % (Auto) 66.1, Lymph % (Auto) 18.2 L, [place] % (Auto) 8.0, Eos % (Auto) 5.3 H, Baso % (Auto) 0.5, Absolute Neuts (auto) 2.7, Absolute Lymphs (auto) 0.75 L, Nucleated RBC % 0 06/24/21 05:35: Sodium 142, Potassium 4.0, Chloride 111 H, Carbon Dioxide 28.0, Anion Gap 3 L, BUN 35 H, Creatinine 1.14 H, Estim Creat Clear Calc 37.95, Est GFR (MDRD) Af Amer 60, Est GFR (MDRD) Non-Af 50 L, BUN/Creatinine Ratio 30.7 H, Glucose 121 H, Calcium 8.1 L Microbiology: Microbiology 06/23/21 11:20 Stool Stool Occult Blood (DIO) - Final 06/20/21 00:20 Wound - Leg, Left Gram Stain - Final 06/20/21 00:20 Wound - Leg, Left Wound Culture - Final Meth. resistant Staph. aureus D/C Instructions Discharge Diet: No restrictions Weight Bearing Status: Weight bearing as tolerated Call your doctor if you observe: Fever of 101 or Higher, Numbness or Tingling, Shortness of breath, Dizziness, Chest pain, Increased palpitations (irregular heartbeat) and Calf discomfort Please Follow Up With: Primary care provider When: Within the next two weeks. Meaningful Use Info Meaningful Use Diagnoses (Choose all that apply): None applicable Discharge Plan Admission Admit Date/Time: 06/20/21 03:06 Primary Reason for Your Visit: Cellulilitis Attending Provider: Myra Lee Primary Care Provider: Indira Eason Consulting Providers: Osvaldo Roland Instructions Additional Instructions / Restrictions: * Inquire about Iron replacement on your follow up with Dr. Mulligan. Iron was not provided on discharge due to an interaction with Doxycycline. Discharge Orders/Prescriptions Prescriptions: New doxycycline hyclate 100 mg capsule 100 mg PO BID Qty: 30 RF: 0 amoxicillin-pot clavulanate 875-125 mg tablet 1 tab PO BID Qty: 30 RF: 0 pantoprazole 40 mg Tablet,Delayed Release (Dr/Ec) 40 mg PO DAILY Qty: 30 RF: 0 Continued levothyroxine [Synthroid] 112 MCG tablet 112 mcg PO DAILY RF: 0 metoprolol succinate 50 mg tablet extended release 24 hr 50 mg PO DAILY RF: 0 oxycodone-acetaminophen [Percocet] 5-325 mg tablet 1 tab PO Q4H PRN (Reason: pain (scale score 7-10)) 7 Days Qty: 40 RF: 0 diazepam [Valium] 5 mg tablet 5 mg PO BID PRN (Reason: muscle spasm) 7 Days Qty: 14 RF: 0 Referrals / Follow Up: Indira Eason MD [Primary Care Provider] - Within 1 Week (APPOINTMENT June @ 02:40PM ) Rip Mulligan DO [STAFF PHYSICIAN] - See Referral Note (An appointment will be established for you to follow up before discharge. CONTACTED 'S OFFICE. I WAS DIRECTED TO LEAVE MESSAGE AND THE OFFICE WOULD CONTACT PATIENT FOR A APPOINTMENT.) Disposition Disposition (needs filled in before D/C Order can be placed): Home Health S ervice Documented by User: Dr. Myra Lee MD 06/24/21 18:46 Providers Date of Admission: 06/20/21 Reason For Visit: ACUTE MYOSITIS Medications at Discharge Home Medications levothyroxine [Synthroid] 112 mcg PO DAILY 08/31/17 metoprolol succinate 50 mg PO DAILY 05/11/21 oxycodone-acetaminophen [Percocet] 1 tab PO Q4H PRN 7 Days #40 tab 05/15/21 diazepam [Valium] 5 mg PO BID PRN 7 Days #14 tab 06/01/21 amoxicillin-pot clavulanate 1 tab PO BID #30 tab 06/23/21 doxycycline hyclate 100 mg PO BID #30 cap 06/23/21 pantoprazole 40 mg PO DAILY #30 tab 06/24/21 ABG / Lab / Microbiology Data Result Diagrams: 06/24/21 05:35 06/24/21 05:35 Discharge Plan Admission Admit Date/Time: 06/20/21 03:06 Primary Reason for Your Visit: Cellulilitis Attending Provider: Myra Lee Primary Care Provider: Indira Eason Consulting Providers: Osvaldo Roland Instructions Additional Instructions / Restrictions: * Inquire about Iron replacement on your follow up with Dr. Mulligan. Iron was not provided on discharge due to an interaction with Doxycycline. Discharge Orders/Prescriptions Prescriptions: New doxycycline hyclate 100 mg capsule 100 mg PO BID Qty: 30 RF: 0 amoxicillin-pot clavulanate 875-125 mg tablet 1 tab PO BID Qty: 30 RF: 0 pantoprazole 40 mg Tablet,Delayed Release (Dr/Ec) 40 mg PO DAILY Qty: 30 RF: 0 Continued levothyroxine [Synthroid] 112 MCG tablet 112 mcg PO DAILY RF: 0 metoprolol succinate 50 mg tablet extended release 24 hr 50 mg PO DAILY RF: 0 oxycodone-acetaminophen [Percocet] 5-325 mg tablet 1 tab PO Q4H PRN (Reason: pain (scale score 7-10)) 7 Days Qty: 40 RF: 0 diazepam [Valium] 5 mg tablet 5 mg PO BID PRN (Reason: muscle spasm) 7 Days Qty: 14 RF: 0 Referrals / Follow Up: Indira Eason MD [Primary Care Provider] - Within 1 Week (APPOINTMENT June @ 02:40PM ) Rip Mulligan DO [STAFF PHYSICIAN] - See Referral Note (An appointment will be established for you to follow up before discharge. CONTACTED 'S OFFICE. I WAS DIRECTED TO LEAVE MESSAGE AND THE OFFICE WOULD CONTACT PATIENT FOR A APPOINTMENT.) Disposition Disposition (needs filled in before D/C Order can be placed): Home Health Service Charges/Coding Addendum Addendum: Patient seen by Savage Maradiaga PA-C under my supervision Patient is a 75-year-old female with past medical history as outlined was admitted through the ED on 06/20/2021 with a complaint of left medial thigh e rythema. Patient had a history of recurrent left medial thigh abscess and had had 2 separate interventions in the area and had a wound VAC in place. She had been reviewed by her home health nurse on the day of admission and then I reviewed The abscess and thought that the skin around it was erythematous so she was brought into the ED due to concerns about infection. She denied any fever or chills or any discharge or any pain. Review systems otherwise negative. CT of the left lower extremity showed persistent soft tissue infection in the medial distal thigh with interval increase in extending into the region of the sartorius muscle but showed no evidence of abscess. He was admitted and managed for cellulitis and myositis of the left medial thigh. He was started on IV vancomycin and unasyn. Infectious disease was consulted. Wound cultures were positive for MRSA so antibiotics were narrowed down to vancomycin. Hospital course was complicated by SHARMAINE which improved with fluid hydration. Hospital course was complicated by acute on chronic anemia with hemoglobin going down to a sinai of 7.3. Patient admitted to a history of peptic ulcer disease. She was started on p.o. pantoprazole 40 mg twice daily. She was reviewed by infectious disease and recommendation was for patient to be discharged on p.o. doxycycline and p.o. Augmentin for 2 weeks. She remained stable and was discharged home on 06/24/2021 and is to follow-up with her primary care doctor and infectious christian paredes. She was also counseled to follow-up with gastroenterology on account of her acute on chronic anemia. Stool for occult blood was negative. Patient seen and examined prior to discharge. She had no active complaints and felt well. Review of systems otherwise negative. Labs and vitals reviewed. Medication reviewed and reconciled. O/E: Const alert, oriented x3 and no apparent distress General Appearance: cooperative, super morbid obesity HEENT normocephalic, head/scalp atraumatic, hearing grossly normal bilaterally and moist oral mucous membranes Eyes PERRL, EOMs intact bilaterally and conjunctivae normal Neck no lymphadenopathy, supple and no JVD Resp normal respiratory effort and clear to auscultation bilaterally Cardio regular rate, regular rhythm, S1 normal heart sound, S2 normal heart sound and no murmurs GI normal to inspection, nondistended, normoactive bowel sounds and soft to palpation Extremity normal to inspection, full ROM and no clubbing, cyanosis or edema Skin large wound on inner left thigh, with no slough and has granulation tissue; doesnt look infected Neuro oriented x3, CN's II-XII intact bilaterally and moves all extremities Sensorium / Orientation: awake and alert Psych normal Rest as per Savage Maradiaga PA-C's note, which I have reviewed and endorsed. Total time I spent on discharge of the patient, 28 mins, with Savage Maradiaga spending 20 mins, making a total of 48 mins. Visit Charges Inpatient E&M: 28887 Disch Hosp
--- NOTE | 2021-06-24 14:32 | PHA.DC.MR ---
Pharmacy Service has performed discharge medication reconciliation for this patient. The patient's discharge medication list was reviewed for discrepancies and discrepancies were resolved. Home Medications levothyroxine [Synthroid] 112 mcg PO DAILY 08/31/17 metoprolol succinate 50 mg PO DAILY 05/11/21 oxycodone-acetaminophen [Percocet] 1 tab PO Q4H PRN 7 Days #40 tab 05/15/21 diazepam [Valium] 5 mg PO BID PRN 7 Days #14 tab 06/01/21 amoxicillin-pot clavulanate 1 tab PO BID #30 tab 06/23/21 doxycycline hyclate 100 mg PO BID #30 cap 06/23/21 pantoprazole 40 mg PO DAILY #30 tab 06/24/21
== END 2021-06-24 14:18 | disposition home health service (06) | DRG 558 ==
LOC: ED 18:18 → MS3 06-20 03:30
PROVIDERS: Family Medicine; Physician Assistant; Admitting Provider Hospitalist; Emergency Provider Emergency Medicine; PCP Internal Medicine; Visit Provider Student in an Organized Health Care Education/Training Program
DX: M60.052 Infective myositis, left thigh (principal); L03.116 Cellulitis of left lower limb; N17.9 Acute kidney failure, unspecified; L97.122 Non-pressure chronic ulcer of left thigh with fat layer exposed; Z68.42 Body mass index [BMI] 45.0-49.9, adult; E66.01 Morbid (severe) obesity due to excess calories; N18.31 Chronic kidney disease, stage 3a; B95.62 Methicillin resistant Staphylococcus aureus infection as the cause of diseases classified elsewhere; I12.9 Hypertensive chronic kidney disease with stage 1 through stage 4 chronic kidney disease, or unspecified chronic kidney disease; E89.0 Postprocedural hypothyroidism; E78.00 Pure hypercholesterolemia, unspecified; I25.10 Atherosclerotic heart disease of native coronary artery without angina pectoris; R60.0 Localized edema; Z79.890 Hormone replacement therapy; Z79.899 Other long term (current) drug therapy; Z95.1 Presence of aortocoronary bypass graft; Z95.4 Presence of other heart-valve replacement
CPT/HCPCS: 36415; 73700; 80048; 80202; 82274; 83540; 83550; 83605; 85025; 87040; 87070; 87077; 87186; 87205; 97161; 97802; 99284; J7030; J7040; J7050; A4216; J0295

== ENCOUNTER 2021-07-21 13:30 | Outpatient (RCR) | payer MEDICARE, SELFPAY ==
[2021-06-21 00:15] VITALS: BP 146/83; PULSE 79; RESP 16; TEMP 35.7; BMI 53.6
[2021-06-29 09:15] VITALS: BP 152/84; PULSE 97; RESP 20; TEMP 36.6; BMI 53.6
--- NOTE | 2021-06-29 10:05 | PCM.WC.PN ---
History of Present Illness Date of Service: 06/29/21 Chief Complaint: Status post incision and drainage of 2 abscesses on left thigh 04/11/2021 and dermolipectomy and I&D left medial thigh 05/13/21 History of Wound: The patient is a 75-year-old female who presents for treatment of 2 abscesses to her left thigh status post incision and drainage on 04/11/2021. She has a past medical history as listed above. 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 Since then she has been having issues with swelling and bilateral lymphedema. In March 2021, she developed abscesses to her left inner thigh. On 04/11/2021 she had an I&D after a CT scan of the left thigh showed pockets of fluid with abscess present. She was discharged from surgery with a prescription for Keflex, which she finished on 04/23/2021, and with a wound VAC applied to both wounds, set at 125 mmHg. The wound VAC has been being changed by home health nurses 3 times per week. The patient states she has an appointment to follow-up with her surgeon on 05/07/2021. She denies any signs and symptoms of infection and states she has been tolerating the wound VAC well. She denies any acute concerns at this time. Past medical, family, and social history reviewed and not pertinent to the current visit and all other systems reviewed and negative with exception of those listed above. She presented to the ED on 05/11/21 with increased pain and redness and swelling involving her left medial thigh that has worsened over the past few days. Patient states that she had an abscess in this area which was surgically debrided and drained at [facility] in [place] approximately 3 weeks ago. Patient denies any fever. She denies trauma. In the ED, her WBC was normal at 7.5. Her Hgb was 10.8. She was started on IV antibiotics with Vancomycin and Zosyn. Wound cultures were obtained in the ED. CT Left lower extremity was done. It showed the presence of another abscess deeper to the ones that were drained in [place]. 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 Size of defect left medial thigh - 23 x 14 x 6 cm. Operative cultures showed MRSA, Actinomyces naeslundii, and Anaerobic cocci. She completed Doxycycline and Flagyl. She was readmitted to the hospital on 06/20/21 for increased pain and swelling. CT on 06/19/21 - Abnormal fluid density in the subcutaneous fat and obscuring the left sartorius muscle measures roughly 9 mm in length and extends to the skin surface and 3.4 cm deep to the skin and measures 5 cm in AP dimension. There is surrounding skin thickening. The previously seen, smaller, nonconfluent, rim-enhancing focal fluid collections are no longer visible. There is a deep air-filled defect in the skin, extending to the superior margin of the lesion. There is significant regional subcutaneous edema medial thigh and also involving the posterior and lateral thigh. Deep muscular compartments of the thigh are uninvolved. There is extensive muscular atrophy. Peripheral atherosclerosis. Wound culture 06/20/21 showed MRSA. While hospitalized she was on Vanc and Unasyn. She was discharged home on Doxycycline and Augmentin x 15 days. She is also anemic and is to follow up with FRANSISCO Ye for further evaluation. Wound care - Wash wound and anna wound with soap and water at the time of the VAC change. Wound VAC at 150 mmHg, changed 3 times per week. There is a tunnel at 3 and 11 o'clock that needs to have foam placed in it. Progress of Wound: Improvement in ulcer. The tunnels in the center at 11 and 3 o'clock are much smaller. Good granulation tissue seen. Anna wound is improved compared to her last visit at the wound center. Objective Data Objective Data Vital Signs: Vital Signs Temp Pulse Resp BP 97.8 F 97 20 H 152/84 H 06/29/21 09:15 06/29/21 09:15 06/29/21 09:15 06/29/21 09:15 Weight: 303 lb 0.01 oz Body Mass Index (BMI) 53.6 Charges/Coding Procedures Integumentary [id number]: [id number] Global Visit Physical Exam Const alert and oriented x3 General Appearance: cooperative HEENT normocephalic Resp normal respiratory effort Extremity Extremity Narrative: Bilateral lower extremity edema with lymphedema present. Skin Wound Narrative: Improvement in ulcer. The tunnels in the center at 11 and 3 o'clock are much smaller. Good granulation tissue seen. Anna wound is improved compared to her last visit at the wound center Neuro Sensorium / Orientation: awake and alert Psych Appearance: well kempt Debridement Note Debridement Note Wound debrided: medial thigh ulcer Laterality: Left Wound Grade/Stage: Stage IV Type of Debridement: Excisional debridement Anesthesia Used: 4% Lidocaine Solution and 5% Lidocaine Gel Depth: Down to and including healthy tissue, in the subcutaneous layer and to muscle Percentage of wound debrided: 100 Instrument Used: 7mm curette Tissue Removed: Non viable tissue and slough, into the muscle. Severity: Fat Layer Exposed Amount of bleeding with debridement: Mild Bleeding Controlled with: Pressure and Compression and gauze Patient tolerated procedure: Patient tolerated procedure well Post-Debridement Measurements and Additional Note: Post-Debridement Measurements/Treatment - Nurse 1 - General Ulcer Assessment Start: 06/29/21 09:15 Freq: Status: Active Protocol: JOEY Activity Type Activity Date Activity User E-Sign Co-Sign Detail Recorded Client Recorded Date Recorded By Document 06/29/21 09:15 DL [id number] 06/29/21 09:27 DL 06/29/21 09:15 WC - Today's Visit Information Type of service 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 ) Arrival Mode Ambulatory, Walker Transfer Assistance None Patient Identification Verified (Name & Yes ) Patient Requires Transmission-Based No Precautions Height and Weight Body Mass Index (BMI) 53.6 BMI Classification Obese Vital Signs Temperature (97.8 F-99.1 F) 97.8 F Temperature Source Temporal Pulse Rate (60-100) 97 Pulse Location Monitor Respiratory Rate (12-18) 20 H Respiratory rate source Observation Blood Pressure (90/60-120/80) 152/84 H Blood Pressure Mean (mm Hg) 106 Source Monitor History Since Last Visit- (Skip if this is Patient's initial visit) Have you changed medications since your No last visit? Any new allergies or adverse reactions No Had a fall/change in ADL's that may No increase risk of falls Signs or symptoms of abuse and/or No neglect since last visit Have you been in the hospital since your No last visit? Has dressing in place as prescribed Yes Has compression in place as prescribed Yes Has offloadiing in place as prescribed N/A Experienced any changes in pain level or No management Pain Scale: 0-10 Numeric Is Patient Pain Free? Yes - Nurse 1 - General Ulcer Measurement Start: 06/29/21 09:15 Freq: Status: Active Protocol: Activity Type Activity Date Activity User E-Sign Co-Sign Detail Recorded Client Recorded Date Recorded By Document 06/29/21 09:15 DL [id number] 06/29/21 09:27 DL 06/29/21 09:15 Wound Center Nurse 1 #3- L MED THIGH POST OP -Current Size (cm) - Length 6 -Current Size (cm) - Width 18 -Current Size (cm) - Depth 1.2 -Total Square Cm 108 -Photo Taken No -Tunneling Position (O'clock) 3 -Tunneling Distance (cm) 1 -Tunneling Position #2 (O'clock) 11 -Tunneling Distance #2 (cm) 2 -Exudate Amt Medium -Exudate Type Serosanguineous -Wound Margin Distinct, Outline Attached -Granulation Amt Large (67-100%) -Granulation Quality Red -Necrosis Amt None Present (0 %) -Structure Exposed N/A -Texture (Anna-wound Skin Appearance) Scarring -Moisture (Anna-wound Skin Appearance) No Abnormality -Color (Anna-wound Skin Appearance) Assessed -Temperature (Anna-wound Skin No Abnormality Appearance) (Pt Warm) -Tenderness on Palpation (Anna-wound No Skin Appearance) -Ulcer Cleansing Soap and Water -Anesthetic Used 4% Lidocaine Solution WC - Nurse 2 - General Ulcer CM Notes Start: 06/29/21 09:15 Freq: Status: Active Protocol: Activity Type Activity Date Activity User E-Sign Co-Sign Detail Recorded Client Recorded Date Recorded By Document 06/29/21 10:03 DIANNE [id number] 06/29/21 10:04 DIANNE 06/29/21 10:03 Wound Center Nurse 2 -Time 09:34 -Correct Patient Yes -Correct Side, Site, Position Yes -Correct Procedure Yes -Procedure Performed Yes -Type of Procedure Debridement -Clinical Debridement Subcutaneous -Tissue Removed Subcutaneous -Post Debridement (cm) - Length 7.0 -Post Debridement (cm) - Width 18.4 -Post Debridement (cm) - Depth 1.8 -Total Square (Post) (cm) 128.80 -Area of Debridement (cm) - Length 7.0 -Area of Debridement (cm) - Width 18.4 -Total Square (Area) (cm) 128.80 -Tunneling Yes -Tunneling Position (O'clock) 11 -Tunneling Distance (cm) 2.1 -Tunneling Position #2 (O'clock) 3 -Tunneling Distance #2 (cm) 0.9 -Undermining/Tunneling No -Circular Undermining No -Wound/Ulcer Outcome Not Healed -Ulcer Cleansing Rinsed/ Irrigated with Saline -Foul Odor after Cleansing No -Bioengineered Tissue No -Bleeding Controlled with Pressure -Treatment Response Procedure Tolerated Well -Debridement - Subq, 1st 20sq cm Yes -Debridement, SubQ, ea addt'l 20sq cm 6 or part thereof Pain Scale: 0-10 Numeric Is Patient Pain Free? Yes - Nurse 3 - General Ulcer D/C NN Start: 06/29/21 09:15 Freq: Status: Active Protocol: Activity Type Activity Date Activity User E-Sign Co-Sign Detail Recorded Client Recorded Date Recorded By Document 06/29/21 09:44 [facility] [id number] 06/29/21 09:45 [facility] 06/29/21 09:44 Wound Care Nurse 3 #3- L MED THIGH POST OP -Ulcer Cleansing Rinsed/ Irrigated with Saline -Foul Odor after Cleansing No -Negative Pressure Wound Therapy Continue -Setting (mmHg) 150 -Negative Pressure is Continuous -Other Dressing VAC PER DL CAR CONDITIONER -NPWT Application Charge NPWT & Debridement (nc ) Treatment Response Procedure Tolerated Well Pain Scale: 0-10 Numeric Is Patient Pain Free? Yes - Visit Discharge Discharge Condition Stable Ambulatory Status Ambulatory, Walker Transportation Private Auto Accompanied by FRIEND Facility Type Home Health Assessment/Plan Assessment/Plan (1) 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: CODE(S): L97.122 - Non-pressure chronic ulcer of left thigh with fat layer exposed (2) Bilateral lower extremity edema: CODE(S): R60.0 - Localized edema (3) Myositis: CODE(S): M60.9 - Myositis, unspecified QUALIFIERS: Myositis type: infective Myositis location: thigh Laterality: left Qualified Code(s): M60.052 - Infective myositis, left thigh (4) Complicated wound infection: CODE(S): T14.8XXA - Other injury of unspecified body region, initial encounter; L08.9 - Local infection of the skin and subcutaneous tissue, unspecified (5) Acquired lymphedema of lower extremity: CODE(S): I89.0 - Lymphedema, not elsewhere classified (6) Abscess of left thigh: CODE(S): L02.416 - Cutaneous abscess of left lower limb PLAN: Wound care - Left medial thigh wound VAC at 150 mmHg, changed 3 times per week. Make sure to place foam into the tunnels at 3 and 11 o'clock in the center of the ulcer. AGUILA wraps for compression. She has been stopping the wound VAC 30 minutes before home health comes for the vac dressing change and she places some warm water into the VAC tubing and she states it has made the dressing changes much more manageable pain adame. Instructed to make sure the ulcer and the per wound are washed with soap and water before placing the wound VAC in place. Operative cultures showed MRSA, Actinomyces naeslundii, and Anaerobic cocci. She has completed the Flagyl but is still on Doxycycline. Cultures from 06/20/21 showed MRSA - She is currently on Doxycycline and Augmentin per ID. She is to follow up with FRANSISCO Ye for her anemia. She is to keep her legs elevated when she is sitting. Encouraged increase protein intake. She should also increase her Vitamin C intake to 1,000 mg daily. Follow up one week.
[2021-07-06 09:45] VITALS: BP 166/84; PULSE 70; RESP 20; TEMP 35.8; BMI 53.6
[2021-07-13 09:19] VITALS: BP 184/86; PULSE 98; RESP 18; TEMP 35.9; BMI 53.6
--- NOTE | 2021-07-13 11:08 | PN.PCM_ITS ---
History of Present Illness Date of Service: 07/13/21 Chief Complaint: Status post incision and drainage of 2 abscesses on left thigh 04/11/2021 and dermolipectomy and I&D left medial thigh 05/13/21 History of Wound: The patient is a 75-year-old female who presents for treatment of 2 abscesses to her left thigh status post incision and drainage on 04/11/2021. She has a past medical history as listed above. 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 Since then she has been having issues with swelling and bilateral lymphedema. In March 2021, she developed abscesses to her left inner thigh. On 04/11/2021 she had an I&D after a CT scan of the left thigh showed pockets of fluid with abscess present. She was discharged from surgery with a prescription for Keflex, which she finished on 04/23/2021, and with a wound VAC applied to both wounds, set at 125 mmHg. The wound VAC has been being changed by home health nurses 3 times per week. The patient states she has an appointment to follow-up with her surgeon on 05/07/2021. She denies any signs and symptoms of infection and states she has been tolerating the wound VAC well. She denies any acute concerns at this time. Past medical, family, and social history reviewed and not pertinent to the current visit and all other systems reviewed and negative with exception of those listed above. She presented to the ED on 05/11/21 with increased pain and redness and swelling involving her left medial thigh that has worsened over the past few days. Patient states that she had an abscess in this area which was surgically debrided and drained at [facility] in [place] approximately 3 weeks ago. Patient denies any fever. She denies trauma. In the ED, her WBC was normal at 7.5. Her Hgb was 10.8. She was started on IV antibiotics with Vancomycin and Zosyn. Wound cultures were obtained in the ED. CT Left lower extremity was done. It showed the presence of another abscess deeper to the ones that were drained in [place]. 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 Size of defect left medial thigh - 23 x 14 x 6 cm. Operative cultures showed MRSA, Actinomyces naeslundii, and Anaerobic cocci. She completed Doxycycline and Flagyl. She was readmitted to the hospital on 06/20/21 for increased pain and swelling. CT on 06/19/21 - Abnormal fluid density in the subcutaneous fat and obscuring the left sartorius muscle measures roughly 9 mm in length and extends to the skin surface and 3.4 cm deep to the skin and measures 5 cm in AP dimension. There is surrounding skin thickening. The previously seen, smaller, nonconfluent, rim-enhancing focal fluid collections are no longer visible. There is a deep air-filled defect in the skin, extending to the superior margin of the lesion. There is significant regional subcutaneous edema medial thigh and also involving the posterior and lateral thigh. Deep muscular compartments of the thigh are uninvolved. There is extensive muscular atrophy. Peripheral atherosclerosis. Wound culture 06/20/21 showed MRSA. While hospitalized she was on Vanc and Unasyn. She was discharged home on Doxycycline and Augmentin x 15 days. She is also anemic and is to follow up with FRANSISCO Ye for further evaluation. Wound care - Wash wound and anna wound with soap and water and apply Aquacel-Ag topped with ABD or a super absorber daily. We will take a wound VAC holiday this week. Progress of Wound: Improvement in ulcer. There are no longer any tunnels and the overall depth has decreased. The base of the ulcer is beefy pink with good granulation tissue present. Her anna wound is excoriated. We will take a wound VAC holiday this week and re evaluate the wound VAC next week. Objective Data Objective Data Vital Signs: Vital Signs Temp Pulse Resp BP 96.7 F L 98 18 184/86 H 07/13/21 09:19 07/13/21 09:19 07/13/21 09:19 07/13/21 09:19 Oxygen Delivery Method Room Air Weight: 303 lb 0.01 oz Body Mass Index (BMI) 53.6 Charges/Coding Procedures Integumentary 111xxx-113xx: [id number] Global Visit Physical Exam Const alert and oriented x3 General Appearance: cooperative HEENT normocephalic Resp normal respiratory effort Extremity Extremity Narrative: Bilateral lower extremity edema with lymphedema present. Skin Wound Narrative: Improvement in ulcer. There are no longer any tunnels and the overall depth has decreased. The base of the ulcer is beefy pink with good granulation tissue present. Her anna wound is excoriated. Neuro Sensorium / Orientation: awake and alert Psych Appearance: well kempt Debridement Note Debridement Note Wound debrided: medial thigh ulcer Laterality: Left Wound Grade/Stage: Stage IV Type of Debridement: Excisional debridement Anesthesia Used: 5% Lidocaine Gel Depth: Down to and including healthy tissue and in the subcutaneous layer Percentage of wound debrided: 100 Instrument Used: 7mm curette Tissue Removed: Non viable tissue and slough Severity: Fat Layer Exposed Amount of bleeding with debridement: Mild Bleeding Controlled with: Pressure and Compression and gauze Patient tolerated procedure: Patient tolerated procedure well Post-Debridement Measurements and Additional Note: Post-Debridement Measurements/Treatment - Nurse 1 - General Ulcer Assessment Start: 06/29/21 09:15 Freq: Status: Active Protocol: JOEY Activity Type Activity Date Activity User E-Sign Co-Sign Detail Recorded Client Recorded Date Recorded By Document 06/29/21 09:15 DL [id number] 06/29/21 09:27 DL Document 07/06/21 09:45 [id number] 07/06/21 10:20 DL Document 07/13/21 09:19 [facility] [id number] 07/13/21 09:26 [facility] 06/29/21 07/06/21 07/13/21 09:15 09:45 09:19 - Today's Visit Information Type of service Follow-up Visit Nurse-only Follow-up Visit (Physician/ORACLE SCM CONSULTANT Visit (Physician/ORACLE SCM CONSULTANT ) ) Arrival Mode Ambulatory, Ambulatory Ambulatory, Walker Walker Transfer Assistance None None None Accompanied by friend Patient Identification Verified (Name & Yes Yes Yes ) Patient Requires Transmission-Based No No No Precautions Safety Precautions NA Height and Weight Body Mass Index (BMI) 53.6 53.6 53.6 BMI Classification Obese Obese Obese Vital Signs Temperature (97.8 F-99.1 F) 97.8 F 96.5 F L 96.7 F L Temperature Source Temporal Temporal Temporal Pulse Rate (60-100) 97 70 98 Pulse Location Monitor Monitor Monitor Respiratory Rate (12-18) 20 H 20 H 18 Respiratory rate source Observation Observation Observation Oxygen Delivery Method Room Air Blood Pressure (90/60-120/80) 152/84 H 166/84 H 184/86 H Blood Pressure Mean (mm Hg) 106 111 118 Source Monitor Monitor Monitor Position Sitting Blood Pressure Location Left Arm History Since Last Visit- (Skip if this is Patient's initial visit) Have you changed medications since your No No No last visit? Any new allergies or adverse reactions No No No Had a fall/change in ADL's that may No No No increase risk of falls Signs or symptoms of abuse and/or No No No neglect since last visit Have you been in the hospital since your No No No last visit? Has dressing in place as prescribed Yes Yes Yes Has compression in place as prescribed Yes Yes N/A Has offloadiing in place as prescribed N/A N/A N/A Experienced any changes in pain level or No No No management Left Footwear Regular Shoe Right Footwear Regular Shoe Pain Scale: 0-10 Numeric Is Patient Pain Free? Yes Yes Yes WC - Nurse 1 - General Ulcer Measurement Start: 06/29/21 09:15 Freq: Status: Active Protocol: Activity Type Activity Date Activity User E-Sign Co-Sign Detail Recorded Client Recorded Date Recorded By Document 06/29/21 09:15 DL [id number] 06/29/21 09:27 DL Document 07/06/21 09:45 DL [id number] 07/06/21 10:20 DL Document 07/13/21 09:19 [facility] [id number] 07/13/21 09:26 BM 06/29/21 07/06/21 07/13/21 09:15 09:45 09:19 Wound Center Nurse 1 #3- L MED THIGH POST OP -Combined with other wound No -Current Size (cm) - Length 6 6.5 -Current Size (cm) - Width 18 16.9 -Current Size (cm) - Depth 1.2 1 -Total Square Cm 108 109.85 -Date of Last Picture (Recall this 07/13/21 field) -Photo Taken No Yes -Epithelialization Small 1-33% -Tunneling Yes -Tunneling Position (O'clock) 3 11 -Tunneling Distance (cm) 1 0.4 -Tunneling Position #2 (O'clock) 11 3 -Tunneling Distance #2 (cm) 2 0.3 -Undermining/Tunneling No -Circular Undermining No -Exudate Amt Medium Medium -Exudate Type Serosanguineous Serosanguineous -Wound Margin Distinct, Distinct, Outline Outline Attached Attached -Granulation Amt Large (67-100%) Large (67-100%) Large (67-100%) -Granulation Quality Red Red Red -Slough/Fibrin Yes -Necrosis Amt None Present (0 None Present (0 Small (1-33%) %) %) -Necrotic Tissue Type Adherent Slough -Structure Exposed N/A N/A -Texture (Anna-wound Skin Appearance) Scarring No Abnormality Assessed,Rash -Moisture (Anna-wound Skin Appearance) No Abnormality No Abnormality Assessed -Color (Anna-wound Skin Appearance) Assessed No Abnormality Assessed -Temperature (Anna-wound Skin No Abnormality No Abnormality No Abnormality Appearance) (Pt Warm) (Pt Warm) (Pt Warm) -Tenderness on Palpation (Anna-wound No No No Skin Appearance) -Ulcer Cleansing Soap and Water Soap and Water Soap and Water -Foul Odor after Cleansing No No -Anesthetic Used 4% Lidocaine 4% Lidocaine Solution Solution WC - Nurse 2 - General Ulcer CM Notes Start: 06/29/21 09:15 Freq: Status: Active Protocol: Activity Type Activity Date Activity User E-Sign Co-Sign Detail Recorded Client Recorded Date Recorded By Document 06/29/21 10:03 DIANNE [id number] 06/29/21 10:04 PL Document 07/13/21 09:39 [id number] 07/13/21 09:44 06/29/21 07/13/21 10:03 09:39 Wound Center Nurse 2 #3- L MED THIGH POST OP -Time 09:34 09:41 -Correct Patient Yes Yes -Correct Side, Site, Position Yes Yes -Correct Procedure Yes Yes -Procedure Performed Yes Yes -Type of Procedure Debridement Debridement -Clinical Debridement Subcutaneous Subcutaneous -Tissue Removed Subcutaneous Subcutaneous -Post Debridement (cm) - Length 7.0 7.4 -Post Debridement (cm) - Width 18.4 17.5 -Post Debridement (cm) - Depth 1.8 1.6 -Total Square (Post) (cm) 128.80 129.50 -Area of Debridement (cm) - Length 7.0 7.4 -Area of Debridement (cm) - Width 18.4 17.5 -Total Square (Area) (cm) 128.80 129.50 -Tunneling Yes No -Tunneling Position (O'clock) 11 -Tunneling Distance (cm) 2.1 -Tunneling Position #2 (O'clock) 3 -Tunneling Distance #2 (cm) 0.9 -Undermining/Tunneling No No -Circular Undermining No No -Wound/Ulcer Outcome Not Healed Not Healed -Ulcer Cleansing Rinsed/ Rinsed/ Irrigated with Irrigated with Saline Saline -Foul Odor after Cleansing No -Bioengineered Tissue No No -Bleeding Controlled with Pressure Pressure -Treatment Response Procedure Procedure Tolerated Well Tolerated Well -Offloading No -Debridement - Subq, 1st 20sq cm Yes Yes -Debridement, SubQ, ea addt'l 20sq cm 6 6 or part thereof Pain Scale: 0-10 Numeric Is Patient Pain Free? Yes Yes - Nurse 3 - General Ulcer D/C NN Start: 06/29/21 09:15 Freq: Status: Active Protocol: Activity Type Activity Date Activity User E-Sign Co-Sign Detail Recorded Client Recorded Date Recorded By Document 06/29/21 09:44 [facility] [id number] 06/29/21 09:45 [facility] Document 07/06/21 10:20 DL [id number] 07/06/21 10:21 DL Document 07/13/21 10:05 AK [id number] 07/13/21 10:06 AK 06/29/21 07/06/21 07/13/21 09:44 10:20 10:05 Wound Care Nurse 3 #3- L MED THIGH POST OP -Ulcer Cleansing Rinsed/ Soap and Water Rinsed/ Irrigated with Irrigated with Saline Saline -Foul Odor after Cleansing No No No -Negative Pressure Wound Therapy Continue Continue N/A -Setting (mmHg) 150 150 -Negative Pressure is Continuous Continuous -Primary Dressing Applied Aquacel AG 4x4 -Other Dressing VAC PER DL LOCK AND DAM REPAIRER ABD -Primary Dressing Covered/Secured with Dry Gauze, Secured with Tape -NPWT Application Charge NPWT & NPWT > 50 sq cm Debridement (nc ($) ) -Aquacel AG 4x4 1 Treatment Response Procedure Procedure Tolerated Well Tolerated Well Pain Scale: 0-10 Numeric Is Patient Pain Free? Yes Yes Yes - Visit Discharge Discharge Condition Stable Stable Stable Ambulatory Status Ambulatory, Ambulatory Ambulatory, Walker Walker Transportation Private Auto Private Auto Private Auto Accompanied by FRIEND friend Medication Reconcilliation completed & Yes provided to patient/care provider Clinical Summary of Care Provided Yes Facility Type Home Health Home Health Orders Sent Yes Assessment/Plan Assessment/Plan (1) 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: CODE(S): L97.122 - Non-pressure chronic ulcer of left thigh with fat layer exposed (2) Bilateral lower extremity edema: CODE(S): R60.0 - Localized edema (3) Myositis: CODE(S): M60.9 - Myositis, unspecified QUALIFIERS: Myositis type: infective Myositis location: thigh Laterality: left Qualified Code(s): M60.052 - Infective myositis, left thigh (4) Complicated wound infection: CODE(S): T14.8XXA - Other injury of unspecified body region, initial encounter; L08.9 - Local infection of the skin and subcutaneous tissue, unspecified (5) Acquired lymphedema of lower extremity: CODE(S): I89.0 - Lymphedema, not elsewhere classified (6) Abscess of left thigh: CODE(S): L02.416 - Cutaneous abscess of left lower limb PLAN: Wound care - Left medial thigh wash with soap and water daily before applying Aquacel-Ag topped with ABD/Super absorber. Will take a wound VAC holiday due to anna wound excoriation. Operative cultures showed MRSA, Actinomyces naeslundii, and Anaerobic cocci. She has completed antibiotics Cultures from 06/20/21 showed MRSA - She is currently on Doxycycline and Augmentin which she has completed. She is to follow up with FRANSISCO Ye for her anemia. She is to keep her legs elevated when she is sitting. Encouraged increase protein intake. She should also increase her Vitamin C intake to 1,000 mg daily. Follow up one week.
[2021-07-21 13:15] VITALS: BP 188/105; PULSE 81; TEMP 35.7; BMI 53.6
--- NOTE | 2021-07-21 15:16 | PCM.WC.PN ---
History of Present Illness Date of Service: 07/21/21 Chief Complaint: Status post incision and drainage of 2 abscesses on left thigh 04/11/2021 and dermolipectomy and I&D left medial thigh 05/13/21 History of Wound: The patient is a 75-year-old female who presents for treatment of 2 abscesses to her left thigh status post incision and drainage on 04/11/2021. She has a past medical history as listed above. 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 Since then she has been having issues with swelling and bilateral lymphedema. In March 2021, she developed abscesses to her left inner thigh. On 04/11/2021 she had an I&D after a CT scan of the left thigh showed pockets of fluid with abscess present. She was discharged from surgery with a prescription for Keflex, which she finished on 04/23/2021, and with a wound VAC applied to both wounds, set at 125 mmHg. The wound VAC has been being changed by home health nurses 3 times per week. The patient states she has an appointment to follow-up with her surgeon on 05/07/2021. She denies any signs and symptoms of infection and states she has been tolerating the wound VAC well. She denies any acute concerns at this time. Past medical, family, and social history reviewed and not pertinent to the current visit and all other systems reviewed and negative with exception of those listed above. She presented to the ED on 05/11/21 with increased pain and redness and swelling involving her left medial thigh that has worsened over the past few days. Patient states that she had an abscess in this area which was surgically debrided and drained at [facility] in [place] approximately 3 weeks ago. Patient denies any fever. She denies trauma. In the ED, her WBC was normal at 7.5. Her Hgb was 10.8. She was started on IV antibiotics with Vancomycin and Zosyn. Wound cultures were obtained in the ED. CT Left lower extremity was done. It showed the presence of another abscess deeper to the ones that were drained in [place]. 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 Size of defect left medial thigh - 23 x 14 x 6 cm. Operative cultures showed MRSA, Actinomyces naeslundii, and Anaerobic cocci. She completed Doxycycline and Flagyl. She was readmitted to the hospital on 06/20/21 for increased pain and swelling. CT on 06/19/21 - Abnormal fluid density in the subcutaneous fat and obscuring the left sartorius muscle measures roughly 9 mm in length and extends to the skin surface and 3.4 cm deep to the skin and measures 5 cm in AP dimension. There is surrounding skin thickening. The previously seen, smaller, nonconfluent, rim-enhancing focal fluid collections are no longer visible. There is a deep air-filled defect in the skin, extending to the superior margin of the lesion. There is significant regional subcutaneous edema medial thigh and also involving the posterior and lateral thigh. Deep muscular compartments of the thigh are uninvolved. There is extensive muscular atrophy. Peripheral atherosclerosis. Wound culture 06/20/21 showed MRSA. While hospitalized she was on Vanc and Unasyn. She was discharged home on Doxycycline and Augmentin x 15 days. She is also anemic and is to follow up with FRANSISCO Ye for further evaluation. Wound care - Wash wound and anna wound with soap and water, dry well before applying wound VAC at 150mmHg 3 times per week. Progress of Wound: Ulcer is stable. The depth in the center where her one tunnel was located has increased in depth. Her anna wound is much improved with the VAC holiday. Objective Data Objective Data Vital Signs: Vital Signs Temp Pulse Resp BP 96.3 F L 81 18 188/105 H 07/21/21 13:15 07/21/21 13:15 07/13/21 09:19 07/21/21 13:15 Oxygen Delivery Method Room Air Weight: 303 lb 0.01 oz Body Mass Index (BMI) 53.6 Charges/Coding Procedures Integumentary 111xxx-113xx: [id number] Global Visit Physical Exam Const alert and oriented x3 General Appearance: cooperative HEENT normocephalic Resp normal respiratory effort Extremity Extremity Narrative: Bilateral lower extremity edema with lymphedema present. Skin Wound Narrative: Ulcer is stable. The depth in the center where her one tunnel was located has increased in depth. Her anna wound is much improved with the VAC holiday. Neuro Sensorium / Orientation: awake and alert Psych Appearance: well kempt Debridement Note Debridement Note Wound debrided: medial thigh ulcer Laterality: Left Wound Grade/Stage: Stage IV Type of Debridement: Excisional debridement Anesthesia Used: 5% Lidocaine Gel Depth: Down to and including healthy tissue and in the subcutaneous layer Percentage of wound debrided: 100 Instrument Used: 7mm curette Tissue Removed: Non viable tissue and slough Severity: Fat Layer Exposed Amount of bleeding with debridement: Mild Bleeding Controlled with: Pressure and Compression and gauze Patient tolerated procedure: Patient tolerated procedure well Post-Debridement Measurements and Additional Note: Post-Debridement Measurements/Treatment - Nurse 1 - General Ulcer Assessment Start: 06/29/21 09:15 Freq: Status: Active Protocol: THEO.IntoloopT Activity Type Activity Date Activity User E-Sign Co-Sign Detail Recorded Client Recorded Date Recorded By Document 06/29/21 09:15 DL [id number] 06/29/21 09:27 DL Document 07/06/21 09:45 DL [id number] 07/06/21 10:20 DL Document 07/13/21 09:19 [facility] [id number] 07/13/21 09:26 [facility] Document 07/21/21 13:15 AK [id number] 07/21/21 13:25 AK 06/29/21 07/06/21 07/13/21 09:15 09:45 09:19 - Today's Visit Information Type of service Follow-up Visit Nurse-only Follow-up Visit (Physician/BRAND AMBASSADOR PROMOTIONAL MODEL Visit (Physician/BRAND AMBASSADOR PROMOTIONAL MODEL ) ) Arrival Mode Ambulatory, Ambulatory Ambulatory, Walker Walker Transfer Assistance None None None Accompanied by friend Patient Identification Verified (Name & Yes Yes Yes ) Patient Requires Transmission-Based No No No Precautions Safety Precautions NA Height and Weight Body Mass Index (BMI) 53.6 53.6 53.6 BMI Classification Obese Obese Obese Vital Signs Temperature (97.8 F-99.1 F) 97.8 F 96.5 F L 96.7 F L Temperature Source Temporal Temporal Temporal Pulse Rate (60-100) 97 70 98 Pulse Location Monitor Monitor Monitor Respiratory Rate (12-18) 20 H 20 H 18 Respiratory rate source Observation Observation Observation Oxygen Delivery Method Room Air Blood Pressure (90/60-120/80) 152/84 H 166/84 H 184/86 H Blood Pressure Mean (mm Hg) 106 111 118 Source Monitor Monitor Monitor Position Sitting Blood Pressure Location Left Arm History Since Last Visit- (Skip if this is Patient's initial visit) Have you changed medications since your No No No last visit? Any new allergies or adverse reactions No No No Had a fall/change in ADL's that may No No No increase risk of falls Signs or symptoms of abuse and/or No No No neglect since last visit Have you been in the hospital since your No No No last visit? Has dressing in place as prescribed Yes Yes Yes Has compression in place as prescribed Yes Yes N/A Has offloadiing in place as prescribed N/A N/A N/A Experienced any changes in pain level or No No No management Left Footwear Regular Shoe Right Footwear Regular Shoe Pain Scale: 0-10 Numeric Is Patient Pain Free? Yes Yes Yes 07/21/21 13:15 WC - Today's Visit Information Type of service Follow-up Visit (Physician/[employer]ION[employer] MODEL ) Arrival Mode Ambulatory, Walker Transfer Assistance Accompanied by Patient Identification Verified (Name & Yes ) Patient Requires Transmission-Based No Precautions Safety Precautions NA Height and Weight Body Mass Index (BMI) 53.6 BMI Classification Obese Vital Signs Temperature (97.8 F-99.1 F) 96.3 F L Temperature Source Temporal Pulse Rate (60-100) 81 Pulse Location Monitor Respiratory Rate (12-18) Respiratory rate source Oxygen Delivery Method Blood Pressure (90/60-120/80) 188/105 H Blood Pressure Mean (mm Hg) 132 Source Monitor Position Blood Pressure Location History Since Last Visit- (Skip if this is Patient's initial visit) Have you changed medications since your No last visit? Any new allergies or adverse reactions No Had a fall/change in ADL's that may No increase risk of falls Signs or symptoms of abuse and/or No neglect since last visit Have you been in the hospital since your No last visit? Has dressing in place as prescribed Yes Has compression in place as prescribed Yes Has offloadiing in place as prescribed N/A Experienced any changes in pain level or No management Left Footwear Regular Shoe Right Footwear Regular Shoe Pain Scale: 0-10 Numeric Is Patient Pain Free? Yes - Nurse 1 - General Ulcer Measurement Start: 06/29/21 09:15 Freq: Status: Active Protocol: Activity Type Activity Date Activity User E-Sign Co-Sign Detail Recorded Client Recorded Date Recorded By Document 06/29/21 09:15 DL [id number] 06/29/21 09:27 DL Document 07/06/21 09:45 DL [id number] 07/06/21 10:20 DL Document 07/13/21 09:19 BMF [id number] 07/13/21 09:26 BMF Document 07/21/21 13:15 AK [id number] 07/21/21 13:25 AK 06/29/21 07/06/21 07/13/21 09:15 09:45 09:19 Wound Center Nurse 1 #3- L MED THIGH POST OP -Combined with other wound No -Current Size (cm) - Length 6 6.5 -Current Size (cm) - Width 18 16.9 -Current Size (cm) - Depth 1.2 1 -Total Square Cm 108 109.85 -Date of Last Picture (Recall this 07/13/21 field) -Photo Taken No Yes -Epithelialization Small 1-33% -Tunneling Yes -Tunneling Position (O'clock) 3 11 -Tunneling Distance (cm) 1 0.4 -Tunneling Position #2 (O'clock) 11 3 -Tunneling Distance #2 (cm) 2 0.3 -Undermining/Tunneling No -Circular Undermining No -Change in Wound Grade/Stage -Exudate Amt Medium Medium -Exudate Type Serosanguineous Serosanguineous -Wound Margin Distinct, Distinct, Outline Outline Attached Attached -Granulation Amt Large (67-100%) Large (67-100%) Large (67-100%) -Granulation Quality Red Red Red -Slough/Fibrin Yes -Necrosis Amt None Present (0 None Present (0 Small (1-33%) %) %) -Necrotic Tissue Type Adherent Slough -Structure Exposed N/A N/A -Texture (Anna-wound Skin Appearance) Scarring No Abnormality Assessed,Rash -Moisture (Anna-wound Skin Appearance) No Abnormality No Abnormality Assessed -Color (Anna-wound Skin Appearance) Assessed No Abnormality Assessed -Temperature (Anna-wound Skin No Abnormality No Abnormality No Abnormality Appearance) (Pt Warm) (Pt Warm) (Pt Warm) -Tenderness on Palpation (Anna-wound No No No Skin Appearance) -Ulcer Cleansing Soap and Water Soap and Water Soap and Water -Foul Odor after Cleansing No No -Anesthetic Used 4% Lidocaine 4% Lidocaine Solution Solution Lower Limb Edema Present Left Calf (cm) Left Ankle (cm) 07/21/21 13:15 Wound Center Nurse 1 #3- L MED THIGH POST OP -Combined with other wound No -Current Size (cm) - Length 5 -Current Size (cm) - Width 16.4 -Current Size (cm) - Depth 1 -Total Square Cm 82.0 -Date of Last Picture (Recall this 07/21/21 field) -Photo Taken Yes -Epithelialization -Tunneling No -Tunneling Position (O'clock) -Tunneling Distance (cm) -Tunneling Position #2 (O'clock) -Tunneling Distance #2 (cm) -Undermining/Tunneling No -Circular Undermining No -Change in Wound Grade/Stage No -Exudate Amt Large -Exudate Type Yellow/Green -Wound Margin Distinct, Outline Attached -Granulation Amt Large (67-100%) -Granulation Quality [place],Red -Slough/Fibrin Yes -Necrosis Amt Medium (34-66%) -Necrotic Tissue Type Adherent Slough -Structure Exposed N/A -Texture (Anna-wound Skin Appearance) No Abnormality, Assessed -Moisture (Anna-wound Skin Appearance) No Abnormality, Assessed -Color (Anna-wound Skin Appearance) No Abnormality, Assessed -Temperature (Anna-wound Skin No Abnormality Appearance) (Pt Warm) -Tenderness on Palpation (Anna-wound No Skin Appearance) -Ulcer Cleansing Soap and Water -Foul Odor after Cleansing No -Anesthetic Used 4% Lidocaine Solution Lower Limb Edema Present No Left Calf (cm) 58 Left Ankle (cm) 40.5 WC - Nurse 2 - General Ulcer CM Notes Start: 06/29/21 09:15 Freq: Status: Active Protocol: Activity Type Activity Date Activity User E-Sign Co-Sign Detail Recorded Client Recorded Date Recorded By Document 06/29/21 10:03 PL [id number] 06/29/21 10:04 PL Document 07/13/21 09:39 JF [id number] 07/13/21 09:44 JF Document 07/21/21 13:51 JF [id number] 07/21/21 13:55 JF Edit Result 07/21/21 13:51 JF (1) [id number] 07/21/21 13:59 JF (1) #3- L MED THIGH POST OP - Post Debridement (cm) - Width 7.5 => 17.5 - Total Square (Post) (cm) 42.75 => 99.75 - Area of Debridement (cm) - Width 7.5 => 17.5 - Total Square (Area) (cm) 42.75 => 99.75 - Debridement, SubQ, ea addt'l 20sq cm 2 => 4 or part thereof 06/29/21 07/13/21 07/21/21 10:03 09:39 13:51 Wound Center Nurse 2 #3- L MED THIGH POST OP -Time 09:34 09:41 13:52 -Correct Patient Yes Yes Yes -Correct Side, Site, Position Yes Yes Yes -Correct Procedure Yes Yes Yes -Procedure Performed Yes Yes Yes -Type of Procedure Debridement Debridement Debridement -Clinical Debridement Subcutaneous Subcutaneous Subcutaneous -Tissue Removed Subcutaneous Subcutaneous Subcutaneous -Post Debridement (cm) - Length 7.0 7.4 5.7 -Post Debridement (cm) - Width 18.4 17.5 17.5 -Post Debridement (cm) - Depth 1.8 1.6 0.3 -Total Square (Post) (cm) 128.80 129.50 99.75 -Area of Debridement (cm) - Length 7.0 7.4 5.7 -Area of Debridement (cm) - Width 18.4 17.5 17.5 -Total Square (Area) (cm) 128.80 129.50 99.75 -Tunneling Yes No Yes -Tunneling Position (O'clock) 11 12 -Tunneling Distance (cm) 2.1 1.0 -Tunneling Position #2 (O'clock) 3 -Tunneling Distance #2 (cm) 0.9 -Undermining/Tunneling No No No -Circular Undermining No No No -Wound/Ulcer Outcome Not Healed Not Healed Not Healed -Ulcer Cleansing Rinsed/ Rinsed/ Rinsed/ Irrigated with Irrigated with Irrigated with Saline Saline Saline -Foul Odor after Cleansing No No -Bioengineered Tissue No No No -Bleeding Controlled with Pressure Pressure Pressure -Treatment Response Procedure Procedure Procedure Tolerated Well Tolerated Well Tolerated Well -Offloading No No -Debridement - Subq, 1st 20sq cm Yes Yes Yes -Debridement, SubQ, ea addt'l 20sq cm 6 6 4 or part thereof Pain Scale: 0-10 Numeric Is Patient Pain Free? Yes Yes Yes - Nurse 3 - General Ulcer D/C NN Start: 06/29/21 09:15 Freq: Status: Active Protocol: Activity Type Activity Date Activity User E-Sign Co-Sign Detail Recorded Client Recorded Date Recorded By Document 06/29/21 09:44 [facility] [id number] 06/29/21 09:45 [facility] Document 07/06/21 10:20 DL [id number] 07/06/21 10:21 DL Document 07/13/21 10:05 AK [id number] 07/13/21 10:06 AK 06/29/21 07/06/21 07/13/21 09:44 10:20 10:05 Wound Care Nurse 3 #3- L MED THIGH POST OP -Ulcer Cleansing Rinsed/ Soap and Water Rinsed/ Irrigated with Irrigated with Saline Saline -Foul Odor after Cleansing No No No -Negative Pressure Wound Therapy Continue Continue N/A -Setting (mmHg) 150 150 -Negative Pressure is Continuous Continuous -Primary Dressing Applied Aquacel AG 4x4 -Other Dressing VAC PER DL SOCIAL INSURANCE ADMINISTRATOR ABD -Primary Dressing Covered/Secured with Dry Gauze, Secured with Tape -NPWT Application Charge NPWT & NPWT > 50 sq cm Debridement (nc ($) ) -Aquacel AG 4x4 1 Treatment Response Procedure Procedure Tolerated Well Tolerated Well Pain Scale: 0-10 Numeric Is Patient Pain Free? Yes Yes Yes - Visit Discharge Discharge Condition Stable Stable Stable Ambulatory Status Ambulatory, Ambulatory Ambulatory, Walker Walker Transportation Private Auto Private Auto Private Auto Accompanied by FRIEND friend Medication Reconcilliation completed & Yes provided to patient/care provider Clinical Summary of Care Provided Yes Facility Type Home Health Home Health Orders Sent Yes Assessment/Plan Assessment/Plan (1) 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: CODE(S): L97.122 - Non-pressure chronic ulcer of left thigh with fat layer exposed (2) Bilateral lower extremity edema: CODE(S): R60.0 - Localized edema (3) Myositis: CODE(S): M60.9 - Myositis, unspecified QUALIFIERS: Myositis type: infective Myositis location: thigh Laterality: left Qualified Code(s): M60.052 - Infective myositis, left thigh (4) Complicated wound infection: CODE(S): T14.8XXA - Other injury of unspecified body region, initial encounter; L08.9 - Local infection of the skin and subcutaneous tissue, unspecified (5) Acquired lymphedema of lower extremity: CODE(S): I89.0 - Lymphedema, not elsewhere classified (6) Abscess of left thigh: CODE(S): L02.416 - Cutaneous abscess of left lower limb PLAN: Wound care - Left medial thigh wash with soap and water daily and dry well before applying the wound VAC at 150 mmHg 3 times per week. Operative cultures showed MRSA, Actinomyces naeslundii, and Anaerobic cocci. She has completed antibiotics Cultures from 06/20/21 showed MRSA - She is currently on Doxycycline and Augmentin which she has completed. She is to follow up with FRANSISCO Ye for her anemia. She is to keep her legs elevated when she is sitting. Encouraged increase protein intake. She should also increase her Vitamin C intake to 1,000 mg daily. She has [facility] health. Follow up two weeks.
== END 2021-07-21 23:59 | disposition home or self-care (01) ==
LOC: WC 13:30
PROVIDERS: PCP Internal Medicine; Visit Provider Nurse Practitioner Family
DX: L97.122 Non-pressure chronic ulcer of left thigh with fat layer exposed (principal); I89.0 Lymphedema, not elsewhere classified; L08.9 Local infection of the skin and subcutaneous tissue, unspecified; R60.0 Localized edema; D64.9 Anemia, unspecified; M60.052 Infective myositis, left thigh; M62.50 Muscle wasting and atrophy, not elsewhere classified, unspecified site; Z79.890 Hormone replacement therapy; Z79.899 Other long term (current) drug therapy; Z86.14 Personal history of Methicillin resistant Staphylococcus aureus infection; Z95.1 Presence of aortocoronary bypass graft
CPT/HCPCS: 11042; 11045; 97606

== ENCOUNTER 2021-08-17 09:15 | Outpatient (RCR) | payer MEDICARE, SELFPAY ==
[2021-07-22 00:28] VITALS: BP 188/105; PULSE 81; RESP 18; TEMP 35.7; BMI 53.6
--- NOTE | 2021-07-24 14:04 | WC ---
Received a call from Mary gunnison health nurse at [facility]. Stated she is with the patient now. Removed wound vac to the left thigh and noted significant excoriation to elvie ulcer. Kenya Napoles NP notofied. New order for vac holiday until next appt. Wash area with soap and water. Pack left thigh ulcer daily with Aquacel AG or Silvercel. Cover with ABD pad. Change daily. New verbal order given to Mary [facility] nurse. Voiced understanding.
[2021-08-03 09:03] VITALS: TEMP 36.1; BMI 53.6
--- NOTE | 2021-08-03 12:13 | PN.PCM_ITS ---
History of Present Illness Date of Service: 08/03/21 Chief Complaint: Status post incision and drainage of 2 abscesses on left thigh 04/11/2021 and dermolipectomy and I&D left medial thigh 05/13/21 History of Wound: The patient is a 75-year-old female who presents for treatment of 2 abscesses to her left thigh status post incision and drainage on 04/11/2021. She has a past medical history as listed above. 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 Since then she has been having issues with swelling and bilateral lymphedema. In March 2021, she developed abscesses to her left inner thigh. On 04/11/2021 she had an I&D after a CT scan of the left thigh showed pockets of fluid with abscess present. She was discharged from surgery with a prescription for Keflex, which she finished on 04/23/2021, and with a wound VAC applied to both wounds, set at 125 mmHg. The wound VAC has been being changed by home health nurses 3 times per week. The patient states she has an appointment to follow-up with her surgeon on 05/07/2021. She denies any signs and symptoms of infection and states she has been tolerating the wound VAC well. She denies any acute concerns at this time. Past medical, family, and social history reviewed and not pertinent to the current visit and all other systems reviewed and negative with exception of those listed above. She presented to the ED on 05/11/21 with increased pain and redness and swelling involving her left medial thigh that has worsened over the past few days. Patient states that she had an abscess in this area which was surgically debrided and drained at [facility] in [place] approximately 3 weeks ago. Patient denies any fever. She denies trauma. In the ED, her WBC was normal at 7.5. Her Hgb was 10.8. She was started on IV antibiotics with Vancomycin and Zosyn. Wound cultures were obtained in the ED. CT Left lower extremity was done. It showed the presence of another abscess deeper to the ones that were drained in [place]. 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 Size of defect left medial thigh - 23 x 14 x 6 cm. Operative cultures showed MRSA, Actinomyces naeslundii, and Anaerobic cocci. She completed Doxycycline and Flagyl. She was readmitted to the hospital on 06/20/21 for increased pain and swelling. CT on 06/19/21 - Abnormal fluid density in the subcutaneous fat and obscuring the left sartorius muscle measures roughly 9 mm in length and extends to the skin surface and 3.4 cm deep to the skin and measures 5 cm in AP dimension. There is surrounding skin thickening. The previously seen, smaller, nonconfluent, rim-enhancing focal fluid collections are no longer visible. There is a deep air-filled defect in the skin, extending to the superior margin of the lesion. There is significant regional subcutaneous edema medial thigh and also involving the posterior and lateral thigh. Deep muscular compartments of the thigh are uninvolved. There is extensive muscular atrophy. Peripheral atherosclerosis. Wound culture 06/20/21 showed MRSA. While hospitalized she was on Vanc and Unasyn. She was discharged home on Doxycycline and Augmentin x 15 days. She is also anemic and is to follow up with [facility] for further evaluation. Wound care - Wash wound and anna wound with soap and water and apply Aquacel-Ag topped with gauze and ABD or a super absorber daily. We will discontinue to wound VAC. Progress of Wound: Ulcer has improved since her last visit. The ulcer is beefy pink and the overall size and depth have decreased. Her anna wound is much improved since we took the wound VAC holiday. Objective Data Objective Data Vital Signs: Vital Signs Temp Pulse Resp BP 97.0 F L 81 18 188/105 H 08/03/21 09:03 07/22/21 00:28 07/22/21 00:28 07/22/21 00:28 Weight: 303 lb 0.01 oz Body Mass Index (BMI) 53.6 Charges/Coding Procedures Integumentary 111xxx-113xx: [id number] Global Visit Physical Exam Const alert and oriented x3 General Appearance: cooperative HEENT normocephalic Lymph Lymphatic Narrative: Lower extremities with lymphedema present bilaterally, especially on the left side. Resp normal respiratory effort Cardio regular rate Extremity Extremity Narrative: Bilateral lower extremity edema with lymphedema present. Skin Wound Narrative: Ulcer has improved since her last visit. The ulcer is beefy pink and the overall size and depth have decreased. Her anna wound is much improved since we took the wound VAC holiday. Neuro Sensorium / Orientation: awake and alert Psych Appearance: well kempt Debridement Note Debridement Note Wound debrided: Medial thigh ulcer Laterality: Left Wound Grade/Stage: Stage IV Type of Debridement: Excisional debridement Anesthesia Used: 5% Lidocaine Gel Depth: Down to and including healthy tissue and in the subcutaneous layer Percentage of wound debrided: 100 Instrument Used: 5mm curette Tissue Removed: Non viable tissue and slough Severity: Fat Layer Exposed Amount of bleeding with debridement: Mild Bleeding Controlled with: Pressure and Compression and gauze Patient tolerated procedure: Patient tolerated procedure well Post-Debridement Measurements and Additional Note: Post-Debridement Measurements/Treatment - Nurse 1 - General Ulcer Assessment Start: 08/03/21 09:03 Freq: Status: Active Protocol: JOEY Activity Type Activity Date Activity User E-Sign Co-Sign Detail Recorded Client Recorded Date Recorded By Document 08/03/21 09:03 KAREEM [id number] 08/03/21 09:08 KAREEM 08/03/21 09:03 WC - Today's Visit Information Type of service Follow-up Visit (Physician/[employer] ) Arrival Mode Ambulatory Patient Identification Verified (Name & Yes ) Height and Weight Body Mass Index (BMI) 53.6 BMI Classification Obese Vital Signs Temperature (97.8 F-99.1 F) 97.0 F L Temperature Source Temporal History Since Last Visit- (Skip if this is Patient's initial visit) Have you changed medications since your No last visit? Any new allergies or adverse reactions No Had a fall/change in ADL's that may No increase risk of falls Signs or symptoms of abuse and/or No neglect since last visit Have you been in the hospital since your No last visit? Has dressing in place as prescribed Yes Has compression in place as prescribed N/A Has offloadiing in place as prescribed N/A Experienced any changes in pain level or No management Left Footwear Regular Shoe Right Footwear Regular Shoe Pain Scale: 0-10 Numeric Is Patient Pain Free? Yes - Nurse 1 - General Ulcer Measurement Start: 08/03/21 09:03 Freq: Status: Active Protocol: Activity Type Activity Date Activity User E-Sign Co-Sign Detail Recorded Client Recorded Date Recorded By Document 08/03/21 09:03 KAREEM [id number] 08/03/21 09:08 KR 08/03/21 09:03 Wound Center Nurse 1 #3- L MED THIGH POST OP -Current Size (cm) - Length 4.5 -Current Size (cm) - Width 14 -Current Size (cm) - Depth 0.2 -Total Square Cm 63.0 -Date of Last Picture (Recall this 08/03/21 field) -Photo Taken Yes -Tunneling No -Undermining/Tunneling No -Circular Undermining No -Change in Wound Grade/Stage No -Wound Margin Distinct, Outline Attached -Granulation Amt Large (67-100%) -Granulation Quality Red -Slough/Fibrin Yes -Necrosis Amt Small (1-33%) -Necrotic Tissue Type Adherent Slough -Structure Exposed N/A -Texture (Anna-wound Skin Appearance) Assessed, Scarring -Moisture (Anna-wound Skin Appearance) No Abnormality, Assessed -Color (Anna-wound Skin Appearance) No Abnormality, Assessed -Temperature (Anna-wound Skin No Abnormality Appearance) (Pt Warm) -Tenderness on Palpation (Anna-wound No Skin Appearance) -Ulcer Cleansing Rinsed/ Irrigated with Saline -Foul Odor after Cleansing No -Anesthetic Used 4% Lidocaine Solution,5% Lidocaine Gel Left Calf (cm) 58 Left Ankle (cm) 36 WC - Nurse 2 - General Ulcer CM Notes Start: 08/03/21 09:03 Freq: Status: Active Protocol: Activity Type Activity Date Activity User E-Sign Co-Sign Detail Recorded Client Recorded Date Recorded By Document 08/03/21 09:18 JAVI [id number] 08/03/21 09:26 JF 08/03/21 09:18 Wound Center Nurse 2 #3- L MED THIGH POST OP -Time 09:18 -Correct Patient Yes -Correct Side, Site, Position Yes -Correct Procedure Yes -Procedure Performed Yes -Type of Procedure Debridement -Clinical Debridement Subcutaneous -Tissue Removed Subcutaneous -Post Debridement (cm) - Length 4.0 -Post Debridement (cm) - Width 14.4 -Post Debridement (cm) - Depth 0.3 -Total Square (Post) (cm) 57.60 -Area of Debridement (cm) - Length 4.0 -Area of Debridement (cm) - Width 14.4 -Total Square (Area) (cm) 57.60 -Tunneling No -Undermining/Tunneling No -Circular Undermining No -Wound/Ulcer Outcome Not Healed -Ulcer Cleansing Rinsed/ Irrigated with Saline -Foul Odor after Cleansing No -Bioengineered Tissue No -Bleeding Controlled with Pressure -Treatment Response Procedure Tolerated Well -Offloading No -Debridement - Subq, 1st 20sq cm Yes -Debridement, SubQ, ea addt'l 20sq cm 2 or part thereof Pain Scale: 0-10 Numeric Is Patient Pain Free? Yes WC - Nurse 3 - General Ulcer D/C NN Start: 08/03/21 09:03 Freq: Status: Active Protocol: Activity Type Activity Date Activity User E-Sign Co-Sign Detail Recorded Client Recorded Date Recorded By Document 08/03/21 09:53 CHHAYA [id number] 08/03/21 09:57 CHHAYA 08/03/21 09:53 Wound Care Nurse 3 #3- L MED THIGH POST OP -Ulcer Cleansing Rinsed/ Irrigated with Saline -Foul Odor after Cleansing No -Negative Pressure Wound Therapy N/A -Primary Dressing Applied Aquacel AG 4x4 -Primary Dressing Covered/Secured with Dry Gauze, Secured with Tape -Aquacel AG 4x4 1 Pain Scale: 0-10 Numeric Is Patient Pain Free? Yes WC - Visit Discharge Discharge Condition Stable Accompanied by friend Medication Reconcilliation completed & Yes provided to patient/care provider Notes: Pt will not allow me to wrap foot and ankle with pratibha. I had to start at ankle and go up. I instructed the pt to watch for swelling in foot and to elevate if seen . Assessment/Plan Assessment/Plan (1) 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: CODE(S): L97.122 - Non-pressure chronic ulcer of left thigh with fat layer exposed (2) Bilateral lower extremity edema: CODE(S): R60.0 - Localized edema (3) Myositis: CODE(S): M60.9 - Myositis, unspecified QUALIFIERS: Myositis type: infective Myositis location: thigh Laterality: left Qualified Code(s): M60.052 - Infective myositis, left thigh (4) Complicated wound infection: CODE(S): T14.8XXA - Other injury of unspecified body region, initial encounter; L08.9 - Local infection of the skin and subcutaneous tissue, unspecified (5) Acquired lymphedema of lower extremity: CODE(S): I89.0 - Lymphedema, not elsewhere classified (6) Abscess of left thigh: CODE(S): L02.416 - Cutaneous abscess of left lower limb PLAN: Wound care - Left medial thigh wash with soap and water daily. Apply Aquacel-Ag covered with gauze and ABD daily. Will discontinue the wound VAC due to the continue issues she has from the drape on her anna wound. She would benefit from an advanced skin product such as Theraskin to help heal this chronic ulcer. Operative cultures showed MRSA, Actinomyces naeslundii, and Anaerobic cocci. She has completed antibiotics Cultures from 06/20/21 showed MRSA - She is currently on Doxycycline and Augmentin which she has completed. She is to follow up with FR[facility] Ye for her anemia. She is to keep her legs elevated when she is sitting. Encouraged increase protein intake. She should also increase her Vitamin C intake to 1,000 mg daily. She has [facility]. Follow up one week.
[2021-08-10 09:05] VITALS: BP 163/96; PULSE 83; RESP 20; TEMP 36.4; BMI 53.6
--- NOTE | 2021-08-10 12:22 | PN.PCM_ITS ---
History of Present Illness Date of Service: 08/10/21 Chief Complaint: Status post incision and drainage of 2 abscesses on left thigh 04/11/2021 and dermolipectomy and I&D left medial thigh 05/13/21 History of Wound: The patient is a 75-year-old female who presents for treatment of 2 abscesses to her left thigh status post incision and drainage on 04/11/2021. She has a past medical history as listed above. 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 Since then she has been having issues with swelling and bilateral lymphedema. In March 2021, she developed abscesses to her left inner thigh. On 04/11/2021 she had an I&D after a CT scan of the left thigh showed pockets of fluid with abscess present. She was discharged from surgery with a prescription for Keflex, which she finished on 04/23/2021, and with a wound VAC applied to both wounds, set at 125 mmHg. The wound VAC has been being changed by home health nurses 3 times per week. The patient states she has an appointment to follow-up with her surgeon on 05/07/2021. She denies any signs and symptoms of infection and states she has been tolerating the wound VAC well. She denies any acute concerns at this time. Past medical, family, and social history reviewed and not pertinent to the current visit and all other systems reviewed and negative with exception of those listed above. She presented to the ED on 05/11/21 with increased pain and redness and swelling involving her left medial thigh that has worsened over the past few days. Patient states that she had an abscess in this area which was surgically debrided and drained at [facility] in [place] approximately 3 weeks ago. Patient denies any fever. She denies trauma. In the ED, her WBC was normal at 7.5. Her Hgb was 10.8. She was started on IV antibiotics with Vancomycin and Zosyn. Wound cultures were obtained in the ED. CT Left lower extremity was done. It showed the presence of another abscess deeper to the ones that were drained in [place]. 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 Size of defect left medial thigh - 23 x 14 x 6 cm. Operative cultures showed MRSA, Actinomyces naeslundii, and Anaerobic cocci. She completed Doxycycline and Flagyl. She was readmitted to the hospital on 06/20/21 for increased pain and swelling. CT on 06/19/21 - Abnormal fluid density in the subcutaneous fat and obscuring the left sartorius muscle measures roughly 9 mm in length and extends to the skin surface and 3.4 cm deep to the skin and measures 5 cm in AP dimension. There is surrounding skin thickening. The previously seen, smaller, nonconfluent, rim-enhancing focal fluid collections are no longer visible. There is a deep air-filled defect in the skin, extending to the superior margin of the lesion. There is significant regional subcutaneous edema medial thigh and also involving the posterior and lateral thigh. Deep muscular compartments of the thigh are uninvolved. There is extensive muscular atrophy. Peripheral atherosclerosis. Wound culture 06/20/21 showed MRSA. While hospitalized she was on Vanc and Unasyn. She was discharged home on Doxycycline and Augmentin x 15 days. She is also anemic and is to follow up with [facility] for further evaluation. Wound care - Theraskin approved. First application applied today and covered with a wound veil, topped with dry gauze and ABD. Outer dressing can be changed daily and as needed. Today she denies fever, chills, nausea and vomiting. She states that her appetite is good. Progress of Wound: Ulcer has improved since her last visit. The ulcer is beefy pink and the overall size and depth have decreased. Her anna wound is stable. There is a small amount of excoriation, especially on the distal portion of the ulcer, most likely from drainage. Objective Data Objective Data Vital Signs: Vital Signs Temp Pulse Resp BP 97.6 F L 83 20 H 163/96 H 08/10/21 09:05 08/10/21 09:05 08/10/21 09:05 08/10/21 09:05 Weight: 303 lb 0.01 oz Body Mass Index (BMI) 53.6 Charges/Coding Procedures Integumentary 150xxx-152xx: 01386 Skin sub graft trnk/arm/leg (58 modifier) Add On Codes: 91277 Skin sub graft t/a/l add-on Physical Exam Const alert and oriented x3 General Appearance: cooperative HEENT normocephalic Resp normal respiratory effort Cardio regular rate Extremity Extremity Narrative: Bilateral lower extremity edema with lymphedema present. Skin Wound Narrative: Ulcer has improved since her last visit. The ulcer is beefy pink and the overall size and depth have decreased. Her anna wound has improved, there is some new excoriation on the distal aspect of the anna wound which is most likely caused by drainage from her ulcer. Neuro Sensorium / Orientation: awake and alert Psych Appearance: well kempt Debridement Note Debridement Note Wound debrided: Medial thigh ulcer Laterality: Left Wound Grade/Stage: Stage IV Type of Debridement: Excisional debridement Anesthesia Used: 5% Lidocaine Gel Depth: Down to and including healthy tissue and in the subcutaneous layer Percentage of wound debrided: 100 Instrument Used: 7mm curette Tissue Removed: Non viable tissue and slough Severity: Fat Layer Exposed Amount of bleeding with debridement: Mild Bleeding Controlled with: Pressure and Compression and gauze Patient tolerated procedure: Patient tolerated procedure well Post-Debridement Measurements and Additional Note: Post-Debridement Measurements/Treatment THEO - Nurse 1 - General Ulcer Assessment Start: 08/03/21 09:03 Freq: Status: Active Protocol: JOEY Activity Type Activity Date Activity User E-sign Co-sign Detail Recorded Client Recorded Date Recorded By Document 08/03/21 09:03 KR [id number] 08/03/21 09:08 KR Document 08/10/21 09:05 DL [id number] 08/10/21 09:09 DL 08/03/21 08/10/21 09:03 09:05 - Today's Visit Information Type of service Follow-up Visit Follow-up Visit (Physician/ADMINISTRATIVE AIDE (Physician/ADMINISTRATIVE AIDE ) ) Arrival Mode Ambulatory Ambulatory,Cane Transfer Assistance None Patient Identification Verified (Name & Yes Yes ) Patient Requires Transmission-Based No Precautions Height and Weight Body Mass Index (BMI) 53.6 53.6 BMI Classification Obese Obese Vital Signs Temperature (97.8 F-99.1 F) 97.0 F L 97.6 F L Temperature Source Temporal Temporal Pulse Rate (60-100) 83 Pulse Location Monitor Respiratory Rate (12-18) 20 H Respiratory rate source Observation Blood Pressure (90/60-120/80) 163/96 H Blood Pressure Mean (mm Hg) 118 Source Monitor History Since Last Visit- (Skip if this is Patient's initial visit) Have you changed medications since your No No last visit? Any new allergies or adverse reactions No No Had a fall/change in ADL's that may No No increase risk of falls Signs or symptoms of abuse and/or No No neglect since last visit Have you been in the hospital since your No No last visit? Has dressing in place as prescribed Yes Yes Has compression in place as prescribed N/A Yes Has offloadiing in place as prescribed N/A N/A Experienced any changes in pain level or No No management Left Footwear Regular Shoe Right Footwear Regular Shoe Pain Scale: 0-10 Numeric Is Patient Pain Free? Yes Yes WC - Nurse 1 - General Ulcer Measurement Start: 08/03/21 09:03 Freq: Status: Active Protocol: Activity Type Activity Date Activity User E-sign Co-sign Detail Recorded Client Recorded Date Recorded By Document 08/03/21 09:03 KR [id number] 08/03/21 09:08 KR Document 08/10/21 09:05 DL [id number] 08/10/21 09:09 DL 08/03/21 08/10/21 09:03 09:05 Wound Center Nurse 1 #3- L MED THIGH POST OP -Current Size (cm) - Length 4.5 2.7 -Current Size (cm) - Width 14 11.5 -Current Size (cm) - Depth 0.2 0.2 -Total Square Cm 63.0 31.05 -Date of Last Picture (Recall this 08/03/21 field) -Photo Taken Yes No -Tunneling No -Undermining/Tunneling No -Circular Undermining No -Change in Wound Grade/Stage No -Exudate Amt Medium -Exudate Type Serosanguineous -Wound Margin Distinct, Distinct, Outline Outline Attached Attached -Granulation Amt Large (67-100%) Large (67-100%) -Granulation Quality Red Red -Slough/Fibrin Yes -Necrosis Amt Small (1-33%) Small (1-33%) -Necrotic Tissue Type Adherent Slough Adherent Slough -Structure Exposed N/A N/A -Texture (Anna-wound Skin Appearance) Assessed, Excoriation, Scarring Scarring -Moisture (Anna-wound Skin Appearance) No Abnormality, No Abnormality Assessed -Color (Anna-wound Skin Appearance) No Abnormality, No Abnormality Assessed -Temperature (Anna-wound Skin No Abnormality No Abnormality Appearance) (Pt Warm) (Pt Warm) -Tenderness on Palpation (Anna-wound No No Skin Appearance) -Ulcer Cleansing Rinsed/ Soap and Water Irrigated with Saline -Foul Odor after Cleansing No No -Anesthetic Used 4% Lidocaine 4% Lidocaine Solution,5% Solution Lidocaine Gel Left Calf (cm) 58 56.2 Left Ankle (cm) 36 42 WC - Nurse 2 - General Ulcer CM Notes Start: 08/03/21 09:03 Freq: Status: Active Protocol: Activity Type Activity Date Activity User E-sign Co-sign Detail Recorded Client Recorded Date Recorded By Document 08/03/21 09:18 [id number] 08/03/21 09:26 Document 08/10/21 09:16 [id number] 08/10/21 09:34 08/03/21 08/10/21 09:18 09:16 Wound Center Nurse 2 #3- L MED THIGH POST OP -Time 09:18 09:24 -Correct Patient Yes Yes -Correct Side, Site, Position Yes Yes -Correct Procedure Yes Yes -Procedure Performed Yes Yes -Type of Procedure Debridement Debridement -Clinical Debridement Subcutaneous Subcutaneous -Tissue Removed Subcutaneous Subcutaneous -Post Debridement (cm) - Length 4.0 3.4 -Post Debridement (cm) - Width 14.4 12.7 -Post Debridement (cm) - Depth 0.3 0.2 -Total Square (Post) (cm) 57.60 43.18 -Area of Debridement (cm) - Length 4.0 3.4 -Area of Debridement (cm) - Width 14.4 12.7 -Total Square (Area) (cm) 57.60 43.18 -Tunneling No No -Undermining/Tunneling No No -Circular Undermining No No -Wound/Ulcer Outcome Not Healed Not Healed -Ulcer Cleansing Rinsed/ Rinsed/ Irrigated with Irrigated with Saline Saline -Foul Odor after Cleansing No No -Bioengineered Tissue No Yes -Type of Bioengineered Tissue Theraskin -Expiration Date 10/24/25 -Product Lot Number [id number] -Percent Used 100 -Lot number of Saline Used [id number] -Bleeding Controlled with Pressure Pressure -Treatment Response Procedure Procedure Tolerated Well Tolerated Well -Offloading No No -Debridement - Subq, 1st 20sq cm Yes No -Debridement, SubQ, ea addt'l 20sq cm 2 or part thereof -Apply Skin Sub - 1st 25 sq cm - Legs 1 -Apply Skin Sub - each addt'l 25 sq cm 1 - Legs -Theraskin (per sq cm) 39 Pain Scale: 0-10 Numeric Is Patient Pain Free? Yes Yes - Nurse 3 - General Ulcer D/C NN Start: 08/03/21 09:03 Freq: Status: Active Protocol: Activity Type Activity Date Activity User E-sign Co-sign Detail Recorded Client Recorded Date Recorded By Document 08/03/21 09:53 AK [id number] 08/03/21 09:57 AK Document 08/10/21 09:52 DL [id number] 08/10/21 09:54 DL 08/03/21 08/10/21 09:53 09:52 Wound Care Nurse 3 #3- L MED THIGH POST OP -Ulcer Cleansing Rinsed/ Irrigated with Saline -Foul Odor after Cleansing No No -Negative Pressure Wound Therapy N/A -Primary Dressing Applied Aquacel AG 4x4 -Other Dressing Theraskin -Primary Dressing Covered/Secured with Dry Gauze, Dry Gauze, Secured with Secured with Tape Tape -Aquacel AG 4x4 1 Treatment Response Procedure Tolerated Well Pain Scale: 0-10 Numeric Is Patient Pain Free? Yes Yes WC - Visit Discharge Discharge Condition Stable Stable Ambulatory Status Ambulatory Transportation Private Auto Accompanied by friend Medication Reconcilliation completed & Yes provided to patient/care provider Notes: Pt will not allow me to wrap foot and ankle with aguila. I had to start at ankle and go up. I instructed the pt to watch for swelling in foot and to elevate if seen . Facility Type Home Health Orders Sent Yes Assessment/Plan Assessment/Plan (1) 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: CODE(S): L97.122 - Non-pressure chronic ulcer of left thigh with fat layer exposed (2) Bilateral lower extremity edema: CODE(S): R60.0 - Localized edema (3) Myositis: CODE(S): M60.9 - Myositis, unspecified QUALIFIERS: Laterality: left Myositis location: thigh Myositis type: infective Qualified Code(s): M60.052 - Infective myositis, left thigh (4) Complicated wound infection: CODE(S): T14.8XXA - Other injury of unspecified body region, initial encounter; L08.9 - Local infection of the skin and subcutaneous tissue, unspecified (5) Acquired lymphedema of lower extremity: CODE(S): I89.0 - Lymphedema, not elsewhere classified (6) Abscess of left thigh: CODE(S): L02.416 - Cutaneous abscess of left lower limb PLAN: Plan Wound care - She has been approved for Theraskin. Theraskin #1 placed today, secured with dermabond and steri strips and covered with a wound veil that was secured with steri strips and covered with gauze and ABD pad. Change outer dressing daily and as needed. May wear AGUILA wrap to help keep the dressing secure. Operative cultures showed MRSA, Actinomyces naeslundii, and Anaerobic cocci. She has completed antibiotics Cultures from 06/20/21 showed MRSA - She is currently on Doxycycline and Augmentin which she has completed. She is to follow up with [facility] Ye for her anemia. She is to keep her legs elevated when she is sitting. Encouraged increase protein intake. She should also increase her Vitamin C intake to 1,000 mg daily. She has [facility]. Follow up one week.
[2021-08-17 08:59] VITALS: BP 157/85; PULSE 87; TEMP 36.2; BMI 53.6
--- NOTE | 2021-08-17 11:04 | PCM.WC.PN ---
History of Present Illness Date of Service: 08/17/21 Chief Complaint: Status post incision and drainage of 2 abscesses on left thigh 04/11/2021 and dermolipectomy and I&D left medial thigh 05/13/21 History of Wound: The patient is a 75-year-old female who presents for treatment of 2 abscesses to her left thigh status post incision and drainage on 04/11/2021. She has a past medical history as listed above. 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 Since then she has been having issues with swelling and bilateral lymphedema. In March 2021, she developed abscesses to her left inner thigh. On 04/11/2021 she had an I&D after a CT scan of the left thigh showed pockets of fluid with abscess present. She was discharged from surgery with a prescription for Keflex, which she finished on 04/23/2021, and with a wound VAC applied to both wounds, set at 125 mmHg. The wound VAC has been being changed by home health nurses 3 times per week. The patient states she has an appointment to follow-up with her surgeon on 05/07/2021. She denies any signs and symptoms of infection and states she has been tolerating the wound VAC well. She denies any acute concerns at this time. Past medical, family, and social history reviewed and not pertinent to the current visit and all other systems reviewed and negative with exception of those listed above. She presented to the ED on 05/11/21 with increased pain and redness and swelling involving her left medial thigh that has worsened over the past few days. Patient states that she had an abscess in this area which was surgically debrided and drained at [facility] in [place] approximately 3 weeks ago. Patient denies any fever. She denies trauma. In the ED, her WBC was normal at 7.5. Her Hgb was 10.8. She was started on IV antibiotics with Vancomycin and Zosyn. Wound cultures were obtained in the ED. CT Left lower extremity was done. It showed the presence of another abscess deeper to the ones that were drained in [place]. 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 Size of defect left medial thigh - 23 x 14 x 6 cm. Operative cultures showed MRSA, Actinomyces naeslundii, and Anaerobic cocci. She completed Doxycycline and Flagyl. She was readmitted to the hospital on 06/20/21 for increased pain and swelling. CT on 06/19/21 - Abnormal fluid density in the subcutaneous fat and obscuring the left sartorius muscle measures roughly 9 mm in length and extends to the skin surface and 3.4 cm deep to the skin and measures 5 cm in AP dimension. There is surrounding skin thickening. The previously seen, smaller, nonconfluent, rim-enhancing focal fluid collections are no longer visible. There is a deep air-filled defect in the skin, extending to the superior margin of the lesion. There is significant regional subcutaneous edema medial thigh and also involving the posterior and lateral thigh. Deep muscular compartments of the thigh are uninvolved. There is extensive muscular atrophy. Peripheral atherosclerosis. Wound culture 06/20/21 showed MRSA. While hospitalized she was on Vanc and Unasyn. She was discharged home on Doxycycline and Augmentin x 15 days. She is also anemic and is to follow up with [facility] for further evaluation. Wound care - Theraskin approved. Second application applied today and covered with a wound veil, topped with dry gauze and ABD. Outer dressing can be changed daily and as needed. Today she denies fever, chills, nausea and vomiting. She states that her appetite is good. Progress of Wound: Ulcer is much improved since her last visit. The ulcer is beefy pink and the overall size and depth have decreased. Her anna wound has some erythema, will continue to monitor closely. Unsure if it is related to the skin prep or the wound drainage. Objective Data Objective Data Vital Signs: Vital Signs Temp Pulse Resp BP 97.1 F L 87 20 H 157/85 H 08/17/21 08:59 08/17/21 08:59 08/10/21 09:05 08/17/21 08:59 Weight: 303 lb 0.01 oz Body Mass Index (BMI) 53.6 Charges/Coding Procedures Integumentary 150xxx-152xx: 50772 Skin sub graft trnk/arm/leg (58 modifier) Add On Codes: 78711 Skin sub graft t/a/l add-on Physical Exam Const alert and oriented x3 General Appearance: cooperative HEENT normocephalic Resp normal respiratory effort Cardio regular rate Extremity Extremity Narrative: Bilateral lower extremity edema with lymphedema present, it is stable compared to last week. Skin Wound Narrative: Ulcer is smaller this week. The ulcer is beefy pink and the overall size and depth have decreased. Her anna wound has some areas of erythema. Neuro Sensorium / Orientation: awake and alert Psych Appearance: well kempt Debridement Note Debridement Note Wound debrided: Medial thigh ulcer Laterality: Left Wound Grade/Stage: Stage IV Type of Debridement: Excisional debridement Anesthesia Used: 4% Lidocaine Solution and 5% Lidocaine Gel Depth: Down to and including healthy tissue and in the subcutaneous layer Percentage of wound debrided: 100 Instrument Used: 5mm curette Tissue Removed: Non viable tissue and slough Severity: Fat Layer Exposed Amount of bleeding with debridement: Mild Bleeding Controlled with: Pressure and Compression and gauze Patient tolerated procedure: Patient tolerated procedure well Post-Debridement Measurements and Additional Note: Post-Debridement Measurements/Treatment - Nurse 1 - General Ulcer Assessment Start: 08/03/21 09:03 Freq: Status: Active Protocol: JOEY Activity Type Activity Date Activity User E-sign Co-sign Detail Recorded Client Recorded Date Recorded By Document 08/03/21 09:03 KR [id number] 08/03/21 09:08 KR Document 08/10/21 09:05 DL [id number] 08/10/21 09:09 DL Document 08/17/21 08:59 KR [id number] 08/17/21 09:06 KR 08/03/21 08/10/21 08/17/21 09:03 09:05 08:59 - Today's Visit Information Type of service Follow-up Visit Follow-up Visit Follow-up Visit (Physician/DIET COUNSELOR (Physician/DIET COUNSELOR (Physician/DIET COUNSELOR ) ) ) Arrival Mode Ambulatory Ambulatory,Cane Ambulatory Transfer Assistance None Patient Identification Verified (Name & Yes Yes Yes ) Patient Requires Transmission-Based No Precautions Height and Weight Body Mass Index (BMI) 53.6 53.6 53.6 BMI Classification Obese Obese Obese Vital Signs Temperature (97.8 F-99.1 F) 97.0 F L 97.6 F L 97.1 F L Temperature Source Temporal Temporal Temporal Pulse Rate (60-100) 83 87 Pulse Location Monitor Respiratory Rate (12-18) 20 H Respiratory rate source Observation Blood Pressure (90/60-120/80) 163/96 H 157/85 H Blood Pressure Mean (mm Hg) 118 109 Source Monitor Monitor Position Sitting Blood Pressure Location Left Arm History Since Last Visit- (Skip if this is Patient's initial visit) Have you changed medications since your No No No last visit? Any new allergies or adverse reactions No No No Had a fall/change in ADL's that may No No No increase risk of falls Signs or symptoms of abuse and/or No No No neglect since last visit Have you been in the hospital since your No No No last visit? Has dressing in place as prescribed Yes Yes Yes Has compression in place as prescribed N/A Yes Yes Has offloadiing in place as prescribed N/A N/A N/A Experienced any changes in pain level or No No No management Left Footwear Regular Shoe Regular Shoe Right Footwear Regular Shoe Regular Shoe Pain Scale: 0-10 Numeric Is Patient Pain Free? Yes Yes Yes WC - Nurse 1 - General Ulcer Measurement Start: 08/03/21 09:03 Freq: Status: Active Protocol: Activity Type Activity Date Activity User E-sign Co-sign Detail Recorded Client Recorded Date Recorded By Document 08/03/21 09:03 KR [id number] 08/03/21 09:08 KR Document 08/10/21 09:05 DL [id number] 08/10/21 09:09 DL Document 08/17/21 08:59 KR [id number] 08/17/21 09:06 KR 08/03/21 08/10/21 08/17/21 09:03 09:05 08:59 Wound Center Nurse 1 #3- L MED THIGH POST OP -Current Size (cm) - Length 4.5 2.7 2 -Current Size (cm) - Width 14 11.5 11 -Current Size (cm) - Depth 0.2 0.2 0.1 -Total Square Cm 63.0 31.05 22 -Date of Last Picture (Recall this 08/03/21 field) -Photo Taken Yes No -Tunneling No -Undermining/Tunneling No -Circular Undermining No -Change in Wound Grade/Stage No -Exudate Amt Medium Large -Exudate Type Serosanguineous Serosanguineous -Wound Margin Distinct, Distinct, Distinct, Outline Outline Outline Attached Attached Attached -Granulation Amt Large (67-100%) Large (67-100%) Large (67-100%) -Granulation Quality Red Red Red -Slough/Fibrin Yes -Necrosis Amt Small (1-33%) Small (1-33%) Small (1-33%) -Necrotic Tissue Type Adherent Slough Adherent Slough Adherent Slough -Structure Exposed N/A N/A -Texture (Anna-wound Skin Appearance) Assessed, Excoriation, Assessed, Scarring Scarring Scarring -Moisture (Anna-wound Skin Appearance) No Abnormality, No Abnormality No Abnormality, Assessed Assessed -Color (Anna-wound Skin Appearance) No Abnormality, No Abnormality No Abnormality, Assessed Assessed -Temperature (Anna-wound Skin No Abnormality No Abnormality No Abnormality Appearance) (Pt Warm) (Pt Warm) (Pt Warm) -Tenderness on Palpation (Anna-wound No No No Skin Appearance) -Ulcer Cleansing Rinsed/ Soap and Water Soap and Water Irrigated with Saline -Foul Odor after Cleansing No No No -Anesthetic Used 4% Lidocaine 4% Lidocaine 4% Lidocaine Solution,5% Solution Solution Lidocaine Gel Left Calf (cm) 58 56.2 Left Ankle (cm) 36 42 WC - Nurse 2 - General Ulcer CM Notes Start: 08/03/21 09:03 Freq: Status: Active Protocol: Activity Type Activity Date Activity User E-sign Co-sign Detail Recorded Client Recorded Date Recorded By Document 08/03/21 09:18 [id number] 08/03/21 09:26 Document 08/10/21 09:16 [id number] 08/10/21 09:34 08/03/21 08/10/21 09:18 09:16 Wound Center Nurse 2 #3- L MED THIGH POST OP -Time 09:18 09:24 -Correct Patient Yes Yes -Correct Side, Site, Position Yes Yes -Correct Procedure Yes Yes -Procedure Performed Yes Yes -Type of Procedure Debridement Debridement -Clinical Debridement Subcutaneous Subcutaneous -Tissue Removed Subcutaneous Subcutaneous -Post Debridement (cm) - Length 4.0 3.4 -Post Debridement (cm) - Width 14.4 12.7 -Post Debridement (cm) - Depth 0.3 0.2 -Total Square (Post) (cm) 57.60 43.18 -Area of Debridement (cm) - Length 4.0 3.4 -Area of Debridement (cm) - Width 14.4 12.7 -Total Square (Area) (cm) 57.60 43.18 -Tunneling No No -Undermining/Tunneling No No -Circular Undermining No No -Wound/Ulcer Outcome Not Healed Not Healed -Ulcer Cleansing Rinsed/ Rinsed/ Irrigated with Irrigated with Saline Saline -Foul Odor after Cleansing No No -Bioengineered Tissue No Yes -Type of Bioengineered Tissue Theraskin -Expiration Date 10/24/25 -Product Lot Number [id number] -Percent Used 100 -Lot number of Saline Used [id number] -Bleeding Controlled with Pressure Pressure -Treatment Response Procedure Procedure Tolerated Well Tolerated Well -Offloading No No -Debridement - Subq, 1st 20sq cm Yes No -Debridement, SubQ, ea addt'l 20sq cm 2 or part thereof -Apply Skin Sub - 1st 25 sq cm - Legs 1 -Apply Skin Sub - each addt'l 25 sq cm 1 - Legs -Theraskin (per sq cm) 39 Pain Scale: 0-10 Numeric Is Patient Pain Free? Yes Yes - Nurse 3 - General Ulcer D/C NN Start: 08/03/21 09:03 Freq: Status: Active Protocol: Activity Type Activity Date Activity User E-sign Co-sign Detail Recorded Client Recorded Date Recorded By Document 08/03/21 09:53 AK [id number] 08/03/21 09:57 AK Document 08/10/21 09:52 DL [id number] 08/10/21 09:54 DL Document 08/17/21 09:52 KR [id number] 08/17/21 09:53 KR 08/03/21 08/10/21 08/17/21 09:53 09:52 09:52 Wound Care Nurse 3 #3- L MED THIGH POST OP -Ulcer Cleansing Rinsed/ Irrigated with Saline -Foul Odor after Cleansing No No -Negative Pressure Wound Therapy N/A -Primary Dressing Applied Aquacel AG 4x4 -Other Dressing Theraskin ABD pad -Primary Dressing Covered/Secured with Dry Gauze, Dry Gauze, Secured with Secured with Secured with Tape Tape Tape -Aquacel AG 4x4 1 Left -Compression Wrap Lino Wrap Treatment Response Procedure Tolerated Well Pain Scale: 0-10 Numeric Is Patient Pain Free? Yes Yes Yes WC - Visit Discharge Discharge Condition Stable Stable Stable Ambulatory Status Ambulatory Ambulatory Transportation Private Auto Private Auto Accompanied by friend friend Medication Reconcilliation completed & Yes provided to patient/care provider Notes: Pt will not allow me to wrap foot and ankle with lino. I had to start at ankle and go up. I instructed the pt to watch for swelling in foot and to elevate if seen . Facility Type Home Health Orders Sent Yes Assessment/Plan Assessment/Plan (1) 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: CODE(S): L97.122 - Non-pressure chronic ulcer of left thigh with fat layer exposed (2) Bilateral lower extremity edema: CODE(S): R60.0 - Localized edema (3) Myositis: CODE(S): M60.9 - Myositis, unspecified QUALIFIERS: Myositis type: infective Myositis location: thigh Laterality: left Qualified Code(s): M60.052 - Infective myositis, left thigh (4) Complicated wound infection: CODE(S): T14.8XXA - Other injury of unspecified body region, initial encounter; L08.9 - Local infection of the skin and subcutaneous tissue, unspecified (5) Acquired lymphedema of lower extremity: CODE(S): I89.0 - Lymphedema, not elsewhere classified (6) Abscess of left thigh: CODE(S): L02.416 - Cutaneous abscess of left lower limb PLAN: Plan Wound care - She has been approved for Theraskin. Theraskin #2 placed today, secured with dermabond and steri strips and covered with adaptic touch that was secured with steri strips and covered with gauze and ABD pad. Skin barrier used surrounding the wound. Change outer dressing daily and as needed. May wear LINO wrap to help keep the dressing secure. Encouraged her to try silicone tape to see if this will help her anna wound. She denies an adhesive allergy and the erythema on her periwound is not where tape has been placed, it is most likely from drainage. Operative cultures showed MRSA, Actinomyces naeslundii, and Anaerobic cocci. She has completed antibiotics Cultures from 06/20/21 showed MRSA - She is currently on Doxycycline and Augmentin which she has completed. She is to follow up with [facility] for her anemia. She is to keep her legs elevated when she is sitting. Encouraged increase protein intake. She should also increase her Vitamin C intake to 1,000 mg daily. She has [facility]. Follow up two weeks due to the holiday.
== END 2021-08-20 23:59 | disposition home or self-care (01) ==
LOC: WC 09:15
PROVIDERS: PCP Internal Medicine; Visit Provider Nurse Practitioner Family
DX: L97.122 Non-pressure chronic ulcer of left thigh with fat layer exposed (principal); L02.416 Cutaneous abscess of left lower limb; R60.0 Localized edema; M60.052 Infective myositis, left thigh; D64.9 Anemia, unspecified; L08.9 Local infection of the skin and subcutaneous tissue, unspecified; I89.0 Lymphedema, not elsewhere classified; M62.50 Muscle wasting and atrophy, not elsewhere classified, unspecified site; Z79.899 Other long term (current) drug therapy; Z95.1 Presence of aortocoronary bypass graft
CPT/HCPCS: 11042; 11045; 15271; 15272; Q4121

== ENCOUNTER 2021-09-07 09:15 | Outpatient (RCR) | payer MEDICARE, SELFPAY ==
[2021-08-21 00:20] VITALS: BP 157/85; PULSE 87; RESP 20; TEMP 36.2; BMI 53.6
[2021-08-31 09:08] VITALS: BP 153/92; PULSE 75; TEMP 36.1; BMI 53.6
--- NOTE | 2021-08-31 10:19 | PN.PCM_ITS ---
History of Present Illness Date of Service: 08/31/21 Chief Complaint: Status post incision and drainage of 2 abscesses on left thigh 04/11/2021 and dermolipectomy and I&D left medial thigh 05/13/21 History of Wound: The patient is a 75-year-old female who presents for treatment of 2 abscesses to her left thigh status post incision and drainage on 04/11/2021. She has a past medical history as listed above. 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 Since then she has been having issues with swelling and bilateral lymphedema. In March 2021, she developed abscesses to her left inner thigh. On 04/11/2021 she had an I&D after a CT scan of the left thigh showed pockets of fluid with abscess present. She was discharged from surgery with a prescription for Keflex, which she finished on 04/23/2021, and with a wound VAC applied to both wounds, set at 125 mmHg. The wound VAC has been being changed by home health nurses 3 times per week. The patient states she has an appointment to follow-up with her surgeon on 05/07/2021. She denies any signs and symptoms of infection and states she has been tolerating the wound VAC well. She denies any acute concerns at this time. Past medical, family, and social history reviewed and not pertinent to the current visit and all other systems reviewed and negative with exception of those listed above. She presented to the ED on 05/11/21 with increased pain and redness and swelling involving her left medial thigh that has worsened over the past few days. Patient states that she had an abscess in this area which was surgically debrided and drained at [facility] in [place] approximately 3 weeks ago. Patient denies any fever. She denies trauma. In the ED, her WBC was normal at 7.5. Her Hgb was 10.8. She was started on IV antibiotics with Vancomycin and Zosyn. Wound cultures were obtained in the ED. CT Left lower extremity was done. It showed the presence of another abscess deeper to the ones that were drained in [place]. 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 Size of defect left medial thigh - 23 x 14 x 6 cm. Operative cultures showed MRSA, Actinomyces naeslundii, and Anaerobic cocci. She completed Doxycycline and Flagyl. She was readmitted to the hospital on 06/20/21 for increased pain and swelling. CT on 06/19/21 - Abnormal fluid density in the subcutaneous fat and obscuring the left sartorius muscle measures roughly 9 mm in length and extends to the skin surface and 3.4 cm deep to the skin and measures 5 cm in AP dimension. There is surrounding skin thickening. The previously seen, smaller, nonconfluent, rim-enhancing focal fluid collections are no longer visible. There is a deep air-filled defect in the skin, extending to the superior margin of the lesion. There is significant regional subcutaneous edema medial thigh and also involving the posterior and lateral thigh. Deep muscular compartments of the thigh are uninvolved. There is extensive muscular atrophy. Peripheral atherosclerosis. Wound culture 06/20/21 showed MRSA. While hospitalized she was on Vanc and Unasyn. She was discharged home on Doxycycline and Augmentin x 15 days. She is also anemic and is to follow up with [facility] for further evaluation. Wound care - Theraskin approved. Third application applied today and covered with a wound veil, topped with dry gauze and ABD. Outer dressing can be changed daily and as needed. Today she denies fever, chills, nausea and vomiting. She states that her appetite is good. Progress of Wound: The left medial thigh ulcer is much improved after 2 applications of Theraskin. The ulcer is beefy pink and much smaller in size. Objective Data Objective Data Vital Signs: Vital Signs Temp Pulse Resp BP 96.9 F L 75 20 H 153/92 H 08/31/21 09:08 08/31/21 09:08 08/21/21 00:20 08/31/21 09:08 Weight: 303 lb 0.01 oz Body Mass Index (BMI) 53.6 Charges/Coding Procedures Integumentary 150xxx-152xx: 08194 Skin sub graft trnk/arm/leg Physical Exam Const alert and oriented x3 General Appearance: cooperative HEENT normocephalic Resp normal respiratory effort Cardio regular rate Extremity Extremity Narrative: Bilateral lower extremity edema with lymphedema present, it is stable. Skin Wound Narrative: The left medial thigh ulcer is much smaller since her last visit. The base if the ulcer is beefy pink. Her anna wound has some areas of erythema, but overall is stable. Neuro Sensorium / Orientation: awake and alert Psych Appearance: well kempt Debridement Note Debridement Note Wound debrided: Medial thigh ulcer Laterality: Left Wound Grade/Stage: Stage IV Type of Debridement: Excisional debridement Anesthesia Used: 4% Lidocaine Solution and 5% Lidocaine Gel Depth: Down to and including healthy tissue and in the subcutaneous layer Percentage of wound debrided: 100 Instrument Used: 5mm curette Tissue Removed: Non viable tissue and slough Severity: Fat Layer Exposed Amount of bleeding with debridement: Mild Bleeding Controlled with: Pressure and Compression and gauze Patient tolerated procedure: Patient tolerated procedure well Post-Debridement Measurements and Additional Note: Post-Debridement Measurements/Treatment - Nurse 1 - General Ulcer Assessment Start: 08/31/21 09:08 Freq: Status: Active Protocol: JOEY Activity Type Activity Date Activity User E-sign Co-sign Detail Recorded Client Recorded Date Recorded By Document 08/31/21 09:08 KAREEM [id number] 08/31/21 09:15 KAREEM 08/31/21 09:08 - Today's Visit Information Type of service 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 Any new allergies or adverse reactions No Had a fall/change in ADL's that may No increase risk of falls Signs or symptoms of abuse and/or No neglect since last visit Have you been in the hospital since your No last visit? Has dressing in place as prescribed Yes Has compression in place as prescribed N/A Has offloadiing in place as prescribed N/A Experienced any changes in pain level or No management Left Footwear Regular Shoe Right Footwear Regular Shoe Pain Scale: 0-10 Numeric Is Patient Pain Free? Yes - Nurse 1 - General Ulcer Measurement Start: 08/31/21 09:08 Freq: Status: Active Protocol: Activity Type Activity Date Activity User E-sign Co-sign Detail Recorded Client Recorded Date Recorded By Document 08/31/21 09:08 KAREEM [id number] 08/31/21 09:15 KAREEM 08/31/21 09:08 Wound Center Nurse 1 #3- L MED THIGH POST OP -Current Size (cm) - Length 1.5 -Current Size (cm) - Width 8.2 -Current Size (cm) - Depth 0.1 -Total Square Cm 12.30 -Exudate Amt Medium -Exudate Type Serosanguineous -Wound Margin Distinct, Outline Attached -Granulation Amt Medium (34-66%) -Granulation Quality Red -Necrosis Amt Small (1-33%) -Necrotic Tissue Type Adherent Slough -Texture (Anna-wound Skin Appearance) Assessed, Scarring -Moisture (Anna-wound Skin Appearance) Assessed,Dry/ Scaly -Color (Anna-wound Skin Appearance) No Abnormality, Assessed -Temperature (Anna-wound Skin No Abnormality Appearance) (Pt Warm) -Tenderness on Palpation (Anna-wound No Skin Appearance) -Ulcer Cleansing Rinsed/ Irrigated with Saline -Foul Odor after Cleansing No -Anesthetic Used 4% Lidocaine Solution WC - Nurse 2 - General Ulcer CM Notes Start: 08/31/21 09:08 Freq: Status: Active Protocol: Activity Type Activity Date Activity User E-sign Co-sign Detail Recorded Client Recorded Date Recorded By Document 08/31/21 09:32 JAVI [id number] 08/31/21 09:41 JAVI 08/31/21 09:32 Wound Center Nurse 2 -Time 09:33 -Correct Patient Yes -Correct Side, Site, Position Yes -Correct Procedure Yes -Procedure Performed Yes -Type of Procedure Debridement -Clinical Debridement Subcutaneous -Tissue Removed Subcutaneous -Post Debridement (cm) - Length 2.0 -Post Debridement (cm) - Width 9.4 -Post Debridement (cm) - Depth 0.2 -Total Square (Post) (cm) 18.80 -Area of Debridement (cm) - Length 2.0 -Area of Debridement (cm) - Width 9.4 -Total Square (Area) (cm) 18.80 -Tunneling No -Undermining/Tunneling No -Circular Undermining No -Wound/Ulcer Outcome Not Healed -Ulcer Cleansing Rinsed/ Irrigated with Saline -Foul Odor after Cleansing No -Bioengineered Tissue Yes -Type of Bioengineered Tissue Theraskin -Expiration Date 10/03/24 -Product Lot Number [id number] -Percent Used 100 -Lot number of Saline Used [id number] -Bleeding Controlled with Pressure -Treatment Response Procedure Tolerated Well -Offloading No -Debridement - Subq, 1st 20sq cm No -Apply Skin Sub - 1st 25 sq cm - Legs 1 -Theraskin (per sq cm) 26 Pain Scale: 0-10 Numeric Is Patient Pain Free? Yes - Nurse 3 - General Ulcer D/C NN Start: 08/31/21 09:08 Freq: Status: Active Protocol: Activity Type Activity Date Activity User E-sign Co-sign Detail Recorded Client Recorded Date Recorded By Document 08/31/21 09:58 KAREEM [id number] 08/31/21 09:59 KAREEM 08/31/21 09:58 Wound Care Nurse 3 #3- L MED THIGH POST OP -Ulcer Cleansing Rinsed/ Irrigated with Saline -Foul Odor after Cleansing No -Negative Pressure Wound Therapy N/A -Primary Dressing Covered/Secured with Dry Gauze, Secured with Tape Pain Scale: 0-10 Numeric Is Patient Pain Free? Yes WC - Visit Discharge Discharge Condition Stable Ambulatory Status Ambulatory Transportation Private Auto Accompanied by friend Medication Reconcilliation completed & No provided to patient/care provider Clinical Summary of Care Provided No Assessment/Plan Assessment/Plan (1) 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: CODE(S): L97.122 - Non-pressure chronic ulcer of left thigh with fat layer exposed (2) Bilateral lower extremity edema: CODE(S): R60.0 - Localized edema (3) Complicated wound infection: CODE(S): T14.8XXA - Other injury of unspecified body region, initial encounter; L08.9 - Local infection of the skin and subcutaneous tissue, unspecified (4) Acquired lymphedema of lower extremity: CODE(S): I89.0 - Lymphedema, not elsewhere classified PLAN: Plan Wound care - She has been approved for Theraskin. Theraskin #3 placed today, secured with dermabond and covered with adaptic touch that was secured with steri strips and covered with gauze and ABD pad. Using silicone tape to secure the dressing to see if this helps with her anna wound excoriation. Change outer dressing daily and as needed. May wear AGUILA wrap to help keep the dressing secure. Suspect she may have an adhesive sensitivity, hopefully the silicone tape will help with the excoriation and decreasing the amount of steristrips used to secure the wound veil will help. Operative cultures showed MRSA, Actinomyces naeslundii, and Anaerobic cocci. She has completed antibiotics Cultures from 06/20/21 showed MRSA - She is currently on Doxycycline and Augmentin which she has completed. She is to follow up with [facility] for her anemia. She is to keep her legs elevated when she is sitting. Encouraged increase protein intake. She should also increase her Vitamin C intake to 1,000 mg daily. She has [facility] health. Follow up one week.
[2021-09-07 09:17] VITALS: BP 135/87; PULSE 65; TEMP 36.5; BMI 53.6
--- NOTE | 2021-09-07 12:11 | PCM.WC.PN ---
History of Present Illness Date of Service: 09/07/21 Chief Complaint: Status post incision and drainage of 2 abscesses on left thigh 04/11/2021 and dermolipectomy and I&D left medial thigh 05/13/21 History of Wound: The patient is a 75-year-old female who presents for treatment of 2 abscesses to her left thigh status post incision and drainage on 04/11/2021. She has a past medical history as listed above. 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 Since then she has been having issues with swelling and bilateral lymphedema. In March 2021, she developed abscesses to her left inner thigh. On 04/11/2021 she had an I&D after a CT scan of the left thigh showed pockets of fluid with abscess present. She was discharged from surgery with a prescription for Keflex, which she finished on 04/23/2021, and with a wound VAC applied to both wounds, set at 125 mmHg. The wound VAC has been being changed by home health nurses 3 times per week. The patient states she has an appointment to follow-up with her surgeon on 05/07/2021. She denies any signs and symptoms of infection and states she has been tolerating the wound VAC well. She denies any acute concerns at this time. Past medical, family, and social history reviewed and not pertinent to the current visit and all other systems reviewed and negative with exception of those listed above. She presented to the ED on 05/11/21 with increased pain and redness and swelling involving her left medial thigh that has worsened over the past few days. Patient states that she had an abscess in this area which was surgically debrided and drained at [facility] in [place] approximately 3 weeks ago. Patient denies any fever. She denies trauma. In the ED, her WBC was normal at 7.5. Her Hgb was 10.8. She was started on IV antibiotics with Vancomycin and Zosyn. Wound cultures were obtained in the ED. CT Left lower extremity was done. It showed the presence of another abscess deeper to the ones that were drained in [place]. 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 Size of defect left medial thigh - 23 x 14 x 6 cm. Operative cultures showed MRSA, Actinomyces naeslundii, and Anaerobic cocci. She completed Doxycycline and Flagyl. She was readmitted to the hospital on 06/20/21 for increased pain and swelling. CT on 06/19/21 - Abnormal fluid density in the subcutaneous fat and obscuring the left sartorius muscle measures roughly 9 mm in length and extends to the skin surface and 3.4 cm deep to the skin and measures 5 cm in AP dimension. There is surrounding skin thickening. The previously seen, smaller, nonconfluent, rim-enhancing focal fluid collections are no longer visible. There is a deep air-filled defect in the skin, extending to the superior margin of the lesion. There is significant regional subcutaneous edema medial thigh and also involving the posterior and lateral thigh. Deep muscular compartments of the thigh are uninvolved. There is extensive muscular atrophy. Peripheral atherosclerosis. Wound culture 06/20/21 showed MRSA. While hospitalized she was on Vanc and Unasyn. She was discharged home on Doxycycline and Augmentin x 15 days. She is also anemic and is to follow up with FRANSISCO Ye for further evaluation. Wound care - Theraskin approved. 4 th application applied today and covered with a wound veil, topped with dry gauze and ABD. Outer dressing can be changed daily and as needed. Today she denies fever, chills, nausea and vomiting. She states that her appetite is good. Progress of Wound: The left medial thigh ulcer is improving. The ulcer is beefy pink and much smaller in size. Objective Data Objective Data Vital Signs: Vital Signs Temp Pulse Resp BP 97.7 F L 65 20 H 135/87 H 09/07/21 09:17 09/07/21 09:17 08/21/21 00:20 09/07/21 09:17 Weight: 303 lb 0.01 oz Body Mass Index (BMI) 53.6 Charges/Coding Procedures Integumentary 150xxx-152xx: 19774 Skin sub graft trnk/arm/leg Physical Exam Const alert and oriented x3 General Appearance: cooperative HEENT normocephalic Resp normal respiratory effort Cardio regular rate Extremity normal capillary refill Extremity Narrative: Bilateral lower extremity edema with lymphedema present, it is stable. Skin Wound Narrative: The left medial thigh ulcer is smaller since her last visit. The base if the ulcer is beefy pink. Her anna wound has some areas of erythema, but overall is stable. Neuro Sensorium / Orientation: awake and alert Psych Appearance: well kempt Debridement Note Debridement Note Wound debrided: Medial thigh ulcer Laterality: Left Type of Debridement: Excisional debridement Anesthesia Used: 4% Lidocaine Solution and 5% Lidocaine Gel Depth: Down to and including healthy tissue and in the subcutaneous layer Percentage of wound debrided: 100 Instrument Used: 5mm curette Tissue Removed: Non viable tissue and slough Severity: Fat Layer Exposed Amount of bleeding with debridement: Mild Bleeding Controlled with: Pressure and Compression and gauze Patient tolerated procedure: Patient tolerated procedure well Post-Debridement Measurements and Additional Note: Post-Debridement Measurements/Treatment - Nurse 1 - General Ulcer Assessment Start: 08/31/21 09:08 Freq: Status: Active Protocol: JOEY Activity Type Activity Date Activity User E-sign Co-sign Detail Recorded Client Recorded Date Recorded By Document 08/31/21 09:08 KAREEM [id number] 08/31/21 09:15 KR Document 09/07/21 09:17 KAREEM [id number] 09/07/21 09:19 KR 08/31/21 09/07/21 09:08 09:17 - Today's Visit Information Type of service Follow-up Visit Follow-up Visit (Physician/SUPERVIS[employer] (Physician/SUPERVISOR [employer] ) ) Arrival Mode Ambulatory Ambulatory Patient Identification Verified (Name & Yes Yes ) Height and Weight Body Mass Index (BMI) 53.6 53.6 BMI Classification Obese Obese Vital Signs Temperature (97.8 F-99.1 F) 96.9 F L 97.7 F L Temperature Source Temporal Temporal Pulse Rate (60-100) 75 65 Pulse Location Monitor Monitor Blood Pressure (90/60-120/80) 153/92 H 135/87 H Blood Pressure Mean (mm Hg) 112 103 Source Monitor Monitor Position Sitting Semi-Fowlers Blood Pressure Location Right Arm Right Arm History Since Last Visit- (Skip if this is Patient's initial visit) Have you changed medications since your No No last visit? Any new allergies or adverse reactions No No Had a fall/change in ADL's that may No No increase risk of falls Signs or symptoms of abuse and/or No No neglect since last visit Have you been in the hospital since your No No last visit? Has dressing in place as prescribed Yes Yes Has compression in place as prescribed N/A Yes Has offloadiing in place as prescribed N/A N/A Experienced any changes in pain level or No No management Left Footwear Regular Shoe Regular Shoe Right Footwear Regular Shoe Regular Shoe Pain Scale: 0-10 Numeric Is Patient Pain Free? Yes Yes THEO - Nurse 1 - General Ulcer Measurement Start: 08/31/21 09:08 Freq: Status: Active Protocol: Activity Type Activity Date Activity User E-sign Co-sign Detail Recorded Client Recorded Date Recorded By Document 08/31/21 09:08 KAREEM [id number] 08/31/21 09:15 KR Document 09/07/21 09:17 KAREEM [id number] 09/07/21 09:19 KR 08/31/21 09/07/21 09:08 09:17 Wound Center Nurse 1 #3- L MED THIGH POST OP -Current Size (cm) - Length 1.5 1.3 -Current Size (cm) - Width 8.2 9.2 -Current Size (cm) - Depth 0.1 0.1 -Total Square Cm 12.30 11.96 -Exudate Amt Medium Medium -Exudate Type Serosanguineous Serosanguineous -Wound Margin Distinct, Distinct, Outline Outline Attached Attached -Granulation Amt Medium (34-66%) Large (67-100%) -Granulation Quality Red Red -Necrosis Amt Small (1-33%) None Present (0 %) -Necrotic Tissue Type Adherent Slough -Texture (Anna-wound Skin Appearance) Assessed, Assessed, Scarring Scarring -Moisture (Anna-wound Skin Appearance) Assessed,Dry/ No Abnormality, Scaly Assessed -Color (Anna-wound Skin Appearance) No Abnormality, Assessed,Not Assessed Assessed -Temperature (Anna-wound Skin No Abnormality No Abnormality Appearance) (Pt Warm) (Pt Warm) -Tenderness on Palpation (Anna-wound No No Skin Appearance) -Ulcer Cleansing Rinsed/ Soap and Water Irrigated with Saline -Foul Odor after Cleansing No No -Anesthetic Used 4% Lidocaine 5% Lidocaine Solution Gel THEO - Nurse 2 - General Ulcer CM Notes Start: 08/31/21 09:08 Freq: Status: Active Protocol: Activity Type Activity Date Activity User E-sign Co-sign Detail Recorded Client Recorded Date Recorded By Document 08/31/21 09:32 [id number] 08/31/21 09:41 Document 09/07/21 09:54 [id number] 09/07/21 10:07 08/31/21 09/07/21 09:32 09:54 Wound Center Nurse 2 #3- L MED THIGH POST OP -Time 09:33 09:54 -Correct Patient Yes Yes -Correct Side, Site, Position Yes Yes -Correct Procedure Yes Yes -Procedure Performed Yes Yes -Type of Procedure Debridement Debridement -Clinical Debridement Subcutaneous Subcutaneous -Tissue Removed Subcutaneous Subcutaneous -Post Debridement (cm) - Length 2.0 1.5 -Post Debridement (cm) - Width 9.4 10.3 -Post Debridement (cm) - Depth 0.2 0.2 -Total Square (Post) (cm) 18.80 15.45 -Area of Debridement (cm) - Length 2.0 1.5 -Area of Debridement (cm) - Width 9.4 10.3 -Total Square (Area) (cm) 18.80 15.45 -Tunneling No No -Undermining/Tunneling No No -Circular Undermining No No -Wound/Ulcer Outcome Not Healed Not Healed -Ulcer Cleansing Rinsed/ Rinsed/ Irrigated with Irrigated with Saline Saline -Foul Odor after Cleansing No No -Bioengineered Tissue Yes Yes -Type of Bioengineered Tissue Theraskin Theraskin -Expiration Date 10/03/24 05/21/24 -Product Lot Number [id number] -Percent Used 100 100 -Lot number of Saline Used [id number] -Bleeding Controlled with Pressure Pressure -Treatment Response Procedure Procedure Tolerated Well Tolerated Well -Offloading No No -Debridement - Subq, 1st 20sq cm No No -Apply Skin Sub - 1st 25 sq cm - Legs 1 1 -Theraskin (per sq cm) 26 13 Pain Scale: 0-10 Numeric Is Patient Pain Free? Yes Yes - Nurse 3 - General Ulcer D/C NN Start: 08/31/21 09:08 Freq: Status: Active Protocol: Activity Type Activity Date Activity User E-sign Co-sign Detail Recorded Client Recorded Date Recorded By Document 08/31/21 09:58 KR [id number] 08/31/21 09:59 KR Document 09/07/21 10:23 DL [id number] 09/07/21 10:27 DL 08/31/21 09/07/21 09:58 10:23 Wound Care Nurse 3 #3- L MED THIGH POST OP -Ulcer Cleansing Rinsed/ Irrigated with Saline -Foul Odor after Cleansing No -Negative Pressure Wound Therapy N/A -Other Dressing Theraskin -Primary Dressing Covered/Secured with Dry Gauze, Dry Gauze, Secured with Secured with Tape Tape -Other Covering ABD/ AGUILA Treatment Response Procedure Tolerated Well Pain Scale: 0-10 Numeric Is Patient Pain Free? Yes Yes WC - Visit Discharge Discharge Condition Stable Stable Ambulatory Status Ambulatory Ambulatory,Cane Transportation Private Auto Private Auto Accompanied by friend Medication Reconcilliation completed & No provided to patient/care provider Clinical Summary of Care Provided No Facility Type Home Health Orders Sent Yes Assessment/Plan Assessment/Plan (1) 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: CODE(S): L97.122 - Non-pressure chronic ulcer of left thigh with fat layer exposed (2) Bilateral lower extremity edema: CODE(S): R60.0 - Localized edema (3) Complicated wound infection: CODE(S): T14.8XXA - Other injury of unspecified body region, initial encounter; L08.9 - Local infection of the skin and subcutaneous tissue, unspecified (4) Acquired lymphedema of lower extremity: CODE(S): I89.0 - Lymphedema, not elsewhere classified PLAN: Plan Wound care - She has been approved for Theraskin. Theraskin #4 placed today, secured with dermabond and covered with wound veil that was secured with steri strips and covered with gauze and ABD pad. Using silicone tape to secure the dressing to see if this helps with her anna wound excoriation. Change outer dressing daily and as needed. In one week, home health may change the wound veil and steri strips but must leave the Theraskin in place and not get it wet. Stop using skin prep to see if this will help with the anna wound excoriation. May wear AGUILA wrap to help keep the dressing secure. Operative cultures showed MRSA, Actinomyces naeslundii, and Anaerobic cocci. She has completed antibiotics Cultures from 06/20/21 showed MRSA - She is currently on Doxycycline and Augmentin which she has completed. She is to keep her legs elevated when she is sitting. Encouraged increase protein intake. She should also increase her Vitamin C intake to 1,000 mg daily. She has [facility]. Follow up two weeks due to provider being out of town.
== END 2021-09-20 23:59 | disposition home or self-care (01) ==
LOC: WC 09:15
PROVIDERS: PCP Internal Medicine; Visit Provider Nurse Practitioner Family
DX: L97.122 Non-pressure chronic ulcer of left thigh with fat layer exposed (principal); M62.50 Muscle wasting and atrophy, not elsewhere classified, unspecified site; R60.0 Localized edema; I89.0 Lymphedema, not elsewhere classified; D64.9 Anemia, unspecified
CPT/HCPCS: 15271; Q4121

== ENCOUNTER → 2021-10-02 | Outpatient (CLI) | payer MEDICARE, SELFPAY ==
[2021-10-02 12:43] LABS: Absolute Lymphocyte Count 1.32 X10^3/uL (0.83-4.51); Absolute Neutrophil Count 5.4 X10^3/uL (2.0-7.7); Basophil# 0.02 X10^3/uL; Basophil% 0.3 % (0-1); Eosinophil# 0.12 X10^3/uL; Eosinophils% 1.6 % (0-5); Hematocrit 34.3 % (37-47); Hemoglobin 10.8 g/dL (12.0-15.0); Lymphocyte # 1.32 X10^3/ul (0.83-4.51); Lymphocyte % 17.8 % (19-41); Mean Corp Hgb Conc 31.5 g/dL (32-36); Mean Corpuscular Hgb 28.5 pg (27.0-32.0); Mean Corpuscular Volume 90.5 fL (81-99); Mean Platelet Vol. 9.4 fl (6.2-12.0); Monocyte# 0.55 X10^3/uL; Monocyte% 7.4 % (0-10); NRBC Flagged by Analyzer 0 % (0-5); Neutrophil # 5.35 X10^3/uL (2.7-7.7); Neutrophil % 72.1 % (47-70); Platelet Count 244 K/mm3 (150-450); RBC Distribution Width CV 15.6 % (11.6-14.6); Red Blood Count 3.79 M/mm3 (4.2-5.4); White Blood Count 7.4 K/mm3 (4.4-11.0)
== END | disposition home or self-care (01) ==
LOC: LAB 11:01
PROVIDERS: PCP Internal Medicine; Referring Provider Internal Medicine Gastroenterology; Visit Provider Internal Medicine Gastroenterology
DX: L02.416 Cutaneous abscess of left lower limb (principal)
CPT/HCPCS: 36415; 85025

== ENCOUNTER 2021-10-19 09:15 | Outpatient (RCR) | payer MEDICARE, SELFPAY ==
[2021-09-21 00:17] VITALS: BP 135/87; PULSE 65; RESP 20; TEMP 36.5; BMI 53.6
[2021-09-21 08:29] VITALS: PULSE 78; RESP 18; TEMP 36.2; BMI 53.6
--- NOTE | 2021-09-21 11:10 | PN.PCM_ITS ---
History of Present Illness Date of Service: 09/21/21 Chief Complaint: Status post incision and drainage of 2 abscesses on left thigh 04/11/2021 and dermolipectomy and I&D left medial thigh 05/13/21 History of Wound: The patient is a 75-year-old female who presents for treatment of 2 abscesses to her left thigh status post incision and drainage on 04/11/2021. She has a past medical history as listed above. 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 Since then she has been having issues with swelling and bilateral lymphedema. In March 2021, she developed abscesses to her left inner thigh. On 04/11/2021 she had an I&D after a CT scan of the left thigh showed pockets of fluid with abscess present. She was discharged from surgery with a prescription for Keflex, which she finished on 04/23/2021, and with a wound VAC applied to both wounds, set at 125 mmHg. The wound VAC has been being changed by home health nurses 3 times per week. The patient states she has an appointment to follow-up with her surgeon on 05/07/2021. She denies any signs and symptoms of infection and states she has been tolerating the wound VAC well. She denies any acute concerns at this time. Past medical, family, and social history reviewed and not pertinent to the current visit and all other systems reviewed and negative with exception of those listed above. She presented to the ED on 05/11/21 with increased pain and redness and swelling involving her left medial thigh that has worsened over the past few days. Patient states that she had an abscess in this area which was surgically debrided and drained at [facility] in [place] approximately 3 weeks ago. Patient denies any fever. She denies trauma. In the ED, her WBC was normal at 7.5. Her Hgb was 10.8. She was started on IV antibiotics with Vancomycin and Zosyn. Wound cultures were obtained in the ED. CT Left lower extremity was done. It showed the presence of another abscess deeper to the ones that were drained in [place]. 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 Size of defect left medial thigh - 23 x 14 x 6 cm. Operative cultures showed MRSA, Actinomyces naeslundii, and Anaerobic cocci. She completed Doxycycline and Flagyl. She was readmitted to the hospital on 06/20/21 for increased pain and swelling. CT on 06/19/21 - Abnormal fluid density in the subcutaneous fat and obscuring the left sartorius muscle measures roughly 9 mm in length and extends to the skin surface and 3.4 cm deep to the skin and measures 5 cm in AP dimension. There is surrounding skin thickening. The previously seen, smaller, nonconfluent, rim-enhancing focal fluid collections are no longer visible. There is a deep air-filled defect in the skin, extending to the superior margin of the lesion. There is significant regional subcutaneous edema medial thigh and also involving the posterior and lateral thigh. Deep muscular compartments of the thigh are uninvolved. There is extensive muscular atrophy. Peripheral atherosclerosis. Wound culture 06/20/21 showed MRSA. While hospitalized she was on Vanc and Unasyn. She was discharged home on Doxycycline and Augmentin x 15 days. She is also anemic and is to follow up with [facility] for further evaluation. Wound care - Theraskin approved. She has had 4 applications. She has shown much improvement with the Theraskin. Will start Collagen hydrogel covered with adaptic and topped with gauze daily after washing with soap and water. Today she denies fever, chills, nausea and vomiting. She states that her appetite is good. Progress of Wound: There is much improvement in her left medial thigh ulcer. We will change her wound care to collagen hydrogel covered with Adaptic. Hopefully washing this area daily will help improve her excoriated periwound. The ulcer cluster is beefy pink and much smaller in size. Objective Data Objective Data Vital Signs: Vital Signs Temp Pulse Resp BP 97.2 F L 78 18 135/87 H 09/21/21 08:29 09/21/21 08:29 09/21/21 08:29 09/21/21 00:17 Weight: 303 lb 0.01 oz Body Mass Index (BMI) 53.6 Charges/Coding Procedures Integumentary 111xxx-113xx: [id number] Swathi subq tissue 20 sq cm/< Physical Exam Const alert and oriented x3 General Appearance: cooperative HEENT normocephalic Resp normal respiratory effort Cardio regular rate Extremity normal capillary refill Extremity Narrative: Bilateral lower extremity edema with lymphedema present, it is stable. Skin Wound Narrative: The left medial thigh ulcer cluster is much smaller since her last visit. The base if the ulcer is beefy pink. Her anna wound has some areas of erythema, but overall is stable. Neuro Sensorium / Orientation: awake and alert Psych Appearance: well kempt Debridement Note Debridement Note Wound debrided: Medial thigh ulcer Laterality: Left Type of Debridement: Excisional debridement Anesthesia Used: 5% Lidocaine Gel Depth: Down to and including healthy tissue and in the subcutaneous layer Percentage of wound debrided: 100 Instrument Used: 3mm curette Tissue Removed: Non viable tissue and slough Severity: Fat Layer Exposed Amount of bleeding with debridement: Mild Bleeding Controlled with: Pressure and Compression and gauze Patient tolerated procedure: Patient tolerated procedure well Post-Debridement Measurements and Additional Note: Post-Debridement Measurements/Treatment - Nurse 1 - General Ulcer Assessment Start: 09/21/21 08:28 Freq: Status: Active Protocol: JOEY Activity Type Activity Date Activity User E-sign Co-sign Detail Recorded Client Recorded Date Recorded By Document 09/21/21 08:29 MN [id number] 09/21/21 08:35 CHHAYA 09/21/21 08:29 - Today's Visit Information Type of service Follow-up Visit (Physician/TRASH COLLECTOR ) Arrival Mode Ambulatory Patient Identification Verified (Name & Yes ) Patient Requires Transmission-Based No Precautions Height and Weight Body Mass Index (BMI) 53.6 BMI Classification Obese Vital Signs Temperature (97.8 F-99.1 F) 97.2 F L Temperature Source Temporal Pulse Rate (60-100) 78 Pulse Location Monitor Respiratory Rate (12-18) 18 Respiratory rate source Observation History Since Last Visit- (Skip if this is Patient's initial visit) Have you changed medications since your No last visit? Any new allergies or adverse reactions No Had a fall/change in ADL's that may No increase risk of falls Signs or symptoms of abuse and/or No neglect since last visit Has dressing in place as prescribed Yes Has compression in place as prescribed Yes Has offloadiing in place as prescribed N/A Left Footwear Regular Shoe Right Footwear Regular Shoe Pain Scale: 0-10 Numeric Is Patient Pain Free? Yes - Nurse 1 - General Ulcer Measurement Start: 09/21/21 08:28 Freq: Status: Active Protocol: Activity Type Activity Date Activity User E-sign Co-sign Detail Recorded Client Recorded Date Recorded By Document 09/21/21 08:29 AK [id number] 09/21/21 08:35 AK 09/21/21 08:29 Wound Center Nurse 1 #3- L MED THIGH POST OP -Combined with other wound No -Current Size (cm) - Length 0.5 -Current Size (cm) - Width 8.0 -Current Size (cm) - Depth 0.1 -Total Square Cm 4.00 -Photo Taken Yes -Epithelialization Large 67-100% -Tunneling No -Undermining/Tunneling No -Circular Undermining No -Exudate Amt Small -Exudate Type Serosanguineous -Wound Margin Indistinct, Non -Visible -Granulation Amt Medium (34-66%) -Granulation Quality [place] -Slough/Fibrin Yes -Necrosis Amt Medium (34-66%) -Necrotic Tissue Type Adherent Slough -Structure Exposed N/A -Texture (Anna-wound Skin Appearance) Assessed, Localized Edema ,Rash -Moisture (Anna-wound Skin Appearance) Assessed,Dry/ Scaly -Color (Anna-wound Skin Appearance) Assessed -Temperature (Anna-wound Skin No Abnormality Appearance) (Pt Warm) -Tenderness on Palpation (Anna-wound No Skin Appearance) -Ulcer Cleansing Wound Cleanser -Foul Odor after Cleansing No -Anesthetic Used 5% Lidocaine Gel Lower Limb Edema Present Yes Left Calf (cm) 56.0 Left Ankle (cm) 33.5 WC - Nurse 2 - General Ulcer CM Notes Start: 09/21/21 08:28 Freq: Status: Active Protocol: Activity Type Activity Date Activity User E-sign Co-sign Detail Recorded Client Recorded Date Recorded By Document 09/21/21 08:53 [id number] 09/21/21 08:55 09/21/21 08:53 Wound Center Nurse 2 #3- L MED THIGH POST OP -Time 08:54 -Correct Patient Yes -Correct Side, Site, Position Yes -Correct Procedure Yes -Procedure Performed Yes -Type of Procedure Debridement -Clinical Debridement Subcutaneous -Tissue Removed Subcutaneous -Post Debridement (cm) - Length 1.0 -Post Debridement (cm) - Width 8.7 -Post Debridement (cm) - Depth 0.1 -Total Square (Post) (cm) 8.70 -Area of Debridement (cm) - Length 1.0 -Area of Debridement (cm) - Width 8.7 -Total Square (Area) (cm) 8.70 -Tunneling No -Undermining/Tunneling No -Circular Undermining No -Wound/Ulcer Outcome Not Healed -Ulcer Cleansing Rinsed/ Irrigated with Saline -Foul Odor after Cleansing No -Bioengineered Tissue No -Bleeding Controlled with Pressure -Treatment Response Procedure Tolerated Well -Offloading No -Debridement - Subq, 1st 20sq cm Yes Pain Scale: 0-10 Numeric Is Patient Pain Free? Yes - Nurse 3 - General Ulcer D/C NN Start: 09/21/21 08:28 Freq: Status: Active Protocol: Activity Type Activity Date Activity User E-sign Co-sign Detail Recorded Client Recorded Date Recorded By Document 09/21/21 09:00 KR [id number] 09/21/21 09:00 KR Document 09/21/21 09:17 AK [id number] 09/21/21 09:18 AK 09/21/21 09/21/21 09:00 09:17 Wound Care Nurse 3 #3- L MED THIGH POST OP -Ulcer Cleansing Rinsed/ Rinsed/ Irrigated with Irrigated with Saline Saline -Foul Odor after Cleansing No -Negative Pressure Wound Therapy N/A -Primary Dressing Applied C Hydrogel ($), C Hydrogel ($), NonAdherent NonAdherent Contact Layer Contact Layer -Primary Dressing Covered/Secured with Dry Gauze, Dry Gauze & Secured with Roll Gauze, Tape Secured with Tape Left -Lotion applied to leg before No compression wrap -Compression Wrap Lino Wrap Pain Scale: 0-10 Numeric Is Patient Pain Free? Yes Yes - Visit Discharge Discharge Condition Stable Stable Ambulatory Status Ambulatory Ambulatory Transportation Private Auto Private Auto Medication Reconcilliation completed & Yes provided to patient/care provider Clinical Summary of Care Provided Yes Assessment/Plan Assessment/Plan (1) 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: CODE(S): L97.122 - Non-pressure chronic ulcer of left thigh with fat layer exposed (2) Bilateral lower extremity edema: CODE(S): R60.0 - Localized edema (3) Complicated wound infection: CODE(S): T14.8XXA - Other injury of unspecified body region, initial encounter; L08.9 - Local infection of the skin and subcutaneous tissue, unspecified (4) Acquired lymphedema of lower extremity: CODE(S): I89.0 - Lymphedema, not elsewhere classified PLAN: Plan Wound care - She has been approved for TherReachForcein and has had 4 applications. Wound care will be collagen hydrogel covered with Adaptic and topped with gauze daily. She may wash the ulcer and periwound with soap and water daily. She can continue to use silicone tape because this seems to be helping with the excoriation of her periwound. Operative cultures showed MRSA, Actinomyces naeslundii, and Anaerobic cocci. She has completed antibiotics Cultures from 06/20/21 showed MRSA - She is currently on Doxycycline and Augmentin which she has completed. She is to keep her legs elevated when she is sitting. Encouraged increase protein intake. She should also increase her Vitamin C intake to 1,000 mg daily. She has [facility]. Follow up two weeks.
[2021-09-28 09:04] VITALS: BP 132/78; PULSE 79; TEMP 35.7; BMI 53.6
--- NOTE | 2021-09-28 11:22 | PN.PCM_ITS ---
History of Present Illness Date of Service: 09/28/21 Chief Complaint: Status post incision and drainage of 2 abscesses on left thigh 04/11/2021 and dermolipectomy and I&D left medial thigh 05/13/21 History of Wound: The patient is a 75-year-old female who presents for treatment of 2 abscesses to her left thigh status post incision and drainage on 04/11/2021. She has a past medical history as listed above. 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 Since then she has been having issues with swelling and bilateral lymphedema. In March 2021, she developed abscesses to her left inner thigh. On 04/11/2021 she had an I&D after a CT scan of the left thigh showed pockets of fluid with abscess present. She was discharged from surgery with a prescription for Keflex, which she finished on 04/23/2021, and with a wound VAC applied to both wounds, set at 125 mmHg. The wound VAC has been being changed by home health nurses 3 times per week. The patient states she has an appointment to follow-up with her surgeon on 05/07/2021. She denies any signs and symptoms of infection and states she has been tolerating the wound VAC well. She denies any acute concerns at this time. Past medical, family, and social history reviewed and not pertinent to the current visit and all other systems reviewed and negative with exception of those listed above. She presented to the ED on 05/11/21 with increased pain and redness and swelling involving her left medial thigh that has worsened over the past few days. Patient states that she had an abscess in this area which was surgically debrided and drained at [facility] in [place] approximately 3 weeks ago. Patient denies any fever. She denies trauma. In the ED, her WBC was normal at 7.5. Her Hgb was 10.8. She was started on IV antibiotics with Vancomycin and Zosyn. Wound cultures were obtained in the ED. CT Left lower extremity was done. It showed the presence of another abscess deeper to the ones that were drained in [place]. 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 Size of defect left medial thigh - 23 x 14 x 6 cm. Operative cultures showed MRSA, Actinomyces naeslundii, and Anaerobic cocci. She completed Doxycycline and Flagyl. She was readmitted to the hospital on 06/20/21 for increased pain and swelling. CT on 06/19/21 - Abnormal fluid density in the subcutaneous fat and obscuring the left sartorius muscle measures roughly 9 mm in length and extends to the skin surface and 3.4 cm deep to the skin and measures 5 cm in AP dimension. There is surrounding skin thickening. The previously seen, smaller, nonconfluent, rim-enhancing focal fluid collections are no longer visible. There is a deep air-filled defect in the skin, extending to the superior margin of the lesion. There is significant regional subcutaneous edema medial thigh and also involving the posterior and lateral thigh. Deep muscular compartments of the thigh are uninvolved. There is extensive muscular atrophy. Peripheral atherosclerosis. Wound culture 06/20/21 showed MRSA. While hospitalized she was on Vanc and Unasyn. She was discharged home on Doxycycline and Augmentin x 15 days. She is also anemic and is to follow up with [facility] for further evaluation. Wound care - [employer] approved. She has had 4 applications. She has shown much improvement with the [employer]. Wound care will now be Collagen hydrogel covered with adaptic and topped with gauze daily after washing with soap and water. Today she denies fever, chills, nausea and vomiting. She states that her appetite is good. Progress of Wound: Her ulcer is stable and beefy pink. Her anna wound continues to be excoriated a nd itchy. Objective Data Objective Data Vital Signs: Vital Signs Temp Pulse Resp BP 96.3 F L 79 18 132/78 H 09/28/21 09:04 09/28/21 09:04 09/21/21 08:29 09/28/21 09:04 Weight: 303 lb 0.01 oz Body Mass Index (BMI) 53.6 Charges/Coding Procedures Integumentary 111xxx-113xx: [id number] Swathi subq tissue 20 sq cm/< Physical Exam Const alert and oriented x3 General Appearance: cooperative HEENT normocephalic Resp normal respiratory effort Cardio regular rate Extremity normal capillary refill Extremity Narrative: Bilateral lower extremity edema with lymphedema present, it is stable. Skin Wound Narrative: The left medial thigh ulcer cluster is stable. The base if the ulcer is beefy pink. Her anna wound has some areas of excoriation and dry scabbing that have become very itchy for her. Neuro Sensorium / Orientation: awake and alert Psych Appearance: well kempt Debridement Note Debridement Note Wound debrided: Medial thigh ulcer Laterality: Left Type of Debridement: Excisional debridement Anesthesia Used: 5% Lidocaine Gel Depth: Down to and including healthy tissue and in the subcutaneous layer Percentage of wound debrided: 100 Instrument Used: 3mm curette Tissue Removed: Non viable tissue and slough Severity: Fat Layer Exposed Amount of bleeding with debridement: Mild Bleeding Controlled with: Pressure and Compression and gauze Patient tolerated procedure: Patient tolerated procedure well Post-Debridement Measurements and Additional Note: Post-Debridement Measurements/Treatment WC - Nurse 1 - General Ulcer Assessment Start: 09/21/21 08:28 Freq: Status: Active Protocol: JOEY Activity Type Activity Date Activity User E-sign Co-sign Detail Recorded Client Recorded Date Recorded By Document 09/21/21 08:29 AK [id number] 09/21/21 08:35 AK Document 09/28/21 09:04 KAREEM [id number] 09/28/21 09:13 KR 09/21/21 09/28/21 08:29 09:04 - Today's Visit Information Type of service Follow-up Visit Follow-up Visit (Physician/SOFTWARE SALES CONSULTANT (Physician/SOFTWARE SALES CONSULTANT ) ) Arrival Mode Ambulatory Ambulatory Patient Identification Verified (Name & Yes Yes ) Patient Requires Transmission-Based No Precautions Height and Weight Body Mass Index (BMI) 53.6 53.6 BMI Classification Obese Obese Vital Signs Temperature (97.8 F-99.1 F) 97.2 F L 96.3 F L Temperature Source Temporal Temporal Pulse Rate (60-100) 78 79 Pulse Location Monitor Monitor Respiratory Rate (12-18) 18 Respiratory rate source Observation Blood Pressure (90/60-120/80) 132/78 H Blood Pressure Mean (mm Hg) 96 Source Monitor Position Sitting Blood Pressure Location Left Arm History Since Last Visit- (Skip if this is Patient's initial visit) Have you changed medications since your No No last visit? Any new allergies or adverse reactions No No Had a fall/change in ADL's that may No No increase risk of falls Signs or symptoms of abuse and/or No No neglect since last visit Have you been in the hospital since your No last visit? Has dressing in place as prescribed Yes Yes Has compression in place as prescribed Yes N/A Has offloadiing in place as prescribed N/A N/A Experienced any changes in pain level or No management Left Footwear Regular Shoe Regular Shoe Right Footwear Regular Shoe Regular Shoe Pain Scale: 0-10 Numeric Is Patient Pain Free? Yes Yes WC - Nurse 1 - General Ulcer Measurement Start: 09/21/21 08:28 Freq: Status: Active Protocol: Activity Type Activity Date Activity User E-sign Co-sign Detail Recorded Client Recorded Date Recorded By Document 09/21/21 08:29 AK [id number] 09/21/21 08:35 AK Document 09/28/21 09:04 KR [id number] 09/28/21 09:13 KR 09/21/21 09/28/21 08:29 09:04 Wound Center Nurse 1 #3- L MED THIGH POST OP -Combined with other wound No -Current Size (cm) - Length 0.5 1 -Current Size (cm) - Width 8.0 7.9 -Current Size (cm) - Depth 0.1 0.1 -Total Square Cm 4.00 7.9 -Photo Taken Yes -Epithelialization Large 67-100% -Tunneling No -Undermining/Tunneling No -Circular Undermining No -Exudate Amt Small Small -Exudate Type Serosanguineous Serosanguineous -Wound Margin Indistinct, Non Distinct, -Visible Outline Attached -Granulation Amt Medium (34-66%) Medium (34-66%) -Granulation Quality [place] -Slough/Fibrin Yes -Necrosis Amt Medium (34-66%) Small (1-33%) -Necrotic Tissue Type Adherent Slough Adherent Slough -Structure Exposed N/A -Texture (Anna-wound Skin Appearance) Assessed, Assessed, Localized Edema Scarring ,Rash -Moisture (Anna-wound Skin Appearance) Assessed,Dry/ No Abnormality, Scaly Assessed -Color (Anna-wound Skin Appearance) Assessed No Abnormality, Assessed -Temperature (Anna-wound Skin No Abnormality No Abnormality Appearance) (Pt Warm) (Pt Warm) -Tenderness on Palpation (Anna-wound No No Skin Appearance) -Ulcer Cleansing Wound Cleanser Rinsed/ Irrigated with Saline -Foul Odor after Cleansing No No -Anesthetic Used 5% Lidocaine 5% Lidocaine Gel Gel Lower Limb Edema Present Yes Left Calf (cm) 56.0 Left Ankle (cm) 33.5 - Nurse 2 - General Ulcer CM Notes Start: 09/21/21 08:28 Freq: Status: Active Protocol: Activity Type Activity Date Activity User E-sign Co-sign Detail Recorded Client Recorded Date Recorded By Document 09/21/21 08:53 [id number] 09/21/21 08:55 Document 09/28/21 09:28 [id number] 09/28/21 09:30 JF 09/21/21 09/28/21 08:53 09:28 Wound Center Nurse 2 #3- L MED THIGH POST OP -Time 08:54 09:28 -Correct Patient Yes Yes -Correct Side, Site, Position Yes Yes -Correct Procedure Yes Yes -Procedure Performed Yes Yes -Type of Procedure Debridement Debridement -Clinical Debridement Subcutaneous Subcutaneous -Tissue Removed Subcutaneous Subcutaneous -Post Debridement (cm) - Length 1.0 0.7 -Post Debridement (cm) - Width 8.7 1.7 -Post Debridement (cm) - Depth 0.1 0.1 -Total Square (Post) (cm) 8.70 1.19 -Area of Debridement (cm) - Length 1.0 0.7 -Area of Debridement (cm) - Width 8.7 1.7 -Total Square (Area) (cm) 8.70 1.19 -Tunneling No No -Undermining/Tunneling No No -Circular Undermining No No -Wound/Ulcer Outcome Not Healed Not Healed -Ulcer Cleansing Rinsed/ Rinsed/ Irrigated with Irrigated with Saline Saline -Foul Odor after Cleansing No No -Bioengineered Tissue No No -Bleeding Controlled with Pressure Pressure -Treatment Response Procedure Procedure Tolerated Well Tolerated Well -Offloading No No -Debridement - Subq, 1st 20sq cm Yes Yes Pain Scale: 0-10 Numeric Is Patient Pain Free? Yes Yes - Nurse 3 - General Ulcer D/C NN Start: 09/21/21 08:28 Freq: Status: Active Protocol: Activity Type Activity Date Activity User E-sign Co-sign Detail Recorded Client Recorded Date Recorded By Document 09/21/21 09:00 [id number] 09/21/21 09:00 Document 09/21/21 09:17 AK [id number] 09/21/21 09:18 AK Document 09/28/21 09:41 DL [id number] 09/28/21 09:43 DL 09/21/21 09/21/21 09/28/21 09:00 09:17 09:41 Wound Care Nurse 3 #3- L MED THIGH POST OP -Ulcer Cleansing Rinsed/ Rinsed/ Rinsed/ Irrigated with Irrigated with Irrigated with Saline Saline Saline -Foul Odor after Cleansing No No -Negative Pressure Wound Therapy N/A -Primary Dressing Applied C Hydrogel ($), C Hydrogel ($), C Hydrogel ($), NonAdherent NonAdherent NonAdherent Contact Layer Contact Layer Contact Layer -Primary Dressing Covered/Secured with Dry Gauze, Dry Gauze & Dry Gauze, Secured with Roll Gauze, Secured with Tape Secured with Tape Tape Left -Lotion applied to leg before No compression wrap -Compression Wrap Lino Wrap Lino Wrap Treatment Response Procedure Tolerated Well Pain Scale: 0-10 Numeric Is Patient Pain Free? Yes Yes Yes WC - Visit Discharge Discharge Condition Stable Stable Stable Ambulatory Status Ambulatory Ambulatory Ambulatory Transportation Private Auto Private Auto Private Auto Medication Reconcilliation completed & Yes provided to patient/care provider Clinical Summary of Care Provided Yes Facility Type Home Health Orders Sent Yes Assessment/Plan Assessment/Plan (1) 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: CODE(S): L97.122 - Non-pressure chronic ulcer of left thigh with fat layer exposed (2) Bilateral lower extremity edema: CODE(S): R60.0 - Localized edema (3) Complicated wound infection: CODE(S): T14.8XXA - Other injury of unspecified body region, initial encounter; L08.9 - Local infection of the skin and subcutaneous tissue, unspecified (4) Acquired lymphedema of lower extremity: CODE(S): I89.0 - Lymphedema, not elsewhere classified PLAN: Plan Wound care - She has been approved for [employer] and has had 4 applications. Wound care will be collagen hydrogel covered with Adaptic and topped with gauze daily. She may wash the ulcer and periwound with soap and water daily. She can continue to use silicone tape because this seems to be helping with the excoriation of her periwound. With how dry and itchy her anna wound is, will have her start using hydrocortisone cream 1% OTC on it twice daily to see if this helps with the dry, itchy, redness. LINO wraps for compression. Operative cultures showed MRSA, Actinomyces naeslundii, and Anaerobic cocci. She has completed antibiotics Cultures from 06/20/21 showed MRSA - She is currently on Doxycycline and Augmentin which she has completed. She is to keep her legs elevated when she is sitting. Encouraged increase protein intake. She should also increase her Vitamin C intake to 1,000 mg daily. She has [facility]. She states that she feels week if she has to go to the grocery store and stand to wait in line for longer periods of time. Discussed ordering physical therapy for strength training. She states she would like to think about that and will leg me know next week what she thinks about it. Follow up one week.
[2021-10-05 08:53] VITALS: BP 156/98; PULSE 79; RESP 20; TEMP 36.4; BMI 53.6
--- NOTE | 2021-10-05 09:39 | PN.PCM_ITS ---
History of Present Illness Date of Service: 10/05/21 Chief Complaint: Status post incision and drainage of 2 abscesses on left thigh 04/11/2021 and dermolipectomy and I&D left medial thigh 05/13/21 History of Wound: The patient is a 75-year-old female who presents for treatment of 2 abscesses to her left thigh status post incision and drainage on 04/11/2021. She has a past medical history as listed above. 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 Since then she has been having issues with swelling and bilateral lymphedema. In March 2021, she developed abscesses to her left inner thigh. On 04/11/2021 she had an I&D after a CT scan of the left thigh showed pockets of fluid with abscess present. She was discharged from surgery with a prescription for Keflex, which she finished on 04/23/2021, and with a wound VAC applied to both wounds, set at 125 mmHg. The wound VAC has been being changed by home health nurses 3 times per week. The patient states she has an appointment to follow-up with her surgeon on 05/07/2021. She denies any signs and symptoms of infection and states she has been tolerating the wound VAC well. She denies any acute concerns at this time. Past medical, family, and social history reviewed and not pertinent to the current visit and all other systems reviewed and negative with exception of those listed above. She presented to the ED on 05/11/21 with increased pain and redness and swelling involving her left medial thigh that has worsened over the past few days. Patient states that she had an abscess in this area which was surgically debrided and drained at [facility] in [place] approximately 3 weeks ago. Patient denies any fever. She denies trauma. In the ED, her WBC was normal at 7.5. Her Hgb was 10.8. She was started on IV antibiotics with Vancomycin and Zosyn. Wound cultures were obtained in the ED. CT Left lower extremity was done. It showed the presence of another abscess deeper to the ones that were drained in [place]. 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 Size of defect left medial thigh - 23 x 14 x 6 cm. Operative cultures showed MRSA, Actinomyces naeslundii, and Anaerobic cocci. She completed Doxycycline and Flagyl. She was readmitted to the hospital on 06/20/21 for increased pain and swelling. CT on 06/19/21 - Abnormal fluid density in the subcutaneous fat and obscuring the left sartorius muscle measures roughly 9 mm in length and extends to the skin surface and 3.4 cm deep to the skin and measures 5 cm in AP dimension. There is surrounding skin thickening. The previously seen, smaller, nonconfluent, rim-enhancing focal fluid collections are no longer visible. There is a deep air-filled defect in the skin, extending to the superior margin of the lesion. There is significant regional subcutaneous edema medial thigh and also involving the posterior and lateral thigh. Deep muscular compartments of the thigh are uninvolved. There is extensive muscular atrophy. Peripheral atherosclerosis. Wound culture 06/20/21 showed MRSA. While hospitalized she was on Vanc and Unasyn. She was discharged home on Doxycycline and Augmentin x 15 days. She is also anemic and is to follow up with [facility] for further evaluation. Wound care - [employer] approved. She has had 4 applications. She has shown much improvement with the [employer]. Wound care is adaptic and topped with gauze daily after washing with soap and water. Continue to use the cortisone 1% OTC cream to the anna wound. Today she denies fever, chills, nausea and vomiting. She states that her appetite is good. Progress of Wound: Her ulcer is very superficial. She has thick scabbing that causes her ulcer to reopen after removing the scabbin. Her anna wound is much improved with the OTC hydrocortisone cream, she should continue to use that for another week. Objective Data Objective Data Vital Signs: Vital Signs Temp Pulse Resp BP 97.6 F L 79 20 H 156/98 H 10/05/21 08:53 10/05/21 08:53 10/05/21 08:53 10/05/21 08:53 Weight: 303 lb 0.01 oz Body Mass Index (BMI) 53.6 Charges/Coding Procedures Integumentary 111xxx-113xx: [id number] Swathi subq tissue 20 sq cm/< Physical Exam Const alert and oriented x3 General Appearance: cooperative HEENT normocephalic Resp normal respiratory effort Cardio regular rate Extremity normal capillary refill Extremity Narrative: Bilateral lower extremity edema with lymphedema present, it is stable. Skin Wound Narrative: The left medial thigh ulcer cluster is superficial. There is dry scabbing that is preventing the ulcer from healing. Anna wound is much improved using the OTC cortisone 1% cream. Neuro Sensorium / Orientation: awake and alert Psych Appearance: well kempt Debridement Note Debridement Note Wound debrided: Medial thigh ulcer Laterality: Left Type of Debridement: Excisional debridement Anesthesia Used: 5% Lidocaine Gel Depth: Down to and including healthy tissue and in the subcutaneous layer Percentage of wound debrided: 100 Instrument Used: 3mm curette Tissue Removed: Non viable tissue and slough Severity: Fat Layer Exposed Amount of bleeding with debridement: Mild Bleeding Controlled with: Pressure and Compression and gauze Patient tolerated procedure: Patient tolerated procedure well Post-Debridement Measurements and Additional Note: Post-Debridement Measurements/Treatment WC - Nurse 1 - General Ulcer Assessment Start: 09/21/21 08:28 Freq: Status: Active Protocol: JOEY Activity Type Activity Date Activity User E-sign Co-sign Detail Recorded Client Recorded Date Recorded By Document 09/21/21 08:29 AK [id number] 09/21/21 08:35 AK Document 09/28/21 09:04 KR [id number] 09/28/21 09:13 KR Document 10/05/21 08:53 DL [id number] 10/05/21 08:56 DL 09/21/21 09/28/21 10/05/21 08:29 09:04 08:53 - Today's Visit Information Type of service Follow-up Visit Follow-up Visit Follow-up Visit (Physician/ASSET RECOVERY SPECIALIST (Physician/ASSET RECOVERY SPECIALIST (Physician/ASSET RECOVERY SPECIALIST ) ) ) Arrival Mode Ambulatory Ambulatory Ambulatory,Cane Transfer Assistance None Patient Identification Verified (Name & Yes Yes Yes ) Patient Requires Transmission-Based No No Precautions Height and Weight Body Mass Index (BMI) 53.6 53.6 53.6 BMI Classification Obese Obese Obese Vital Signs Temperature (97.8 F-99.1 F) 97.2 F L 96.3 F L 97.6 F L Temperature Source Temporal Temporal Temporal Pulse Rate (60-100) 78 79 79 Pulse Location Monitor Monitor Monitor Respiratory Rate (12-18) 18 20 H Respiratory rate source Observation Observation Blood Pressure (90/60-120/80) 132/78 H 156/98 H Blood Pressure Mean (mm Hg) 96 117 Source Monitor Monitor Position Sitting Blood Pressure Location Left Arm History Since Last Visit- (Skip if this is Patient's initial visit) Have you changed medications since your No No No last visit? Any new allergies or adverse reactions No No No Had a fall/change in ADL's that may No No No increase risk of falls Signs or symptoms of abuse and/or No No No neglect since last visit Have you been in the hospital since your No No last visit? Has dressing in place as prescribed Yes Yes Yes Has compression in place as prescribed Yes N/A Yes Has offloadiing in place as prescribed N/A N/A N/A Experienced any changes in pain level or No No management Left Footwear Regular Shoe Regular Shoe Right Footwear Regular Shoe Regular Shoe Pain Scale: 0-10 Numeric Is Patient Pain Free? Yes Yes Yes WC - Nurse 1 - General Ulcer Measurement Start: 09/21/21 08:28 Freq: Status: Active Protocol: Activity Type Activity Date Activity User E-sign Co-sign Detail Recorded Client Recorded Date Recorded By Document 09/21/21 08:29 AK [id number] 09/21/21 08:35 AK Document 09/28/21 09:04 KR [id number] 09/28/21 09:13 KR Document 10/05/21 08:53 DL [id number] 10/05/21 08:56 DL 09/21/21 09/28/21 10/05/21 08:29 09:04 08:53 Wound Center Nurse 1 #3- L MED THIGH POST OP -Combined with other wound No -Current Size (cm) - Length 0.5 1 0.1 -Current Size (cm) - Width 8.0 7.9 0.1 -Current Size (cm) - Depth 0.1 0.1 0.1 -Total Square Cm 4.00 7.9 0.01 -Photo Taken Yes No -Epithelialization Large 67-100% -Tunneling No -Undermining/Tunneling No -Circular Undermining No -Exudate Amt Small Small None Present -Exudate Type Serosanguineous Serosanguineous -Wound Margin Indistinct, Non Distinct, Thickened -Visible Outline Attached -Granulation Amt Medium (34-66%) Medium (34-66%) Large (67-100%) -Granulation Quality Tama Tama Pale,Tama -Slough/Fibrin Yes -Necrosis Amt Medium (34-66%) Small (1-33%) Small (1-33%) -Necrotic Tissue Type Adherent Slough Adherent Slough Adherent Slough -Structure Exposed N/A N/A -Texture (Anna-wound Skin Appearance) Assessed, Assessed, Scarring Localized Edema Scarring ,Rash -Moisture (Anna-wound Skin Appearance) Assessed,Dry/ No Abnormality, No Abnormality Scaly Assessed -Color (Anna-wound Skin Appearance) Assessed No Abnormality, No Abnormality Assessed -Temperature (Anna-wound Skin No Abnormality No Abnormality No Abnormality Appearance) (Pt Warm) (Pt Warm) (Pt Warm) -Tenderness on Palpation (Anna-wound No No No Skin Appearance) -Ulcer Cleansing Wound Cleanser Rinsed/ Soap and Water Irrigated with Saline -Foul Odor after Cleansing No No No -Anesthetic Used 5% Lidocaine 5% Lidocaine 5% Lidocaine Gel Gel Gel Lower Limb Edema Present Yes Left Calf (cm) 56.0 Left Ankle (cm) 33.5 WC - Nurse 2 - General Ulcer CM Notes Start: 09/21/21 08:28 Freq: Status: Active Protocol: Activity Type Activity Date Activity User E-sign Co-sign Detail Recorded Client Recorded Date Recorded By Document 09/21/21 08:53 [id number] 09/21/21 08:55 Document 09/28/21 09:28 [id number] 09/28/21 09:30 Document 10/05/21 09:06 [id number] 10/05/21 09:11 09/21/21 09/28/21 10/05/21 08:53 09:28 09:06 Wound Center Nurse 2 #3- L MED THIGH POST OP -Time 08:54 09:28 09:07 -Correct Patient Yes Yes Yes -Correct Side, Site, Position Yes Yes Yes -Correct Procedure Yes Yes Yes -Procedure Performed Yes Yes Yes -Type of Procedure Debridement Debridement Debridement -Clinical Debridement Subcutaneous Subcutaneous Subcutaneous -Tissue Removed Subcutaneous Subcutaneous Subcutaneous -Post Debridement (cm) - Length 1.0 0.7 0.8 -Post Debridement (cm) - Width 8.7 1.7 2.7 -Post Debridement (cm) - Depth 0.1 0.1 0.1 -Total Square (Post) (cm) 8.70 1.19 2.16 -Area of Debridement (cm) - Length 1.0 0.7 0.8 -Area of Debridement (cm) - Width 8.7 1.7 2.7 -Total Square (Area) (cm) 8.70 1.19 2.16 -Tunneling No No No -Undermining/Tunneling No No No -Circular Undermining No No No -Wound/Ulcer Outcome Not Healed Not Healed Not Healed -Ulcer Cleansing Rinsed/ Rinsed/ Rinsed/ Irrigated with Irrigated with Irrigated with Saline Saline Saline -Foul Odor after Cleansing No No No -Bioengineered Tissue No No No -Bleeding Controlled with Pressure Pressure Pressure -Treatment Response Procedure Procedure Procedure Tolerated Well Tolerated Well Tolerated Well -Offloading No No No -Debridement - Subq, 1st 20sq cm Yes Yes Yes Pain Scale: 0-10 Numeric Is Patient Pain Free? Yes Yes Yes WC - Nurse 3 - General Ulcer D/C NN Start: 09/21/21 08:28 Freq: Status: Active Protocol: Activity Type Activity Date Activity User E-sign Co-sign Detail Recorded Client Recorded Date Recorded By Document 09/21/21 09:00 KR [id number] 09/21/21 09:00 KR Document 09/21/21 09:17 AK [id number] 09/21/21 09:18 AK Document 09/28/21 09:41 DL [id number] 09/28/21 09:43 DL Document 10/05/21 09:26 DL [id number] 10/05/21 09:26 DL 09/21/21 09/21/21 09/28/21 09:00 09:17 09:41 Wound Care Nurse 3 #3- L MED THIGH POST OP -Ulcer Cleansing Rinsed/ Rinsed/ Rinsed/ Irrigated with Irrigated with Irrigated with Saline Saline Saline -Foul Odor after Cleansing No No -Negative Pressure Wound Therapy N/A -Primary Dressing Applied C Hydrogel ($), C Hydrogel ($), C Hydrogel ($), NonAdherent NonAdherent NonAdherent Contact Layer Contact Layer Contact Layer -Primary Dressing Covered/Secured with Dry Gauze, Dry Gauze & Dry Gauze, Secured with Roll Gauze, Secured with Tape Secured with Tape Tape -Other Covering Left -Lotion applied to leg before No compression wrap -Compression Wrap Lino Wrap Lino Wrap Treatment Response Procedure Tolerated Well Pain Scale: 0-10 Numeric Is Patient Pain Free? Yes Yes Yes WC - Visit Discharge Discharge Condition Stable Stable Stable Ambulatory Status Ambulatory Ambulatory Ambulatory Transportation Private Auto Private Auto Private Auto Medication Reconcilliation completed & Yes provided to patient/care provider Clinical Summary of Care Provided Yes Facility Type Home Health Orders Sent Yes 10/05/21 09:26 Wound Care Nurse 3 #3- L MED THIGH POST OP -Ulcer Cleansing Rinsed/ Irrigated with Saline -Foul Odor after Cleansing No -Negative Pressure Wound Therapy -Primary Dressing Applied NonAdherent Contact Layer -Primary Dressing Covered/Secured with Dry Gauze, Secured with Tape -Other Covering LINO Left -Lotion applied to leg before compression wrap -Compression Wrap Treatment Response Procedure Tolerated Well Pain Scale: 0-10 Numeric Is Patient Pain Free? Yes WC - Visit Discharge Discharge Condition Stable Ambulatory Status Ambulatory, Unsteady Transportation Medication Reconcilliation completed & provided to patient/care provider Clinical Summary of Care Provided Facility Type Orders Sent Assessment/Plan Assessment/Plan (1) 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: CODE(S): L97.122 - Non-pressure chronic ulcer of left thigh with fat layer exposed (2) Bilateral lower extremity edema: CODE(S): R60.0 - Localized edema (3) Complicated wound infection: CODE(S): T14.8XXA - Other injury of unspecified body region, initial encounter; L08.9 - Local infection of the skin and subcutaneous tissue, unspecified (4) Acquired lymphedema of lower extremity: CODE(S): I89.0 - Lymphedema, not elsewhere classified PLAN: Plan Wound care - She has been approved for [employer] and has had 4 applications. Wound care will be Adaptic covered with gauze daily. She may wash the ulcer and periwound with soap and water daily. Continue the hydrocortisone cream 1% OTC on it twice daily to her anna wound, it has greatly improved it. LINO wraps for compression. Operative cultures showed MRSA, Actinomyces naeslundii, and Anaerobic cocci. She has completed antibiotics Cultures from 06/20/21 showed MRSA - She is currently on Doxycycline and Augmentin which she has completed. She is to keep her legs elevated when she is sitting. Encouraged increase protein intake. She should also increase her Vitamin C intake to 1,000 mg daily. She has [facility] health. She states that she feels week if she has to go to the grocery store and stand to wait in line for longer periods of time. Discussed ordering physical therapy for strength training. She states she would like to think about that and will leg me know next week what she thinks about it. Follow up one week.
[2021-10-12 09:20] VITALS: BP 185/77; PULSE 61; RESP 22; TEMP 36; BMI 53.6
--- NOTE | 2021-10-12 11:50 | PCM.WC.PN ---
History of Present Illness Date of Service: 10/12/21 Chief Complaint: Status post incision and drainage of 2 abscesses on left thigh 04/11/2021 and dermolipectomy and I&D left medial thigh 05/13/21 History of Wound: The patient is a 75-year-old female who presents for treatment of 2 abscesses to her left thigh status post incision and drainage on 04/11/2021. She has a past medical history as listed above. 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 Since then she has been having issues with swelling and bilateral lymphedema. In March 2021, she developed abscesses to her left inner thigh. On 04/11/2021 she had an I&D after a CT scan of the left thigh showed pockets of fluid with abscess present. She was discharged from surgery with a prescription for Keflex, which she finished on 04/23/2021, and with a wound VAC applied to both wounds, set at 125 mmHg. The wound VAC has been being changed by home health nurses 3 times per week. The patient states she has an appointment to follow-up with her surgeon on 05/07/2021. She denies any signs and symptoms of infection and states she has been tolerating the wound VAC well. She denies any acute concerns at this time. Past medical, family, and social history reviewed and not pertinent to the current visit and all other systems reviewed and negative with exception of those listed above. She presented to the ED on 05/11/21 with increased pain and redness and swelling involving her left medial thigh that has worsened over the past few days. Patient states that she had an abscess in this area which was surgically debrided and drained at [facility] in [place] approximately 3 weeks ago. Patient denies any fever. She denies trauma. In the ED, her WBC was normal at 7.5. Her Hgb was 10.8. She was started on IV antibiotics with Vancomycin and Zosyn. Wound cultures were obtained in the ED. CT Left lower extremity was done. It showed the presence of another abscess deeper to the ones that were drained in [place]. 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 Size of defect left medial thigh - 23 x 14 x 6 cm. Operative cultures showed MRSA, Actinomyces naeslundii, and Anaerobic cocci. She completed Doxycycline and Flagyl. She was readmitted to the hospital on 06/20/21 for increased pain and swelling. CT on 06/19/21 - Abnormal fluid density in the subcutaneous fat and obscuring the left sartorius muscle measures roughly 9 mm in length and extends to the skin surface and 3.4 cm deep to the skin and measures 5 cm in AP dimension. There is surrounding skin thickening. The previously seen, smaller, nonconfluent, rim-enhancing focal fluid collections are no longer visible. There is a deep air-filled defect in the skin, extending to the superior margin of the lesion. There is significant regional subcutaneous edema medial thigh and also involving the posterior and lateral thigh. Deep muscular compartments of the thigh are uninvolved. There is extensive muscular atrophy. Peripheral atherosclerosis. Wound culture 06/20/21 showed MRSA. While hospitalized she was on Vanc and Unasyn. She was discharged home on Doxycycline and Augmentin x 15 days. She is also anemic and is to follow up with [facility] for further evaluation. Wound care - Theraskin approved. She has had 4 applications. She has shown much improvement with the Theraskin. Wound care is collagen hydrogel covered with adaptic and topped with gauze daily after washing with soap and water. Continue to use the cortisone 1% OTC cream to the anna wound. Today she denies fever, chills, nausea and vomiting. She states that her appetite is good. Progress of Wound: Her ulcer is very superficial. She has thick scabbing that causes her ulcer to reopen after removing the scabbin. Her anna wound is much improved with the OTC hydrocortisone cream, she should continue to use that for another week. Objective Data Objective Data Vital Signs: Vital Signs Temp Pulse Resp BP 96.8 F L 61 22 H 185/77 H 10/12/21 09:20 10/12/21 09:20 10/12/21 09:20 10/12/21 09:20 Weight: 303 lb 0.01 oz Body Mass Index (BMI) 53.6 Charges/Coding Procedures Integumentary 111xxx-113xx: 33801 Swathi subq tissue 20 sq cm/< Physical Exam Const alert and oriented x3 General Appearance: cooperative HEENT normocephalic Resp normal respiratory effort Cardio regular rate Extremity normal capillary refill Extremity Narrative: Bilateral lower extremity edema with lymphedema present, it is stable. Skin Wound Narrative: The left medial thigh ulcer cluster is superficial. There is dry scabbing that is preventing the ulcer from healing. Anna wound is much improved using the OTC cortisone 1% cream. Neuro Sensorium / Orientation: awake and alert Psych Appearance: well kempt Debridement Note Debridement Note Wound debrided: Medial thigh ulcer Laterality: Left Type of Debridement: Excisional debridement Anesthesia Used: 5% Lidocaine Gel Depth: Down to and including healthy tissue and in the subcutaneous layer Percentage of wound debrided: 100 Instrument Used: 3mm curette Tissue Removed: Non viable tissue and slough Severity: Fat Layer Exposed Amount of bleeding with debridement: Mild Bleeding Controlled with: Pressure and Compression and gauze Patient tolerated procedure: Patient tolerated procedure well Post-Debridement Measurements and Additional Note: Post-Debridement Measurements/Treatment THEO - Nurse 1 - General Ulcer Assessment Start: 09/21/21 08:28 Freq: Status: Active Protocol: JOEY Activity Type Activity Date Activity User E-sign Co-sign Detail Recorded Client Recorded Date Recorded By Document 09/21/21 08:29 AK [id number] 09/21/21 08:35 AK Document 09/28/21 09:04 KR [id number] 09/28/21 09:13 KR Document 10/05/21 08:53 DL [id number] 10/05/21 08:56 DL Document 10/12/21 09:20 DL [id number] 10/12/21 09:27 DL Edit Result 10/12/21 09:20 DL (1) [id number] 10/12/21 09:30 DL (1) Pulse Rate (60-100) => 61 Pulse Location => Monitor Blood Pressure (90/60-120/80) => 185/77 H Blood Pressure Mean (mm Hg) => 113 09/21/21 09/28/21 10/05/21 08:29 09:04 08:53 - Today's Visit Information Type of service Follow-up Visit Follow-up Visit Follow-up Visit (Physician/INTERNATIONAL GUEST COORDINATOR (Physician/INTERNATIONAL GUEST COORDINATOR (Physician/INTERNATIONAL GUEST COORDINATOR ) ) ) Arrival Mode Ambulatory Ambulatory Ambulatory,Cane Transfer Assistance None Patient Identification Verified (Name & Yes Yes Yes ) Patient Requires Transmission-Based No No Precautions Height and Weight Body Mass Index (BMI) 53.6 53.6 53.6 BMI Classification Obese Obese Obese Vital Signs Temperature (97.8 F-99.1 F) 97.2 F L 96.3 F L 97.6 F L Temperature Source Temporal Temporal Temporal Pulse Rate (60-100) 78 79 79 Pulse Location Monitor Monitor Monitor Respiratory Rate (12-18) 18 20 H Respiratory rate source Observation Observation Blood Pressure (90/60-120/80) 132/78 H 156/98 H Blood Pressure Mean (mm Hg) 96 117 Source Monitor Monitor Position Sitting Blood Pressure Location Left Arm History Since Last Visit- (Skip if this is Patient's initial visit) Have you changed medications since your No No No last visit? Any new allergies or adverse reactions No No No Had a fall/change in ADL's that may No No No increase risk of falls Signs or symptoms of abuse and/or No No No neglect since last visit Have you been in the hospital since your No No last visit? Has dressing in place as prescribed Yes Yes Yes Has compression in place as prescribed Yes N/A Yes Has offloadiing in place as prescribed N/A N/A N/A Experienced any changes in pain level or No No management Left Footwear Regular Shoe Regular Shoe Right Footwear Regular Shoe Regular Shoe Pain Scale: 0-10 Numeric Is Patient Pain Free? Yes Yes Yes 10/12/21 09:20 WC - Today's Visit Information Type of service Follow-up Visit (Physician/INTERNATIONAL GUEST COORDINATOR ) Arrival Mode Ambulatory Transfer Assistance None Patient Identification Verified (Name & Yes ) Patient Requires Transmission-Based Precautions Height and Weight Body Mass Index (BMI) 53.6 BMI Classification Obese Vital Signs Temperature (97.8 F-99.1 F) 96.8 F L Temperature Source Temporal Pulse Rate (60-100) 61 Pulse Location Monitor Respiratory Rate (12-18) 22 H Respiratory rate source Observation Blood Pressure (90/60-120/80) 185/77 H Blood Pressure Mean (mm Hg) 113 Source Position Blood Pressure Location History Since Last Visit- (Skip if this is Patient's initial visit) Have you changed medications since your No last visit? Any new allergies or adverse reactions No Had a fall/change in ADL's that may No increase risk of falls Signs or symptoms of abuse and/or No neglect since last visit Have you been in the hospital since your No last visit? Has dressing in place as prescribed Yes Has compression in place as prescribed Yes Has offloadiing in place as prescribed N/A Experienced any changes in pain level or No management Left Footwear Right Footwear Pain Scale: 0-10 Numeric Is Patient Pain Free? Yes WC - Nurse 1 - General Ulcer Measurement Start: 09/21/21 08:28 Freq: Status: Active Protocol: Activity Type Activity Date Activity User E-sign Co-sign Detail Recorded Client Recorded Date Recorded By Document 09/21/21 08:29 AK [id number] 09/21/21 08:35 AK Document 09/28/21 09:04 KR [id number] 09/28/21 09:13 KR Document 10/05/21 08:53 DL [id number] 10/05/21 08:56 DL Document 10/12/21 09:20 DL [id number] 10/12/21 09:27 DL 09/21/21 09/28/21 10/05/21 08:29 09:04 08:53 Wound Center Nurse 1 #3- L MED THIGH POST OP -Combined with other wound No -Current Size (cm) - Length 0.5 1 0.1 -Current Size (cm) - Width 8.0 7.9 0.1 -Current Size (cm) - Depth 0.1 0.1 0.1 -Total Square Cm 4.00 7.9 0.01 -Photo Taken Yes No -Epithelialization Large 67-100% -Tunneling No -Undermining/Tunneling No -Circular Undermining No -Exudate Amt Small Small None Present -Exudate Type Serosanguineous Serosanguineous -Wound Margin Indistinct, Non Distinct, Thickened -Visible Outline Attached -Granulation Amt Medium (34-66%) Medium (34-66%) Large (67-100%) -Granulation Quality Mims Mims Pale,Mims -Slough/Fibrin Yes -Necrosis Amt Medium (34-66%) Small (1-33%) Small (1-33%) -Necrotic Tissue Type Adherent Slough Adherent Slough Adherent Slough -Structure Exposed N/A N/A -Texture (Anna-wound Skin Appearance) Assessed, Assessed, Scarring Localized Edema Scarring ,Rash -Moisture (Anna-wound Skin Appearance) Assessed,Dry/ No Abnormality, No Abnormality Scaly Assessed -Color (Anna-wound Skin Appearance) Assessed No Abnormality, No Abnormality Assessed -Temperature (Anna-wound Skin No Abnormality No Abnormality No Abnormality Appearance) (Pt Warm) (Pt Warm) (Pt Warm) -Tenderness on Palpation (Anna-wound No No No Skin Appearance) -Ulcer Cleansing Wound Cleanser Rinsed/ Soap and Water Irrigated with Saline -Foul Odor after Cleansing No No No -Anesthetic Used 5% Lidocaine 5% Lidocaine 5% Lidocaine Gel Gel Gel Lower Limb Edema Present Yes Left Calf (cm) 56.0 Left Ankle (cm) 33.5 10/12/21 09:20 Wound Center Nurse 1 #3- L MED THIGH POST OP -Combined with other wound -Current Size (cm) - Length 0.3 -Current Size (cm) - Width 2 -Current Size (cm) - Depth 0.1 -Total Square Cm 0.6 -Photo Taken No -Epithelialization -Tunneling -Undermining/Tunneling -Circular Undermining -Exudate Amt Small -Exudate Type Serosanguineous -Wound Margin Distinct, Outline Attached -Granulation Amt Small (1-33%) -Granulation Quality Mims -Slough/Fibrin -Necrosis Amt Small (1-33%) -Necrotic Tissue Type Adherent Slough -Structure Exposed N/A -Texture (Anna-wound Skin Appearance) Scarring -Moisture (Anna-wound Skin Appearance) Dry/Scaly -Color (Anna-wound Skin Appearance) No Abnormality -Temperature (Anna-wound Skin No Abnormality Appearance) (Pt Warm) -Tenderness on Palpation (Anna-wound No Skin Appearance) -Ulcer Cleansing Rinsed/ Irrigated with Saline -Foul Odor after Cleansing No -Anesthetic Used 5% Lidocaine Gel Lower Limb Edema Present Left Calf (cm) Left Ankle (cm) WC - Nurse 2 - General Ulcer CM Notes Start: 09/21/21 08:28 Freq: Status: Active Protocol: Activity Type Activity Date Activity User E-sign Co-sign Detail Recorded Client Recorded Date Recorded By Document 09/21/21 08:53 JAVI [id number] 09/21/21 08:55 JF Document 09/28/21 09:28 JAVI [id number] 09/28/21 09:30 JF Document 10/05/21 09:06 JF [id number] 10/05/21 09:11 JF Document 10/12/21 09:54 DL [id number] 10/12/21 10:11 DL 09/21/21 09/28/21 10/05/21 08:53 09:28 09:06 Wound Center Nurse 2 #3- L MED THIGH POST OP -Time 08:54 09:28 09:07 -Correct Patient Yes Yes Yes -Correct Side, Site, Position Yes Yes Yes -Correct Procedure Yes Yes Yes -Procedure Performed Yes Yes Yes -Type of Procedure Debridement Debridement Debridement -Clinical Debridement Subcutaneous Subcutaneous Subcutaneous -Tissue Removed Subcutaneous Subcutaneous Subcutaneous -Post Debridement (cm) - Length 1.0 0.7 0.8 -Post Debridement (cm) - Width 8.7 1.7 2.7 -Post Debridement (cm) - Depth 0.1 0.1 0.1 -Total Square (Post) (cm) 8.70 1.19 2.16 -Area of Debridement (cm) - Length 1.0 0.7 0.8 -Area of Debridement (cm) - Width 8.7 1.7 2.7 -Total Square (Area) (cm) 8.70 1.19 2.16 -Tunneling No No No -Undermining/Tunneling No No No -Circular Undermining No No No -Wound/Ulcer Outcome Not Healed Not Healed Not Healed -Ulcer Cleansing Rinsed/ Rinsed/ Rinsed/ Irrigated with Irrigated with Irrigated with Saline Saline Saline -Foul Odor after Cleansing No No No -Bioengineered Tissue No No No -Bleeding Controlled with Pressure Pressure Pressure -Treatment Response Procedure Procedure Procedure Tolerated Well Tolerated Well Tolerated Well -Offloading No No No -Debridement - Subq, 1st 20sq cm Yes Yes Yes Pain Scale: 0-10 Numeric Is Patient Pain Free? Yes Yes Yes 10/12/21 09:54 Wound Center Nurse 2 #3- L MED THIGH POST OP -Time -Correct Patient Yes -Correct Side, Site, Position Yes -Correct Procedure Yes -Procedure Performed Yes -Type of Procedure Debridement -Clinical Debridement Subcutaneous -Tissue Removed -Post Debridement (cm) - Length 0.5 -Post Debridement (cm) - Width 7.2 -Post Debridement (cm) - Depth 0.1 -Total Square (Post) (cm) 3.60 -Area of Debridement (cm) - Length 0.5 -Area of Debridement (cm) - Width 7.2 -Total Square (Area) (cm) 3.60 -Tunneling No -Undermining/Tunneling No -Circular Undermining No -Wound/Ulcer Outcome Not Healed -Ulcer Cleansing Rinsed/ Irrigated with Saline -Foul Odor after Cleansing No -Bioengineered Tissue No -Bleeding Controlled with NA -Treatment Response Procedure Tolerated Well -Offloading No -Debridement - Subq, 1st 20sq cm Yes Pain Scale: 0-10 Numeric Is Patient Pain Free? Yes - Nurse 3 - General Ulcer D/C NN Start: 09/21/21 08:28 Freq: Status: Active Protocol: Activity Type Activity Date Activity User E-sign Co-sign Detail Recorded Client Recorded Date Recorded By Document 09/21/21 09:00 KR [id number] 09/21/21 09:00 KR Document 09/21/21 09:17 AK [id number] 09/21/21 09:18 AK Document 09/28/21 09:41 DL [id number] 09/28/21 09:43 DL Document 10/05/21 09:26 DL [id number] 10/05/21 09:26 DL 09/21/21 09/21/21 09/28/21 09:00 09:17 09:41 Wound Care Nurse 3 #3- L MED THIGH POST OP -Ulcer Cleansing Rinsed/ Rinsed/ Rinsed/ Irrigated with Irrigated with Irrigated with Saline Saline Saline -Foul Odor after Cleansing No No -Negative Pressure Wound Therapy N/A -Primary Dressing Applied C Hydrogel ($), C Hydrogel ($), C Hydrogel ($), NonAdherent NonAdherent NonAdherent Contact Layer Contact Layer Contact Layer -Primary Dressing Covered/Secured with Dry Gauze, Dry Gauze & Dry Gauze, Secured with Roll Gauze, Secured with Tape Secured with Tape Tape -Other Covering Left -Lotion applied to leg before No compression wrap -Compression Wrap Lino Wrap Lino Wrap Treatment Response Procedure Tolerated Well Pain Scale: 0-10 Numeric Is Patient Pain Free? Yes Yes Yes WC - Visit Discharge Discharge Condition Stable Stable Stable Ambulatory Status Ambulatory Ambulatory Ambulatory Transportation Private Auto Private Auto Private Auto Medication Reconcilliation completed & Yes provided to patient/care provider Clinical Summary of Care Provided Yes Facility Type Home Health Orders Sent Yes 10/05/21 09:26 Wound Care Nurse 3 #3- L MED THIGH POST OP -Ulcer Cleansing Rinsed/ Irrigated with Saline -Foul Odor after Cleansing No -Negative Pressure Wound Therapy -Primary Dressing Applied NonAdherent Contact Layer -Primary Dressing Covered/Secured with Dry Gauze, Secured with Tape -Other Covering LINO Left -Lotion applied to leg before compression wrap -Compression Wrap Treatment Response Procedure Tolerated Well Pain Scale: 0-10 Numeric Is Patient Pain Free? Yes WC - Visit Discharge Discharge Condition Stable Ambulatory Status Ambulatory, Unsteady Transportation Medication Reconcilliation completed & provided to patient/care provider Clinical Summary of Care Provided Facility Type Orders Sent Assessment/Plan Assessment/Plan (1) 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: CODE(S): L97.122 - Non-pressure chronic ulcer of left thigh with fat layer exposed (2) Bilateral lower extremity edema: CODE(S): R60.0 - Localized edema (3) Complicated wound infection: CODE(S): T14.8XXA - Other injury of unspecified body region, initial encounter; L08.9 - Local infection of the skin and subcutaneous tissue, unspecified (4) Acquired lymphedema of lower extremity: CODE(S): I89.0 - Lymphedema, not elsewhere classified PLAN: Plan Wound care - She has been approved for Ther1-4 Allin and has had 4 applications. Wound care will be collagen hydrogel topped with Adaptic covered with gauze daily. She may wash the ulcer and periwound with soap and water daily. Continue the hydrocortisone cream 1% OTC on it twice daily to her anna wound, it has greatly improved it. LINO wraps for compression. Operative cultures showed MRSA, Actinomyces naeslundii, and Anaerobic cocci. She has completed antibiotics Cultures from 06/20/21 showed MRSA - She is currently on Doxycycline and Augmentin which she has completed. Place lotion on the healed portion of the scarring. She is to keep her legs elevated when she is sitting. Encouraged increase protein intake. She should also increase her Vitamin C intake to 1,000 mg daily. She has [facility]. Follow up one week.
[2021-10-19 09:41] VITALS: BP 172/117; PULSE 65; TEMP 35.5; BMI 53.6
--- NOTE | 2021-10-19 10:05 | PCM.WC.PN ---
History of Present Illness Date of Service: 10/19/21 Chief Complaint: Status post incision and drainage of 2 abscesses on left thigh 04/11/2021 and dermolipectomy and I&D left medial thigh 05/13/21 History of Wound: The patient is a 75-year-old female who presents for treatment of 2 abscesses to her left thigh status post incision and drainage on 04/11/2021. She has a past medical history as listed above. 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 Since then she has been having issues with swelling and bilateral lymphedema. In March 2021, she developed abscesses to her left inner thigh. On 04/11/2021 she had an I&D after a CT scan of the left thigh showed pockets of fluid with abscess present. She was discharged from surgery with a prescription for Keflex, which she finished on 04/23/2021, and with a wound VAC applied to both wounds, set at 125 mmHg. The wound VAC has been being changed by home health nurses 3 times per week. The patient states she has an appointment to follow-up with her surgeon on 05/07/2021. She denies any signs and symptoms of infection and states she has been tolerating the wound VAC well. She denies any acute concerns at this time. Past medical, family, and social history reviewed and not pertinent to the current visit and all other systems reviewed and negative with exception of those listed above. She presented to the ED on 05/11/21 with increased pain and redness and swelling involving her left medial thigh that has worsened over the past few days. Patient states that she had an abscess in this area which was surgically debrided and drained at [facility] in [place] approximately 3 weeks ago. Patient denies any fever. She denies trauma. In the ED, her WBC was normal at 7.5. Her Hgb was 10.8. She was started on IV antibiotics with Vancomycin and Zosyn. Wound cultures were obtained in the ED. CT Left lower extremity was done. It showed the presence of another abscess deeper to the ones that were drained in [place]. 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 Size of defect left medial thigh - 23 x 14 x 6 cm. Operative cultures showed MRSA, Actinomyces naeslundii, and Anaerobic cocci. She completed Doxycycline and Flagyl. She was readmitted to the hospital on 06/20/21 for increased pain and swelling. CT on 06/19/21 - Abnormal fluid density in the subcutaneous fat and obscuring the left sartorius muscle measures roughly 9 mm in length and extends to the skin surface and 3.4 cm deep to the skin and measures 5 cm in AP dimension. There is surrounding skin thickening. The previously seen, smaller, nonconfluent, rim-enhancing focal fluid collections are no longer visible. There is a deep air-filled defect in the skin, extending to the superior margin of the lesion. There is significant regional subcutaneous edema medial thigh and also involving the posterior and lateral thigh. Deep muscular compartments of the thigh are uninvolved. There is extensive muscular atrophy. Peripheral atherosclerosis. Wound culture 06/20/21 showed MRSA. While hospitalized she was on Vanc and Unasyn. She was discharged home on Doxycycline and Augmentin x 15 days. She is also anemic and is to follow up with FR[facility]IS[facility] Ye for further evaluation. Wound care - [employer] approved. She has had 4 applications. She has shown much improvement with the [employer]. Wound care is collagen hydrogel covered [place] SAP dressing every other day after washing with soap and water. Moisturize the healed scar tissue with lotion to help soften scarring. Today she denies fever, chills, nausea and vomiting. She states that her appetite is good. Progress of Wound: Her ulcer is very superficial. When removing the thick scabbing, it pulls away the fragile epithelial skin. Her anna wound is much improved with the OTC hydrocortisone cream, she will stop that and use emollient moisturizing cream. Objective Data Objective Data Vital Signs: Vital Signs Temp Pulse Resp BP 95.9 F L 65 22 H 172/117 H 10/19/21 09:41 10/19/21 09:41 10/12/21 09:20 10/19/21 09:41 Weight: 303 lb 0.01 oz Body Mass Index (BMI) 53.6 Charges/Coding Procedures Integumentary 111xxx-113xx: [id number] Swathi subq tissue 20 sq cm/< Physical Exam Const alert and oriented x3 General Appearance: cooperative HEENT normocephalic Resp normal respiratory effort Cardio regular rate Extremity normal capillary refill Extremity Narrative: Bilateral lower extremity edema with lymphedema present, it is stable. Skin Wound Narrative: The left medial thigh ulcer cluster is superficial but improving. The anna wound is much improved. Neuro Sensorium / Orientation: awake and alert Psych Appearance: well kempt Debridement Note Debridement Note Wound debrided: Medial thigh ulcer cluster Laterality: Left Type of Debridement: Excisional debridement Anesthesia Used: 5% Lidocaine Gel Depth: Down to and including healthy tissue and in the subcutaneous layer Percentage of wound debrided: 100 Instrument Used: 3mm curette Tissue Removed: Non viable tissue and slough Severity: Fat Layer Exposed Amount of bleeding with debridement: Mild Bleeding Controlled with: Pressure and Compression and gauze Patient tolerated procedure: Patient tolerated procedure well Post-Debridement Measurements and Additional Note: Post-Debridement Measurements/Treatment - Nurse 1 - General Ulcer Assessment Start: 09/21/21 08:28 Freq: Status: Active Protocol: JOEY Activity Type Activity Date Activity User E-sign Co-sign Detail Recorded Client Recorded Date Recorded By Document 09/21/21 08:29 AK [id number] 09/21/21 08:35 AK Document 09/28/21 09:04 KR [id number] 09/28/21 09:13 KR Document 10/05/21 08:53 DL [id number] 10/05/21 08:56 DL Document 10/12/21 09:20 DL [id number] 10/12/21 09:27 DL Edit Result 10/12/21 09:20 DL (1) [id number] 10/12/21 09:30 DL Document 10/19/21 09:41 AK [id number] 10/19/21 09:44 AK (1) Pulse Rate (60-100) => 61 Pulse Location => Monitor Blood Pressure (90/60-120/80) => 185/77 H Blood Pressure Mean (mm Hg) => 113 09/21/21 09/28/21 10/05/21 08:29 09:04 08:53 - Today's Visit Information Type of service Follow-up Visit Follow-up Visit Follow-up Visit (Physician/[employer] (Physician/[employer] (Physician/[employer] ) ) ) Arrival Mode Ambulatory Ambulatory Ambulatory,Cane Transfer Assistance None Patient Identification Verified (Name & Yes Yes Yes ) Patient Requires Transmission-Based No No Precautions Safety Precautions Height and Weight Body Mass Index (BMI) 53.6 53.6 53.6 BMI Classification Obese Obese Obese Vital Signs Temperature (97.8 F-99.1 F) 97.2 F L 96.3 F L 97.6 F L Temperature Source Temporal Temporal Temporal Pulse Rate (60-100) 78 79 79 Pulse Location Monitor Monitor Monitor Respiratory Rate (12-18) 18 20 H Respiratory rate source Observation Observation Blood Pressure (90/60-120/80) 132/78 H 156/98 H Blood Pressure Mean (mm Hg) 96 117 Source Monitor Monitor Position Sitting Blood Pressure Location Left Arm History Since Last Visit- (Skip if this is Patient's initial visit) Have you changed medications since your No No No last visit? Any new allergies or adverse reactions No No No Had a fall/change in ADL's that may No No No increase risk of falls Signs or symptoms of abuse and/or No No No neglect since last visit Have you been in the hospital since your No No last visit? Has dressing in place as prescribed Yes Yes Yes Has compression in place as prescribed Yes N/A Yes Has offloadiing in place as prescribed N/A N/A N/A Experienced any changes in pain level or No No management Left Footwear Regular Shoe Regular Shoe Right Footwear Regular Shoe Regular Shoe Pain Scale: 0-10 Numeric Is Patient Pain Free? Yes Yes Yes 10/12/21 10/19/21 09:20 09:41 WC - Today's Visit Information Type of service Follow-up Visit Follow-up Visit (Physician/[employer] (Physician/TE[employer] ) ) Arrival Mode Ambulatory Ambulatory,Cane Transfer Assistance None Patient Identification Verified (Name & Yes Yes ) Patient Requires Transmission-Based No Precautions Safety Precautions NA Height and Weight Body Mass Index (BMI) 53.6 53.6 BMI Classification Obese Obese Vital Signs Temperature (97.8 F-99.1 F) 96.8 F L 95.9 F L Temperature Source Temporal Temporal Pulse Rate (60-100) 61 65 Pulse Location Monitor Respiratory Rate (12-18) 22 H Respiratory rate source Observation Blood Pressure (90/60-120/80) 185/77 H 172/117 H Blood Pressure Mean (mm Hg) 113 135 Source Monitor Position Blood Pressure Location History Since Last Visit- (Skip if this is Patient's initial visit) Have you changed medications since your No No last visit? Any new allergies or adverse reactions No No Had a fall/change in ADL's that may No No increase risk of falls Signs or symptoms of abuse and/or No No neglect since last visit Have you been in the hospital since your No No last visit? Has dressing in place as prescribed Yes Yes Has compression in place as prescribed Yes Yes Has offloadiing in place as prescribed N/A N/A Experienced any changes in pain level or No No management Left Footwear Regular Shoe Right Footwear Regular Shoe Pain Scale: 0-10 Numeric Is Patient Pain Free? Yes No WC - Nurse 1 - General Ulcer Measurement Start: 09/21/21 08:28 Freq: Status: Active Protocol: Activity Type Activity Date Activity User E-sign Co-sign Detail Recorded Client Recorded Date Recorded By Document 09/21/21 08:29 AK [id number] 09/21/21 08:35 AK Document 09/28/21 09:04 KR [id number] 09/28/21 09:13 KR Document 10/05/21 08:53 DL [id number] 10/05/21 08:56 DL Document 10/12/21 09:20 DL [id number] 10/12/21 09:27 DL Document 10/19/21 09:41 AK [id number] 10/19/21 09:44 AK 09/21/21 09/28/21 10/05/21 08:29 09:04 08:53 Wound Center Nurse 1 #3- L MED THIGH POST OP -Combined with other wound No -Current Size (cm) - Length 0.5 1 0.1 -Current Size (cm) - Width 8.0 7.9 0.1 -Current Size (cm) - Depth 0.1 0.1 0.1 -Total Square Cm 4.00 7.9 0.01 -Photo Taken Yes No -Epithelialization Large 67-100% -Tunneling No -Undermining/Tunneling No -Circular Undermining No -Change in Wound Grade/Stage -Exudate Amt Small Small None Present -Exudate Type Serosanguineous Serosanguineous -Wound Margin Indistinct, Non Distinct, Thickened -Visible Outline Attached -Granulation Amt Medium (34-66%) Medium (34-66%) Large (67-100%) -Granulation Quality [place] Pale,[place] -Slough/Fibrin Yes -Necrosis Amt Medium (34-66%) Small (1-33%) Small (1-33%) -Necrotic Tissue Type Adherent Slough Adherent Slough Adherent Slough -Structure Exposed N/A N/A -Texture (Anna-wound Skin Appearance) Assessed, Assessed, Scarring Localized Edema Scarring ,Rash -Moisture (Anna-wound Skin Appearance) Assessed,Dry/ No Abnormality, No Abnormality Scaly Assessed -Color (Anna-wound Skin Appearance) Assessed No Abnormality, No Abnormality Assessed -Temperature (Anna-wound Skin No Abnormality No Abnormality No Abnormality Appearance) (Pt Warm) (Pt Warm) (Pt Warm) -Tenderness on Palpation (Anna-wound No No No Skin Appearance) -Ulcer Cleansing Wound Cleanser Rinsed/ Soap and Water Irrigated with Saline -Foul Odor after Cleansing No No No -Anesthetic Used 5% Lidocaine 5% Lidocaine 5% Lidocaine Gel Gel Gel Lower Limb Edema Present Yes Left Calf (cm) 56.0 Left Ankle (cm) 33.5 10/12/21 10/19/21 09:20 09:41 Wound Center Nurse 1 #3- L MED THIGH POST OP -Combined with other wound No -Current Size (cm) - Length 0.3 0.1 -Current Size (cm) - Width 2 0.1 -Current Size (cm) - Depth 0.1 0.1 -Total Square Cm 0.6 0.01 -Photo Taken No No -Epithelialization -Tunneling No -Undermining/Tunneling No -Circular Undermining No -Change in Wound Grade/Stage No -Exudate Amt Small None Present -Exudate Type Serosanguineous -Wound Margin Distinct, Distinct, Outline Outline Attached Attached -Granulation Amt Small (1-33%) None Present (0 %) -Granulation Quality [place] N/A -Slough/Fibrin No -Necrosis Amt Small (1-33%) None Present (0 %) -Necrotic Tissue Type Adherent Slough -Structure Exposed N/A N/A -Texture (Anna-wound Skin Appearance) Scarring No Abnormality, Assessed -Moisture (Anna-wound Skin Appearance) Dry/Scaly No Abnormality, Assessed -Color (Anna-wound Skin Appearance) No Abnormality No Abnormality, Assessed -Temperature (Anna-wound Skin No Abnormality No Abnormality Appearance) (Pt Warm) (Pt Warm) -Tenderness on Palpation (Anna-wound No No Skin Appearance) -Ulcer Cleansing Rinsed/ Rinsed/ Irrigated with Irrigated with Saline Saline -Foul Odor after Cleansing No No -Anesthetic Used 5% Lidocaine 5% Lidocaine Gel Gel Lower Limb Edema Present No Left Calf (cm) 55 Left Ankle (cm) 37.2 WC - Nurse 2 - General Ulcer CM Notes Start: 09/21/21 08:28 Freq: Status: Active Protocol: Activity Type Activity Date Activity User E-sign Co-sign Detail Recorded Client Recorded Date Recorded By Document 09/21/21 08:53 [id number] 09/21/21 08:55 Document 09/28/21 09:28 [id number] 09/28/21 09:30 JF Document 10/05/21 09:06 JF [id number] 10/05/21 09:11 JF Document 10/12/21 09:54 DL [id number] 10/12/21 10:11 DL Edit Result 10/12/21 09:54 DL (1) [id number] 10/12/21 11:52 JF Document 10/19/21 09:31 JF [id number] 10/19/21 09:35 JF (1) #3- L MED THIGH POST OP - Time => 11:52 - Tissue Removed => Subcutaneous 09/21/21 09/28/21 10/05/21 08:53 09:28 09:06 Wound Center Nurse 2 #3- L MED THIGH POST OP -Time 08:54 09:28 09:07 -Correct Patient Yes Yes Yes -Correct Side, Site, Position Yes Yes Yes -Correct Procedure Yes Yes Yes -Procedure Performed Yes Yes Yes -Type of Procedure Debridement Debridement Debridement -Clinical Debridement Subcutaneous Subcutaneous Subcutaneous -Tissue Removed Subcutaneous Subcutaneous Subcutaneous -Post Debridement (cm) - Length 1.0 0.7 0.8 -Post Debridement (cm) - Width 8.7 1.7 2.7 -Post Debridement (cm) - Depth 0.1 0.1 0.1 -Total Square (Post) (cm) 8.70 1.19 2.16 -Area of Debridement (cm) - Length 1.0 0.7 0.8 -Area of Debridement (cm) - Width 8.7 1.7 2.7 -Total Square (Area) (cm) 8.70 1.19 2.16 -Tunneling No No No -Undermining/Tunneling No No No -Circular Undermining No No No -Wound/Ulcer Outcome Not Healed Not Healed Not Healed -Ulcer Cleansing Rinsed/ Rinsed/ Rinsed/ Irrigated with Irrigated with Irrigated with Saline Saline Saline -Foul Odor after Cleansing No No No -Bioengineered Tissue No No No -Bleeding Controlled with Pressure Pressure Pressure -Treatment Response Procedure Procedure Procedure Tolerated Well Tolerated Well Tolerated Well -Offloading No No No -Debridement - Subq, 1st 20sq cm Yes Yes Yes Pain Scale: 0-10 Numeric Is Patient Pain Free? Yes Yes Yes 10/12/21 10/19/21 09:54 09:31 Wound Center Nurse 2 #3- L MED THIGH POST OP -Time 11:52 09:33 -Correct Patient Yes Yes -Correct Side, Site, Position Yes Yes -Correct Procedure Yes Yes -Procedure Performed Yes Yes -Type of Procedure Debridement Debridement -Clinical Debridement Subcutaneous Subcutaneous -Tissue Removed Subcutaneous Subcutaneous -Post Debridement (cm) - Length 0.5 0.7 -Post Debridement (cm) - Width 7.2 3.5 -Post Debridement (cm) - Depth 0.1 0.1 -Total Square (Post) (cm) 3.60 2.45 -Area of Debridement (cm) - Length 0.5 0.7 -Area of Debridement (cm) - Width 7.2 3.5 -Total Square (Area) (cm) 3.60 2.45 -Tunneling No No -Undermining/Tunneling No No -Circular Undermining No No -Wound/Ulcer Outcome Not Healed Not Healed -Ulcer Cleansing Rinsed/ Rinsed/ Irrigated with Irrigated with Saline Saline -Foul Odor after Cleansing No No -Bioengineered Tissue No No -Bleeding Controlled with NA Pressure -Treatment Response Procedure Procedure Tolerated Well Tolerated Well -Offloading No No -Debridement - Subq, 1st 20sq cm Yes Yes Pain Scale: 0-10 Numeric Is Patient Pain Free? Yes Yes WC - Nurse 3 - General Ulcer D/C NN Start: 09/21/21 08:28 Freq: Status: Active Protocol: Activity Type Activity Date Activity User E-sign Co-sign Detail Recorded Client Recorded Date Recorded By Document 09/21/21 09:00 KR [id number] 09/21/21 09:00 KR Document 09/21/21 09:17 AK [id number] 09/21/21 09:18 AK Document 09/28/21 09:41 DL [id number] 09/28/21 09:43 DL Document 10/05/21 09:26 DL [id number] 10/05/21 09:26 DL Document 10/19/21 09:47 DL [id number] 10/19/21 09:48 DL 09/21/21 09/21/21 09/28/21 09:00 09:17 09:41 Wound Care Nurse 3 #3- L MED THIGH POST OP -Ulcer Cleansing Rinsed/ Rinsed/ Rinsed/ Irrigated with Irrigated with Irrigated with Saline Saline Saline -Foul Odor after Cleansing No No -Negative Pressure Wound Therapy N/A -Primary Dressing Applied C Hydrogel ($), C Hydrogel ($), C Hydrogel ($), NonAdherent NonAdherent NonAdherent Contact Layer Contact Layer Contact Layer -Primary Dressing Covered/Secured with Dry Gauze, Dry Gauze & Dry Gauze, Secured with Roll Gauze, Secured with Tape Secured with Tape Tape -Other Covering -Mepilex Border Left -Lotion applied to leg before No compression wrap -Compression Wrap Lino Wrap Lino Wrap Treatment Response Procedure Tolerated Well Pain Scale: 0-10 Numeric Is Patient Pain Free? Yes Yes Yes WC - Visit Discharge Discharge Condition Stable Stable Stable Ambulatory Status Ambulatory Ambulatory Ambulatory Transportation Private Auto Private Auto Private Auto Medication Reconcilliation completed & Yes provided to patient/care provider Clinical Summary of Care Provided Yes Facility Type Home Health Orders Sent Yes 10/05/21 10/19/21 09:26 09:47 Wound Care Nurse 3 #3- L MED THIGH POST OP -Ulcer Cleansing Rinsed/ Rinsed/ Irrigated with Irrigated with Saline Saline -Foul Odor after Cleansing No No -Negative Pressure Wound Therapy -Primary Dressing Applied NonAdherent C Hydrogel ($), Contact Layer Mepilex Border -Primary Dressing Covered/Secured with Dry Gauze, Secured with Tape -Other Covering LINO -Mepilex Border 1 Left -Lotion applied to leg before compression wrap -Compression Wrap Treatment Response Procedure Procedure Tolerated Well Tolerated Well Pain Scale: 0-10 Numeric Is Patient Pain Free? Yes Yes WC - Visit Discharge Discharge Condition Stable Stable Ambulatory Status Ambulatory, Ambulatory Unsteady Transportation Private Auto Medication Reconcilliation completed & provided to patient/care provider Clinical Summary of Care Provided Facility Type Orders Sent Assessment/Plan Assessment/Plan (1) 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: CODE(S): L97.122 - Non-pressure chronic ulcer of left thigh with fat layer exposed (2) Bilateral lower extremity edema: CODE(S): R60.0 - Localized edema (3) Complicated wound infection: CODE(S): T14.8XXA - Other injury of unspecified body region, initial encounter; L08.9 - Local infection of the skin and subcutaneous tissue, unspecified (4) Acquired lymphedema of lower extremity: CODE(S): I89.0 - Lymphedema, not elsewhere classified PLAN: Plan Wound care - She has been approved for [employer]in and has had 4 applications. Wound care will be collagen hydrogel covered with [place] SAP dressing every other day after washing the area with soap and water. Moisturize healed scar and anna wound with lotion 1-2 times daily. Stop the Cortisone cream. LINO wraps for compression. Operative cultures showed MRSA, Actinomyces naeslundii, and Anaerobic cocci. She has completed antibiotics Cultures from 06/20/21 showed MRSA - She is currently on Doxycycline and Augmentin which she has completed. Place lotion on the healed portion of the scarring. She is to keep her legs elevated when she is sitting. Encouraged increase protein intake. She should also increase her Vitamin C intake to 1,000 mg daily. She has [facility]. Follow up one week.
== END 2021-10-21 23:59 | disposition home or self-care (01) ==
LOC: WC 09:15
PROVIDERS: PCP Internal Medicine; Visit Provider Nurse Practitioner Family
DX: L97.122 Non-pressure chronic ulcer of left thigh with fat layer exposed (principal); I89.0 Lymphedema, not elsewhere classified; R60.0 Localized edema; L08.9 Local infection of the skin and subcutaneous tissue, unspecified; Z79.890 Hormone replacement therapy; Z79.899 Other long term (current) drug therapy; Z86.14 Personal history of Methicillin resistant Staphylococcus aureus infection
CPT/HCPCS: 11042

== ENCOUNTER 2021-11-02 10:45 | Outpatient (RCR) | payer MEDICARE, SELFPAY ==
[2021-10-22 00:21] VITALS: BP 172/117; PULSE 65; RESP 22; TEMP 35.5; BMI 53.6
[2021-10-27 09:06] VITALS: BP 132/69; PULSE 66; TEMP 36.2; BMI 53.6
--- NOTE | 2021-10-27 12:41 | PCM.WC.PN ---
History of Present Illness Date of Service: 10/27/21 Chief Complaint: Status post incision and drainage of 2 abscesses on left thigh 04/11/2021 and dermolipectomy and I&D left medial thigh 05/13/21 History of Wound: The patient is a 75-year-old female who presents for treatment of 2 abscesses to her left thigh status post incision and drainage on 04/11/2021. She has a past medical history as listed above. 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 Since then she has been having issues with swelling and bilateral lymphedema. In March 2021, she developed abscesses to her left inner thigh. On 04/11/2021 she had an I&D after a CT scan of the left thigh showed pockets of fluid with abscess present. She was discharged from surgery with a prescription for Keflex, which she finished on 04/23/2021, and with a wound VAC applied to both wounds, set at 125 mmHg. The wound VAC has been being changed by home health nurses 3 times per week. The patient states she has an appointment to follow-up with her surgeon on 05/07/2021. She denies any signs and symptoms of infection and states she has been tolerating the wound VAC well. She denies any acute concerns at this time. Past medical, family, and social history reviewed and not pertinent to the current visit and all other systems reviewed and negative with exception of those listed above. She presented to the ED on 05/11/21 with increased pain and redness and swelling involving her left medial thigh that has worsened over the past few days. Patient states that she had an abscess in this area which was surgically debrided and drained at [facility] in [place] approximately 3 weeks ago. Patient denies any fever. She denies trauma. In the ED, her WBC was normal at 7.5. Her Hgb was 10.8. She was started on IV antibiotics with Vancomycin and Zosyn. Wound cultures were obtained in the ED. CT Left lower extremity was done. It showed the presence of another abscess deeper to the ones that were drained in [place]. 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 Size of defect left medial thigh - 23 x 14 x 6 cm. Operative cultures showed MRSA, Actinomyces naeslundii, and Anaerobic cocci. She completed Doxycycline and Flagyl. She was readmitted to the hospital on 06/20/21 for increased pain and swelling. CT on 06/19/21 - Abnormal fluid density in the subcutaneous fat and obscuring the left sartorius muscle measures roughly 9 mm in length and extends to the skin surface and 3.4 cm deep to the skin and measures 5 cm in AP dimension. There is surrounding skin thickening. The previously seen, smaller, nonconfluent, rim-enhancing focal fluid collections are no longer visible. There is a deep air-filled defect in the skin, extending to the superior margin of the lesion. There is significant regional subcutaneous edema medial thigh and also involving the posterior and lateral thigh. Deep muscular compartments of the thigh are uninvolved. There is extensive muscular atrophy. Peripheral atherosclerosis. Wound culture 06/20/21 showed MRSA. While hospitalized she was on Vanc and Unasyn. She was discharged home on Doxycycline and Augmentin x 15 days. She is also anemic and is to follow up with FRANSISCO Ye for further evaluation. Wound care - Theraskin approved. She has had 4 applications. She has shown much improvement with the Theraskin. Wound care is collagen hydrogel covered Rosebud SAP dressing every other day after washing with soap and water. Moisturize the healed scar tissue with lotion to help soften scarring. Today she denies fever, chills, nausea and vomiting. She states that her appetite is good. Progress of Wound: Her ulcer is very superficial cluster. ?She is almost healed. Her anna wound is much improved. Objective Data Objective Data Vital Signs: Vital Signs Temp Pulse Resp BP 97.2 F L 66 22 H 132/69 H 10/27/21 09:06 10/27/21 09:06 10/22/21 00:21 10/27/21 09:06 Weight: 303 lb 0.01 oz Body Mass Index (BMI) 53.6 Charges/Coding Procedures Integumentary 111xxx-113xx: [id number] Swathi subq tissue 20 sq cm/< Physical Exam Const alert and oriented x3 General Appearance: cooperative HEENT normocephalic Resp normal respiratory effort Cardio regular rate Extremity normal capillary refill Extremity Narrative: Bilateral lower extremity edema with lymphedema present, it is stable. Skin Wound Narrative: The left medial thigh ulcer cluster is superficial but improving. The anna wound is much improved. Neuro Sensorium / Orientation: awake and alert Psych Appearance: well kempt Debridement Note Debridement Note Wound debrided: Medial thigh ulcer cluster Laterality: Left Type of Debridement: Excisional debridement Anesthesia Used: 5% Lidocaine Gel Depth: Down to and including healthy tissue and in the subcutaneous layer Percentage of wound debrided: 100 Instrument Used: 3mm curette Tissue Removed: Non viable tissue and slough Severity: Fat Layer Exposed Amount of bleeding with debridement: Mild Bleeding Controlled with: Pressure and Compression and gauze Patient tolerated procedure: Patient tolerated procedure well Post-Debridement Measurements and Additional Note: Post-Debridement Measurements/Treatment - Nurse 1 - General Ulcer Assessment Start: 10/27/21 09:06 Freq: Status: Active Protocol: JOEY Activity Type Activity Date Activity User E-sign Co-sign Detail Recorded Client Recorded Date Recorded By Document 10/27/21 09:06 [email or web address] [id number] 10/27/21 09:09 CHHAYA 10/27/21 09:06 WC - Today's Visit Information Type of service Follow-up Visit (Physician/CONTRACT CONSULTANT ) Arrival Mode Ambulatory Patient Identification Verified (Name & Yes ) Patient Requires Transmission-Based No Precautions Safety Precautions NA Height and Weight Body Mass Index (BMI) 53.6 BMI Classification Obese Vital Signs Temperature (97.8 F-99.1 F) 97.2 F L Temperature Source Temporal Pulse Rate (60-100) 66 Pulse Location Monitor Blood Pressure (90/60-120/80) 132/69 H Blood Pressure Mean (mm Hg) 90 Source Monitor History Since Last Visit- (Skip if this is Patient's initial visit) Have you changed medications since your No last visit? Any new allergies or adverse reactions No Had a fall/change in ADL's that may No increase risk of falls Signs or symptoms of abuse and/or No neglect since last visit Have you been in the hospital since your No last visit? Has dressing in place as prescribed Yes Has compression in place as prescribed Yes Has offloadiing in place as prescribed N/A Experienced any changes in pain level or No management Left Footwear Regular Shoe Right Footwear Regular Shoe Pain Scale: 0-10 Numeric Is Patient Pain Free? Yes - Nurse 1 - General Ulcer Measurement Start: 10/27/21 09:06 Freq: Status: Active Protocol: Activity Type Activity Date Activity User E-sign Co-sign Detail Recorded Client Recorded Date Recorded By Document 10/27/21 09:06 AK [id number] 10/27/21 09:09 AK 10/27/21 09:06 Wound Center Nurse 1 #3- L MED THIGH POST OP -Combined with other wound No -Current Size (cm) - Length 1 -Current Size (cm) - Width 0.3 -Current Size (cm) - Depth 0.1 -Total Square Cm 0.3 -Photo Taken No -Tunneling No -Undermining/Tunneling No -Circular Undermining No -Change in Wound Grade/Stage No -Exudate Amt None Present -Wound Margin Distinct, Outline Attached -Granulation Amt None Present (0 %) -Granulation Quality N/A -Slough/Fibrin No -Necrosis Amt None Present (0 %) -Structure Exposed N/A -Texture (Anna-wound Skin Appearance) Assessed, Scarring -Moisture (Anna-wound Skin Appearance) No Abnormality, Assessed -Color (Anna-wound Skin Appearance) No Abnormality, Assessed -Temperature (Anna-wound Skin No Abnormality Appearance) (Pt Warm) -Tenderness on Palpation (Anna-wound No Skin Appearance) -Ulcer Cleansing Rinsed/ Irrigated with Saline -Foul Odor after Cleansing No -Anesthetic Used 5% Lidocaine Gel Left Calf (cm) 57 Left Ankle (cm) 32 WC - Nurse 2 - General Ulcer CM Notes Start: 10/27/21 09:06 Freq: Status: Active Protocol: Activity Type Activity Date Activity User E-sign Co-sign Detail Recorded Client Recorded Date Recorded By Document 10/27/21 09:11 MW [id number] 10/27/21 09:17 MW 10/27/21 09:11 Wound Center Nurse 2 #3- L MED THIGH POST OP -Time 09:11 -Correct Patient Yes -Correct Side, Site, Position Yes -Correct Procedure Yes -Procedure Performed Yes -Type of Procedure Debridement -Clinical Debridement Subcutaneous -Tissue Removed Subcutaneous -Post Debridement (cm) - Length 0.4 -Post Debridement (cm) - Width 7.2 -Post Debridement (cm) - Depth 0.1 -Total Square (Post) (cm) 2.88 -Area of Debridement (cm) - Length 0.4 -Area of Debridement (cm) - Width 7.2 -Total Square (Area) (cm) 2.88 -Tunneling No -Undermining/Tunneling No -Circular Undermining No -Wound/Ulcer Outcome Not Healed -Ulcer Cleansing Rinsed/ Irrigated with Saline -Foul Odor after Cleansing No -Bioengineered Tissue No -Bleeding Controlled with Pressure -Treatment Response Procedure Tolerated Well -Offloading No -Debridement - Subq, 1st 20sq cm Yes Pain Scale: 0-10 Numeric Is Patient Pain Free? Yes WC - Nurse 3 - General Ulcer D/C NN Start: 10/27/21 09:06 Freq: Status: Active Protocol: Activity Type Activity Date Activity User E-sign Co-sign Detail Recorded Client Recorded Date Recorded By Document 10/27/21 09:37 DL [id number] 10/27/21 09:38 DL 10/27/21 09:37 Wound Care Nurse 3 #3- L MED THIGH POST OP -Ulcer Cleansing Rinsed/ Irrigated with Saline -Foul Odor after Cleansing No -Primary Dressing Applied Mepilex Border, NonAdherent Contact Layer -Other Dressing hydrogel -Mepilex Border 1 Treatment Response Procedure Tolerated Well Pain Scale: 0-10 Numeric Is Patient Pain Free? Yes WC - Visit Discharge Discharge Condition Stable Ambulatory Status Ambulatory,Cane Transportation [facility] Facility Type Home Health Orders Sent Yes Assessment/Plan Assessment/Plan (1) 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: CODE(S): L97.122 - Non-pressure chronic ulcer of left thigh with fat layer exposed (2) Bilateral lower extremity edema: CODE(S): R60.0 - Localized edema (3) Complicated wound infection: CODE(S): T14.8XXA - Other injury of unspecified body region, initial encounter; L08.9 - Local infection of the skin and subcutaneous tissue, unspecified (4) Acquired lymphedema of lower extremity: CODE(S): I89.0 - Lymphedema, not elsewhere classified PLAN: Plan Wound care - She has been approved for eVendor Check and has had 4 applications. Wound care will be collagen hydrogel covered with Rosebud SAP dressing every other day after washing the area with soap and water. Moisturize healed scar and anna wound with lotion 1-2 times daily. Stop the Cortisone cream. AGUILA wraps for compression. Operative cultures showed MRSA, Actinomyces naeslundii, and Anaerobic cocci. She has completed antibiotics Cultures from 06/20/21 showed MRSA - She is currently on Doxycycline and Augmentin which she has completed. Place lotion on the healed portion of the scarring. She is to keep her legs elevated when she is sitting. Encouraged increase protein intake. She should also increase her Vitamin C intake to 1,000 mg daily. She has [facility]. Follow up one week.
[2021-11-02 11:01] VITALS: BP 180/91; PULSE 64; RESP 18; TEMP 36.2; BMI 53.6
--- NOTE | 2021-11-02 13:08 | PCM.WC.PN ---
History of Present Illness Date of Service: 11/02/21 Chief Complaint: Status post incision and drainage of 2 abscesses on left thigh 04/11/2021 and dermolipectomy and I&D left medial thigh 05/13/21 History of Wound: The patient is a 75-year-old female who presents for treatment of 2 abscesses to her left thigh status post incision and drainage on 04/11/2021. She has a past medical history as listed above. 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 Since then she has been having issues with swelling and bilateral lymphedema. In March 2021, she developed abscesses to her left inner thigh. On 04/11/2021 she had an I&D after a CT scan of the left thigh showed pockets of fluid with abscess present. She was discharged from surgery with a prescription for Keflex, which she finished on 04/23/2021, and with a wound VAC applied to both wounds, set at 125 mmHg. The wound VAC has been being changed by home health nurses 3 times per week. The patient states she has an appointment to follow-up with her surgeon on 05/07/2021. She denies any signs and symptoms of infection and states she has been tolerating the wound VAC well. She denies any acute concerns at this time. Past medical, family, and social history reviewed and not pertinent to the current visit and all other systems reviewed and negative with exception of those listed above. She presented to the ED on 05/11/21 with increased pain and redness and swelling involving her left medial thigh that has worsened over the past few days. Patient states that she had an abscess in this area which was surgically debrided and drained at [facility] in [place] approximately 3 weeks ago. Patient denies any fever. She denies trauma. In the ED, her WBC was normal at 7.5. Her Hgb was 10.8. She was started on IV antibiotics with Vancomycin and Zosyn. Wound cultures were obtained in the ED. CT Left lower extremity was done. It showed the presence of another abscess deeper to the ones that were drained in [place]. 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 Size of defect left medial thigh - 23 x 14 x 6 cm. Operative cultures showed MRSA, Actinomyces naeslundii, and Anaerobic cocci. She completed Doxycycline and Flagyl. She was readmitted to the hospital on 06/20/21 for increased pain and swelling. CT on 06/19/21 - Abnormal fluid density in the subcutaneous fat and obscuring the left sartorius muscle measures roughly 9 mm in length and extends to the skin surface and 3.4 cm deep to the skin and measures 5 cm in AP dimension. There is surrounding skin thickening. The previously seen, smaller, nonconfluent, rim-enhancing focal fluid collections are no longer visible. There is a deep air-filled defect in the skin, extending to the superior margin of the lesion. There is significant regional subcutaneous edema medial thigh and also involving the posterior and lateral thigh. Deep muscular compartments of the thigh are uninvolved. There is extensive muscular atrophy. Peripheral atherosclerosis. Wound culture 06/20/21 showed MRSA. While hospitalized she was on Vanc and Unasyn. She was discharged home on Doxycycline and Augmentin x 15 days. She is also anemic and is to follow up with FRANSISCO Ye for further evaluation. Wound care - Theraskin approved. She has had 4 applications. She has shown much improvement with the Theraskin. Wound care is collagen hydrogel covered Lorimor SAP dressing every other day after washing with soap and water. Moisturize the healed scar tissue with lotion to help soften scarring. Today she denies fever, chills, nausea and vomiting. She states that her appetite is good. Progress of Wound: Her ulcer is healed today. Objective Data Objective Data Vital Signs: Vital Signs Temp Pulse Resp BP 97.1 F L 64 18 180/91 H 11/02/21 11:01 11/02/21 11:01 11/02/21 11:11/02/21 11:01 Weight: 303 lb 0.01 oz Body Mass Index (BMI) 53.6 Charges/Coding Visit Charges Office Visits / Consults: [id number] OV L3 Est Physical Exam Const alert and oriented x3 General Appearance: cooperative HEENT normocephalic Lymph Lymphatic Narrative: Left lower leg lymphedema. Resp normal respiratory effort Effort and Inspection: able to speak in complete sentences Cardio regular rate and regular rhythm Extremity normal capillary refill Extremity Narrative: Bilateral lower extremity edema with lymphedema present, right is greater than left, it is stable. Skin Wound Narrative: The left medial thigh ulcer cluster is healed today. Neuro CN's II-XII intact bilaterally Sensorium / Orientation: awake and alert Psych affect normal Appearance: well kempt Debridement Note Debridement Note No debridement was completed: No debridement was completed today Post-Debridement Measurements and Additional Note: Post-Debridement Measurements/Treatment THEO - Nurse 1 - General Ulcer Assessment Start: 10/27/21 09:06 Freq: Status: Active Protocol: THEO.LOWEXT Activity Type Activity Date Activity User E-sign Co-sign Detail Recorded Client Recorded Date Recorded By Document 10/27/21 09:06 AK [id number] 10/27/21 09:09 AK Document 11/02/21 11:01 JAVI [id number] 11/02/21 11:03 JAVI 10/27/21 11/02/21 09:06 11:01 THEO - Today's Visit Information Type of service Follow-up Visit Follow-up Visit (Physician/PRECAST CONCRETE IRONWORKER (Physician/PRECAST CONCRETE IRONWORKER ) ) Arrival Mode Ambulatory Ambulatory Patient Identification Verified (Name & Yes Yes ) Patient Requires Transmission-Based No No Precautions Safety Precautions NA Height and Weight Body Mass Index (BMI) 53.6 53.6 BMI Classification Obese Obese Vital Signs Temperature (97.8 F-99.1 F) 97.2 F L 97.1 F L Temperature Source Temporal Temporal Pulse Rate (60-100) 66 64 Pulse Location Monitor Monitor Respiratory Rate (12-18) 18 Respiratory rate source Observation Blood Pressure (90/60-120/80) 132/69 H 180/91 H Blood Pressure Mean (mm Hg) 90 120 Source Monitor Monitor Position Sitting Blood Pressure Location Right Arm History Since Last Visit- (Skip if this is Patient's initial visit) Have you changed medications since your No No last visit? Any new allergies or adverse reactions No No Had a fall/change in ADL's that may No No increase risk of falls Signs or symptoms of abuse and/or No No neglect since last visit Have you been in the hospital since your No No last visit? Has dressing in place as prescribed Yes Yes Has compression in place as prescribed Yes N/A Has offloadiing in place as prescribed N/A N/A Experienced any changes in pain level or No No management Left Footwear Regular Shoe Regular Shoe Right Footwear Regular Shoe Regular Shoe Pain Scale: 0-10 Numeric Is Patient Pain Free? Yes Yes - Nurse 1 - General Ulcer Measurement Start: 10/27/21 09:06 Freq: Status: Active Protocol: Activity Type Activity Date Activity User E-sign Co-sign Detail Recorded Client Recorded Date Recorded By Document 10/27/21 09:06 AK [id number] 10/27/21 09:09 AK Document 11/02/21 11:01 JAVI [id number] 11/02/21 11:03 JF 10/27/21 11/02/21 09:06 11:01 Wound Center Nurse 1 #3- L MED THIGH POST OP -Combined with other wound No No -Current Size (cm) - Length 1 0 -Current Size (cm) - Width 0.3 0 -Current Size (cm) - Depth 0.1 0 -Total Square Cm 0.3 0 -Photo Taken No Yes -Tunneling No -Undermining/Tunneling No -Circular Undermining No -Change in Wound Grade/Stage No -Exudate Amt None Present -Wound Margin Distinct, Outline Attached -Granulation Amt None Present (0 %) -Granulation Quality N/A -Slough/Fibrin No -Necrosis Amt None Present (0 %) -Structure Exposed N/A -Texture (Anna-wound Skin Appearance) Assessed, Scarring -Moisture (Anna-wound Skin Appearance) No Abnormality, Assessed -Color (Anna-wound Skin Appearance) No Abnormality, Assessed -Temperature (Anna-wound Skin No Abnormality Appearance) (Pt Warm) -Tenderness on Palpation (Anna-wound No Skin Appearance) -Ulcer Cleansing Rinsed/ Irrigated with Saline -Foul Odor after Cleansing No -Anesthetic Used 5% Lidocaine Gel Left Calf (cm) 57 Left Ankle (cm) 32 - Nurse 2 - General Ulcer CM Notes Start: 10/27/21 09:06 Freq: Status: Active Protocol: Activity Type Activity Date Activity User E-sign Co-sign Detail Recorded Client Recorded Date Recorded By Document 10/27/21 09:11 [id number] 10/27/21 09:17 MW Document 11/02/21 11:03 [id number] 11/02/21 11:03 JF 10/27/21 11/02/21 09:11 11:03 Wound Center Nurse 2 #3- L MED THIGH POST OP -Time 09:11 -Correct Patient Yes No -Correct Side, Site, Position Yes No -Correct Procedure Yes No -Procedure Performed Yes No -Type of Procedure Debridement -Clinical Debridement Subcutaneous -Tissue Removed Subcutaneous -Post Debridement (cm) - Length 0.4 0 -Post Debridement (cm) - Width 7.2 0 -Post Debridement (cm) - Depth 0.1 0 -Total Square (Post) (cm) 2.88 0 -Area of Debridement (cm) - Length 0.4 0 -Area of Debridement (cm) - Width 7.2 0 -Total Square (Area) (cm) 2.88 0 -Tunneling No -Undermining/Tunneling No -Circular Undermining No -Wound/Ulcer Outcome Not Healed Healed- Epithelialized -Ulcer Cleansing Rinsed/ Irrigated with Saline -Foul Odor after Cleansing No -Bioengineered Tissue No -Bleeding Controlled with Pressure -Treatment Response Procedure Tolerated Well -Offloading No -Debridement - Subq, 1st 20sq cm Yes Pain Scale: 0-10 Numeric Is Patient Pain Free? Yes Yes - Nurse 3 - General Ulcer D/C NN Start: 10/27/21 09:06 Freq: Status: Active Protocol: Activity Type Activity Date Activity User E-sign Co-sign Detail Recorded Client Recorded Date Recorded By Document 10/27/21 09:37 [id number] 10/27/21 09:38 Document 11/02/21 11:03 [id number] 11/02/21 11:04 10/27/21 11/02/21 09:37 11:03 Wound Care Nurse 3 #3- L MED THIGH POST OP -Ulcer Cleansing Rinsed/ Irrigated with Saline -Foul Odor after Cleansing No -Primary Dressing Applied Mepilex Border, NonAdherent Contact Layer -Other Dressing hydrogel -Mepilex Border 1 Treatment Response Procedure Tolerated Well Pain Scale: 0-10 Numeric Is Patient Pain Free? Yes Yes - Visit Discharge Discharge Condition Stable Stable Ambulatory Status Ambulatory,Cane Ambulatory Transportation Private Auto Private Auto Medication Reconcilliation completed & Yes provided to patient/care provider Clinical Summary of Care Provided Yes Facility Type Home Health Orders Sent Yes Assessment/Plan Assessment/Plan (1) 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: CODE(S): L97.122 - Non-pressure chronic ulcer of left thigh with fat layer exposed (2) Bilateral lower extremity edema: CODE(S): R60.0 - Localized edema (3) Complicated wound infection: CODE(S): T14.8XXA - Other injury of unspecified body region, initial encounter; L08.9 - Local infection of the skin and subcutaneous tissue, unspecified (4) Acquired lymphedema of lower extremity: CODE(S): I89.0 - Lymphedema, not elsewhere classified PLAN: Plan She is healed today. Massage lotion onto the scarred area 1-2 times daily to help soften the scarring. AGUILA wraps for compression. Will refer her to the Lymphedema therapist at [facility] to help her with her bilateral lower leg lymphedema (left is worse than right). Hopefully she will be able to help the patient with proper compression. Operative cultures showed MRSA, Actinomyces naeslundii, and Anaerobic cocci. She has completed antibiotics Cultures from 06/20/21 showed MRSA - She is currently on Doxycycline and Augmentin which she has completed. Place lotion on the healed portion of the scarring. She is to keep her legs elevated when she is sitting. Discharge from the wound center. Follow up if develop any concerns.
== END 2021-11-03 07:42 | disposition home or self-care (01) ==
LOC: WC 10:45
PROVIDERS: PCP Internal Medicine; Visit Provider Nurse Practitioner Family
DX: L97.122 Non-pressure chronic ulcer of left thigh with fat layer exposed (principal); I89.0 Lymphedema, not elsewhere classified; R60.0 Localized edema; L08.9 Local infection of the skin and subcutaneous tissue, unspecified; M62.50 Muscle wasting and atrophy, not elsewhere classified, unspecified site; Z95.1 Presence of aortocoronary bypass graft; M79.89 Other specified soft tissue disorders; Z79.899 Other long term (current) drug therapy; Z86.14 Personal history of Methicillin resistant Staphylococcus aureus infection
CPT/HCPCS: 11042; 99212; G0463

== ENCOUNTER 2021-11-23 09:00 | Outpatient (RCR) | payer MEDICARE, SELFPAY ==
--- NOTE | 2021-11-10 08:16 | HP.OTEVAL_ITS ---
Patient's Visit Information BARBI HERNANDEZ is a 76 year old F, referred to Occupational Therapy by Kenya Napoles NP-Chirag, with a diagnosis of lymphedema. Date of Evaluation: 11/09/21 Occupational Therapist: Trinity Eckert, ELENA/Peg, CHT - Subjective This 76 year old female was seen for OT eval with dx of lymphedema - pt states i n April she had a sx she had abscess on her inner thigh and had wound vac. on left leg and going to the wound center since April. Pt states both legs do swell left more than right. pt has had hx of vain harvesting for CABAG and cellulitis. and would like to know what she can mtg the swelling other than wrapping LE. Pt. lives alone and mtg. all her self care and home mtg. - Lymphedema (Circumferential Measure) Mid-foot: right 22cm left 22cm Ankle: right 31cm left 32cm Lower calf: right 39cm left 41cm Largest calf: right 56cm left 60cm Below knee: right 50cm left 50 cm Above knee: right 60 cm left 71cm - Goals Demonstrate a 20% reduction in edema by d/c: Yes Demonstrate adequate knowledge of self-bangaging by 1st week: Yes Demonstrate adequate knowledge of self-massage by 2nd week: Yes Demonstrate adequate knowledge skin care/prec by 2nd week: Yes Demonstrate adequate knowledge therapeutic exercises by d/c: Yes Select approp compression garment w/donning/care/wear by d/c: Yes Voice need to replace compression garment every 4-6mo by dc: Yes - Rehabilitation General Assessment: Pt demo with LE lymphedema stateII and would benefit from skilled OT services to ed. pt in life long mtg. of her LE lymphedema- Pt agrees with POC. Today therapist ed. pt on Lymph stim ex., self manual lymph massage, along with use of compression socks- 20-30mmHg- ( pt does fit in off the shelf compression socks in XL full calf size- pt would benefit from thigh high on left to assist with mtg- ( pt reluctant as they will roll down) therapist ed. pt on Velcro alternative compression devices- pt receptive - POC currently pt to initiate her exercise program- perform self manual lymph massage 2-3x week and lymph exercise 2-3x a day - use her wrap until she can get compression socks- and use wrap on thigh area (padding up scar area) pt not receptive to wrap thigh during the day due to wrap rolling down- therapist advised try at night as long as no increase swelling in below knee- therapist ed. on graded compression- pt is receptive and demo understanding. therapist working with pt to problem solve use of compression socks and ex. to assist in mtg. of lymphedema. Rehabilitation Potential: Good - Anticipated Interventions Education re assistive Equipment, Education re Diagnosis, Manual Lymph Drainage, Education re Life-long lymphedema Management, Education re Self-Bandaging Techniques, Education re Skin Care and Precautions, Education re Self Massage Techniques, Education re Correct Donning Tech,Care&Wearing Sched Comp Garments, Caregiver Training, Home Program - Visit Plan TEXT: Thank you for the opportunity to evaluate your patient. For Medicare and Medicare HMO plans, please review the plan of care and approve it. It will need to be FAXED BACK to us at [phone] for Medicare purposes. Please let me know if there are questions or concerns regarding this plan of care. Physician Signature: Date:
--- NOTE | 2022-02-17 10:19 | HP.OT.NRP ---
BARBI HERNANDEZ was seen in my office for initial evaluation on 11/09/21. The following Plan of Care was established for this patient: Anticipated Interventions: Education re assistive Equipment, Education re Diagnosis, Manual Lymph Drainage, Education re Life-long lymphedema Management, Education re Self-Bandaging Techniques, Education re Skin Care and Precautions, Education re Self Massage Techniques, Education re Correct Donning Tech,Care&Wearing Sched Comp Garments, Caregiver Training, Home Program This patient was last seen in our office 12/01/21. Pertinent comments regarding their Occupational therapy will appear below: pt was seen for 2 OT sessions. no further apts scheduled and due to time lapse in services pt d/c At this point I will be discontinuing this patient from occupational therapy. I would be happy to see this patient again in the future if found appropriate by the physician. Thank you! Trinity Eckert, OTR/L, CHT
== END 2021-11-23 19:00 | disposition home or self-care (01) ==
LOC: OT 09:00
PROVIDERS: PCP Internal Medicine; Referring Provider Nurse Practitioner Family; Visit Provider Nurse Practitioner Family
DX: I89.0 Lymphedema, not elsewhere classified (principal)
CPT/HCPCS: 97166; 97530

== ENCOUNTER 2021-12-23 06:37 | Day surgery (SDC) | payer MEDICARE, SELFPAY ==
[2021-12-23 06:59] VITALS: BP 173/67; PULSE 77; RESP 16; TEMP 36.2; O2SAT 99; BMI 50.1
[2021-12-23] MEDS: Lactated Ringers 1,000 ML 15 ML IV (07:12)
--- NOTE | 2021-12-23 07:45 | EGD_PTH ---
PATIENT: BARBI HERNANDEZ LOC: EN U#:[id number] AGE/SX: 76/F ROOM: RE12/23/[address]: Dr. Rip Mulligan DO : 1945 BED: DIS: 12/23/2021 SPEC #: [id number] RECD: 12/23/21 14:29 STATUS: ANANTH JANEL #: [id number] STACY: 12/23/21 07:[address]: Rip Mulligan DEPT: SURGICAL PATHOLOGY RECD BY: Joanne Jonas ENTERED: 12/24/21 08:55 SP TYPE: EGD BIOPSY OT DR: Dr. Indira Eason MD Tissues: A - Duodenum, NOS B - Duodenum, NOS C - Esophagus, NOS D - Cecum, NOS Procedures: Special Stain Group II Surgery Specimen Level IV Alcian Blue/PAS (control) HEADER OPERATION: Colonoscopy, EGD (MAC), biopsy, snare PRE-OP DIAGNOSIS: Anemia, hepatosplenomegaly TISSUE SUBMITTED: A ? Duodenum biopsy, B ? Duodenal lesion biopsy, C ? Distal esophagus biopsy, D ? Cecal polyp MICROSCOPIC DIAGNOSIS A. Duodenum, biopsy: No pathologic change. B. 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 C. Distal esophagus, biopsy: Gastroesophageal junctional mucosa with chronic inflammation. No evidence of goblet cell metaplasia. See comment. D. Cecal polyp, biopsy: Fragments of tubular adenoma. AM:be 12/25/2021 COMMENT C. Alcian blue/PAS stain with matched control supports the above diagnosis. MICROSCOPIC DESCRIPTION Slides are reviewed. GROSS DESCRIPTION A - Received in fixative is one container labeled with the patient's name and designated duodenum. The specimen consists of multiple irregular fragments of light roger soft tissue that in aggregate measure 1 x 0.2 x 0.1 cm. The specimen is totally submitted in one cassette. B - Received in fixative is one container labeled with the patient's name and designated duodenal lesion. The specimen consists of multiple irregular fragments of light roger soft tissue that in aggregate measure 1 x 0.6 x 0.1 cm. The specimen is totally submitted in one cassette. C - Received in fixative is one container labeled with the patient's name and designated distal esophagus. The specimen consists of multiple irregular fragments of light roger soft tissue that in aggregate measure 0.8 x 0.5 x 0.1 cm. The specimen is totally submitted in one cassette. D - Received in fixative is one container labeled with the patient's name and designated cecal polyp. The specimen consists of one irregular fragment of light roger soft tissue that measures 0.7 x 0.3 x 0.2 cm. The specimen is totally submitted in one cassette. / AM:be 12/24/2021 TC:5 CPT: 13436 x4, 82768
--- NOTE | 2021-12-23 07:47 | PCM.HP.BLA ---
History and Physical Date of Admission: 12/23/21 75 F who presents to the office today for Initial consult. Cindy established with this clinic 10.02.21. She presented to [facility] ED 06.20.21 for changes to wound bed; she had surgery to address small abscesses in left thigh at [facility] in March 2021 with repeat surgery to address abscesses and cellulitis with placement of NWPT and antibiotics. She was admitted for management of her wound and diagnosed with MRSA infection. During this hospitalization it was noted that she is anemic without bloody stools and negative fecal occult. Hemoglobin 7.4, Iron L42, TIBC L167, Iron sat N25.1. Denies SOB, weakness, fatigue, black/bloody stools. Diarrhea is an issue since cholecystectomy when she eats sweets or greasy foods; she avoids these foods and does not have regular issues. PMH myositis, lymphangitis, CAD, history of cancer, HTN, hypothyroid, endometrial cancer s/p complete hysterectomy and radiation. PSH aortic valve replacement, cardiac catheterization, thyroidectomy, CABG x2, cholecystectomy. Colonoscopy for screening Dr. Mobley 03.06.13 with only hemorrhoids noted in operative report. No specimens collected. ROS Const Constitutional: No anorexia, fatigue, fever(s), weight change or sleep problems Eyes Eyes: No change in vision ENT ENT: No abnormal hearing, difficulty swallowing, mouth lesions, tongue swelling or throat swelling Resp Respiratory: No cough or shortness of breath Cardio Cardiology: No chest pain at rest, chest pain with exertion, shortness of breath or dyspnea on exertion Gastro GI: No difficulty swallowing Genitourinary-Female: No difficulty urinating or burning urination Musc Musculoskeletal: No joint pain, joint swelling, muscle weakness or decreased muscle mass Skin Skin: No hair loss in leg, yellowing of the eye, itchy eyes, rash, skin ulcer or skin swelling Neuro Neurology: No abnormal hearing, abnormal movements, confusion, unsteady gait/balance or memory loss Psych Psychiatric: No anxiety, No confusion and No memory loss Endo Endocrine: No fatigue or weight change Aller/Imm Allergy/Immunologic: No itchy eyes, throat swelling or tongue swelling Levy/Lymp Hematologic/Lymphatic: No easy bleeding, easy bruising or enlarged lymph nodes Exam Const General: cooperative and comfortable Nutritional Appearance: average body habitus and well nourished HENMT Head: normal to inspection Ears: hearing grossly normal bilaterally Nose: external nose normal Face and sinus: normal facial exam Mouth: oral mucosae normal Throat: posterior oropharynx normal Eyes General: appearance normal, both eyes and all related structures Neck Neck: normal visual inspection Chest Chest palpation & inspection: normal inspection of the chest and normal palpation of entire chest wall Resp Effort & Inspection: normal respiratory effort Auscultation: Bilateral: Clear to Auscultation Cardio Palpation: normal PMI Rate: regular rate Rhythm: regular rhythm GI Inspection: normal to inspection Auscultation: normal bowel sounds Percussion: normal to percussion Palpation: no hepatosplenomegaly Skin General: no rashes or lesions noted Neuro General: patient alert Extrem General: normal to inspection Psych Affect: normal affect Quality Reporting Tobacco Screening ([facility] 138) Smoking Status: Never smoker Assessment and Plan Assessment and Plan (1) Anemia: ?Status:?Chronic ?Plan: The differential diagnosis for her anemia is iron deficiency anemia, anemia of chronic disease, vitamin deficiency associated anemia, celiac disease, blood loss anemia.? She should undergo an upper endoscopy and lower endoscopy and possible capsule endoscopy to evaluate her upper lower GI tract.? She was explained alternatives, risk, benefits including not withstanding bleeding, infection, sepsis, perforation, need for emergent .? She will have an ASA of 3. (2) Hepatosplenomegaly: ?Status:?Acute ?Plan: I did notice that on her CT scan abdomen pelvis in 2018 when evaluating her for nephrolithiasis she was discovered to have hepatomegaly with a liver span of 23 cm and an splenomegaly with the spleen size of 12 cm.? She should get a FibroScan and work-up for chronic liver disease.? With hepatosplenomegaly she could have portal gastropathy as a cause of chronic anemia.? Also there was a slight hiatal hernia that was seen on her imaging which could lead to chronic blood loss anemia secondary to Darvin's erosions.? I will evaluate her upper endoscopy. ? ? ? Orders: Orders CBC W/Diff, Automated Today L02.416 - Cutaneous abscess of left lower limb ? I have examined the patient and the H&P has been reviewed. There are no clinical changes since date of exam.
[2021-12-23 08:45] VITALS: BP 115/67; PULSE 66; RESP 16; TEMP 36; O2SAT 98
[2021-12-23 08:50] VITALS: BP 115/67; BP 115/70; PULSE 71; RESP 16; O2SAT 96
--- NOTE | 2021-12-23 08:52 | OP.EGD_ITS ---
Patient Name: Cindy Spain Procedure Date: 12/23/2021 7:47 AM Date of : 1945 Age: 76 Procedure: Upper GI endoscopy Indications: Iron deficiency anemia Providers: Rip Mulligan DO Medicines: Monitored Anesthesia Care Complications: No immediate complications. Procedure: Pre-Anesthesia Assessment: - Prior to the procedure, a History and Physical was performed, and patient medications and allergies were reviewed. The risks and benefits of the procedure and the sedation options and risks were discussed with the patient. All questions were answered and informed consent was obtained. Patient identification and proposed procedure were verified by the physician in the pre-procedure area. Mental Status Examination: alert and oriented. Airway Examination: normal oropharyngeal airway and neck mobility. Respiratory Examination: clear to auscultation. CV Examination: normal. Prophylactic Antibiotics: The patient does not require prophylactic antibiotics. Prior Anticoagulants: The patient has taken no previous anticoagulant or antiplatelet agents. ASA Grade Assessment: II - A patient with mild systemic disease. After reviewing the risks and benefits, the patient was deemed in satisfactory condition to undergo the procedure. The anesthesia plan was to use monitored anesthesia care (MAC). Immediately prior to administration of medications, the patient was re-assessed for adequacy to receive sedatives. The heart rate, respiratory rate, oxygen saturations, blood pressure, adequacy of pulmonary ventilation, and response to care were monitored throughout the procedure. The physical status of the patient was re-assessed after the procedure. After obtaining informed consent, the endoscope was passed under direct vision. Throughout the procedure, the patient's blood pressure, pulse, and oxygen saturations were monitored continuously. The pediatric colonoscope was introduced through the mouth, and advanced to the second part of duodenum. The upper GI endoscopy was accomplished without difficulty. The patient tolerated the procedure well. Scope In: 8:08:56 AM Scope Out: 8:18:33 AM Total Procedure Duration Time 0 hours 9 minutes 37 seconds Findings: The Z-line was irregular and was found 38 cm from the incisors. Biopsies were taken with a cold forceps for histology. Verification of patient identification for the specimen was done. Estimated blood loss was minimal. A large hiatal hernia was present. No other significant abnormalities were identified in a careful examination of the stomach. Localized mildly congested mucosa without active bleeding and with no stigmata of bleeding was found in the first portion of the duodenum. Thickened region in the first portion of the of the duodenum possibly secondary to the minor ampulla or duodenal lesion Biopsies were taken with a cold forceps for histology. Verification of patient identification for the specimen was done. Estimated blood loss was minimal. Impression: - Z-line irregular, 38 cm from the incisors. Biopsied. - Large hiatal hernia. - Congested duodenal mucosa possibly secondary to duodenal lesion or the minor ampulla. Biopsied. Recommendation: - Discharge patient to home. - Resume previous diet. - Continue present medications. - Await pathology results. Procedure Code(s): --- Professional --- 99394, Esophagogastroduodenoscopy, flexible, transoral; with biopsy, single or multiple CPT copyright 2017 [employer]. All rights reserved. The codes documented in this report are preliminary and upon engineering writer review may be revised to meet current compliance requirements. Rip Mulligan DO 12/23/2021 8:52:06 AM This report has been signed electronically. Number of Addenda: 0 Note Initiated On: 12/23/2021 7:47 AM
--- NOTE | 2021-12-23 08:52 | OP.CCLET_ITS ---
12/23/2021 Indira Eason Re : Upper GI endoscopy procedure for Cindy Spain Dear Jenaro This procedure was performed on Thursday, December 23, 2021. My impressions and recommendations are as follows: Impressions : - Z-line irregular, 38 cm from the incisors. Biopsied. - Large hiatal hernia. - Congested duodenal mucosa possibly secondary to duodenal lesion or the minor ampulla. Biopsied. Recommendations : - Discharge patient to home. - Resume previous diet. - Continue present medications. - Await pathology results. My findings are described in the full procedure note, which is enclosed. If I can be of further assistance, please feel free to contact me at . Sincerely, Rip Mulligan, 12/23/2021 8:52:06 AM This report has been signed electronically.
[2021-12-23 08:55] VITALS: BP 114/70; BP 115/67; PULSE 68; RESP 16; O2SAT 98
--- NOTE | 2021-12-23 08:57 | OP.CCLET_ITS ---
12/23/2021 Indira Eason Re : Colonoscopy procedure for Cindy Spain Dear Jenaro This procedure was performed on Thursday, December 23, 2021. My impressions and recommendations are as follows: Impressions : - One 8 mm polyp in the cecal part of the colon, removed with a hot snare. Resected and retrieved. - Diverticulosis in the recto-sigmoid colon and in the sigmoid colon. 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 Treated with a monopolar probe. - Small hemorrhoids Recommendations : - Discharge patient to home. - Resume previous diet. - Continue present medications. - Await pathology results. - Repeat colonoscopy in 5 years for surveillance. My findings are described in the full procedure note, which is enclosed. If I can be of further assistance, please feel free to contact me at . Sincerely, Rip Mulligan, 12/23/2021 8:56:54 AM This report has been signed electronically.
--- NOTE | 2021-12-23 08:57 | OP.COLON_ITS ---
Patient Name: Cindy Spain Procedure Date: 12/23/2021 8:18 AM Date of : 1945 Age: 76 Procedure: Colonoscopy Indications: Iron deficiency anemia Providers: Rip Mulligan DO Medicines: Monitored Anesthesia Care Patient Profile: This is a 76 year old female. Refer to note in patient chart for documentation of history and physical. Last Colonoscopy: more than 10 years ago. Complications: No immediate complications. Procedure: Pre-Anesthesia Assessment: - Prior to the procedure, a History and Physical was performed, and patient medications and allergies were reviewed. The risks and benefits of the procedure and the sedation options and risks were discussed with the patient. All questions were answered and informed consent was obtained. Patient identification and proposed procedure were verified by the physician in the pre-procedure area. Mental Status Examination: alert and oriented. Airway Examination: normal oropharyngeal airway and neck mobility. Respiratory Examination: clear to auscultation. CV Examination: normal. Prophylactic Antibiotics: The patient does not require prophylactic antibiotics. Prior Anticoagulants: The patient has taken no previous anticoagulant or antiplatelet agents. ASA Grade Assessment: II - A patient with mild systemic disease. After reviewing the risks and benefits, the patient was deemed in satisfactory condition to undergo the procedure. The anesthesia plan was to use monitored anesthesia care (MAC). Immediately prior to administration of medications, the patient was re-assessed for adequacy to receive sedatives. The heart rate, respiratory rate, oxygen saturations, blood pressure, adequacy of pulmonary ventilation, and response to care were monitored throughout the procedure. The physical status of the patient was re-assessed after the procedure. After I obtained informed consent, the scope was passed under direct vision. Throughout the procedure, the patient's blood pressure, pulse, and oxygen saturations were monitored continuously. The adult colonoscope was introduced through the anus and advanced to the cecum, identified by appendiceal orifice and ileocecal valve. The colonoscopy was performed without difficulty. The patient tolerated the procedure well. The quality of the bowel preparation was good. Scope In: 8:20:47 AM Scope Withdrawal Time 0 hours 13 minutes 23 seconds Scope Out: 8:39:03 AM Total Procedure Duration Time 0 hours 18 minutes 16 seconds Findings: The perianal and digital rectal examinations were normal. A 8 mm polyp was found in the cecal part of the colon colon. The polyp was sessile. The polyp was removed with a hot snare. Resection and retrieval were complete. Verification of patient identification for the specimen was done. Estimated blood loss was minimal. Multiple small-mouthed diverticula were found in the recto-sigmoid colon and sigmoid colon. The terminal ileum contained two small angiodysplastic lesions with bleeding. Coagulation for hemostasis using monopolar probe was successful. Estimated blood loss was minimal. Impression: - One 8 mm polyp in the cecal part of the colon, removed with a hot snare. Resected and retrieved. - Diverticulosis in the recto-sigmoid colon and in the sigmoid colon. 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 Treated with a monopolar probe. - Small hemorrhoids Recommendation: - Discharge patient to home. - Resume previous diet. - Continue present medications. - Await pathology results. - Repeat colonoscopy in 5 years for surveillance. Procedure Code(s): --- Professional --- 31546, 59, Colonoscopy, flexible; with control of bleeding, any method 98533, Colonoscopy, flexible; with removal of tumor(s), polyp(s), or other lesion(s) by snare technique CPT copyright 2017 [employer]. All rights reserved. The codes documented in this report are preliminary and upon programmer engineering and scientific review may be revised to meet current compliance requirements. Rip Mulligan DO 12/23/2021 8:56:54 AM This report has been signed electronically. Number of Addenda: 0 Note Initiated On: 12/23/2021 8:18 AM
[2021-12-23 09:00] VITALS: BP 115/67; BP 129/75; PULSE 61; RESP 16; TEMP 36.2; O2SAT 100
[2021-12-23 09:30] VITALS: BP 115/67
== END 2021-12-23 10:01 | disposition home or self-care (01) ==
LOC: EN 06:37 → AC 06:39
PROVIDERS: PCP Internal Medicine; Referring Provider Internal Medicine; Visit Provider Internal Medicine Gastroenterology
PROC: 0DJD8ZZ Inspection of Lower Intestinal Tract, Via Natural or Artificial Opening Endoscopic (ICD-10-PCS; CPT 45378; principal; 2021-12-23 07:40)
DX: D12.0 Benign neoplasm of cecum (principal); K44.9 Diaphragmatic hernia without obstruction or gangrene; K57.30 Diverticulosis of large intestine without perforation or abscess without bleeding; K64.9 Unspecified hemorrhoids; D64.9 Anemia, unspecified; R16.2 Hepatomegaly with splenomegaly, not elsewhere classified; Z90.49 Acquired absence of other specified parts of digestive tract
CPT/HCPCS: 45385; 43239; 88305; 88313; J7120; J2405

== ENCOUNTER → 2022-01-13 | Outpatient (CLI) | payer MEDICARE, SELFPAY ==
[2022-01-13 10:53] LABS: Erythrocyte Sedimentation Rate 62 mm/hr (0-30)
[2022-01-13 10:55] LABS: Absolute Lymphocyte Count 0.81 X10^3/uL (0.83-4.51); Basophil# 0.02 X10^3/uL; Basophil% 0.3 % (0-1); Eosinophil# 0.08 X10^3/uL; Eosinophils% 1.3 % (0-5); Hematocrit 35.5 % (37-47); Hemoglobin 11.6 g/dL (12.0-15.0); Lymphocyte # 0.81 X10^3/ul (0.83-4.51); Lymphocyte % 12.7 % (19-41); Mean Corp Hgb Conc 32.7 g/dL (32-36); Mean Corpuscular Hgb 29.7 pg (27.0-32.0); Monocyte# 0.46 X10^3/uL; Monocyte% 7.2 % (0-10); NRBC Flagged by Analyzer 0 % (0-5); Neutrophil # 4.99 X10^3/uL (2.7-7.7); Platelet Count 238 K/mm3 (150-450); RBC Distribution Width CV 14.6 % (11.6-14.6); RBC Distribution Width SD 48.3 fl (35.1-43.9); White Blood Count 6.4 K/mm3 (4.4-11.0)
[2022-01-13 11:00] LABS: ALB/GLOB Ratio 0.8 RATIO (0.9-2.4); AST(SGOT) 16 U/L (15-37); Alanine Aminotransfer ALT/SGPT 20 U/L (13-56); Albumin, Serum 3.7 g/dL (3.2-5.0); Alkaline Phosphatase 98 U/L (45-117); Anion Gap 7 (5-15); BUN 30 mg/dL (7-18); CRP 9.69 mg/L (0.0-3.0); Calcium,Total 8.8 mg/dL (8.5-10.1); Chloride 107 mmol/L (98-107); Creatinine, Serum 1.11 mg/dL (0.55-1.02); EST Glomerular Filtration Rate 51 mL/min (>60); Est Glom Filt Rate - Afr Amer 62 mL/min (>60); Ferritin 188 ng/mL (8-252); Globulin 4.5 g/dL (2.2-4.2); Glucose 160 mg/dL (74-106); Iron 44 ug/dL (50-170); Iron Binding Capacity,Total 317 ug/dL (250-450); LDH 243 U/L (84-246); PERCENT IRON SATURATION 13.9 % (15.0-55.0); Potassium 4.2 mmol/L (3.5-5.1); Protein, Total 8.2 g/dL (6.4-8.2); Sodium Level 137 mmol/L (136-145)
[2022-01-13 11:27] LABS: HIV - WCH Non-Reactive (Nonreactive)
[2022-01-15 16:08] LABS: Anti-Centromere B Ab <0.2 AI (0.0-0.9); Anti-Chromatin <0.2 AI (0.0-0.9); Anti-Jo <0.2 AI (0.0-0.9); Anti-Scleroderma-70 AB <0.2 AI (0.0-0.9); RNP Ab 0.5 AI (0.0-0.9); SJOGREN'S Anti-SS-A test < 0.2 AI (0.0-0.9); SJOGREN'S Anti-SS-B test < 0.2 AI (0.0-0.9); Smith Ab <0.2 AI (0.0-0.9)
[2022-01-15 19:37] LABS: Anti-Mitochondrial AB <20.0 Units (0.0-20.0); Anti-dsDNA Ab 1 IU/mL (0-9)
[2022-01-16 00:07] LABS: Angiotensin Convert Enzyme 48 U/L (14-82); Ceruloplasmin 30.5 mg/dL (19.0-39.0); Cytoplasmic Ab (C-ANCA) <1:20 titer (Neg:<1:20); HEPATITIS B SURFACE AG Negative (Negative); Hep C Antibodies <0.1 s/co ratio (0.0-0.9); Hepatitis A IgM Antibody Negative (Negative); Hepatitis B Core AB IgM Negative (Negative)
[2022-01-17 14:42] LABS: Anti-Smooth Muscle ABS 21 Units (0-19); Copper, Serum or Plasma 136 ug/dL (80-158); Haptoglobin 89 mg/dL (42-346); Perinuclear Ab (P-ANCA) <1:20 titer (Neg:<1:20)
== END | disposition home or self-care (01) ==
LOC: LAB 09:48
PROVIDERS: PCP Internal Medicine; Visit Provider Nurse Practitioner Adult Health
DX: R16.2 Hepatomegaly with splenomegaly, not elsewhere classified (principal); D64.9 Anemia, unspecified; L02.416 Cutaneous abscess of left lower limb
CPT/HCPCS: 36415; 80053; 80074; 82140; 82164; 82390; 82525; 82728; 83010; 83516; 83540; 83550; 83615; 85025; 85610; 85652; 86140; 86225; 86235; 86256; 86703

== ENCOUNTER → 2022-01-28 | Outpatient (CLI) | payer MEDICARE, SELFPAY ==
--- NOTE | 2022-01-28 09:30 | US_ITS ---
STUDY: ABDOMINAL ULTRASOUND - ELASTOGRAPHY REASON FOR VISIT: Female, 76 years old. Hepatosplenomegaly. TECHNIQUE: Liver stiffness measurements were obtained on a [employer] RS 85 ultrasound machine using a CA 1-7 probe following the SRU guidelines. 3 measurements were obtained using a 2-D-SWE method. The IQR/M was 18 % suggesting a quality data set. TECHNICAL QUALITY: Adequate. COMPARISON: Comparison is made with prior study done earlier today. FINDINGS: Liver: Hepatosplenomegaly. Fatty infiltration of the liver. Median liver stiffness measured 9.3 kPa. US/Elastography Parenchyma/Organ IMPRESSION: Liver stiffness measures 9.3 kPa compatible with F2-F3 (Mild to moderate liver fibrosis) Metavir score. Electronically Signed: Kevin Jack MD at 12:19 EST ,
--- NOTE | 2022-01-28 09:30 | US_ITS ---
STUDY: ABDOMINAL ULTRASOUND REASON FOR EXAM: Female, 76 years old. Elastography, HSM on CT -- complete to eval HSM. Hepatomegaly and splenomegaly. TECHNIQUE: Transabdominal ultrasound was performed with real-time and static johns scale imaging. TECHNICAL QUALITY: Adequate. COMPARISON: None. FINDINGS: Liver: The liver is enlarged and measures 18.4 cm. There is increased echogenicity consistent with fatty infiltration. The bile ducts are within normal limits. There is hepatic color flow. The direction of portal flow is hepatopetal. There is no demonstrated mass lesion. Calcified hepatic granulomas. Gallbladder: The patient is status post cholecystectomy. Common Bile Duct (C.B.D.): The common bile duct measures 4.7 mm. Pancreas: Normal size of the head, body of the pancreas. The tail portion is obscured due to overlying bowel gas. There is increased echogenicity of the pancreas. There is no demonstrated pancreatic mass or cyst. Spleen: There is splenomegaly. The spleen measures 12.7 cm x 12.1 cm x 5.4 cm. Calcified splenic granulomas. Right Kidney: Normal size of the right kidney. The right kidney measures 12.7 cm x 7.3 cm x 4.7 cm. Normal renal cortex. The right cortex measures 1.2 cm. 2 cysts are seen in the right kidney. The larger cyst measures 2.85 x 2.5 times 2 x 2 0.3 cm the There is no right hydronephrosis. Left Kidney: Normal size of the left kidney. The left kidney measures 10.7 cm x 3.97 x 4.6 cm. Normal renal cortex. The left cortex measures 1.0 cm. 2 cysts are seen. The largest cyst measures 1.5 cm x 1.3 cm x 1.1 cm. There is no left hydronephrosis. Aorta: Unremarkable. I.V.C.: The IVC is patent. There is no ascites. US/Abdomen Complete IMPRESSION: Hepatosplenomegaly. Fatty infiltration of the liver. Small bilateral renal cysts. Electronically Signed: Kevin Jack MD at 12:13 EST ,
== END | disposition home or self-care (01) ==
LOC: US 09:29
PROVIDERS: PCP Internal Medicine; Referring Provider Nurse Practitioner Adult Health; Visit Provider Nurse Practitioner Adult Health
DX: R16.2 Hepatomegaly with splenomegaly, not elsewhere classified (principal)
CPT/HCPCS: 76700; 76981

== ENCOUNTER → 2023-07-12 | Outpatient (CLI) | payer MEDICARE, SELFPAY ==
--- NOTE | 2023-07-12 08:36 | US_ITS ---
STUDY: ABDOMINAL ULTRASOUND - RIGHT UPPER QUADRANT; ELASTOGRAPHY REASON FOR VISIT: Female, 77 years old. NAFLD TECHNIQUE: Ultrasound evaluation of the right upper quadrant was performed with real-time and static johns-scale imaging. Point quantification shear wave elastography was performed ([place]). TECHNICAL QUALITY: Adequate. COMPARISON: Comparison is made with prior study dated January 28, 2022. FINDINGS: Liver: The liver is enlarged and measures 19.1 cm. There is increased echogenicity consistent with fatty infiltration. The bile ducts are within normal limits. There is hepatic color flow. The direction of portal flow is hepatopetal. There is no demonstrated mass lesion. Median liver stiffness measured 7.2 kPa. Gallbladder: The patient is status post cholecystectomy. Common Bile Duct (C.B.D.): The common bile duct is mildly dilated and measures 7.0 mm. Pancreas: The pancreas is not visualized due to overlying bowel gas. Right Kidney: Normal size of the right kidney. The right kidney measures 12.4 cm x 6.7 cm x 5.4 cm. Normal renal cortex. The right cortex measures 1.8 cm. There is a 2.7 cm x 2.2 cm x 2.6 cm right renal cyst along its medial aspect. There is no right hydronephrosis. US/ABD Limited w/ Elastography IMPRESSION: 1. Liver stiffness measures 7.2 kPa compatible with F2-F3 (Mild to moderate liver fibrosis) Metavir score. Electronically Signed: Kevin Jack MD at 10:07 EDT ,
== END | disposition home or self-care (01) ==
PROVIDERS: PCP Internal Medicine; Referring Provider Internal Medicine Gastroenterology; Visit Provider Internal Medicine Gastroenterology
DX: K76.0 Fatty (change of) liver, not elsewhere classified (principal)
CPT/HCPCS: 76705; 76981

== ENCOUNTER → 2024-06-25 | Outpatient (CLI) | payer MEDICARE, SELFPAY ==
--- NOTE | 2024-06-25 08:39 | US_ITS ---
PROCEDURE: ABD LIMITED W/ ELASTOGRAPHY, 06/25/2024 REASON FOR EXAM: NAFLD COMPARISON: 07/12/2023 TECHNIQUE: Grayscale and color Doppler imaging of the right upper quadrant was performed. Elastography was performed for non-invasive assessment of liver tissue stiffness utilizing a Navut S-shear wave imaging unit. FINDINGS: Exam limited by shadowing bowel gas. Liver: Echogenic. 18.0 cm in length. Gallbladder: Cholecystectomy. Biliary tree: Unremarkable. CBD measures 5 mm. Pancreas: Partially obscured by shadowing bowel gas, grossly unremarkable as visualized. Right kidney: 2.6 x 2.6 x 2.0 cm cyst. 12.5 cm in length. Other: No visualized free fluid. Hepatic elastography: Number of measurements: 15 measurements across 3 regions, 5 measurements per region. US probe: CA1-7A. EQI median: 10.1 kPa EQI median velocity: 1.82 m/s IQR/Med: 19.2-24.7% (kPa) and 9.0-10.6 % (m/s). If the IQR/Med is IQR/median >30% (for kPa) or >15% in m/s, the variance in the measurements is a large and the accuracy of the measurement may be in question. US/ABD Limited w/ Elastography IMPRESSION: 1. Appearance of the hepatic parenchyma most commonly associated with hepatic s teatosis. Correlate with clinical and laboratory evidence of chronic liver disease. 2. Liver stiffness is 10.1 kPa. Per the below 2020 SRU criteria, this is sugges tive of compensated advanced chronic liver disease but requires further testing for confirmation. 3. Additional description as above. Assessment is per the Update to the SRU Liver Elastography Consensus Statement (2020) Note that the above assessment of liver fibrosis is vendor-neutral and intended for use in fibrosis related to viral etiologies and non-alcoholic fatty-liver disease (NAFLD); in causes other than viral hepat itis and NAFLD, the cutoff values are currently not well established. In some patients with NAFLD, the cutoff values for cACLD may be lower (7-9 kPa). Note also that in the setting of elevated LFTs, nonfasting or vascular congestion, the stage of lifer fibrosis may be overestimated. Previous SRU reference values: <1.37 m/s (5.7kPa): No to mild fibrosis 1.37 m/s - 2.2 m/s: Moderate to severe fibrosis >2.2 m/s (15kPa): Significant fibrosis / cirrhosis Reading Location: [id number]
== END | disposition home or self-care (01) ==
PROVIDERS: PCP Internal Medicine; Referring Provider Internal Medicine Gastroenterology; Visit Provider Internal Medicine Gastroenterology
DX: K76.0 Fatty (change of) liver, not elsewhere classified (principal)
CPT/HCPCS: 76705; 76981

== ENCOUNTER → 2025-01-01 | Outpatient (CLI) | payer MEDICARE, SELFPAY ==
[2025-01-01 09:34] LABS: Hematocrit 33.7 % (37-47); Hemoglobin 11.2 g/dL (12.0-15.0); Immature Granulocytes Count 0.060 X10^3/uL (0.0-0.0); Mean Corp Hgb Conc 33.2 g/dL (32-36); Mean Corpuscular Volume 86.6 fL (81-99); Mean Platelet Vol. 8.9 fl (6.2-12.0); NRBC Flagged by Analyzer 0 % (0-5); Platelet Count 199 K/mm3 (150-450); RBC Distribution Width CV 15.2 % (11.6-14.6); RBC Distribution Width SD 47.8 fl (35.1-43.9); Red Blood Count 3.89 M/mm3 (4.2-5.4); White Blood Count 7.2 K/mm3 (4.4-11.0)
[2025-01-01 10:05] LABS: AST(SGOT) 15 U/L (<=31); Alanine Aminotransfer ALT/SGPT 8 U/L (<=34); Albumin, Serum 4.2 g/dL (3.4-4.8); Alkaline Phosphatase 99 U/L (35-104); Anion Gap 13 (5-15); BUN 33 mg/dL (4-19); BUN/Creat Ratio 34.0 RATIO (10-20); Calcium,Total 8.8 mg/dL (7.6-11.0); Carbon Dioxide 22.6 mmol/L (21.0-32.0); Chloride 107 mmol/L (98-108); Ferritin 454 ng/mL (22-378); Globulin 3.1 g/dL (2.2-4.2); Glucose 176 mg/dL (70-99); Potassium 3.5 mmol/L (3.3-5.1)
[2025-01-01 10:26] LABS: CRP 4.27 mg/L (0.0-3.0); LDH 209 U/L (84-246)
== END | disposition home or self-care (01) ==
LOC: LAB 09:05
PROVIDERS: Referring Provider Internal Medicine Gastroenterology; Visit Provider Internal Medicine Gastroenterology
DX: D50.9 Iron deficiency anemia, unspecified (principal); K76.0 Fatty (change of) liver, not elsewhere classified; D64.9 Anemia, unspecified
CPT/HCPCS: 36415; 80053; 82728; 82784; 82785; 83615; 84165; 85025; 85652; 86037; 86140; 86334